=== PATIENT | female | born 1950 | race Caucasian/White ===

== ENCOUNTER 2024-05-12 20:23 | Inpatient (IN) | payer MEDICARE, SELFPAY ==
[2024-05-12] VITALS (9 sets, daily range): BP systolic 181–230; BP diastolic 61–81; BMI 29.7; BMI 28.8
[2024-05-12 14:56] LABS: % Basophils 0.9 % (0-2); % Immature Granulocytes 0.2 % (0-0.5); % Lymphocytes 16.9 % (20.5-51.1); % Monocytes 8.1 % (1.7-9.3); % Neutrophils 71.9 % (42.2-75.2); Absolute Basophils 0.1 10^3/uL (0-0.2); Absolute Eosinophils 0.2 10^3/uL (0-0.7); Absolute Lymphocytes 1.4 10^3/uL (1.2-3.4); Absolute Monocytes 0.7 10^3/uL (0.1-0.6); Absolute Neutrophils 5.9 10^3/uL (1.4-6.5); Hematocrit 29.1 % (37.0-47.0); Hemoglobin 9.2 g/dL (12.0-16.0); Mean Corp Hgb Conc. 31.6 g/dL (33.0-37.0); Mean Corpuscular Hgb 29.1 pg (27.0-31.0); Mean Corpuscular Volume 92.1 fL (81.0-99.0); Mean Platelet Volume 10.2 fL (7.4-10.4); Nucleated Red Blood Cells % 0 %; Platelet Count 323 10^3/uL (130-400); Red Blood Cell Count 3.16 10^6/uL (4.20-5.40); Red Cell Dist. Width 16.4 % (11.5-14.5); White Blood Cell Count 8.2 10^3/uL (4.8-10.8)
[2024-05-12 15:05] LABS: INR 1.32; PT 16.7 Sec (11.4-14.6)
[2024-05-12 15:17] LABS: Urine Albumin 3+ (Neg - Trace); Urine Bilirubin Negative (Negative); Urine Character Slightly Cloudy (Clear); Urine Color Yellow; Urine Glucose Negative (Negative); Urine Ketone Negative (Negative); Urine Leukocyte 1+ (Negative); Urine Nitrite Negative (Negative); Urine Occult Blood Negative (Negative); Urine Urobilinogen Negative (Neg - 1+)
[2024-05-12 15:20] LABS: ALT (SGPT) 12 U/L (0-35); AST (SGOT) 20 U/L (14-36); Albumin 3.3 g/dl (3.5-5.0); Alkaline Phosphatase 95 U/L (38-126); Blood Urea Nitrogen 23 mg/dl (7-17); Calcium 8.6 mg/dl (8.4-10.2); Carbon Dioxide 28 mmol/L (22-30); Chloride 108 mmol/L (98-107); Glucose 214 mg/dl (70-99); Lipase 86 U/L (23-300); Potassium 3.5 mmol/L (3.5-5.1); Sodium 143 mmol/L (135-145); Total Bilirubin 0.5 mg/dl (0.2-1.3); Total Protein 5.8 g/dl (6.3-8.2); eGFR 43.69
[2024-05-12 15:23] LABS: Troponin I 0.017 ng/ml
[2024-05-12 15:41] LABS: Urine Bacteria Few (Negative); Urine Red Blood Cell 0-2 /HPF (0-2); Urine Squamous Cell >30 /LPF (Few)
--- NOTE | 2024-05-12 18:48 | ED.GENMED ---
History of Present Illness
General
Chief Complaint: Chest Pain
Source: patient and spouse
Exam Limitations: none
Time Seen by Provider: 05/12/24 18:47
History of Present Illness
History of Present Illness:
73-year-old female with episodes of palpitations last evening and today. In addition episodes of chest pressure last evening and an episode recurring today. Today's episode was about 30 minutes and resolved with nitroglycerin. Patient had a
cardiac stenting done 2 months ago at [facility] and this was followed by complicated UTI. She denies current symptoms denying chest pain shortness of breath or other complaints
Past History
Past History
ED Past Medical History: HTN, Hypercholesterolemia, IDDM and Other (Anemia, Neuropathy, Fractures left foot)
ED Past Surgical History: Cardiac (Stents), Cholecystectomy, Orthopedic (Right hand surgery, Tennis elbow surgery) and Other (Endarterectomy, Bowel stents)
Social History
Tobacco: Former smoker
Alcohol: None
Personal:
Living: with family
Review of Systems
Review of Systems
All Other Systems: Not applicable
Constitutional: Denies fever
Respiratory: Denies cough
Cardiac: Denies syncope
Phy Exam
Physical Exam
Physical Exam:
GENERAL: Alert and oriented in no apparent distress
EYE: Orbits normal.
NECK: Supple, no significant adenopathy.
ENT: Pharynx without erythema
CARDIAC: Regular rate and rhythm without any obvious murmurs.
LUNGS: No respiratory distress however crackles in both bases. At times hypoxic with a good Plath
ABDOMEN: Soft, without focal tenderness or distention
NEUROLOGICAL: Alert and oriented , grossly non-focal
SKIN: Warm and dry, no rash or lesion, no discoloration, skin intact.
MUSCULOSKELETAL: No edema,no deformity.Good color
PSYCH: Normal and appropriate interaction.
Scores
Heart Score for Chest Pain Patients
STEMI patient?: No
History: Moderately Suspicious
ECG: Nonspecific Repolarization
Age: >/= 65 years
Risk Factors: >/= 3 Risk Factors or History of CAD
Troponin: </= Normal Limit
Heart Score for Chest Pain Patients: 6
Heart Score Risk: 20.3% MACE over next 6 weeks
Course
Orders/Labs/Results
Orders:
Orders
05/12/24 14:39
Electrocardiogram (*1) Urgent
Reason for Study: Chest Pain
EKG- Treatment ONCE
CR Chest - 2 Views Urgent
Comment:
Reason For Exam: respiratory distress
05/12/24 14:44
Complete Blood Count/With Diff Urgent
Comprehensive Metabolic Panel Urgent
Lipase Urgent
Prothrombin Time Urgent
Troponin I Stat
Urinalysis Reflex To Culture Urgent
Date Specimen was Collected: 05/12/24
Time Specimen was Collected: 14:39
Urine Microscopic Reflex Cult Urgent
Urine Culture Urgent
TARAH Source: U
Specimen Description:
Date Specimen was Collected: 05/12/24
Time Specimen was Collected: 14:39
Abnormal Lab Results
05/12/24
14:44
RBC 3.16 L 10^6/uL
(4.20-5.40)
Hgb 9.2 L g/dL
(12.0-16.0)
Hct 29.1 L %
(37.0-47.0)
MCHC 31.6 L g/dL
(33.0-37.0)
RDW 16.4 H %
(11.5-14.5)
Absolute Monos (auto) 0.7 H 10^3/uL
(0.1-0.6)
Lymphocytes % 16.9 L %
(20.5-51.1)
PT 16.7 H Sec
(11.4-14.6)
Chloride 108 H mmol/L
(98-107)
BUN 23 H mg/dl
(7-17)
Creatinine 1.3 H mg/dL
(0.6-1.0)
Glucose 214 H mg/dl
(70-99)
Total Protein 5.8 L g/dl
(6.3-8.2)
Albumin 3.3 L g/dl
(3.5-5.0)
Leukocyte Esterase Rfl 1+ A
(Negative)
Urine WBC (Reflex) 11-15 A /HPF
(0-5)
Urine Bacteria (Reflex) Few A
(Negative)
Urine Albumin (Reflex) 3+ A
(Neg - Trace)
05/12/24 14:44
05/12/24 14:44
Vital Signs
Initial and Last Documented VS:
Initial Vital Signs
Temp Pulse Resp BP Pulse Ox
98.8 F 88 16 181/70 93
05/12/24 14:41 05/12/24 14:41 05/12/24 14:41 05/12/24 14:41 05/12/24 14:41
Last Documented Vital Signs
Temp Pulse Resp BP Pulse Ox
98.1 F 92 19 219/70 88
05/12/24 18:43 05/12/24 18:41 05/12/24 18:41 05/12/24 18:40 05/12/24 18:41
MDM/Problems Addressed
Differential Diagnosis Includes:
Not concerned about palpitation episodes. This may have been some PAF. However recurrent episodes of chest tightness are concerning with recent stents. Pulse oxes borderline at times although suspect her lung changes are not new. She is not
describing acute infectious issues or acute CHF. Warrants inpatient cardiac workup
*Radiology
Radiology exam reviewed: radiology read reviewed (Small pleural effusions. Atelectasis or pneumonia)
*Pulse Oximetry
Patient hypoxic: no
*EKG
Interpreted by ED Provider?: Yes
Interpretation: abnormal
Comparison EKG: changes noted
Heart Rate: 93
Rate: normal
Rhythm: sinus
Merriman: normal axis
Interval: long QT
QRS Pattern: normal QRS
Ischemia: non-specific ST changes
*Critical Care Note
Total Time (30-74mins, 75-104mins- exclusive of procedures): Not Applicable
ED Attending Note
-
Portions of this chart may have been created with voice recognition software.� Occasional wrong word or��sound alike� substitutions may have occurred due to the inherent limitations of voice recognition software.
Discharge Plan
Departure
Prescriptions:
No Action
clonidine HCl 0.1 mg Tablet
0.1 mg PO DAILY PRN (Reason: SBP>180)
Rx Instructions:
pt checks her BP up to 10x per day and if SBP>180 she can take one dose
amlodipine 2.5 mg Tablet
2.5 mg PO HS
chlorthalidone 25 mg Tablet
25 mg PO HS
amlodipine 5 mg Tablet
5 mg PO DAILY
omeprazole 40 mg Capsule,Delayed Release(Dr/Ec)
40 mg PO DAILY
levothyroxine [Synthroid] 88 mcg Tablet
88 mcg PO DAILY AT 0700
timolol 0.5 % Drops
1 drp BOTH EYES HS
Rx Instructions:
each eye
aspirin 81 mg Tablet
81 mg PO DAILY
nebivolol [Bystolic] 10 mg Tablet
10 mg PO DAILY
cholecalciferol (vitamin D3) [Vitamin D3] 50 mcg (2,000 unit) Capsule
2,000 unit PO DAILY
Eliquis 2.5 mg Tablet
2.5 mg PO BID
Otezla 30 mg Tablet
30 mg PO BID
Repatha Syringe 140 mg/mL Syringe
140 mg SC Q2W
Lokelma 10 gram Powder In Packet
10 g PO MOWEFR
losartan 100 mg tablet
100 mg PO HS
Rx Instructions:
dose has varied due to hyperkalemia
rosuvastatin 5 mg tablet
5 mg PO QPM
Humulin R Regular U-100 Insuln 100 unit/mL solution
0 sliding scale dose SC PRN PRN (Reason: diab)
Rx Instructions:
patient own insulin pump
(DME) insulin pump cart,20 units/day Cartridge
SC
Patient Comments:
Medtronic 780G insulin pump with REGULAR insulin, Quick Set with Guardian sensor
Rx Instructions:
24 hour basal insulin 18.7
Active insulin 2 hours
cefdinir 300 mg capsule
300 mg PO Q12H 3 Days Qty: 6 0RF
azithromycin 500 mg tablet
500 mg PO DAILY 3 Days Qty: 3 0RF
Interventions
Interventions:
*Risk Screen - Suicide Last Done: 05/12/24 14:41
*General Assessment Last Done: 05/12/24 18:45
*Neglect/Abuse Screening Last Done: 05/12/24 14:41
*ED- Fall Risk Assessment Last Done: 05/12/24 18:46
*ED COVID-19 Vaccine History Last Done: 05/12/24 18:46
Discharge Date and Time
Print Language: SPANISH
--- NOTE | 2024-05-12 19:24 | EDRN ---
Pt says this is her 4th hospital visit since February. First time she had a GIB, second visit she had cp and sob and was admitted. Pt says she had a CA the following day and had 2 stents placed. Pt had a snow for 12 days, got a uti and was on 3
different abx that did not help. Pt ended up back in [facility] where her blood sugars were in the 700's which pt has never experienced previously. While there, pt says she fell out of bed, hit her head and was told she had a stroke. Pt was in
[facility] for 2 weeks. Last night, pt noted heart palpitations, chest heaviness and 'a little' sob. Pt says she did not have cp. Pt noted same symptoms today and called her who was in the grocery store. He came home and called 911.
Pt reports 'I just didn't feel right.' Pt was told by medic she was in afib which is new for pt. While en route to [facility], pt says she was told she went in and out of afib. 'I never knew what it felt like but now I do.' Pt feels if she moves
around 'it aggravates it.' Pt has chronic swelling in bilateral LE which is no worse than usual. Pt also has chronic nausea and dizziness. 'I feel fine now.' Pt denies cp, sob (now), abd pain, vomiting, fever/chills/cough, urinary symptoms,
weakness.
--- NOTE | 2024-05-12 20:03 | HPS.HSE ---
Family Physician
-
Family Physician: Wei Hall
Chief Complaint
-
Palpitations, SOB
History of Present Illness
Patient is a 73y F with PMH significant for ASCVD, hypertension and DM-I who presents to ED complaining of palpitations and SOB since last PM. Patient is typically followed at [facility] where she has been hospitalized multiple times
since February. She had a diverticular bleed in February. In March she had a NSTEMI and underwent PTCA with placement of 2 stents. That admission was complicated by development of CAUTI. Patient had a subsequent admission for diabetic emergency
with glucose values > 700 (? DKA). She reportedly also suffered a stroke during that admission. She was discharged from that hospital stay on 04/21.
Patient states that she has had lightheadedness, dizziness, persistent nausea and poor appetite since that time.
Last PM she noted racing heartbeat sensation in her chest. She had some associated SOB which she states was 'mild'. She describes a 'sensation' in the middle of her chest - but denies chest pain, pressure, etc.
Her symptoms resolved and she was able to go to sleep. Today after lunch her symptoms recurred and EMS was called.
Patient states that EMS appreciated A-Fib on initial EKG - there is no record of this tracing and it reportedly resolved spontaneously.
At the time of my examination, patient is resting comfortably in the ED with no active symptoms.
Patient has LE swelling which she states is new for her. She was previously on torsemide 20mg BID which was stopped at some point in the past few months during her hospital stays.
Medical History
Past Medical History
Past Medical History: Reports Other
Additional Past Medical History:
ASCVD (CAD, CVA, Carotid Disease)
Hypertension
DM-I
CKD III
Chronic Anemia
Diverticular Disease
Hypothyroidism
Past Surgical History: Reports Other
Additional Past Surgical History:
PTCA with Stent (March 2024)
Bilateral CEA
Left Thyroidectomy
Cholecystectomy
Appendectomy
Left Knee Surgery (Benign Tumor)
Bilateral Hand Surgeries
Social History
Tobacco: Former Smoker (Quit smoking 10 years ago. > 40 pack years total use.)
Alcohol: None
Drug: None
Personal:
Living: With Family
Family History
Family History: Other (Father: Throat Cancer)
Allergies / Home Medications
Allergies reflects when Allergies were last updated in [employer].
Home Medications with original date entered in [employer]
Allergy/Medication List:
Allergies
Allergy/AdvReac Type Severity Reaction Status Date / Time
No Known Allergies Allergy Verified 05/12/24 14:38
Home Medications
apremilast 30 mg tablet (Otezla) 30 mg PO DAILY pustulous psoriasis 01/16/23
cholecalciferol (vitamin D3) 50 mcg (2,000 unit) capsule (Vitamin D3) 2,000 unit PO DAILY Supplement 01/16/23
clonidine HCl 0.1 mg tablet 0.1 mg PO DAILY PRN SBP>170 01/16/23
evolocumab 140 mg/mL subcutaneous syringe (Repatha Syringe) 140 mg SC Q2W High Cholesterol 01/16/23
levothyroxine 88 mcg tablet (Synthroid) 88 mcg PO DAILY AT 0700 Thyroid 01/16/23
omeprazole 40 mg capsule,delayed release 40 mg PO DAILY Gastrointestinal Issue 01/16/23
timolol 0.5 % eye drops 1 drp BOTH EYES HS glaucoma 01/16/23
insulin regular human 100 unit/mL injection solution (Humulin R Regular U-100 Insulin) 0.8 - 1 unit SC DAILY 01/17/23
apixaban 5 mg tablet (Eliquis) 5 mg PO BID 05/12/24
carvedilol 12.5 mg tablet 12.5 mg PO BID 05/12/24
hydralazine 50 mg tablet 50 mg PO TID 05/12/24
losartan 25 mg tablet 25 mg PO DAILY 05/12/24
rosuvastatin 20 mg tablet 20 mg PO QPM 05/12/24
Review of Systems
-
History Source: Patient
A 12 point ROS was completed and negative except as noted: Yes
Constitutional: Reports Fatigue; Denies Fever or Chills
EENT: Denies Sore Throat
Respiratory: Reports Trouble Breathing; Denies Cough
Cardiac: Reports Chest Pain and Palpitations; Denies Diaphoresis or Syncope
Abdomen/GI: Reports Nausea and Anorexia; Denies Abdominal Pain, Vomiting or Diarrhea
: Denies Dysuria or Frequency
Musculoskeletal: Reports Edema; Denies Joint Pain
Neurological: Reports Dizzy; Denies Headache
Psych: Denies Depression or Anxiety
Physical Exam
Vital Signs
Vital Signs
Temp Pulse Resp BP Pulse Ox
98.1 F 92 19 219/70 88
05/12/24 18:43 05/12/24 18:41 05/12/24 18:41 05/12/24 18:40 05/12/24 18:41
Physical Exam
General: Other (73y F in no acute distress.)
HEENT: Moist mucous membranes and PERRLA
Respiratory: Other (Decreased at bases and bibasilar rales about 1/2 up. No wheezes.)
Cardiac: S1/S2 and Regular Rhythm; No Murmur
GI: Soft, Non Tender, Non Distended and Normal Bowel Sounds
Musculoskeletal: No Clubbing, No Cyanosis and Other (2+ pitting edema b/l LEs.)
Neuro: AO x 3
Laboratory Results
-
05/12/24 14:44
05/12/24 14:44
Laboratory Results
PT 16.7 Sec (11.4-14.6) H 05/12/24 14:44
INR 1.32 05/12/24 14:44
Total Bilirubin 0.5 mg/dl (0.2-1.3) 04/05/25 14:44
AST 20 U/L (14-36) 05/12/24 14:44
ALT 12 U/L (0-35) 05/12/24 14:44
Alkaline Phosphatase 95 U/L (38-126) 05/12/24 14:44
Troponin I 0.017 ng/ml 05/12/24 14:44
Lipase 86 U/L (23-300) 05/12/24 14:44
Impression/Plan
-
A/P: Patient is a 73y F with PMH significant for ASCVD, HTN and DM-I who presents to ED complaining of palpitations and SOB.
Acute HF - Unknown Type
Acute Hypoxemic Respiratory Failure secondary to the above
- Admit for further evaluation and treatment.
- Patient presents with dyspnea, chest 'discomfort' and palpitations.
- CXR shows b/l effusions and rales appreciated on exam.
- b/l LE edema and patient recently taken off of torsemide 20mg BID.
- O2 saturations in the 80s on room air - improved with supplemental O2.
- BP markedly elevated c/w volume overload.
- IV Lasix BID. Add K supplementation given borderline potassium.
- Update Echo.
- Send for recent records from [facility].
- Cardiology evaluation for additional recommendations.
- Follow for clinical improvement.
ASCVD
Chest Discomfort
- Troponin is 'non-negative'. EKG with non-specific ST changes - not changed from 01/2023 tracing.
- Continue current med regimen including Eliquis, carvedilol, statin, etc.
- Follow troponin to peak.
- Obtain HR records / Cardio eval as noted above.
Palpitations
Paroxysmal Atrial Fibrillation - suspected
- Unclear etiology. Verbal report of 'A-Fib' noted on EMS strips but no confirmation of this.
- Monitor on tele overnight.
- Patient indicates that she is to see Dr. Britton for Watchman evaluation - so seemingly had confirmed A-Fib at some point...
- Continue carvedilol and Eliquis as noted above.
Hypertension
- BP significantly elevated in the ED - though reportedly not out of the ordinary for this patient.
- Continue usual home regimen.
- IV Lasix for diuresis as noted above.
- PRN clonidine for very high BP.
- Adjust regimen as needed for improved control.
DM-I
- Stable. Follow glucose. Patient to use own insulin pump which is currently in place.
- Update A1C.
CKD III
- Stable. Renal function appears at / near known baseline.
- Follow for any changes with diuresis.
Anemia of Chronic Disease
- Stable. Hgb at / near known baseline.
- Follow for any changes.
Dizziness / Nausea
- Ongoing symptoms since most recent admission at [facility].
- Had fall with head trauma during that hospital stay and also dx with CVA.
- ? persistent symptoms due to CVA (need to check location of insult with [facility] records) vs post-concussion syndrome.
- PT evaluation.
- Supportive care, antiemetics, etc.
Hypothyroidism
- Continue current T4 replacement.
DVT Prophylaxis: On Eliquis
Code Status: Full
[2024-05-12 20:10] LABS: NT-proBNP 4490 pg/ml
[2024-05-12] MEDS: LASIX 40 MG IV (20:36)
--- NOTE | 2024-05-12 20:42 | EDRN ---
Pt says hospitalist put pt on oxygen - pt denies sob. Increased O2 from 1 lpm to 2 lpm pulse ox currently 94%
--- NOTE | 2024-05-12 22:20 | PTCARENOTE ---
Received pt from ED. placed on monitor, NSR. vital signs taken. Elevated BP, will give PM meds, see MAR. Oriented to room. Call pimentel within reach.
[2024-05-12] MEDS: ELIQUIS 5 MG PO (22:49)
[2024-05-12] MEDS: COREG 12.5 MG PO (22:49)
[2024-05-12] MEDS: APRESOLINE 50 MG PO (22:50)
[2024-05-12 22:56] LABS: Glucose - Point of Care 180 mg/dl (70-99)
[2024-05-12 23:33] LABS: Troponin I 0.026 ng/ml
[2024-05-12 23:52] LABS: TSH Reflex To Free T4 1.72 uIU/ml (0.47-4.68)
[2024-05-13] VITALS (23 sets, daily range): BP systolic 95–201; BP diastolic 37–85; PULSE 82–91; O2SAT 96; BMI 28.2
[2024-05-13] MEDS: CATAPRES 0.1 MG PO (00:25)
--- NOTE | 2024-05-13 02:28 | PTCARENOTE ---
Pt continues to have elevated BP after PM meds given. BP of 201/58 and HR of 83. Licha Siddiqui NP made aware. Manual BP taken was 198/66. PRN clonidine given. BP rechecked and is 116/40. Pt resting in bed comfortably and states she just wants to
get some sleep. 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 Fall precautions maintained.
[2024-05-13 04:12] LABS: Glucose - Point of Care 137 mg/dl (70-99)
--- NOTE | 2024-05-13 04:14 | PTCARENOTE ---
Addendum entered by Sienna Huizar RN 05/13/24 05:29:
rechecked BG 219. pt stated feeling better.
Addendum entered by Sienna Huizar RN 05/13/24 04:28:
pt called a few minutes later and says she is now symptomatic. states she feels hot and sweaty and that is how she gets when she is hypoglycemic. finger stick BG was 133. pt requesting an orange juice. provided. pt states her sensor is due to be
changed tomorrow. will recheck in an hour.
Original Note:
pt called because her glucose monitor was alerting her blood sugar was low. Pts own device showed BG 45. Finger stick read 137. pt denies any symptoms. Pt asked to recheck BG in an hour.
[2024-05-13 04:24] LABS: Glucose - Point of Care 133 mg/dl (70-99)
[2024-05-13] MEDS: SYNTHROID 88 MCG PO (05:20)
[2024-05-13 05:27] LABS: Glucose - Point of Care 219 mg/dl (70-99)
[2024-05-13 05:46] LABS: Hematocrit 26.9 % (37.0-47.0); Hemoglobin 8.7 g/dL (12.0-16.0); Mean Corp Hgb Conc. 32.3 g/dL (33.0-37.0); Mean Corpuscular Hgb 29.4 pg (27.0-31.0); Mean Corpuscular Volume 90.9 fL (81.0-99.0); Mean Platelet Volume 10.1 fL (7.4-10.4); Platelet Count 304 10^3/uL (130-400); Red Blood Cell Count 2.96 10^6/uL (4.20-5.40); Red Cell Dist. Width 16.8 % (11.5-14.5); White Blood Cell Count 7.8 10^3/uL (4.8-10.8)
[2024-05-13 06:03] LABS: Blood Urea Nitrogen 21 mg/dl (7-17); Calcium 8.4 mg/dl (8.4-10.2); Carbon Dioxide 30 mmol/L (22-30); Chloride 106 mmol/L (98-107); Estimated Creatinine Clearance 37 ml/min; Glucose 213 mg/dl (70-99); HDL Cholesterol 57 mg/dl; LDL Cholesterol, Calculated -1 mg/dl; Magnesium 1.5 mg/dl (1.6-2.3); Potassium 3.8 mmol/L (3.5-5.1); Sodium 142 mmol/L (135-145); Total Cholesterol 69 mg/dl (50-199); Triglyceride 66 mg/dl (10-149); Very Low Density Lipoprotein 13 mg/dl (0-30); eGFR 43.69
--- NOTE | 2024-05-13 06:04 | PTCARENOTE ---
Orthos completed at 0245. pt stated she felt lightheaded and dizzy. positive orthos. current BP 157/61. pt denies any lightheadedness at this time. up to commode. educated to call for assistance. call pimentel within reach.
[2024-05-13 06:16] LABS: Troponin I 0.035 ng/ml
[2024-05-13 08:20] LABS: Glucose - Point of Care 162 mg/dl (70-99)
[2024-05-13] MEDS: ELIQUIS 5 MG PO ×2 (08:27→20:29)
[2024-05-13] MEDS: COREG 12.5 MG PO (08:27)
[2024-05-13] MEDS: PATIENT'S OWN INSULIN PUMP 5.6 UNITS SC (08:27)
[2024-05-13] MEDS: PROTONIX 40 MG PO (08:27)
[2024-05-13] MEDS: APRESOLINE 50 MG PO ×3 (08:27→22:13)
[2024-05-13] MEDS: COZAAR 25 MG PO (08:27)
[2024-05-13] MEDS: LASIX 40 MG IV ×2 (08:28→16:17)
[2024-05-13] MEDS: KCL ELIXIR 40 MEQ PO (08:29)
[2024-05-13 09:36] LABS: Glycohemoglobin (HgbA1c) 6.1 % (4.0-5.6)
--- NOTE | 2024-05-13 10:38 | CON.CAR ---
Consultation
Consultation Request
Date/Time Consultation Requested: 05/13/2024 7: 00
Date/Time Consultation Performed: 05/13/2024 10: 00
Requesting Provider: Tamie
Performing Provider: Ama
Reason for Consultation: chf
Medical History
-
Chief Complaint: Palpitations
History of Present Illness:
Haleigh is a history of hypertension, hypercalcemia, diabetes, CVA, atrial fibrillation, CAD status post stent of proximal circumflex and proximal first diagonal in March 2024. She had been scheduled to see our group to discuss a Watchman. She
presents with complaints of palpitations. There also was chest pain which has resolved. Reportedly an ambulance she was found to be in A-fib which spontaneously reverted to sinus rhythm. Cardiology is consulted for CHF.
Past Medical History
Past Medical History: Other (See HPI, also orthostatic hypotension/syncope, hypothyroidism, psoriasis, gallstones, glaucoma, cataract, claudication/PAD, drug-eluting stent in December 2014)
Past Surgical History: Other (Cholecystectomy, cataract extractions, Linq removal, SFA left side angioplasty)
Social History
Tobacco: Former Smoker
Alcohol: None
Drug: None
Personal:
Living: With Family
Employment: Retired
Family History
Family History: Other (No premature coronary artery disease)
Allergies / Home Medications
Allergy/AdvReac Type Severity Reaction Status Date / Time
No Known Allergies Allergy Verified 05/12/24 14:38
�Medication �Instructions �Recorded �Confirmed �Type
apremilast 30 mg tablet (Otezla) 30 mg PO DAILY pustulous psoriasis 01/16/23 05/12/24 History
cholecalciferol (vitamin D3) 50 2,000 unit PO DAILY Supplement 01/16/23 05/12/24 History
mcg (2,000 unit) capsule (Vitamin
D3)
clonidine HCl 0.1 mg tablet 0.1 mg PO DAILY PRN SBP>170 01/16/23 05/12/24 History
evolocumab 140 mg/mL subcutaneous 140 mg SC Q2W High Cholesterol 01/16/23 05/12/24 History
syringe (Repatha Syringe)
levothyroxine 88 mcg tablet 88 mcg PO DAILY AT 0700 Thyroid 01/16/23 05/12/24 History
(Synthroid)
omeprazole 40 mg capsule,delayed 40 mg PO DAILY Gastrointestinal 01/16/23 05/12/24 History
release Issue
timolol 0.5 % eye drops 1 drp BOTH EYES HS glaucoma 01/16/23 05/12/24 History
insulin regular human 100 unit/mL 0.8 - 1 unit SC DAILY 01/17/23 05/12/24 History
injection solution (Humulin R
Regular U-100 Insulin)
apixaban 5 mg tablet (Eliquis) 5 mg PO BID 05/12/24 05/12/24 History
carvedilol 12.5 mg tablet 12.5 mg PO BID 05/12/24 05/12/24 History
hydralazine 50 mg tablet 50 mg PO TID 05/12/24 05/12/24 History
losartan 25 mg tablet 25 mg PO DAILY 05/12/24 05/12/24 History
rosuvastatin 20 mg tablet 20 mg PO QPM 05/12/24 05/12/24 History
Review of Systems
-
History Source: Patient
All other systems: Negative unless noted
Constitutional: No Symptoms
EENT: No Symptoms
Respiratory: No Symptoms
Cardiac: Chest Pain and Palpitations
Abdomen/GI: No Symptoms
: No Symptoms
Musculoskeletal: No Symptoms
Skin: No Symptoms
Neurological: No Symptoms
Endocrine: No Symptoms
Hematologic/Lymphatic: No Symptoms
Physical Exam
Vital Signs
Temp Pulse Resp BP Pulse Ox
97.8 F 82 18 191/69 96
05/13/24 07:54 05/13/24 07:54 05/13/24 07:54 05/13/24 07:54 05/13/24 07:13
Lab Results
05/13/24 05:14
05/13/24 05:14
Troponin I 0.035 ng/ml H* D 05/13/24 05:14
Qgd-[id number] Pept 4490 pg/ml 05/12/24 14:44
General: Well developed, well nourished in NAD.
Neck: Supple, no JVD, HJR, carotids +2 B/L, no bruits bilaterally.
Heart: Non displaced PMI, RRR, no murmurs, No S3, S4, no rubs.
Lungs: Clear to auscultation bilaterally, no wheeze, rhonchi, rubs bilaterally,
normal expiratory phase.
Abdomen: Normal bowel sounds, soft, non-tender, non-distended.
Extremities: No clubbing, cyanosis or edema bilaterally.
Neuro: Grossly nonfocal, awake, alert and oriented x3.
Impression / Plan
-
Impression:
Acute diastolic CHF
Paroxysmal atrial fibrillation reported by EMS but spontaneously converted to sinus rhythm
Chest pain
History of CVA
History of CAD status post circumflex and diagonal stent in March 2024
Hypertension
Hyperlipidemia
Diabetes
Hypothyroidism
Psoriasis
History of PAD status post left SFA angioplasty
Echocardiogram 03/13/2024: Moderate left pleural effusion, ejection fraction 60 to 65%
Lexiscan sestamibi stress test August 2023: Normal myocardial perfusion scan
Plan:
She has evidence of CHF on examination but symptoms were more palpitations which may have been A-fib
Present time she remains in sinus rhythm
Will continue IV Lasix for CHF and check echo
If recurrent A-fib may need to consider adding antiarrhythmic therapy but will increase Coreg for now.
Data Reviewed
-
EKG: Tracing Personally Visualized and interpreted
Radiology: Report Reviewed by me
Medical Tests (Nuc Med, Echo etc): Report Reviewed by me
Labs: Labs Reviewed by me
Old Records: Reviewed
[2024-05-13 10:56] LABS: Troponin I 0.026 ng/ml
[2024-05-13] MEDS: KCL 20 MEQ PO (10:57)
--- NOTE | 2024-05-13 11:38 | W.PN.HOSP.TC ---
Today's Communication/Plan
-
IV Lasix
Increased Coreg
Wean off O2
Daily weight
BMP in AM
replace Mg
Assessment / Plan
Assessment / Plan
Physical Exam
General: Other (73y F in no acute distress.)
HEENT: Moist mucous membranes and PERRLA
Respiratory: limited, less rales, No wheezes.)
Cardiac: S1/S2
GI: Soft, Non Tender, Non Distended and Normal Bowel Sounds
Musculoskeletal: No Clubbing, No Cyanosis and less edema
Neuro: AO x 3, she follows commands, non focal
Psych: calm, no agitation.
Patient is a 73y F with PMH significant for ASCVD, HTN and DM-I who presents to ED complaining of palpitations and SOB.
Acute on chronic diastolic heart failure
She is feeling better
c/w IV Lasix BID
Add KCl
Per cardiology: Echocardiogram 03/13/2024: Moderate left pleural effusion, ejection fraction 60 to 65%. 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
# Acute Hypoxemic Respiratory Failure , now resolving
off Nasal O2 for now, /w nursing staff, will keep monitoring
# Hypomagnesemia, replaced
# CAD
History of CAD status post circumflex and diagonal stent in MarchSCVD
No chest pain
Mild troponin, Peak 0.035 then came down consistent with nonischemic myocardial injury secondary to heart failure
#Paroxysmal Atrial Fibrillation - resolved.
- Patient indicates that she is to see Dr. Britton for Watchman evaluation -
- Continue carvedilol and Eliquis
#Primary hypertension
Uncontrolled, will increase carvedilol dose
#DM-I Follow glucose. Patient to use own insulin pump which is currently in place.
- Update A1C.
#CKD IIIb
No flank pain, no hematuria
Monitor renal function while on diuretic.
#Anemia of Chronic Disease
She reports previous blood transfusions as needed
Goal to keep hemoglobin more than 8
# History of CVA
#Hypothyroidism
- Continue current treatment
# Hyperlipidemia
#Psoriasis
ok to use Otezla
# History of PAD status post left SFA angioplasty
DVT Prophylaxis: On Eliquis
Code Status: Full
Total time spent to see the patient, examine the patient, review data and lab results, discuss treatment plan with patient, nursing staff, consultants around 55 minutes
Anticipated Discharge: > 48 hours
Subjective/Interval History
-
Date of Service: May 13, 2024
No chest pain
No sob
Feels better overall
Objective Data
-
Labs:
Laboratory Results
05/13/24
05:14
WBC 7.8
Hgb 8.7 L
Hct 26.9 L
Plt Count 304
Sodium 142
Potassium 3.8
Chloride 106
Carbon Dioxide 30
BUN 21 H
Creatinine 1.3 H
Glucose 213 H
Calcium 8.4
Vital Signs:
Vital Signs
Temp Pulse Resp BP Pulse Ox
97.8 F 82 18 191/69 96
05/13/24 07:54 05/13/24 07:54 05/13/24 07:54 05/13/24 07:54 05/13/24 07:13
I&O
05/12/24 05/13/24 05/14/24
06:59 06:59 06:59
Output Total 925 / 925 300 / 300
Balance -925 / -925 -300 / -300
[2024-05-13 11:57] LABS: Glucose - Point of Care 179 mg/dl (70-99)
[2024-05-13] MEDS: PATIENT'S OWN INSULIN PUMP 7 UNITS SC (12:22)
[2024-05-13] MEDS: MAGNESIUM SULFATE 102 GRAMS IV (14:11)
[2024-05-13] MEDS: NON-FORMULARY ITEM PO (16:16)
--- NOTE | 2024-05-13 16:50 | PTCARENOTE ---
05/13/24 Received patient from previous shift in bed resting comfortably. Pt with no complaints of chest pain, palpitations or shortness of breath. Pt with +1 BLE/ankle edema. Pt on cardiac exercise specialist NSR, on 2L NC -weaned off to room air. Pt's Mag was
1.6-replaced w/Mag rider. Pt OOB chair most of day with legs elevated. Blood sugars checked and coverage given via patients insulin pump. labs to be rechecked in AM. BP has been controlled SBP 170's.
[2024-05-13 17:16] LABS: Glucose - Point of Care 216 mg/dl (70-99)
[2024-05-13] MEDS: CRESTOR 20 MG PO (17:24)
[2024-05-13] MEDS: PATIENT'S OWN INSULIN PUMP 7.35 UNITS SC (17:34)
[2024-05-13] MEDS: COREG 25 MG PO (20:29)
--- NOTE | 2024-05-13 21:15 | PTCARENOTE ---
Patient received at change of shift resting in the bed. Sinus rhythm with prolonged QT on telemetry. Oxygen saturation 94% on room air. Positive orthostatics. Patient denies feeling lightheaded or dizzy. Denies chest pain. Plan of care discussed
with patient. Call pimentel within reach. Care ongoing.
[2024-05-13 22:06] LABS: Glucose - Point of Care 173 mg/dl (70-99)
[2024-05-13] MEDS: TIMOPTIC 0.5% OPHTHALMIC SOLUTION 1 DROP BOTH EYES (22:11)
[2024-05-13] MEDS: PATIENT'S OWN INSULIN PUMP SC (22:11)
[2024-05-14] VITALS (12 sets, daily range): BP systolic 110–181; BP diastolic 36–64; PULSE 80–81; BMI 28.5
[2024-05-14 04:02] LABS: Hematocrit 26.6 % (37.0-47.0); Hemoglobin 8.5 g/dL (12.0-16.0); Mean Corpuscular Hgb 28.9 pg (27.0-31.0); Mean Corpuscular Volume 90.5 fL (81.0-99.0); Mean Platelet Volume 10.4 fL (7.4-10.4); Platelet Count 298 10^3/uL (130-400); Red Blood Cell Count 2.94 10^6/uL (4.20-5.40); Red Cell Dist. Width 16.6 % (11.5-14.5); White Blood Cell Count 7.6 10^3/uL (4.8-10.8)
[2024-05-14 04:28] LABS: Blood Urea Nitrogen 26 mg/dl (7-17); Calcium 8.8 mg/dl (8.4-10.2); Carbon Dioxide 30 mmol/L (22-30); Chloride 104 mmol/L (98-107); Estimated Creatinine Clearance 32 ml/min; Glucose 144 mg/dl (70-99); Magnesium 1.8 mg/dl (1.6-2.3); Potassium 4.1 mmol/L (3.5-5.1); Sodium 141 mmol/L (135-145)
[2024-05-14] MEDS: TYLENOL 650 MG PO (05:18)
[2024-05-14] MEDS: SYNTHROID 88 MCG PO (05:19)
[2024-05-14 08:08] LABS: Glucose - Point of Care 165 mg/dl (70-99)
[2024-05-14] MEDS: LASIX 40 MG IV (08:09)
[2024-05-14] MEDS: PROTONIX 40 MG PO (08:10)
[2024-05-14] MEDS: COREG 25 MG PO (08:10)
[2024-05-14] MEDS: NON-FORMULARY ITEM 30 MG PO (08:10)
[2024-05-14] MEDS: ELIQUIS 5 MG PO (08:10)
[2024-05-14] MEDS: APRESOLINE 50 MG PO (08:10)
[2024-05-14] MEDS: COZAAR 25 MG PO (08:10)
[2024-05-14] MEDS: KCL 20 MEQ PO (08:10)
[2024-05-14] MEDS: PATIENT'S OWN INSULIN PUMP 4.8 UNITS SC (08:14)
--- NOTE | 2024-05-14 09:17 | W.PN.CARDCBS ---
Addendum entered and electronically signed by Charles Serrato MD 05/14/24 11:38:
I saw and examined the patient.
The RECORDS AND TAPE RECORDINGS ENGINEER or PA's note was reviewed and I agree with the note.
Comment: General: Well developed, well nourished in NAD.
Neck: Supple, no JVD, HJR, carotids +2 B/L, no bruits bilaterally.
Heart: Non displaced PMI, RRR, no murmurs, No S3, S4, no rubs.
Lungs: Clear to auscultation bilaterally, no wheeze, rhonchi, rubs bilaterally,
normal expiratory phase.
Extremities: No clubbing, cyanosis or edema bilaterally.
Neuro: Grossly nonfocal, awake, alert and oriented x3.
Stable cardiology status for discharge. Creatinine has worsened slightly to 1.5. Will check repeat blood work on . If creatinine improved then start torsemide 20 mg daily. Continue to hold losartan.
Original Note:
Today's Communication / Plan
-
Hold losartan and Lasix
Repeat labs as an outpatient on Tuesday, if Cre improved then start torsemide 20 mg daily and later restart losartan
Cardiology appt for watchman eval on 05/17/24
Impression / Plan
-
PCP: Dr. Wei Hall
Card: Dr. Hammonds
Impression:
Admitted with palpitations and SOB 05/12/24
Acute HFpEF
Paroxysmal atrial fibrillation reported by EMS but spontaneously converted to sinus rhythm
no Afib on [facility] [id number]
reportedly with paroxysmal Afib during admissions to [facility] 2024
h/o CVA
acute B/L cerebellar infarcts at [facility]
Elevated Troponin
Chest pain
CAD
s/p PTCA and stent diastal RCA 2014
s/p cath with stable CAD and patent RCA stent 2016
s/p NSTEMI, PTCA and stent Diag-1, PTCA and stent prox Circ 03/11/24
Hypertension
Hyperlipidemia
Diabetes
Hypothyroidism
Psoriasis
History of PAD status post left SFA angioplasty
Lexiscan sestamibi stress test August 2023: Normal myocardial perfusion scan
Echo� 03/20/23: TTE. Normal chamber sizes. LF systolic function is normal. LVEF estimated 60-65%. Normal RV systolic function.
Echo 08/23/23: EF 60% with grade 1 diastolic dysfunction, normal RV function, no significant valvular disease is detected
Echo 03/13/2024: EF 60-65%. LV systolic function is normal.�Moderate left pleural effusion, ejection fraction 60 to 65%
Plan:
-Patient came to ER with palpitations and SOB and was admitted with paroxysmal Afib and acute HFpEF.
-Patient had admission to [facility] for NSTEMI and PCI 03/2024 and then for DKA 04/2024. Patient was previously on torsemide 20 mg BID, but this was stopped during her NSTEMI admission after she developed KELLY. Patient was then given IVFs in the setting of
DKA admission. Patient reports weight as high as 171 lbs. this week at home.
-Weight is down to 160 lbs on 05/14/24. Patient was diuresed with Lasix 40 mg IV BID.
-Cre up to 1.5 on 05/14/24. Will hold losartan and Lasix starting 05/14/24
-Patient is asking for d/c to home. Symptomatically improved. Losartan should be held upon d/c and repeat labs as an outpatient.
-Pending outpatient labs can restart losartan and consider adding back torsemide 20 mg daily.
-EF was 60% by echo 03/2024.
-Outpatient dose of Coreg increased to 25 mg BID
-Holding losartan for elevated Cre
-Patient is not chronically on SGLT2 due to having DM 1
-Patient with known paroxysmal Afib, none seen on tele this admission as reviewed by me 05/14/24, but was in Afib in the ambulance and also had Afib during her admissions to [facility] 03/2024 and 04/2024. Cont higher dose of Coreg for now.
-Patient previously had a Linq in place from 2019 until 2022 that never showed Afib
-Remains on Eliquis 5 mg BID (age 73, Cre 1.5, wt 73 kg)
-Patient is scheduled to see Dr. Iglesia Britton in the office 05/17/24 to discuss Watchman given h/o GIB and now requiring OAC due to pAfib and B/L cerebellar CVA.
-Reviewed with hospitalist attending, d/c 05/14/24 and cardiology f/u arranged
Progress Note - Television News Video Editor
Subjective
Date of Service: May 14, 2024
Supine in bed with no orthopnea, feels well and asking to go home
Objective
Labs:
05/14/24 03:17
05/14/24 03:17
Labs
Hgb 8.5 g/dL (12.0-16.0) L 05/14/24 03:17
Hct 26.6 % (37.0-47.0) L 05/14/24 03:17
Plt Count 298 10^3/uL (130-400) 05/14/24 03:17
PT 16.7 Sec (11.4-14.6) H 05/12/24 14:44
INR 1.32 05/12/24 14:44
Sodium 141 mmol/L (135-145) 05/14/24 03:17
Potassium 4.1 mmol/L (3.5-5.1) 05/14/24 03:17
BUN 26 mg/dl (7-17) H 05/14/24 03:17
Creatinine 1.5 mg/dL (0.6-1.0) H 05/14/24 03:17
Glucose 144 mg/dl (70-99) H 05/14/24 03:17
Troponins
05/12/24 05/12/24 05/13/24
14:44 22:48 05:14
Troponin I 0.017 0.026 0.035 H* D
05/13/24
10:01
Troponin I 0.026 D
Vital Signs and I&O:
Vital Signs
Temp Pulse Resp BP Pulse Ox
98.3 F 82 20 163/54 94
05/14/24 07:15 05/14/24 08:06 05/14/24 07:15 05/14/24 08:06 05/14/24 07:15
Vital Signs
Temp Pulse Resp BP Pulse Ox
98.3 F 82 20 163/54 94
05/14/24 07:15 05/14/24 08:06 05/14/24 07:15 05/14/24 08:06 05/14/24 07:15
Intake & Output
05/12/24 05/13/24 05/14/24 05/15/24
06:59 06:59 06:59 06:59
Output Total 925 / 925 1125 / 1125
Balance -925 / -925 -1125 / -1125
Physical Exam
Physical Exam
GEN: NAD. AAOx3
HEENT:MMM
LUNGS: RA. Clear anterolaterally without wheeze
CV: SR on tele. Reg
ABD: ND
EXT: Trace nonpitting B/L LE edema
NEURO: Gross non-focal
SKIN: No rash
--- NOTE | 2024-05-14 09:47 | PTCARENOTE ---
Assumed care at 0700. AOx3. NSR HR 80s on telemetry. BP elevated prior to AM meds, 173/61, 163/54. BP trending down after scheduled medications. Orthostatic BP obtained, positive tilt, patient denies feelings of lightheadedness/dizziness. Plan of
care ongoing.
[2024-05-14 11:46] LABS: Glucose - Point of Care 212 mg/dl (70-99)
[2024-05-14] MEDS: PATIENT'S OWN INSULIN PUMP 7.7 UNITS SC (11:46)
--- NOTE | 2024-05-14 13:05 | W.HF.CON ---
Heart Failure
- LV Function
Left ventricular function study result: LV Ejection fraction >/= 50%
Ejection Fraction Percentage: 60
- ARNI
Patient already on ARNI: No
Heart Failure ARNI Not Indicated: LV Ejection Fraction >/= 40%
- ACEI/ARB
Patient already on ACEI/ARB: No
Heart Failure ACEI/ARB Not Indicated: LV Ejection Fraction > 40%
- Beta Selwny
Patient already on Evidence Based Beta Selwyn: Yes
- Mineralocorticord Receptor Antagonist
Patient already on MRA: No
Heart Failure MRA Not Indicated: LV Ejection Fraction > 40%
- SGLT-2 Inhibitor
Patient already on SGLT-2 Inhibitor: No
Heart Failure SGLT-2 Inhibitor Contraindication: Type 1 Diabetes
- Afib Anticoagulation
Patient already on Anticoagulation for Afib: Yes
- NYHA CHF Classification
NYHA CHF Classification Level: Class III - Symptoms w/ min exertion, interferes w/ nml daily activity
- ACC/AHA Stage
ACC/AHA Stage: Stage C: Symptomatic Heart Failure
--- NOTE | 2024-05-14 13:46 | CM ---
spoke to pt in room, she is prev indep, lives with her husb in a split level home with no steps to enter. she has a cane and a walker to use if needed. she is current with [facility], referral faxed to resume care, pt agreeable. plan is for dc to home
today.
--- NOTE | 2024-05-15 08:44 | W.DS.TRANS ---
DC Summary - Refund Specialist
-
Discharge Instructions:
Sleep Apnea Risk Intermediate
Discharge Diagnosis/Procedures Acute CHF
Diet 2 Gram Sodium,Restrict fluids to 64 oz
Blood Work BMP on 05/16/2024
Specialty Instructions Weigh Daily
Instructions: *[facility] Heart Failure Instructions
Stand-Alone Forms:
Changes to Home Medications: No
Discharge Medications:
DC Medications w/original date entered in [employer]
apremilast 30 mg tablet (Otezla) 30 mg PO DAILY pustulous psoriasis 01/16/23
cholecalciferol (vitamin D3) 50 mcg (2,000 unit) capsule (Vitamin D3) 2,000 unit PO DAILY Supplement 01/16/23
clonidine HCl 0.1 mg tablet 0.1 mg PO DAILY PRN SBP>170 01/16/23
evolocumab 140 mg/mL subcutaneous syringe (Repatha Syringe) 140 mg SC Q2W High Cholesterol 01/16/23
levothyroxine 88 mcg tablet (Synthroid) 88 mcg PO DAILY@06 Thyroid 01/16/23
omeprazole 40 mg capsule,delayed release 40 mg PO DAILY Gastrointestinal Issue 01/16/23
timolol 0.5 % eye drops 1 drp BOTH EYES HS glaucoma 01/16/23
insulin regular human 100 unit/mL injection solution (Humulin R Regular U-100 Insulin) 0.8 - 1 unit SC DAILY Diabetes 01/17/23
apixaban 5 mg tablet (Eliquis) 5 mg PO BID Blood Clot Prevention/Tx 05/12/24
carvedilol 12.5 mg tablet 12.5 mg PO BID Heart Disease/Condition 05/12/24
hydralazine 50 mg tablet 50 mg PO TID Blood Pressure 05/12/24
losartan 25 mg tablet 25 mg PO DAILY Blood Pressure 05/12/24
rosuvastatin 20 mg tablet 20 mg PO QPM High Cholesterol 05/12/24
Home Medication Changes
Pending Results: No
== END 2024-05-14 13:13 | disposition home or self-care (01) | DRG 308 ==
LOC: IVU 20:23
PROVIDERS: Emergency Medicine; Internal Medicine; ADMITTING PHYSICIAN Hospitalist; ATTENDING PHYSICIAN Internal Medicine; CONSULT PHYSICIAN Internal Medicine Cardiovascular Disease; EMERGENCY PHYSICIAN Emergency Medicine; FAMILY PHYSICIAN Internal Medicine
DX: I48.0 Paroxysmal atrial fibrillation (principal); I50.33 Acute on chronic diastolic (congestive) heart failure; I13.0 Hypertensive heart and chronic kidney disease with heart failure and stage 1 through stage 4 chronic kidney disease, or unspecified chronic kidney disease; I25.10 Atherosclerotic heart disease of native coronary artery without angina pectoris; N18.32 Chronic kidney disease, stage 3b; E11.22 Type 2 diabetes mellitus with diabetic chronic kidney disease; I25.2 Old myocardial infarction; Z79.01 Long term (current) use of anticoagulants; Z86.73 Personal history of transient ischemic attack (TIA), and cerebral infarction without residual deficits; Z79.4 Long term (current) use of insulin; Z95.5 Presence of coronary angioplasty implant and graft; Z87.891 Personal history of nicotine dependence
CPT/HCPCS: 71046; 80048; 80053; 80061; 81003; 81015; 82962; 83036; 83690; 83735; 83880; 84443; 84484; 85025; 85027; 85610; 87086; 93005; 93306; 97162; 99285

== ENCOUNTER 2024-06-08 06:54 | Day surgery (SDC) | payer MEDICARE, SELFPAY | END 2024-06-08 09:45 | disposition home or self-care (01) | LOC: CATH 06:54 | PROVIDERS: ATTENDING PHYSICIAN Internal Medicine Cardiovascular Disease; FAMILY PHYSICIAN Internal Medicine; OTHER PHYSICIAN Internal Medicine Cardiovascular Disease | DX: I08.3 Combined rheumatic disorders of mitral, aortic and tricuspid valves (principal); I48.0 Paroxysmal atrial fibrillation; I25.10 Atherosclerotic heart disease of native coronary artery without angina pectoris; E78.5 Hyperlipidemia, unspecified; E03.9 Hypothyroidism, unspecified; I13.0 Hypertensive heart and chronic kidney disease with heart failure and stage 1 through stage 4 chronic kidney disease, or unspecified chronic kidney disease; I50.32 Chronic diastolic (congestive) heart failure; N18.30 Chronic kidney disease, stage 3 unspecified; E10.22 Type 1 diabetes mellitus with diabetic chronic kidney disease; Z79.4 Long term (current) use of insulin; Z96.41 Presence of insulin pump (external) (internal); Z86.73 Personal history of transient ischemic attack (TIA), and cerebral infarction without residual deficits; Z87.891 Personal history of nicotine dependence; Z79.82 Long term (current) use of aspirin; Z79.01 Long term (current) use of anticoagulants | CPT/HCPCS: 93312; 93320; 93325 ==

== ENCOUNTER 2024-06-21 17:37 | Observation (INO) | payer MEDICARE, SELFPAY ==
[2024-06-21] VITALS (7 sets, daily range): BP systolic 108–212; BP diastolic 54–88; BMI 25.2
[2024-06-21 11:36] LABS: % Basophils 0.6 % (0-2); % Eosinophils 1.6 % (0-6); % Immature Granulocytes 0.3 % (0-0.5); % Lymphocytes 16.6 % (20.5-51.1); % Monocytes 7.1 % (1.7-9.3); % Neutrophils 73.8 % (42.2-75.2); Absolute Basophils 0.1 10^3/uL (0-0.2); Absolute Eosinophils 0.1 10^3/uL (0-0.7); Absolute Lymphocytes 1.5 10^3/uL (1.2-3.4); Absolute Monocytes 0.6 10^3/uL (0.1-0.6); Absolute Neutrophils 6.5 10^3/uL (1.4-6.5); Hematocrit 32.4 % (37.0-47.0); Hemoglobin 10.5 g/dL (12.0-16.0); Mean Corp Hgb Conc. 32.4 g/dL (33.0-37.0); Mean Corpuscular Hgb 28.4 pg (27.0-31.0); Mean Corpuscular Volume 87.6 fL (81.0-99.0); Mean Platelet Volume 10.8 fL (7.4-10.4); Nucleated Red Blood Cells % 0 %; Platelet Count 287 10^3/uL (130-400); Red Cell Dist. Width 16.7 % (11.5-14.5); White Blood Cell Count 8.7 10^3/uL (4.8-10.8)
[2024-06-21 11:42] LABS: INR 1.27; PT 16.1 Sec (11.4-14.6)
[2024-06-21 11:43] LABS: APTT 33.2 Sec (23.4-35.0)
[2024-06-21 11:51] LABS: ALT (SGPT) 18 U/L (0-35); AST (SGOT) 32 U/L (14-36); Albumin 4.1 g/dl (3.5-5.0); Alkaline Phosphatase 72 U/L (38-126); Blood Urea Nitrogen 32 mg/dl (7-17); Calcium 9.2 mg/dl (8.4-10.2); Carbon Dioxide 25 mmol/L (22-30); Chloride 106 mmol/L (98-107); Glucose 198 mg/dl (70-99); Potassium 4.9 mmol/L (3.5-5.1); Sodium 140 mmol/L (135-145); Total Bilirubin 0.6 mg/dl (0.2-1.3); Total Protein 7.2 g/dl (6.3-8.2); eGFR 34.05
[2024-06-21 11:57] LABS: Troponin I < 0.012 ng/ml
--- NOTE | 2024-06-21 12:08 | ED.CVA ---
History of Present Illness
<Sam Fox MD - Last Filed: 06/21/24 12:53>
General
Chief Complaint: CVA/TIA Symptoms
Source: patient
Exam Limitations: none
Time Seen by Provider: 06/21/24 11:40
Nursing documentation reviewed up to this point in time: agreed with
Onset of Stroke Symptoms
Onset of symptoms known: Yes
Date of onset of symptoms: 06/21/24
Time of onset of symptoms: 10:30
History of Present Illness
History of Present Illness:
Patient diagnosed with 'mini stroke' in April 2024, currently taking Eliquis and scheduled for Watchman procedure, presents to ED secondary to sudden onset of slurred speech with difficulty verbalizing, lasting approximately 15 minutes, while she
was driving this morning. Symptoms resolved spontaneously and has not returned. Denies headache. Denies dizziness. Denies loss of sensation or weakness. Denies difficulty with ambulation. Denies difficulty with swallowing. Denies recent
illness. Denies recent change in medications or diet. Last dose of Eliquis taken this morning.
Past History
<Sam Fox MD - Last Filed: 06/21/24 12:53>
Past History
ED Past Medical History: HTN, Hypercholesterolemia, IDDM and Other (Anemia, Neuropathy, Fractures left foot)
ED Past Surgical History: Cardiac (Stents), Cholecystectomy, Orthopedic (Right hand surgery, Tennis elbow surgery) and Other (Endarterectomy, Bowel stents)
Social History
Tobacco: Former smoker
Alcohol: None
Personal:
Living: with family
Review of Systems
<Sam Fox MD - Last Filed: 06/21/24 12:53>
Review of Systems
Allergies reviewed?: Yes
All Other Systems: ROS reviewed and negative except as documented in HPI and ROS
Constitutional: Reports no symptoms; Denies fever
Respiratory: Reports no symptoms
Cardiac: Reports no symptoms
ABD/GI: Reports no symptoms
Musculoskeletal: Reports no symptoms
Skin: Reports no symptoms
Neurological: Reports other (Slurred speech)
Phy Exam
<Sam Fox MD - Last Filed: 06/21/24 12:53>
Physical Exam
Physical Exam:
Physical Exam
General: no apparent distress, not acutely ill. afebrile
Head: nc/at. eomi
Neck: supple. no meningeal signs.
Heart: s1/s2 regular rate and rhythm
Lungs: no acute respiratory distress. clear bilaterally
Abdomen: normal bowel sounds. not tender.
Neuro: alert and oriented x 3. no focal sensory/motor deficit. normal speech. normal gait
Skin: no rash
Psychiatric: well kept. interactive and cooperative
Extremities: no edema. no calf tenderness.
Course
<Sam Fox MD - Last Filed: 06/21/24 12:53>
Orders/Labs/Results
Orders:
Orders
06/21/24 11:08
Electrocardiogram (*1) Urgent
Reason for Study: Other
Other Reason for Exam: Possible Stroke
CT Head W/o Iv Contrast Urgent
Comment:
Reason For Exam: aphasia
EKG- Treatment ONCE
06/21/24 11:25
Complete Blood Count/With Diff Urgent
Comprehensive Metabolic Panel Urgent
PTT Urgent
Prothrombin Time Urgent
Troponin I Urgent
06/21/24 13:56
US Carotid [US Cerebrovascular] Urgent
Comment:
Reason For Exam: slurred speech
Abnormal Lab Results
06/21/24
11:25
RBC 3.70 L 10^6/uL
(4.20-5.40)
Hgb 10.5 L g/dL
(12.0-16.0)
Hct 32.4 L %
(37.0-47.0)
MCHC 32.4 L g/dL
(33.0-37.0)
RDW 16.7 H %
(11.5-14.5)
MPV 10.8 H fL
(7.4-10.4)
Lymphocytes % 16.6 L %
(20.5-51.1)
PT 16.1 H Sec
(11.4-14.6)
BUN 32 H mg/dl
(7-17)
Creatinine 1.6 H mg/dL
(0.6-1.0)
Glucose 198 H mg/dl
(70-99)
06/21/24 11:25
06/21/24 11:25
Vital Signs
Initial and Last Documented VS:
Initial Vital Signs
Temp Pulse Resp BP Pulse Ox
97.6 F 66 16 173/68 96
06/21/24 11:05 06/21/24 11:05 06/21/24 11:05 06/21/24 11:05 06/21/24 11:05
Last Documented Vital Signs
Temp Pulse Resp BP Pulse Ox
97.6 F 91 16 192/77 95
06/21/24 11:05 06/21/24 15:59 06/21/24 15:59 06/21/24 15:59 06/21/24 15:59
<Julieta Goodman MD - Last Filed: 06/21/24 16:33>
Orders/Labs/Results
Orders:
Orders
06/21/24 11:08
Electrocardiogram (*1) Urgent
Reason for Study: Other
Other Reason for Exam: Possible Stroke
CT Head W/o Iv Contrast Urgent
Comment:
Reason For Exam: aphasia
EKG- Treatment ONCE
06/21/24 11:25
Complete Blood Count/With Diff Urgent
Comprehensive Metabolic Panel Urgent
PTT Urgent
Prothrombin Time Urgent
Troponin I Urgent
06/21/24 13:56
US Carotid [US Cerebrovascular] Urgent
Comment:
Reason For Exam: slurred speech
Abnormal Lab Results
06/21/24
11:25
RBC 3.70 L 10^6/uL
(4.20-5.40)
Hgb 10.5 L g/dL
(12.0-16.0)
Hct 32.4 L %
(37.0-47.0)
MCHC 32.4 L g/dL
(33.0-37.0)
RDW 16.7 H %
(11.5-14.5)
MPV 10.8 H fL
(7.4-10.4)
Lymphocytes % 16.6 L %
(20.5-51.1)
PT 16.1 H Sec
(11.4-14.6)
BUN 32 H mg/dl
(7-17)
Creatinine 1.6 H mg/dL
(0.6-1.0)
Glucose 198 H mg/dl
(70-99)
06/21/24 11:25
06/21/24 11:25
Vital Signs
Initial and Last Documented VS:
Initial Vital Signs
Temp Pulse Resp BP Pulse Ox
97.6 F 66 16 173/68 96
06/21/24 11:05 06/21/24 11:05 06/21/24 11:05 06/21/24 11:05 06/21/24 11:05
Last Documented Vital Signs
Temp Pulse Resp BP Pulse Ox
97.6 F 91 16 192/77 95
06/21/24 11:05 06/21/24 15:59 06/21/24 15:59 06/21/24 15:59 06/21/24 15:59
Felicianolt;Sma Fox MD - Last Filed: 06/21/24 12:53>
MDM/Problems Addressed
MDM/Problems Addressed:
No indication for tenecteplase, as symptoms have resolved completely. In addition, patient is not eligible for tenecteplase, as she is currently on Eliquis daily.
<Julieta Goodman MD - Last Filed: 06/21/24 16:33>
*Radiology
Radiology exam reviewed: radiology read reviewed
*Pulse Oximetry
Patient hypoxic: no
*EKG
Interpreted by ED Provider?: Yes
Interpretation: abnormal
Comparison EKG: no comparison EKG present
Rate: normal
Rhythm: sinus
[place]: normal axis
Interval: normal interval
QRS Pattern: normal QRS
Ischemia: non-specific ST changes
*[employer] Canning Leader Interpretation
Rate: normal
Interpretation: normal
Rhythm: sinus
*Critical Care Note
Total Time (30-74mins, 75-104mins- exclusive of procedures): Not Applicable
Data Reviewed
Source: patient
<Julieta Goodman MD - Last Filed: 06/21/24 16:33>
Patient Management
Discussion with other providers: Hospitalist and Other (Dr. Ney Mcleod from neurology)
<Julieta Goodman MD - Last Filed: 06/21/24 16:33>
Update Note
Update Note:
Patient will be admitted for possible CVA related symptoms. Neurology did a bedside consult and recommends MRI/MRA
ED Attending Note
<Sam Fox MD - Last Filed: 06/21/24 12:53>
-
Portions of this chart may have been created with voice recognition software.� Occasional wrong word or��sound alike� substitutions may have occurred due to the inherent limitations of voice recognition software.
Discharge Plan
Departure
Patient Disposition: Admit
Date of Disposition: 06/21/24
Time of Disposition: 16:28
Presentation/result/management discussed w/ accepting MD/DO: Hospitalist
Patient with high blood pressure during this ER visit?: Yes
Condition: Good
Covid-19: Not Applicable
Discharge Problem:
TIA (transient ischemic attack)
Prescriptions:
No Action
cholecalciferol (vitamin D3) [Vitamin D3] 50 mcg (2,000 unit) Capsule
2,000 unit PO DAILY
Otezla 30 mg Tablet
30 mg PO DAILY
Repatha Syringe 140 mg/mL Syringe
140 mg SC Q2W
carvedilol 12.5 mg Tablet
12.5 mg PO BID
losartan 25 mg Tablet
25 mg PO DAILY
rosuvastatin 20 mg Tablet
20 mg PO QPM
Eliquis 5 mg Tablet
5 mg PO BID
chlorthalidone 25 mg Tablet
25 mg PO DAILY
omeprazole [Prilosec] 40 mg Capsule,Delayed Release(Dr/Ec)
40 mg PO DAILY
alprazolam 0.5 mg Tablet
0.5 mg PO HS PRN (Reason: prn)
Referrals:
Wei Hall MD [Family Provider] -
Interventions
Interventions:
*Risk Screen - Suicide Last Done: 06/21/24 11:05
*General Assessment Last Done: 06/21/24 11:05
*ED- Fall Risk Assessment Last Done: 06/21/24 11:55
*ED COVID-19 Vaccine History Last Done: 06/21/24 11:55
ED- Pulmonary Assessment Last Done: 06/21/24 11:55
ED- Neurological Assessment Last Done: 06/21/24 11:55
ED- Cardiac Assessment Last Done: 06/21/24 11:55
Discharge Date and Time
Print Language: NEPALESE
--- NOTE | 2024-06-21 17:12 | HPS.HSE ---
Family Physician
-
Family Physician: Wei Hall
Chief Complaint
-
speaking difficulty
History of Present Illness
73-year-old female past medical history of recently diagnosed atrial fibrillation on Eliquis, TIA with residual dizziness in April at which time started on Eliquis, CAD status post stents, carotid stenosis status post left carotid endarterectomy 2
years ago and right carotid endarterectomy in November, hypertension, hypercholesteremia, type I diabetes, neuropathy, anemia, chronic kidney disease, presenting with sudden onset of slurred speech with difficulty verbalizing lasting 15 minutes while
she was driving this morning. Symptoms resolved spontaneously and have not returned. No headache. No dizziness. No loss of sensation or weakness. No difficulty with ambulation. No difficulty with swallowing. No recent illness.
Patient states that she had prior left carotid CEA 2 years ago and right-sided procedure in November. Right-sided procedure was not really effective.
She was diagnosed with atrial fibrillation in early April but was not started on Eliquis at that time. She had a TIA later in April of this year before she had started Eliquis with residual dizziness with ambulation since then. She had an MRI at
that time which did showed abnormal finding unclear whether it was her stroke or not.
She is scheduled for Watchman procedure in August.
She states that her blood pressure can get high at times usually in the afternoon.
She denies smoking or alcohol use.
Medical History
Past Medical History
Past Medical History: Reports Other (recently diagnosed atrial fibrillation on Eliquis, TIA with residual dizziness in April at which time started on Eliquis, CAD status post stents, carotid stenosis status post left carotid endarterectomy 2 years
ago and right carotid endarterectomy in November, hypertension, hypercholesteremia, type I)
Past Surgical History: Reports Other (Cardiac (Stents), Cholecystectomy, Orthopedic (Right hand surgery, Tennis elbow surgery) and Other (Endarterectomy, Bowel stents))
Social History
Tobacco: Non-smoker
Alcohol: None
Drug: None
Family History
Family History: Not pertinent
Allergies / Home Medications
Allergies reflects when Allergies were last updated in [employer]
Home Medications with original date entered in [employer]
Allergy/Medication List:
Allergies
Allergy/AdvReac Type Severity Reaction Status Date / Time
No Known Allergies Allergy Verified 06/21/24 11:08
Home Medications
apremilast 30 mg tablet (Otezla) 30 mg PO DAILY pustulous psoriasis 01/16/23
cholecalciferol (vitamin D3) 50 mcg (2,000 unit) capsule (Vitamin D3) 2,000 unit PO DAILY Supplement 01/16/23
evolocumab 140 mg/mL subcutaneous syringe (Repatha Syringe) 140 mg SC Q2W High Cholesterol 01/16/23
apixaban 5 mg tablet (Eliquis) 5 mg PO BID Blood Clot Prevention/Tx 05/12/24
carvedilol 12.5 mg tablet 12.5 mg PO BID Heart Disease/Condition 05/12/24
rosuvastatin 20 mg tablet 20 mg PO QPM High Cholesterol 05/12/24
alprazolam 0.5 mg tablet 0.125 mg PO HS 06/08/24
chlorthalidone 25 mg tablet 25 mg PO DAILY 06/08/24
omeprazole 40 mg capsule,delayed release 40 mg PO DAILY 06/08/24
acetaminophen 500 mg tablet (Tylenol Extra Strength) 1,000 mg PO BID 06/21/24
brinzolamide 1 %-brimonidine 0.2 % eye drops,suspension (Simbrinza) 1 drp BOTH EYES BID 06/21/24
clonidine HCl 0.1 mg tablet 0.1 mg PO DAILYPRN PRN BLOOD PRESSURE HIGH THEN 180 06/21/24
levothyroxine 88 mcg tablet (Synthroid) 88 mcg PO DAILY 06/21/24
losartan 25 mg tablet 25 mg PO DAILY 06/21/24
nitroglycerin 0.4 mg sublingual tablet 0.4 mg sublingual [id number] PRN CHEST PAINS 06/21/24
sodium zirconium cyclosilicate 10 gram oral powder packet (Lokelma) 10 g PO MOWEFR 06/21/24
timolol 0.5 % eye drops 1 drp BOTH EYES HS 06/21/24
Review of Systems
-
History Source: Patient
A 12 point ROS was completed and negative except as noted: Yes
Constitutional: Reports No Symptoms
EENT: Reports No Symptoms
Respiratory: Reports No Symptoms
Cardiac: Reports No Symptoms
Abdomen/GI: Reports No Symptoms
: Reports No Symptoms
Musculoskeletal: Reports No Symptoms
Skin: Reports No Symptoms
Neurological: Reports See HPI
Endocrine: Reports No Symptoms
Hematologic/Lymphatic: Reports No Symptoms
Psych: Reports No Symptoms
Physical Exam
Vital Signs
Vital Signs
Temp Pulse Resp BP Pulse Ox
97.6 F 91 16 192/77 95
06/21/24 11:05 06/21/24 15:59 06/21/24 15:59 06/21/24 15:59 06/21/24 15:59
Physical Exam
General: Well Developed, Well Nourished and No Apparent Distress
HEENT: NormoCephalic, Moist mucous membranes and Atraumatic
Respiratory: Clear
Cardiac: S1/S2 and Regular Rhythm; No Murmur or Rub
GI: Soft, Non Tender, Non Distended and Normal Bowel Sounds; No Organomegaly
Rectal: Deferred by Provider
Musculoskeletal: No Clubbing, No Cyanosis and No Edema
Skin: No Rash
Neuro: Nonfocal/grossly intact
Laboratory Results
-
06/21/24 11:25
06/21/24 11:25
Laboratory Results
PT 16.1 Sec (11.4-14.6) H 06/21/24 11:25
INR 1.27 06/21/24 11:25
APTT 33.2 Sec (23.4-35.0) 06/21/24 11:25
Total Bilirubin 0.6 mg/dl (0.2-1.3) 06/21/24 11:25
AST 32 U/L (14-36) 06/21/24 11:25
ALT 18 U/L (0-35) 06/21/24 11:25
Alkaline Phosphatase 72 U/L (38-126) 06/21/24 11:25
Troponin I < 0.012 ng/ml 06/21/24 11:25
Data Reviewed
-
Lab Data: Labs Reviewed by me
Old Records: Reviewed
Impression/Plan
-
IMPRESSION:
PLAN:
# Recurrent TIA likely multifactorial due to untreated hypertension/right internal carotid stenosis and paroxysmal atrial fibrillation
-No symptoms currently
- CT head shows symmetric focal regions of decreased density within the posterior lateral aspect of both cerebellar hemispheres likely not artifact unclear etiology possibly subacute infarct versus hypertensive encephalopathy
-Carotid ultrasound shows findings consistent with greater than 70% internal carotid artery stenosis on the right, less than 50% internal carotid artery stenosis on the left
-CT angio head and neck pending
- Check MRI brain with and without contrast
- Continue Eliquis
# Hypertensive urgency
# History of essential hypertension
- Continue chlorthalidone, losartan
-Patient needs up titration of hypertensive medications as as needed clonidine would not be effective
- As needed hydralazine
Paroxysmal atrial fibrillation
- Continue Eliquis
- Scheduled for Watchman in a month
History of carotid stenosis status post left CEA, and right CEA
- May need repeat procedure for right side given greater than 70% stenosis at this time
CAD status post stents
- Continue Coreg
Hypercholesterolemia
- Continue statin
- On Repatha
Type 1 diabetes
- Continue insulin pump
Diabetic neuropathy
Chronic anemia
- Stable
Chronic kidney disease
History of hyperkalemia?
- Patient on, 3 times a week
Anxiety
- Continue alprazolam
Pustular psoriasis
- On Otezla
Hypothyroidism
- Continue levothyroxine
Full code
DVT prophylaxis�Eliquis
Diabetic diet
--- NOTE | 2024-06-21 17:45 | CON.NEURO ---
Neuro Assessment/Plan
Assessment
TIA left hemisphere given aphasia. concern for large vessel, permissive HTN to 220/110 overnight.
Afib continue Eliquis
Carotid u/s images and velocities reviewed, discussed with Dr Woodson of vascular surgery concern is for >70% stenosis right mid ICA which appears asymptomatic; patient with post op anatomy, Cre 1.6, CTA would provide better visualization than MRA,
spoke with patient who now agreeable to CTA, and Dr Woodson will see tomorrow after the surgery
will skip MRI as patient claustrophobic, just had done ~6 weeks ago at [facility]
Plan
permissive HTN to 220/110 overnight
CTA head/neck
IVF to ppx contrast nephropathy
vascular surgery consult
I believe proceeding with plans for watchman in ~2 weeks is still reasonable
Consultation
Order
Date of Consultation: 06/21/24
Requesting Provider: Sam Fox
Reason for Consult: TIA
Subjective/Objective
Subjective Data
Date of Service: June 21, 2024
from h&p:
73-year-old female past medical history of recently diagnosed atrial fibrillation on Eliquis, TIA with residual dizziness in April at which time started on Eliquis, CAD status post stents, carotid stenosis status post left carotid endarterectomy 2
years ago and right carotid endarterectomy in November, hypertension, hypercholesteremia, type I diabetes, neuropathy, anemia, chronic kidney disease, presenting with sudden onset of slurred speech with difficulty verbalizing lasting 15 minutes while
she was driving this morning. Symptoms resolved spontaneously and have not returned. No headache. No dizziness. No loss of sensation or weakness. No difficulty with ambulation. No difficulty with swallowing. No recent illness.
Patient states that she had prior left carotid CEA 2 years ago and right-sided procedure in November. Right-sided procedure was not really effective.
She was diagnosed with atrial fibrillation in early April but was not started on Eliquis at that time. She had a TIA later in April of this year before she had started Eliquis with residual dizziness with ambulation since then. She had an MRI at
that time which did showed abnormal finding unclear whether it was her stroke or not.
She is scheduled for Watchman procedure in August.
She states that her blood pressure can get high at times usually in the afternoon.
Objective Data
Vital Signs
Temp Pulse Resp BP Pulse Ox
36.4 C 91 16 192/77 95
06/21/24 11:05 06/21/24 15:59 06/21/24 15:59 06/21/24 15:59 06/21/24 15:59
Lab Results
06/21/24 11:25
06/21/24 11:25
PT 16.1 Sec (11.4-14.6) H 06/21/24 11:25
INR 1.27 06/21/24 11:25
APTT 33.2 Sec (23.4-35.0) 06/21/24 11:25
Sodium 140 mmol/L (135-145) 06/21/24 11:25
Potassium 4.9 mmol/L (3.5-5.1) 06/21/24 11:25
BUN 32 mg/dl (7-17) H 06/21/24 11:25
Glucose 198 mg/dl (70-99) H 06/21/24 11:25
Calcium 9.2 mg/dl (8.4-10.2) 06/21/24 11:25
Patient Allergies
No Known Allergies Allergy (Verified 06/21/24 11:08)
Physical Exam
-
AAOx3, speech clear, language intact
VFF, EOMI, face symmetric
full strength b/l UE/LE
sensation intact to touch/temp; severe vibratory loss in ankles
Medications
-
Active Medications
Generic Name Dose Route Start Last Admin
Trade Name Freq PRN Reason Stop Dose Admin
Sodium Chloride 1,000 mls @ 100 mls/hr 06/21/24 17:45
Nss IV 06/22/24 03:44
.Q10H ALY
Home Medications
�Medication �Instructions �Recorded
apremilast 30 mg tablet (Otezla) 30 mg PO DAILY pustulous psoriasis 01/16/23
cholecalciferol (vitamin D3) 50 2,000 unit PO DAILY Supplement 01/16/23
mcg (2,000 unit) capsule (Vitamin
D3)
evolocumab 140 mg/mL subcutaneous 140 mg SC Q2W High Cholesterol 01/16/23
syringe (Repatha Syringe)
apixaban 5 mg tablet (Eliquis) 5 mg PO BID Blood Clot 05/12/24
Prevention/Tx
carvedilol 12.5 mg tablet 12.5 mg PO BID Heart 05/12/24
Disease/Condition
rosuvastatin 20 mg tablet 20 mg PO QPM High Cholesterol 05/12/24
alprazolam 0.5 mg tablet 0.125 mg PO HS 06/08/24
chlorthalidone 25 mg tablet 25 mg PO DAILY 06/08/24
omeprazole 40 mg capsule,delayed 40 mg PO DAILY 06/08/24
release
acetaminophen 500 mg tablet 1,000 mg PO BID 06/21/24
(Tylenol Extra Strength)
brinzolamide 1 %-brimonidine 0.2 % 1 drp BOTH EYES BID 06/21/24
eye drops,suspension (Simbrinza)
clonidine HCl 0.1 mg tablet 0.1 mg PO DAILYPRN PRN BLOOD 06/21/24
PRESSURE HIGH THEN 180
levothyroxine 88 mcg tablet 88 mcg PO DAILY 06/21/24
(Synthroid)
losartan 25 mg tablet 25 mg PO DAILY 06/21/24
nitroglycerin 0.4 mg sublingual 0.4 mg sublingual [id number] PRN 06/21/24
tablet CHEST PAINS
sodium zirconium cyclosilicate 10 10 g PO MOWEFR 06/21/24
gram oral powder packet ([facility])
timolol 0.5 % eye drops 1 drp BOTH EYES HS 06/21/24
[2024-06-21] MEDS: NSS 1000 IV (18:48)
[2024-06-21 18:58] LABS: HDL Cholesterol 58 mg/dl; LDL Cholesterol, Calculated 3 mg/dl; Total Cholesterol 88 mg/dl (50-199); Triglyceride 135 mg/dl (10-149); Very Low Density Lipoprotein 27 mg/dl (0-30)
--- NOTE | 2024-06-21 19:21 | PTCARENOTE ---
Patient received into . Ambulatory to bed with stand by assistance. NSS @ 100ml/hr initiated. Admission completed. NIH 0.
[2024-06-21] MEDS: COREG 12.5 MG PO (20:33)
[2024-06-21] MEDS: APRESOLINE 5 MG IV (20:34)
[2024-06-21] MEDS: ELIQUIS 5 MG PO (20:34)
[2024-06-21] MEDS: TYLENOL 1000 MG PO (20:36)
[2024-06-21] MEDS: SIMBRINZA 1%-0.2% OPHTH SUSP 1 DROP BOTH EYES (20:37)
[2024-06-21 21:39] LABS: Glucose - Point of Care 310 mg/dl (70-99)
[2024-06-21] MEDS: CRESTOR 10 MG PO (21:40)
[2024-06-21] MEDS: NOVOLOG FLEXPEN 4 UNITS SC (21:40)
[2024-06-21] MEDS: LANTUS 0.1 UNITS SC (21:41)
[2024-06-21] MEDS: TIMOPTIC 0.5% OPHTHALMIC SOLUTION 1 DROP BOTH EYES (21:41)
[2024-06-21] MEDS: XANAX 0.125 MG PO (21:45)
--- NOTE | 2024-06-21 21:57 | PTCARENOTE ---
upon entering room the patient and her are both very anxious and pacing back and forth. They are stressed about insulin pump . I inquired about insulin pump. pt had come in with a omnipod humalog insulin pump with 8 units basal
and 1 unit per carb. The is so stressed about it because it needs to be changed and he wanted to change it before she goes down for CT scan. he stated he thinks it is now working because sugar is 314 then 341. I educated him that she just
ate and that would be in line with the difference. I did not have accuchecks ordered or orders for insulin pump. I alerted the production service manager EQUIPMENT LEAD. who orded the pump. then the and the both state they think they are going to take it off because
it is malfunctioning. at this point. i alert EQUIPMENT LEAD who now put home insulin pump on hold, family did remove it and EQUIPMENT LEAD ordered lantus and 4 units of humalog. DM educator to see pt in am.
--- NOTE | 2024-06-22 | PTCARENOTE ---
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
stating is baseline.
[2024-06-22 00:08] LABS: Glucose - Point of Care 230 mg/dl (70-99)
[2024-06-22 03:23] LABS: Glucose - Point of Care 140 mg/dl (70-99)
--- NOTE | 2024-06-22 03:42 | W.PN.UPDATE ---
Update Note
Progress Note Update
1929 RN states pt wearing insulin pump but needs orders to continue. BG 341. Insulin pump orders placed then it was deemed pump probably malfunctioning. removed pump. Will give lantus 10 units tonight and 4 units novolog. Consult DM MECHANICAL INTERN for
am.
[2024-06-22 03:45] VITALS: BP 166/66
[2024-06-22] MEDS: SYNTHROID 88 MCG PO (05:22)
[2024-06-22 06:00] VITALS: BMI 25.4
[2024-06-22 07:33] LABS: Glucose - Point of Care 94 mg/dl (70-99)
[2024-06-22 07:35] VITALS: BP 145/89
[2024-06-22] MEDS: NOVOLOG FLEXPEN-MODERATE RESISTANCE SC ×2 (07:46→13:56)
--- NOTE | 2024-06-22 07:58 | PN.DE.MGMTRT ---
Addendum entered and electronically signed by SALINA Garcia 06/22/24 14:25:
Returned after CGM sensor warmed up and is now working. Glucose reading via CGM is 271. Glucose on hospital accuchek monitor is 369.
Will administer bolus based on POC glucose obtained using hospital device. Insulin Pump has been resumed at this time.
Will give 6.39 units of a bolus per pt's pump settings.
Pump settings as follows:
basal carb ratio correction target
12am-12am 0.8 1:9 39 120
24 hour basal insulin 19.2
Active insulin 2 hours
Patient competent to manage pump at this time.
Will cont to follow if pt remains in the hospital
Original Note:
Insulin Management
- -
06/22/2024: Diabetes Consult Insulin Pump/Management
73 year old female admitted 06/21 with sudden onset of slurred speech with difficulty verbalizing lasting 15 minutes while she was driving home.
PMH: T1DM since age 23, A-Fib on Eliquis,TIA, CAD s/p stents, HTN, HCL, Carotid stenosis S/P right and Left CEA, Anemia, Neuropathy, CKD.
A1C on admission was 6.7%, Cr 1.6-->1.2, eGFR 48.09
Patient routinely sees Fina Cueto of [facility] for diabetes care. Sh recently switched fro the Medtronic 780G insulin pump to Omnipod with Dexcom G7 and NovoLog insulin.
Pt awake, alert, oriented, sitting up in bed, offers no complaints, - Kam at bedside, very supportive.
Pt states that her insulin pump was taken off on arrival to the ED and that her blood sugars have been difficult to manage this morning.
while shes been here in the hospital.
She received a dose of Lantus 10 units @ HS, FBG was 70 V and 94 POC. She was ordered AC NovoLog 5 units and received a dose before breakfast.
according to the , there was no additional insulin administered with her breakfast. Repeat glucose after breakfast was 265 POC. Pt and Hisband are requesting for her insulin pump to be resumed. Pt's has applied a new CGM Sensor which
shows a glucose level of 266.
Nurse reports that pt did not call for insulin before lunch and has already finished eating all her lunch.
Pt's has applied a new insulin POD and is awaiting her sensor to warm up so they can administer a bolus for lunch.
Will return in an hour to assist with completion of insulin pump set up and to administer a bolus dose.
Diabetes History
- -
Type of Diabetes: 1
Pre-Admission Diabetes Regimen
06/21/24
11:
Creatinine 1.6 H
Insulin Pump Settings
IP Diabetes Regimen
06/21/24 06/21/24 06/22/24
11: 21:37 00:06
Glucose 198 H
POC Glucose 310 H 230 H
06/22/24 06/22/24
03:22 07:19
Glucose
POC Glucose 140 H 94
Patient Education
[2024-06-22] MEDS: PROTONIX 40 MG PO (08:04)
[2024-06-22] MEDS: COREG 12.5 MG PO (08:04)
[2024-06-22] MEDS: VITAMIN D3 (cholecalciferol) 50 MCG PO (08:04)
[2024-06-22] MEDS: ELIQUIS 5 MG PO (08:04)
[2024-06-22] MEDS: COZAAR 25 MG PO (08:04)
[2024-06-22] MEDS: Hygroton 25 MG PO (08:04)
[2024-06-22] MEDS: TYLENOL 1000 MG PO (08:05)
[2024-06-22] MEDS: NON-FORMULARY ITEM 30 MG PO (08:08)
[2024-06-22] MEDS: SIMBRINZA 1%-0.2% OPHTH SUSP 1 DROP BOTH EYES (08:09)
--- NOTE | 2024-06-22 08:09 | CON.VAS ---
Consultation
Consultation Request
Date/Time Consultation Performed: 06/22/24 7:30
Performing Provider: Chintan
Reason for Consultation: TIA
Medical History
-
Chief Complaint: Difficulty speaking
History of Present Illness:
73-year-old female with extensive cardiovascular risk factors including CAD, PAD, carotid disease. History of prior bilateral carotid endarterectomies, right side most recently. Completed at [facility]. Denies any prior TIA stroke events.
Notes she has also had lower extremity angioplasty/stenting procedures.
Yesterday she had an episode while returning from a when in the car with her she tried to say something but what came out was gibberish. Nonsensical. Relatively short-lived and had resolved by the time she ended up getting to the
hospital. No other lateralizing symptoms. No prior or subsequent TIA/lateralizing symptoms. She is right-hand dominant.
On exam/she is awake and alert. Head is normocephalic and atraumatic. Eyes are anicteric. Neck is soft without jugular venous distention. Neurologically no focal deficits. Moves all extremities well. Feet are warm. Nonpalpable distal pedal
pulses bilaterally.
CT angiogram reviewed. Bilateral carotids are patent. Right carotid with likely moderate stenosis, but occurs in an area of tortuosity as well.
Past Medical History
Past Medical History: Other (atrial fibrillation on Eliquis, TIA with residual dizziness in April at which time started on Eliquis, CAD status post stents, carotid stenosis status post left carotid endarterectomy 2 years ago and right carotid
endarterectomy in November, hypertension, hypercholesteremia, type I)
Past Surgical History: Cardiac (stenting), Cholecystectomy, Orthopedic and Other (BL CEAs at [facility], LLE stents)
Social History
Tobacco: Non-Smoker
Alcohol: None
Drug: None
Family History
Family History: Reviewed & Not Pertinent
Allergies / Home Medications
Allergy/AdvReac Type Severity Reaction Status Date / Time
No Known Allergies Allergy Verified 06/21/24 11:08
�Medication �Instructions �Recorded �Confirmed �Type
apremilast 30 mg tablet (Otezla) 30 mg PO DAILY pustulous psoriasis 01/16/23 06/21/24 History
cholecalciferol (vitamin D3) 50 2,000 unit PO DAILY Supplement 01/16/23 06/21/24 History
mcg (2,000 unit) capsule (Vitamin
D3)
evolocumab 140 mg/mL subcutaneous 140 mg SC Q2W High Cholesterol 01/16/23 06/21/24 History
syringe (Repatha Syringe)
apixaban 5 mg tablet (Eliquis) 5 mg PO BID Blood Clot 05/12/24 06/21/24 History
Prevention/Tx
carvedilol 12.5 mg tablet 12.5 mg PO BID Heart 05/12/24 06/21/24 History
Disease/Condition
rosuvastatin 20 mg tablet 20 mg PO QPM High Cholesterol 05/12/24 06/21/24 History
alprazolam 0.5 mg tablet 0.125 mg PO HS Mental 06/08/24 06/21/24 History
Health/Anxiety
chlorthalidone 25 mg tablet 25 mg PO DAILY Fluid 06/08/24 06/21/24 History
Retention/Swelling
omeprazole 40 mg capsule,delayed 40 mg PO DAILY Gastrointestinal 06/08/24 06/21/24 History
release Issue
acetaminophen 500 mg tablet 1,000 mg PO BID Pain 06/21/24 06/21/24 History
(Tylenol Extra Strength)
brinzolamide 1 %-brimonidine 0.2 % 1 drp BOTH EYES BID Eye Condition 06/21/24 06/21/24 History
eye drops,suspension (Simbrinza)
clonidine HCl 0.1 mg tablet 0.1 mg PO DAILYPRN PRN BLOOD 06/21/24 06/21/24 History
PRESSURE HIGH THEN 180
levothyroxine 88 mcg tablet 88 mcg PO DAILY Thyroid 06/21/24 06/21/24 History
(Synthroid)
losartan 25 mg tablet 25 mg PO DAILY Blood Pressure 06/21/24 06/21/24 History
nitroglycerin 0.4 mg sublingual 0.4 mg sublingual [id number] PRN 06/21/24 06/21/24 History
tablet CHEST PAINS
sodium zirconium cyclosilicate 10 10 g PO MOWEFR Supplement 06/21/24 06/21/24 History
gram oral powder packet (Lokelma)
timolol 0.5 % eye drops 1 drp BOTH EYES HS Eye Condition 06/21/24 06/21/24 History
Review of Systems
-
History Source: Patient
All other systems: Negative unless noted
Constitutional: Reports No Symptoms
EENT: Reports No Symptoms
Respiratory: Reports No Symptoms
Cardiac: Reports No Symptoms
Abdomen/GI: Reports No Symptoms
Skin: Reports No Symptoms
Neurological: Reports No Symptoms
Physical Exam
Vital Signs
Temp Pulse Resp BP Pulse Ox
98.2 F 81 20 166/66 92
06/22/24 03:45 06/22/24 03:45 06/22/24 03:45 06/22/24 03:45 06/22/24 03:45
Lab Results
Troponin I < 0.012 ng/ml 06/21/24 11:25
Physical Exam
General: No Apparent Distress
HEENT: Normocephalic and Atraumatic
Respiratory: Non Labored Respirations
Cardiac: Negative JVD
GI: Soft, Non Tender and Non Distended
Musculoskeletal: No Clubbing and No Cyanosis
Skin: Warm
Neuro: Awake, Alert, Oriented and No Motor Deficits
Psych: Calm
Pulses: Bilateral Dorsalis Pedis: Doppler (nonpalpable)
Assessment / Plan
-
Plan/ Llikely moderate right carotid stenosis. History of bilateral CEAs. I do not think any of her symptoms are carotid driven (would be left hemispheric and her left carotid is widely patent). She does have a history of recent onset of A-fib.
Question whether this could have played a role. Agree with potential MRI, agree with neurology evaluation and follow-up. Unless neurology feels that the right carotid artery resulted in this symptom, would hold off on any revascularization.
Discussed with her she could continue to follow-up with her vascular specialist outside, but she wishes to transfer her care here. We have given her my office contact information.
Data Reviewed
-
CT Scan: Discussed with Patient
Ultrasound: Discussed with Patient
Labs: Labs Reviewed by me
[2024-06-22 08:17] LABS: % Basophils 0.7 % (0-2); % Immature Granulocytes 0.2 % (0-0.5); % Monocytes 7.3 % (1.7-9.3); % Neutrophils 73.8 % (42.2-75.2); Absolute Basophils 0.1 10^3/uL (0-0.2); Absolute Eosinophils 0.2 10^3/uL (0-0.7); Absolute Lymphocytes 1.3 10^3/uL (1.2-3.4); Absolute Monocytes 0.6 10^3/uL (0.1-0.6); Hematocrit 33.5 % (37.0-47.0); Hemoglobin 10.6 g/dL (12.0-16.0); Mean Corp Hgb Conc. 31.6 g/dL (33.0-37.0); Mean Corpuscular Hgb 27.8 pg (27.0-31.0); Mean Corpuscular Volume 87.9 fL (81.0-99.0); Mean Platelet Volume 10.6 fL (7.4-10.4); Nucleated Red Blood Cells % 0 %; Platelet Count 297 10^3/uL (130-400); Red Blood Cell Count 3.81 10^6/uL (4.20-5.40); Red Cell Dist. Width 16.9 % (11.5-14.5); White Blood Cell Count 8.1 10^3/uL (4.8-10.8)
[2024-06-22 08:47] LABS: Glycohemoglobin (HgbA1c) 6.7 % (4.0-5.6)
[2024-06-22 08:52] LABS: ALT (SGPT) 16 U/L (0-35); AST (SGOT) 25 U/L (14-36); Albumin 4.4 g/dl (3.5-5.0); Alkaline Phosphatase 77 U/L (38-126); Blood Urea Nitrogen 25 mg/dl (7-17); Calcium 9.6 mg/dl (8.4-10.2); Carbon Dioxide 23 mmol/L (22-30); Chloride 112 mmol/L (98-107); Estimated Creatinine Clearance 35 ml/min; Glucose 70 mg/dl (70-99); Potassium 4.6 mmol/L (3.5-5.1); Sodium 145 mmol/L (135-145); Total Bilirubin 0.4 mg/dl (0.2-1.3); Total Protein 7.1 g/dl (6.3-8.2); eGFR 48.09
[2024-06-22 09:34] LABS: Hepatitis C Antibody Negative (Negative)
[2024-06-22] MEDS: LOKELMA 10 GRAM PO (10:14)
[2024-06-22 10:49] LABS: Glucose - Point of Care 265 mg/dl (70-99)
[2024-06-22] MEDS: NOVOLOG FLEXPEN-MODERATE RESISTANCE 5 UNITS SC (10:51)
--- NOTE | 2024-06-22 11:12 | W.PN.HOSP.TC ---
Addendum entered and electronically signed by Aric Munguia MD 06/22/24 12:36:
Case discussed with neuro, Dr. Mcleod, over [employer] at [address] Mcleod stated, ' I think we can skip the MRI, she just had one 6 weeks ago at [facility] we know those cerebellar lesions or stroke. Blood pressure came down and she does not need
carotid intervention. I think she can just go home and stay on Eliquis for now. TIA.'
Total time spent on d/c = 33 min. This included today's physical exam, progress note, review of laboratory and diagnostic data, preparation of discharge documents and prescriptions, and discussions about the pt's hospital course and discharge plan
with the patient and other medical appliance maker involved in the patient's care.
Original Note:
Today's Communication/Plan
-
see plan
Assessment / Plan
Assessment / Plan
Gen: NAD, AAOx3.
Eyes: EOMI, PERRLA, no scleral icterus.
Neck: supple.
CV: RRR, +S1/S2, no m/r/g.
Resp: CTAB, no rales, wheezes, or rhonchi.
Abd: +BS, soft, NT, ND
Skin: No rashes.
Neuro: CN 2-12 intact, non-focal.
Psych: Normal mood and affect.
CTA head/neck: No acute vascular pathology. No M1 or M2 occlusion.
CT head: Symmetric focal regions of decreased density within the posterolateral aspect of both cerebellar hemispheres, likely not artifact, as the finding persists on repeat imaging. This is a new finding since examination January 18, 2023.
Etiology for this finding is uncertain. There is of acute to subacute infarction could be considered although unusual. Hypertensive encephalopathy could possibly result in this finding. Neoplasia would seem unlikely, but further evaluation is
suggested. As warranted, further evaluation with MRI of the brain without and with contrast should be considered. Mild atrophy. Mild to moderate leukomalacia, mainly periventricular.
Acute dysarthria:
-concern for TIA
-check MRI of the brain
-h/o B/L JAKE s/p B/L CEAs. Appreciate vascular, no indication for revascularization at this time.
-h/o PAF with prior TIA that resulted in dizziness, cont Eliquis/BB
-neuro following
-check MRI brain
DM1:
-With diabetic neuropathy
-cont insulin pump as per diabetes BREAD DOUGH MIXER
-SSI/accuchecks
Essential hypertension with hypertensive urgency:
-cont BB/Losartan/chlorthalidone
Other problems:
CAD with h/o stents: cont statin/BB
HLD: Cont statin, on Repatha
Chronic anemia: Hb stable
Anxiety: cont Xanax
Hypothyroidism:cont Levoxyl
Pustular psoriasis: on Otezla
CKD3a: with chronic hyperkalemia on Lokelma
FULL/Eliquis
Anticipated Discharge: Within 24 hours
Subjective/Interval History
-
Date of Service: June 22, 2024
No new complaints.
Objective Data
-
Labs:
Laboratory Results
06/22/24
07:13
WBC 8.1
Hgb 10.6 L
Hct 33.5 L
Plt Count 297
Sodium 145
Potassium 4.6
Chloride 112 H
Carbon Dioxide 23
BUN 25 H
Creatinine 1.2 H
Glucose 70
Calcium 9.6
Total Bilirubin 0.4
AST 25
ALT 16
Alkaline Phosphatase 77
Vital Signs:
Vital Signs
Temp Pulse Resp BP Pulse Ox
97.9 F 90 18 145/89 93
06/22/24 07:35 06/22/24 07:35 06/22/24 07:35 06/22/24 07:35 06/22/24 07:35
I&O
06/21/24 06/22/24 06/23/24
06:59 06:59 06:59
Intake Total 100 / 100
Output Total 0 / 0
Balance 100 / 100
[2024-06-22 11:45] LABS: Glucose - Point of Care 289 mg/dl (70-99)
--- NOTE | 2024-06-22 12:58 | W.DCSUMMARY ---
Discharge Summary
Discharge Data
Date of Admission: 06/21/24
Date of Discharge: 06/22/24
-
Pending Results: No
Hospital Course
Primary diagnoses:
Transient ischemic attack
Secondary diagnoses:
Type 1 diabetes mellitus
h/o bilateral carotid artery stenosis s/p bilateral carotid on endarterectomies
Paroxysmal atrial fibrillation
h/o transient ischemic attack with resulting dizziness
Essential hypertension with hypertensive urgency
Coronary artery disease with h/o stents
Hyperlipidemia
Chronic anemia
Anxiety
Hypothyroidism
Pustular psoriasis
Chronic kidney disease stage 3a
Consultants:
Neurology
Vascular surgery
Imaging:
CTA head/neck: No acute vascular pathology. No M1 or M2 occlusion.
CT head: Symmetric focal regions of decreased density within the posterolateral aspect of both cerebellar hemispheres, likely not artifact, as the finding persists on repeat imaging. This is a new finding since examination January 18, 2023.
Etiology for this finding is uncertain. There is of acute to subacute infarction could be considered although unusual. Hypertensive encephalopathy could possibly result in this finding. Neoplasia would seem unlikely, but further evaluation is
suggested. As warranted, further evaluation with MRI of the brain without and with contrast should be considered. Mild atrophy. Mild to moderate leukomalacia, mainly periventricular.
Carotid ultrasound:
1. Right carotid: Atherosclerotic carotid bulb plaque. Velocity profile consistent with likely greater than 70% internal carotid artery stenosis.
2. Left carotid: Atherosclerotic carotid bulb plaque. Velocity profile consistent with less than 50% internal carotid artery stenosis.
3. Antegrade flow bilateral vertebral arteries.
Hospital course: 73-year-old female presented with the chief complaint of dysarthria as outlined in the H&P done on admission. Her dysarthria resolved. She did have hypertensive urgency on admission that resolved. With history of bilateral
carotid artery stenosis with bilateral carotid endarterectomies the patient was seen by vascular surgery. There was no indication for vascular intervention/surgery as per vascular surgery. The case was discussed with Dr. Mcleod of neurosurgery. He
did not feel the patient needed an MRI of the brain and medically cleared the patient for discharge. She was discharged in medically stable condition
Discharge Plan
-
Patient Disposition: Home (Routine Discharge)
Discharge Diagnosis/Procedures: Transient ischemic attack
Condition: Good
Diet: Diabetic, Carb Controlled
Activity: As tolerated
Driving Restrictions: Not until seen by your Dr
Referrals:
Wei Hall MD [Family Provider] - in less than 1 week
Davide Woodson MD [Active] - 08/20/24 1:30 pm (Vascular surgery office follow-up)
Prescriptions:
Continued
cholecalciferol (vitamin D3) [Vitamin D3] 50 mcg (2,000 unit) Capsule
2,000 unit PO DAILY
Otezla 30 mg Tablet
30 mg PO DAILY
Repatha Syringe 140 mg/mL Syringe
140 mg SC Q2W
carvedilol 12.5 mg Tablet
12.5 mg PO BID
rosuvastatin 20 mg Tablet
20 mg PO QPM
Eliquis 5 mg Tablet
5 mg PO BID
chlorthalidone 25 mg Tablet
25 mg PO DAILY
omeprazole 40 mg Capsule,Delayed Release(Dr/Ec)
40 mg PO DAILY
alprazolam 0.5 mg Tablet
0.125 mg PO HS
clonidine HCl 0.1 mg Tablet
0.1 mg PO DAILYPRN PRN (Reason: BLOOD PRESSURE HIGH THEN 180)
acetaminophen [Tylenol Extra Strength] 500 mg Tablet
1,000 mg PO BID
levothyroxine [Synthroid] 88 mcg Tablet
88 mcg PO DAILY
timolol 0.5 % Drops
1 drp BOTH EYES HS
losartan 25 mg Tablet
25 mg PO DAILY
nitroglycerin 0.4 mg Tablet, Sublingual
0.4 mg SUBLINGUAL [id number] PRN (Reason: CHEST PAINS)
Simbrinza 1-0.2 % Drops,Suspension
1 drp BOTH EYES BID
Lokelma 10 gram Powder In Packet
10 g PO MOWEFR
Discharge Orders:
Discharge Patient (As Directed); Ordered 06/22/24
Ordered By: Aric Munguia
Discharge Date and Time
Print Language: GUATEMALAN
--- NOTE | 2024-06-22 13:52 | CM ---
Patient seen bedside.
IA completed.
Patient current with [facility]
Patient lives with spouse in a split level home.
ambulates with RW when outside of home.
Independent prior to admission.
[facility] form reviewed.
PCP: Rafael
Pharmacy: [facility]
Plan home with [facility].
Alin GARCIA
[2024-06-22 13:53] LABS: Glucose - Point of Care 356 mg/dl (70-99)
--- NOTE | 2024-06-22 14:49 | W.PN.NEURO.1 ---
Today's Communication / Plan
-
d/c home
Neuro Assessment/Plan
Assessment
TIA left hemisphere given aphasia. concern for large vessel, permissive HTN to 220/110 overnight.
Afib continue Eliquis
Carotid u/s images and velocities reviewed, discussed with Dr Woodson of vascular surgery concern is for >70% stenosis right mid ICA which appears asymptomatic;
CTA showing moderate stenosis with tortuosity explaining the increased velocity on ultrasound
will skip MRI as patient claustrophobic, just had done ~6 weeks ago at [facility]
Plan
outpatient vascular surgery follow up to monitor carotid stenosis
I believe proceeding with plans for watchman in ~2 weeks is still reasonable
Subjective/Objective
Subjective Data
Date of Service: June 22, 2024
no new events
blood pressure came down on it's own
Objective Data
Vital Signs
Temp Pulse Resp BP Pulse Ox
36.6 C 90 18 145/89 93
06/22/24 07:35 06/22/24 07:35 06/22/24 07:35 06/22/24 07:35 06/22/24 07:35
Lab Results
06/22/24 07:13
06/22/24 07:13
PT 16.1 Sec (11.4-14.6) H 06/21/24 11:25
INR 1.27 06/21/24 11:25
APTT 33.2 Sec (23.4-35.0) 06/21/24 11:25
Sodium 145 mmol/L (135-145) 06/22/24 07:13
Potassium 4.6 mmol/L (3.5-5.1) 06/22/24 07:13
BUN 25 mg/dl (7-17) H 06/22/24 07:13
Glucose 70 mg/dl (70-99) 06/22/24 07:13
Calcium 9.6 mg/dl (8.4-10.2) 06/22/24 07:13
LDL Cholesterol, Calc 3 mg/dl 06/21/24 18:37
Patient Allergies
No Known Allergies Allergy (Verified 06/21/24 11:08)
--- NOTE | 2024-06-22 15:07 | PTCARENOTE ---
Diabetes QUARTER FOLDER saw patient and applied new pump to d/c home with. Diabetes QUARTER FOLDER also gave pt noon insulin through home pump settings.
== END 2024-06-22 14:33 | disposition home health service (06) ==
LOC: 4 EAST ACU 17:37
PROVIDERS: ADMITTING PHYSICIAN Hospitalist; ATTENDING PHYSICIAN Internal Medicine; CONSULT PHYSICIAN Psychiatry & Neurology Clinical Neurophysiology; CONSULT PHYSICIAN Surgery Vascular Surgery; EMERGENCY PHYSICIAN Emergency Medicine; FAMILY PHYSICIAN Internal Medicine
DX: G45.9 Transient cerebral ischemic attack, unspecified (principal); Z79.01 Long term (current) use of anticoagulants; Z87.891 Personal history of nicotine dependence; Z86.73 Personal history of transient ischemic attack (TIA), and cerebral infarction without residual deficits; I48.0 Paroxysmal atrial fibrillation; I12.9 Hypertensive chronic kidney disease with stage 1 through stage 4 chronic kidney disease, or unspecified chronic kidney disease; I65.21 Occlusion and stenosis of right carotid artery; I16.0 Hypertensive urgency; Z79.899 Other long term (current) drug therapy; I25.10 Atherosclerotic heart disease of native coronary artery without angina pectoris; Z95.5 Presence of coronary angioplasty implant and graft; E78.00 Pure hypercholesterolemia, unspecified; Z79.4 Long term (current) use of insulin; E10.40 Type 1 diabetes mellitus with diabetic neuropathy, unspecified; E10.22 Type 1 diabetes mellitus with diabetic chronic kidney disease; F41.9 Anxiety disorder, unspecified; E03.9 Hypothyroidism, unspecified; Z79.890 Hormone replacement therapy; R47.1 Dysarthria and anarthria; N18.31 Chronic kidney disease, stage 3a; D63.1 Anemia in chronic kidney disease
CPT/HCPCS: 70450; 70496; 70498; 80053; 80061; 82962; 83036; 84484; 85025; 85610; 85730; 86803; 93005; 93880; 99285; G0378; Q9967

== ENCOUNTER 2024-07-03 05:52 | Inpatient (IN) | payer MEDICARE, SELFPAY ==
[2024-07-03] VITALS (17 sets, daily range): BP systolic 124–213; BP diastolic 40–83; BMI 25.0
--- NOTE | 2024-07-03 07:28 | PTCARENOTE ---
IV team at bedside attempting IV access.
--- NOTE | 2024-07-03 07:37 | PTCARENOTE ---
Pt with insulin drip infusing, pt's accu ck on glucometer 147 and pt's accu ck on monitor 174. Will continue to monitor accu ck in procedure. IV team able to get INT in L FA after numerous attemtps. ABO sent. Pt back to procedure room.
[2024-07-03 07:46] LABS: Glucose - Point of Care 147 mg/dl (70-99)
--- NOTE | 2024-07-03 07:48 | ITS.CL.ABL ---
Python Web Developer - Ablation
Ablation
Procedure Report:
ELECTROPHYSIOLOGIC STUDY AND POSSIBLE ABLATION
DATE: July 03, 2024
Primary Care Provider: Dr. Wei Hall
Primary Sandblaster Paint Sprayer: Dr Karsten Hammonds
INDICATION:
Symptomatic Atrial Fibrillation.
Paroxysmal
HISTORY: See H and P.
Haleigh Moss is referred for electrophysiologic consultation from Dr Hammonds Regarding consideration for Watchman CHRISTA oclusion and AF ablation.
She has had posterior circulation acute bilateral infarcts.
Multiple potential etiologies exist including small vessel disease, she has known carotid disease although her vascular surgeon feels the carotid disease is not responsible for the CVAs.
She also has symptomatic paroxysmal atrial fibrillation with elevated CHADSVASc score suggestive of high thromboembolic risk (CHADSVASc = 7 with�HFpEF, HTN,Age, DM, CVA, Vasc Dz, F). This is further complicated by her history of significant GI
bleeding with clinically significant anemia requiring blood transfusion.
HAS-BLED: 4
Age
Abnormal Renal Function
H/O Stroke
H/O Bleeding
CHADSVASc: 7
HFpEF
HTN
Age
DM
h/o Stroke
Vascular Dz: PAD
F Gender
PRESENTING RHYTHM: SR
HISTORY: See H and P.
Symptomatic AF, poorly controlled with attempted medical therapy.
ANTICOAGULATION: Eliquis
'TIME-OUT': called and confirmed.
SEDATION/ANESTHESIA: provided via the anesthesia department using general anesthesia.
PROCEDURE:
Ultrasound Guidance with real-time visualization of needle insertion and vessel patency performed by vt for femoral venous Vascular Access.
Under real-time US guidance, the needle was advanced with negative pressure into the vein. The needle was seen entering the vessel lumen with a good return of dark red flow, the syringe was removed, non-pulsatile, dark red blood low was noted and
the wire was passed without difficulty, then the needle was removed. US confirmed the wire was in the vein, not going into an artery,
Images were taken and saved for the patient's permanent record. Imaging findings typical femoral venous anatomy. Direct visualization of needle puncture into the femoral vein was observed and recorded.
A decapolar CS catheter was placed within the CS for mapping and pacing.
The intracardiac ultrasound catheter was positioned in the RA for continuous intracardiac ultrasound imaging.
Heparin bolus and infusion to target ACT at 300 -350 seconds was administered. Transseptal puncture was performed. This entailed advancing a sheath with dilator into the superior vena cava and withdrawing both (monitoring intracardiac ultrasound,
fluoroscopy and tip pressure) with the tip oriented toward the atrial septum. The fossa ovalis was engaged (indicated by sudden displacement of the sheath tip as well as tenting of the fossa seen on intracardiac ultrasound).
The [employer] transseptal system was used. Left atrial catheter position was confirmed by echocardiographic imaging and fluoroscopy followed by RF delivery using the LocalGuiding system resulting in successful LA access with pressure monitoring
demonstrating LA pressure waveforms (LA mean pressure [ ] mm Hg). The sheath was advanced over the dilator and positioned in the left atrium.
The O[employer]gu[employer] Grid multipolar mapping catheter was initially positioned through the transseptal sheath for high density mapping.
Geometry and voltage mapping was performed using the Oseguera multipolar grid catheter. Ensite-X was utilized for three-dimensional electroanatomical mapping.
A 3-D map was created using Ensite-X in Voxel mode. A 3-D reconstructed CT image was compared to the 3-D Navex map to assist in anatomic evaluation, mapping and ablation.
The [employer] PFA catheter and system was used for cardiac ablation. Catheter positioning was guided and confirmed using both I.C.E. and fluoroscopy.
Additional energy applications/additional ablation sets targeted extra PV contributors to atrial fibrillation.
Targets were identified with electroanatomical voltage mapping finding areas of low voltage and complex fractionated electrograms. These areas can be sites for the formation of rotors which can drive and maintain atrial fibrillation. These areas are
known to be significant contributors to initiation and perpetuation of atrial fibrillation.
Targets for additional PFA ablation included:
LA posterior wall
After ablation of the posterior wall, target remained at the anterior roof and the inferior/floor of the LA
LA anterior roof and inferior floor line were then targeted and completed
At the completion of ablation at the targeted extra PV sites, post ablation mapping finds that the targeted complex fractionated electrograms are eliminated rendering the sites no longer able to contribute to atrial fibrillation.
Post ablation high output pacing at the targeted sites (the LA posterior wall, the roof and the floor as well as the four PVs, 4 PVs:LSPV, LIPV, RSPV, RIPV) all demonstrated lack of capture / exit block.
I.C.E. :
Pre-Ablation Post-Ablation
LVEF: 55 % 55 %
WMA: none none
Pericardial effusion: none none
COMPLICATIONS:
None
SUMMARY:
- Mapping and ablation to isolate the PVs
- Additional AF ablation set after PVI.
1. LA posterior wall
2. LA Roof anteriorly
3. LA floor posteriorly
- 3-D Electroanatomical Mapping
- Intracardiac Ultrasound
- Ultrasound guidance for vascular access
Post ablation, I discussed today's findings and results with the patient's Kam.
RECOMMENDATIONS:
- Observe in monitored bed.
- Maintain oral anticoagulation.
Patient is going on to have watchman implantation today
If 3-month post watchman implantation VIRGINIA shows well-seated device with no device related thrombus anticoagulation can be stopped in favor of aspirin 81 mg daily
- Continue cardiovascular care with Dr. Hammonds as scheduled September 13, 2024.
Copy to:
Dr. Wei Hall
Dr Karsten Hammonds
--- NOTE | 2024-07-03 07:55 | WATCHMAN.MD ---
Watchman Implant
-
WATCHMAN LEFT ATRIAL APPENDAGE CLOSURE DEVICE REPORT
Date: 07/03/24
Referring Corporate Operations Compliance Manager: Dr Wei Hall
Primary Care Provider: Dr Karsten Hammonds
History:
Haleigh Moss is referred for electrophysiologic consultation from Dr Hammonds Regarding consideration for Watchman CHRISTA oclusion and AF ablation.
She has had posterior circulation acute bilateral infarcts.
Multiple potential etiologies exist including small vessel disease, she has known carotid disease although her vascular surgeon feels the carotid disease is not responsible for the CVAs.
She also has symptomatic paroxysmal atrial fibrillation with elevated CHADSVASc score suggestive of high thromboembolic risk (CHADSVASc = 7 with�HFpEF, HTN,Age, DM, CVA, Vasc Dz, F). This is further complicated by her history of significant GI
bleeding with clinically significant anemia requiring blood transfusion.
HAS-BLED: 4
Age
Abnormal Renal Function
H/O Stroke
H/O Bleeding
CHADSVASc: 7
HFpEF
HTN
Age
DM
h/o Stroke
Vascular Dz: PAD
F Gender
Watchman Team:
VIRGINIA: Chasity Davila
Transseptal (as part of PVI earlier today) and Implantation by Dr Iglesia Britton M.D.
Procedure: Watchman left atrial appendage closure.
The patient was placed under general anesthesia by anesthesia.
A VIRGINIA probe was placed.
CHRISTA type: Windsock
Heparin was administered to goal ACT 350-400 seconds. Fluid bolus was given.
Dr Britton positioned and deployed the Watchman device.
The 14 [place] watchman access system sheath double curve was substituted for the transeptal sheath. A 5 [place] African curved pigtail was then substituted for the guidewire through the watchman sheath to the ostium of the left atrial appendage. The 5
[place] pigtail was advanced into the left atrial appendage and angiography was performed. This allowed additional measurements assessing left atrial appendage ostium size and CHRISTA morphology.
The pigtail catheter was removed from the access sheath. A 27 mm Watchman device was flushed and then placed into the watchman access sheath and advanced through the sheath. The Watchman was clamped into the sheath. The device was deployed into
the left atrial appendage.
The PASS criteria were met. The stability tug test was performed and passed. Angiography and transesophageal echocardiogram revealed no leaks nor jets. The position was confirmed on angiography and transesophageal echo and there were no
significant shoulders. Compression ranges from 18% to 28 %.
Of note, device deployment is distal to some mild edema seen on the Coumarin ridge post ablation.
After meeting the PASS release criteria the device was released into the left atrial appendage.
The watchman access sheath was then removed through the transseptal into the IVC. A figure 8 suture closure was performed at the site of the femoral venous puncture and the sheath as it was removed.
Impression:
- Successful Deployment 27 mm WATCHMAN left atrial appendage closure device.
- Ultrasound guidance for vascular access
Recommended anticoagulation strategy for this specific patient is:
- Maintain Eliquis 5 mg twice daily until the 3-month post watchman VIRGINIA and if there is adequate seating of the device with no device related thrombus can then stop Eliquis at that time and plan for antiplatelet therapy, aspirin 81 mg daily. As
an outpatient, if patient's neurologist feels patient would be best treated with dual antiplatelet therapy given her prior CVAs of unclear etiology, dual antiplatelet therapy at this time would also be acceptable.
At post procedure VIRGINIA leaks > 5mm are significant and require chronic full anticoagulation or consideration for leak closure. Luciana-device leaks between 3 and 5 mm may also carry an increased risk. These patients will need individualized risk
assessment and discussion with Watchman team. Leaks < 3 mm are generally considered non-significant. With leak of any size suggestion is to check VIRGINIA 12 mo out from implant.
- We recommend SBE prophylaxis with amoxicillin for the first 6 months after device implantation until the device is more completely endothelialized. After the first 6 months, the risk of infection associated with a device is significantly
reduced and routine antibiotic prophylaxis is not mandatory but can be decided on an individual case basis.
Continue cardiovascular care with Dr. Hammonds as scheduled September 13, 2024.
cc:
Dr Wei Hall
Primary Care Provider: Dr Karsten Hammonds
--- NOTE | 2024-07-03 08:24 | PN.DE.MGMTRT ---
Insulin Management
- -
07/03/2024: Diabetes Consult Insulin Pump/Management
Patient admitted 07/03 for Watchman Implant.
PMH: T1DM since age 23, A-Fib on Eliquis,TIA, CAD s/p stents, HTN, HCL, Carotid stenosis S/P right and Left CEA, Anemia, Neuropathy, CKD.
A1C on admission was 6.7%, Cr 1.2, eGFR 48.09
Patient routinely sees Fina Cueto of [facility] for diabetes care. Currently using Omnipod with Dexcom G7 and NovoLog insulin.
Pt awake, alert, oriented, resting in bed, offers no complaints, - Kam at bedside, very supportive. S/P Watchman Implant glucose slightly elevated. Correction programmed.
Lengthy discussion with patient and , they state every night her blood sugar is low around 2 to 3AM. To prevent this they have been programming pump for activity overnight, but still is having hypolgycemia. Both are agreeable to reduction
of basal rates. They also express concern with having difficulty counting carbs. Suggested Calorie Jay Aylin. Will also provide nutrition booklet.
Pump settings as follows:
Basal rate
12AM to 6am .6
6AM to 10PM .8
10PM to 12AM .6
24 hour basal total 17.6
I:CHO ratio 1:9
Sensitivity 1:45
Active insulin 3 hours.
Will assess overnight glucose range in AM and consider further adjustments.
Discussed with nurse.
Diabetes History
- -
Type of Diabetes: 1
Pre-Admission Diabetes Regimen
Insulin Pump Settings
IP Diabetes Regimen
07/03/24
07:33
POC Glucose 147 H
Patient Education
[2024-07-03 09:07] LABS: ACT-LR - POC 347 Seconds (116-155)
[2024-07-03 09:24] LABS: ACT-LR - POC 337 Seconds (116-155)
[2024-07-03 09:45] LABS: Glucose - Point of Care 164 mg/dl (70-99)
[2024-07-03 09:53] LABS: ACT-LR - POC 329 Seconds (116-155)
[2024-07-03 10:53] LABS: Glucose - Point of Care 188 mg/dl (70-99)
--- NOTE | 2024-07-03 11:30 | PTCARENOTE ---
Received pt from laboratory specialist. pt appears drowsy, but AOx3. Denies any chest pain or SOB. SpO2 96% on 2L. BP 195/71, pt states she took her AM Cozaar and Coreg. Pt has own insulin pump. NSR on the monitor, HR in the 70's. Right groin dressing C.D.I with
[address] Doppler pulses, no edema. Pt educated on limb restrictions and expected ambulation time. Call pimentel within reach.
[2024-07-03] MEDS: CATAPRES 0.1 MG PO (13:47)
--- NOTE | 2024-07-03 14:00 | PTCARENOTE ---
Rechecked pt BP 211/83. Cira Birmingham NP made aware. PRN clonidine administered as ordered. Figure 8 sutures removed and dressing placed on right groin site.
[2024-07-03 14:14] LABS: Glucose - Point of Care 211 mg/dl (70-99)
[2024-07-03] MEDS: PT'S OWN INSULIN PUMP - NovoLOG 5.65 UNIT SC (14:40)
[2024-07-03] MEDS: PROTONIX PO (14:41)
[2024-07-03] MEDS: SIMBRINZA 1%-0.2% OPHTH SUSP BOTH EYES ×2 (14:42→22:53)
[2024-07-03] MEDS: TYLENOL 650 MG PO (15:55)
--- NOTE | 2024-07-03 15:56 | PTCARENOTE ---
patient c/o back and shoulder pain, Tylenol po given as ordered.
[2024-07-03 16:48] LABS: Glucose - Point of Care 259 mg/dl (70-99)
[2024-07-03] MEDS: PT'S OWN INSULIN PUMP - NovoLOG 6.05 UNIT SC (17:11)
[2024-07-03] MEDS: CRESTOR 20 MG PO (17:55)
--- NOTE | 2024-07-03 18:45 | PTCARENOTE ---
Pt stated her blood sugar reading on her pump was 334 and that she gave herself a correction bolus of 0.4 units @ 1835.
[2024-07-03 19:16] LABS: Glucose - Point of Care 349 mg/dl (70-99)
[2024-07-03] MEDS: PT'S OWN INSULIN PUMP - NovoLOG 0.4 UNIT SC (19:19)
[2024-07-03] MEDS: ELIQUIS 5 MG PO (19:38)
[2024-07-03] MEDS: COREG 12.5 MG PO (19:38)
[2024-07-03] MEDS: XANAX 0.125 MG PO (20:26)
--- NOTE | 2024-07-03 22:14 | PTCARENOTE ---
Pt rec'd at shift change upset about elevated blood sugar according to her insulin pump 300's. Pt's also out to desk during report stating that pts blood sugar has gone up to 700's when hospitalized at [facility] in the past. 'She needs
something done now before this gets further out of control'. Nilsa martinez Latex Foam Worker contacted via Dsg.nr text to come see pt and spouse. pt ate minimal dinner but reports that even though her suagr is high now she drops during the night. Pt's spouse asked
for nursing station number so he can monitor her bs from home and notify nursing if it drops. Pt and spouse spoke with SLAG PRODUCTION WORKER.
--- NOTE | 2024-07-03 22:25 | PTCARENOTE ---
Pt heard on phone with Insulin pump technical sales representative. Pt stated she was on a three way call with her spouse and company. Pt feels everything is set but reports not understanding all the screens and had difficulty understanding technical sales representative due to
accent. Pt states shes made no changes with pump delivery. Is aware that we will check her blood sugar via accu check at 2245 and again at 0300.
[2024-07-03 22:48] LABS: Glucose - Point of Care 298 mg/dl (70-99)
[2024-07-03] MEDS: TIMOPTIC 0.5% OPHTHALMIC SOLUTION 1 DROP BOTH EYES (22:53)
[2024-07-03] MEDS: PT'S OWN INSULIN PUMP - NovoLOG SC (23:02)
[2024-07-04 02:30] LABS: Glucose - Point of Care 213 mg/dl (70-99)
[2024-07-04 02:31] VITALS: BP 142/52
--- NOTE | 2024-07-04 02:36 | PTCARENOTE ---
Pt asssited to bathroom using walker after pt states she furniture walks when ambulating to bathroom.
accu check at 0220 via pt's machine 196
BS via pt's pump 208
accu check at 0228 via our machine 213
[2024-07-04 02:51] LABS: Hematocrit 30.3 % (37.0-47.0); Hemoglobin 9.4 g/dL (12.0-16.0); Mean Corpuscular Hgb 28.7 pg (27.0-31.0); Mean Corpuscular Volume 92.7 fL (81.0-99.0); Mean Platelet Volume 10.4 fL (7.4-10.4); Platelet Count 305 10^3/uL (130-400); Red Blood Cell Count 3.27 10^6/uL (4.20-5.40); Red Cell Dist. Width 17.5 % (11.5-14.5)
[2024-07-04 03:04] LABS: Blood Urea Nitrogen 40 mg/dl (7-17); Calcium 8.8 mg/dl (8.4-10.2); Carbon Dioxide 20 mmol/L (22-30); Chloride 114 mmol/L (98-107); Estimated Creatinine Clearance 23 ml/min; Glucose 208 mg/dl (70-99); Magnesium 1.6 mg/dl (1.6-2.3); Potassium 5.1 mmol/L (3.5-5.1); Sodium 143 mmol/L (135-145); eGFR 29.57
[2024-07-04] MEDS: SYNTHROID 88 MCG PO (06:23)
--- NOTE | 2024-07-04 06:29 | PTCARENOTE ---
Pt awoken for am Synthroid. Reports having slept well. 'best sleep I've had in a month'
blood sugar via pt's pump resulted at 141
--- NOTE | 2024-07-04 06:44 | W.PN.UPDATE ---
Update Note
Progress Note Update
Pt and pt's w/confusion on using pt's existing insulin pump and why her sugars are elevated. Discussed with patient and patient's at length. Sejal Hoyt also called and spoke w/patient on speaker phone. Pt to continue to use
insulin pump overnight. Pump reading at 20:45, 358 pt dosed 1.6 units through pump. Pt to check again at 22: 45 and dose according to insulin pump.
22:45 glucose result 298, pt dosed 1.6 units. Will recheck @ 2 am, accucheck result 213; pts pump 208.
[2024-07-04 07:31] VITALS: BP 144/59
[2024-07-04 07:42] LABS: Glucose - Point of Care 129 mg/dl (70-99)
--- NOTE | 2024-07-04 08:31 | PN.DE.MGMTRT ---
Insulin Management
- -
07/04/2024: Diabetes Consult Insulin Pump/Management Follow up
Patient admitted 07/03 for Watchman Implant.
PMH: T1DM since age 23, A-Fib on Eliquis,TIA, CAD s/p stents, HTN, HCL, Carotid stenosis S/P right and Left CEA, Anemia, Neuropathy, CKD.
A1C on admission was 6.7%, Cr 1.2, eGFR 48.09
Patient routinely sees Fina Cueto of [facility] for diabetes care. Currently using Omnipod with Dexcom G7 and NovoLog insulin.
Pt awake, alert, oriented, resting in bed, offers no complaints.
07/03 Lengthy discussion with patient and , they state every night her blood sugar is low around 2 to 3AM. To prevent this they have been programming pump for activity overnight, but still is having hypolgycemia. Both are agreeable to
reduction of basal rates. They also express concern with having difficulty counting carbs. Suggested Unitask [place]. Glucose late evening 298, discussed with patient over the phone to correct with bolus, which she did.
07/04 Fasting glucose 129, patient bolused for meal without difficulty. Provided nutrition education booklet and demonstrated serving sizes and carb counting. Also reviewed nutrition label and importance of accurate carb count. Patient most
appreciative, one of being able to sleep all night without low blood sugar and for increased confidence in carb counting. Provided my number for further questions. Will make no change to pump settings.
Pump settings as follows:
Basal rate
12AM to 6am .6
6AM to 10PM .8
10PM to 12AM .6
24 hour basal total 17.6
I:CHO ratio 1:9
Sensitivity 1:45
Active insulin 3 hours.
Discussed with nurse.
Patient for discharge.
Diabetes History
- -
Type of Diabetes: 1
Pre-Admission Diabetes Regimen
07/04/24
02:28
Creatinine 1.8 H
Insulin Pump Settings
IP Diabetes Regimen
07/03/24 07/03/24 07/03/24
09:44 10:41 14:12
Glucose
POC Glucose 164 H 188 H 211 H
07/03/24 07/03/24 07/03/24
16:47 19:14 22:46
Glucose
POC Glucose 259 H 349 H 298 H
07/04/24 07/04/24 07/04/24
02:27 02:28 07:40
Glucose 208 H
POC Glucose 213 H 129 H
Meal type: Dinner
Meal type: Lunch
Meal type: Lunch
Amount consumed: 100%
Amount consumed: 100%
Amount consumed: 100%
Patient Education
[2024-07-04] MEDS: PT'S OWN INSULIN PUMP - NovoLOG 4.7 UNIT SC (08:40)
[2024-07-04] MEDS: PROTONIX 40 MG PO (08:41)
[2024-07-04] MEDS: ELIQUIS 5 MG PO (08:41)
[2024-07-04] MEDS: Hygroton 25 MG PO (08:41)
[2024-07-04] MEDS: COZAAR 25 MG PO (08:41)
[2024-07-04] MEDS: COREG 12.5 MG PO (08:41)
[2024-07-04] MEDS: SIMBRINZA 1%-0.2% OPHTH SUSP 1 DROP BOTH EYES (08:42)
--- NOTE | 2024-07-04 09:24 | W.PN.CARDCBS ---
Addendum entered and electronically signed by Iglesia Britton MD 07/04/24 11:03:
Patient seen, interviewed and examined by me.
Well-appearing, no acute distress
Regular rate and rhythm with normal S1 and S2, no S3 no S4. There is a grade 1/6 apical holosystolic murmur and no rubs. PMI is normally placed.
Lungs are clear to auscultation bilaterally without wheezes rales or rhonchi.
Abdomen soft nontender nondistended with normoactive bowel sounds
Extremities show trace pretibial edema bilaterally no clubbing or cyanosis.
Right sided groin with no ecchymosis or bruising. No bruits. +2 femoral as well as distal pulses.
Neurologic exam is grossly nonfocal.
I reviewed telemetry which finds sinus rhythm with no atrial fibrillation or other sustained arrhythmias.
She underwent pulmonary venous isolation and left atrial posterior wall isolation followed by watchman implantation yesterday July 03, 2024. No immediate periprocedural complications. She remains in sinus rhythm and hemodynamically stable. Of
note, creatinine is elevated slightly above what has been her baseline over the past year or so.
She is stable for discharge. Of asked her to increase fluid intake and we we will order repeat chemistry in approximately 1 week
We have also asked her to follow-up closely with her automobile racer and Wanda Kramer, Dr. Ness.
She also will be following closely with her primary mounter [employer], Dr. Hammonds.
I reviewed discharge instructions as well as activity restrictions with her. All of her questions have been answered. She is stable for discharge to home.
Original Note:
Today's Communication / Plan
-
post PVI and Watchman
Appreciate DM educator assistance with insulin pump
KELLY on CKD will repeat BMP in 1 week
home today
Impression / Plan
-
Primary Care Provider: Dr. Wei Hall
Primary Room Service Clerk: Dr Karsten Hammonds
Haleigh Moss is referred for electrophysiologic consultation from Dr Hammonds Regarding consideration for Watchman CHRISTA oclusion and AF ablation.
She has had posterior circulation acute bilateral infarcts.
Multiple potential etiologies exist including small vessel disease, she has known carotid disease although her vascular surgeon feels the carotid disease is not responsible for the CVAs.
She also has symptomatic paroxysmal atrial fibrillation with elevated CHADSVASc score suggestive of high thromboembolic risk (CHADSVASc = 7 with�HFpEF, HTN,Age, DM, CVA, Vasc Dz, F). This is further complicated by her history of significant GI
bleeding with clinically significant anemia requiring blood transfusion.
Impression:
Symptomatic paroxysmal Afib
post PVI 07/03/24
post 27mm Watchman device implant 07/03/24
TIA/CVA
JAKE b/l CEA
PAD post LLE stent
CAD prior PCI
HTN
HLD
DM1 on insulin pump
CKD 3a
Hypothyroidism
Anemia h/o GIB x 2 requiring transfusions
Anxiety
Plan:
post PVI and Watchman device feels good
groins stable
tele SR
Cr bumped 1.8 from 1.2 baseline 1.5 (follows with Dr. Ness in [place])
Will recheck BMP in 1 week
OAC Eliquis
continue losartan and carvedilol for HTN
Activity restrictions reviewed
DM1 - on insulin pump has been having significant fluctuations at night, appreciate DM educator assistance
she had the best night sleep in a long time d/t this issue
f/u [facility] in 3 mo if no device thrombus, ok to stop Eliquis and add ASA 81mg unless neuro recommends DAPT for CVA.
She will need SBE prophylaxis for first 6 mo.
f/u [facility] in 3mo
home today
Progress Note - Room Service Clerk
Subjective
Date of Service: July 04, 2024
'I slept so great', no cp, sob
Objective
Labs:
07/04/24 02:28
07/04/24 02:28
Labs
Hgb 9.4 g/dL (12.0-16.0) L 07/04/24 02:
Hct 30.3 % (37.0-47.0) L 07/04/24 02:
Plt Count 305 10^3/uL (130-400) 07/04/24 02:
Sodium 143 mmol/L (135-145) 07/04/24 02:
Potassium 5.1 mmol/L (3.5-5.1) 07/04/24 02:
BUN 40 mg/dl (7-17) H 07/04/24 02:
Creatinine 1.8 mg/dL (0.6-1.0) H 07/04/24 02:
Glucose 208 mg/dl (70-99) H 07/04/24 02:
Vital Signs and I&O:
Vital Signs
Temp Pulse Resp BP Pulse Ox
98.7 F 71 18 144/59 92
07/04/24 08:04 07/04/24 07:31 07/04/24 08:04 07/04/24 07:31 07/04/24 08:04
Vital Signs
Temp Pulse Resp BP Pulse Ox
98.7 F 71 18 144/59 92
07/04/24 08:04 07/04/24 07:31 07/04/24 08:04 07/04/24 07:31 07/04/24 08:04
Intake & Output
07/02/24 07/03/24 07/04/24 07/05/24
06:59 06:59 06:59 06:59
Intake Total 1600 / 1600
Output Total 400 / 400
Balance 1200 / 1200
Physical Exam
Physical Exam
NAD< AOX3
S1, S2, RRR
CTAB, non labored, no wheeze
SNTND Bsx4
R fem site c/d/i no HT, soft
--- NOTE | 2024-07-04 09:43 | CM ---
CM following for DC planning needs.
Met w/ patient at bedside to complete initial assessment.
Pt. resides w/ spouse in a split level home. She is functionally indep. w/ ADLs, mobilities but has a SPC and RW for use at home as needed.
Pt. is open to [facility] for PT, OT, RN. Will send a referral back for resumption of care.
Plan is for home w/ [facility]
[2024-07-04] MEDS: TYLENOL 650 MG PO (10:23)
--- NOTE | 2024-07-04 11:42 | W.DS.TRANS ---
DC Summary - Window Tinter
-
Discharge Instructions:
Sleep Apnea Risk Intermediate
Discharge Diagnosis/Procedures Watchman device implant
Diet Low Cholesterol,Low Sodium
Driving Restrictions No driving for 24 hours
Blood Work Check BMP in 1 week
Others Tests You will have f/u [facility] in 3 months ([facility] - 10/04/
25) , the office will call you with appointment
Preadmission testing - 09/27/24 @ 10am at
[facility]
Instructions:
Stand-Alone Forms: DC Instructions- Cath/EP Lab
Changes to Home Medications: No
Discharge Medications:
DC Medications w/original date entered in [employer]
apremilast 30 mg tablet (Otezla) 30 mg PO DAILY pustulous psoriasis 01/16/23
cholecalciferol (vitamin D3) 50 mcg (2,000 unit) capsule (Vitamin D3) 2,000 unit PO DAILY Supplement 01/16/23
evolocumab 140 mg/mL subcutaneous syringe (Repatha Syringe) 140 mg SC Q2W High Cholesterol 01/16/23
apixaban 5 mg tablet (Eliquis) 5 mg PO BID Blood Clot Prevention/Tx 05/12/24
carvedilol 12.5 mg tablet 12.5 mg PO BID Heart Disease/Condition 05/12/24
rosuvastatin 20 mg tablet 20 mg PO QPM High Cholesterol 05/12/24
alprazolam 0.5 mg tablet 0.125 mg PO HS Mental Health/Anxiety 06/08/24
chlorthalidone 25 mg tablet 25 mg PO DAILY Fluid Retention/Swelling 06/08/24
omeprazole 40 mg capsule,delayed release 40 mg PO DAILY Gastrointestinal Issue 06/08/24
acetaminophen 500 mg tablet (Tylenol Extra Strength) 1,000 mg PO BID Pain 06/21/24
brinzolamide 1 %-brimonidine 0.2 % eye drops,suspension (Simbrinza) 1 drp BOTH EYES BID Eye Condition 06/21/24
clonidine HCl 0.1 mg tablet 0.1 mg PO DAILYPRN PRN BLOOD PRESSURE HIGH THEN 180 06/21/24
levothyroxine 88 mcg tablet (Synthroid) 88 mcg PO DAILY Thyroid 06/21/24
losartan 25 mg tablet 25 mg PO DAILY Blood Pressure 06/21/24
nitroglycerin 0.4 mg sublingual tablet 0.4 mg sublingual [id number] PRN CHEST PAINS 06/21/24
sodium zirconium cyclosilicate 10 gram oral powder packet (Lokelma) 10 g PO MOWEFR Supplement 06/21/24
timolol 0.5 % eye drops 1 drp BOTH EYES HS Eye Condition 06/21/24
Home Medication Changes
Pending Results: No
== END 2024-07-04 11:05 | disposition home health service (06) | DRG 317 ==
LOC: IVU 05:52
PROVIDERS: Nurse Practitioner Adult Health; ADMITTING PHYSICIAN Internal Medicine Cardiovascular Disease; FAMILY PHYSICIAN Internal Medicine
PROC: 02K83ZZ Map Conduction Mechanism, Percutaneous Approach (ICD-10-PCS; 2024-07-03)
PROC: 4A0234Z Measurement of Cardiac Electrical Activity, Percutaneous Approach (ICD-10-PCS; 2024-07-03)
PROC: B24BZZ4 Ultrasonography of Heart with Aorta, Transesophageal (ICD-10-PCS; 2024-07-03)
PROC: 02L73DK Occlusion of Left Atrial Appendage with Intraluminal Device, Percutaneous Approach (ICD-10-PCS; 2024-07-03)
PROC: 4A023FZ Measurement of Cardiac Rhythm, Percutaneous Approach (ICD-10-PCS; 2024-07-03)
PROC: 02583ZF Destruction of Conduction Mechanism using Irreversible Electroporation, Percutaneous Approach (ICD-10-PCS; 2024-07-03)
DX: I48.0 Paroxysmal atrial fibrillation (principal); Z00.6 Encounter for examination for normal comparison and control in clinical research program; I13.0 Hypertensive heart and chronic kidney disease with heart failure and stage 1 through stage 4 chronic kidney disease, or unspecified chronic kidney disease; N17.9 Acute kidney failure, unspecified; I50.32 Chronic diastolic (congestive) heart failure; D64.9 Anemia, unspecified; I25.10 Atherosclerotic heart disease of native coronary artery without angina pectoris; E10.51 Type 1 diabetes mellitus with diabetic peripheral angiopathy without gangrene; E78.5 Hyperlipidemia, unspecified; N18.31 Chronic kidney disease, stage 3a; E03.9 Hypothyroidism, unspecified; E10.22 Type 1 diabetes mellitus with diabetic chronic kidney disease; F41.9 Anxiety disorder, unspecified; E10.649 Type 1 diabetes mellitus with hypoglycemia without coma; Z79.01 Long term (current) use of anticoagulants; Z79.4 Long term (current) use of insulin; Z79.899 Other long term (current) drug therapy; Z86.73 Personal history of transient ischemic attack (TIA), and cerebral infarction without residual deficits; Z87.19 Personal history of other diseases of the digestive system; Z95.820 Peripheral vascular angioplasty status with implants and grafts; Z96.41 Presence of insulin pump (external) (internal)
CPT/HCPCS: 33340; 80048; 82962; 83735; 85027; 85347; 86850; 86900; 86901; 93005; 93355; 93656; 93657; C1730; C1732; C1733; C1766; C1769; C1892; C1894; Q9967

== ENCOUNTER 2024-08-15 22:13 | Observation (INO) | payer MEDICARE, SELFPAY ==
[2024-08-15 19:37] VITALS: BMI 21.7
[2024-08-15 19:44] LABS: Glucose - Point of Care 229 mg/dl (70-99)
--- NOTE | 2024-08-15 19:47 | ED.CVA ---
History of Present Illness
General
Chief Complaint: CVA/TIA Symptoms
Source: patient and family
Exam Limitations: none
Time Seen by Provider: 08/15/24 19:47
Nursing documentation reviewed up to this point in time: agreed with
Onset of Stroke Symptoms
Onset of symptoms known: Yes
Date of onset of symptoms: 08/15/24
Time of onset of symptoms: 18:40
Time pt last seen normal is known: Yes
Date last time pt seen normal: 08/15/24
Time last time pt seen normal: 18:40
History of Present Illness
History of Present Illness:
Note:
CHIEF COMPLAINT(S)
Word finding difficulties.
HISTORY OF PRESENT ILLNESS
The patient is a 73-year-old female who presented with trouble finding words about an hour prior to evaluation. She described being unable to complete words and having to pause frequently, noticing difficulty every other word. She also reported
experiencing a headache earlier, although it seemed to ease by the time of evaluation. The patient mentioned a similar episode in the past, where speech disturbance lasted approximately 5 minutes, but resolved on its own. She is currently taking
apixaban (Eliquis) and took her most recent dose in the morning. The patient was able to correctly provide her date of and location, indicating appropriate orientation.
MEDICATIONS
Apixaban (Eliquis), taken in the morning and at night.
PHYSICAL EXAM
- Mental Status: The patient demonstrated intermittent word-finding difficulties during cognitive testing, struggling to identify and describe certain items, and displayed variably impaired word retrieval.
- Neurological: Able to articulate her thoughts with some circumlocution; able to name some images but had difficulty with others, occasionally displaying paraphasic errors.
Nursing notes reviewed and vital signs reviewed.
PLAN
A computed tomography scan of the head is in progress as part of the diagnostic workup to rule out acute intracranial pathology.
DIFFERENTIAL DIAGNOSIS
The Differential Diagnosis includes, in no particular order and is not limited to:
1. Transient Ischemic Attack (TIA)
2. Cerebrovascular accident (CVA or stroke)
3. Aphasia secondary to a structural brain lesion
4. Migraine with aura
5. Partial seizure with postictal aphasia
6. Neurodegenerative disorder (e.g., Alzheimers disease)
7. Brain neoplasm
8. Encephalitis
9. Medication side effect
10. Delirium associated with systemic illness
NIHSS:
Result Summary
Inputs:
1A: Level of consciousness -> 0 = Alert; keenly responsive
1B: Ask month and age -> 0 = Both questions right
'Blink eyes' & 'squeeze hands' -> 0 = Performs both tasks
2: Horizontal extraocular movements -> 0 = Normal
3: Visual loco -> 0 = No visual loss
4: Facial palsy -> 0 = Normal symmetry
5A: Left arm motor drift -> 1 = Drift, but doesn't hit bed
5B: Right arm motor drift -> 0 = No drift for 10 seconds
6A: Left leg motor drift -> 0 = No drift for 5 seconds
7: Limb ataxia -> 0 = No ataxia
8: Sensation -> 0 = Normal; no sensory loss
9: Language/aphasia -> 1 = Mild-moderate aphasia
10: Dysarthria -> 0 = Normal
11: Extinction/inattention -> 0 = Normal
6B: Right leg motor drift -> 0 = No drift for 5 seconds
CARE-UPDATE
08/15/24 - 19:[address] an 18 gauge IV in the lower mid forearm, but difficulty encountered. Discussed sensory and coordination tests with patient, who was able to follow commands like using the left heel to scratch the right hogan and touching the nose
with the left hand while eyes closed. Mentioned the need for standardizing assessments. Noted slurred speech reported from the previous night. Reassessment by orthopedic and potentially a pediatric surgeon needed. Decision made for patient to be
admitted with additional pain management to be administered as pain persists despite current medication. Coordination for transport and consultation with specialists ongoing.
CARE-UPDATE
08/15/24 - 21:[address] Gregory Ayon from [facility], who advises hospital admission for morning MRI and neuroconsult. Continue current treatment with Eliquis. Occupational Therapy Neuro (O.TN) case recommended.
Disposition:
SUMMARY OF ENCOUNTER
A 73-year-old female presented to the emergency department with expressive aphasia occurring about one hour prior to arrival. The symptoms had resolved by the time of arrival but reoccurred briefly during examination, displaying intermittent
word-finding difficulties. Considering her symptoms, a neuro-evaluation and further investigation were necessitated.
DISPOSITION
Admit.
ASSESSMENT
The patient experienced an acute episode of expressive aphasia, which could suggest a transient ischemic attack or other neurological conditions that warrant further examination.
MANAGEMENT OF THE PATIENTS CARE WAS DISCUSSED WITH
Consulted with Dr. Gregory Ayon from [facility], who recommended hospital admission, a morning MRI, and neuro consult.
PLAN
The patient will be admitted for monitoring, with a planned MRI in the morning to rule out potential underlying causes of the aphasic episode, and further neuro-consultation to assess her condition more thoroughly.
INDEPENDENT REVIEW OF LABS AND INTERPRETATION OF TESTS
A computed tomography (CT) scan of the head was initiated to evaluate any acute intracranial pathology.
MEDICAL DECISION MAKING
- Complexity of Data Reviewed: Chronic conditions affecting care [Consideration based on patients past history and current presentation]. Differential diagnosis includes:
1. Transient Ischemic Attack (TIA)
2. Cerebrovascular accident (CVA or stroke)
3. Aphasia secondary to a structural brain lesion
4. Migraine with aura
5. Partial seizure with postictal aphasia
6. Neurodegenerative disorder (e.g., Alzheimers disease)
7. Brain neoplasm
8. Encephalitis
9. Medication side effect
10. Delirium associated with systemic illness
- Data:
Category 1: CT head scan ordered and in progress.
Category 3: Consultation with Dr. Gregory Ayon from [facility] for management planning.
CRITICAL CARE TIME
None mentioned.
DIAGNOSIS
Aphasias [ICD-10: R47.01], Transient Ischemic Attack (TIA) [ICD-10: G45.9] (suspected, pending further evaluation).
Past History
Past History
ED Past Medical History: HTN, Hypercholesterolemia, IDDM and Other (Anemia, Neuropathy, Fractures left foot)
ED Past Surgical History: Cardiac (Stents), Cholecystectomy, Orthopedic (Right hand surgery, Tennis elbow surgery) and Other (Endarterectomy, Bowel stents)
Social History
Tobacco: Former smoker
Alcohol: None
Personal:
Living: with family
Phy Exam
General Physical Exam
General Presentation: well appearing and no apparent distress
General Skin: warm and dry
General Habitus: normal
General Mental: alert
General Hydration: appears well hydrated
ENT Exam
ENT Exam: EOMI, pharynx normal, neck supple and normocephalic
Eye Exam
Eye Exam: PERRL, cornea clear and conjunctiva normal
Cardiovascular Exam
Cardiovascular Exam: regular rate/rhythm, no edema, no murmur and normal peripheral pulses
Pulmonary Exam
Pulmonary Exam: lungs clear, no respiratory distress, no rales, no crackles, no rhonchi, no stridor, no wheezing and no cough
Gastrointestinal Exam
Gastrointestinal Exam: normal bowel sounds, non tender, soft, no organomegaly, no pulsatile mass and non distended
Neurological Exam
Neurological Exam: alert, oriented x3, no motor deficits and expressive aphasia (1 self-limited episode with no repeat)
Musculoskeletal Exam
Musculoskeletal Exam: full ROM and no edema
Skin Exam
Skin Exam: normal color, warm/dry, no rash and no petechia
Psychiatric Exam
Psychiatric Exam: normal mood/affect
Scores
NIH Stroke Score
Level of Consciousness: 0 - Alert
LOC Questions: 0-Answers both correctly
LOC Commands: 0-Performs both correctly
Best Horizontal Gaze: 0-Normal
Visual Loco: 0=Normal, no visual loss
Facial Palsy: 0=Normal, symmetrical
Motor - Right Arm: 0=No drift 10 seconds
Motor - Left Arm: 0=No drift 10 seconds
Motor - Right Le-No drift 5 seconds
Motor - Left Le-No drift 5 seconds
Limb Ataxia: 0-Absent
Sensation: 0-Normal
Best Language: 1-Mild aphasia (Resolved)
Dysarthria: 0-Normal
Extinction and Inattention: 0-No abnormality
NIH Total Score:: 1
Thrombolytic Contraindication
Reasons for NON-Tx with Thrombolytics ABSOLUTE Exclusions: Patient taking oral anticoagulant and last dose within 48 hours
Course
Orders/Labs/Results
Orders:
Orders
08/15/24 19:42
Electrocardiogram (*1) Urgent
Reason for Study: Other
Other Reason for Exam: Possible Stroke
CT HEAD STROKE ALERT W/o Cont Urgent
Comment:
Reason For Exam: aphasia
Bedside Glucose- Treatment ONCE
Cardiac Monitoring- Treatment ONCE
IV Insert/Care/Rem.- Treatment PRN
Vital Signs As Directed
Frequency: Other
Weight As Directed
Frequency: Once
Comment: ZERO STRETCHER SCALE FOR ACCURATE WEIGHT
O2 Therapy [RESP] Urgent
Titrate/Wean O2 to maintain O2 sat greater than (%): 93
Special Instructions: MAINTAIN CONTINUOUS O2 SATS > OR = 93%
08/15/24 19:43
CT HEAD/NECK ANG STROKE ALERT Stat
Comment:
Reason For Exam: aphasia
EKG- Treatment ONCE
08/15/24 19:47
CT BRAIN PERF STROKE ALERT Urgent
Comment:
Reason For Exam: expressive aphasia
08/15/24 19:55
Complete Blood Count/With Diff Urgent
Comprehensive Metabolic Panel Urgent
PTT Urgent
Prothrombin Time Urgent
Troponin I Urgent
Abnormal Lab Results
08/15/24 08/15/24
19:42 19:55
RBC 3.51 L 10^6/uL
(4.20-5.40)
Hgb 10.5 L g/dL
(12.0-16.0)
Hct 32.4 L %
(37.0-47.0)
MCHC 32.4 L g/dL
(33.0-37.0)
RDW 16.4 H %
(11.5-14.5)
MPV 10.5 H fL
(7.4-10.4)
PT 16.6 H Sec
(11.4-14.6)
APTT 36.6 H Sec
(23.4-35.0)
Potassium 5.3 H mmol/L
(3.5-5.1)
Chloride 114 H mmol/L
(98-107)
Carbon Dioxide 20 L mmol/L
(22-30)
BUN 34 H mg/dl
(7-17)
Creatinine 1.7 H mg/dL
(0.6-1.0)
Glucose 188 H mg/dl
(70-99)
POC Glucose 229 H mg/dl
(70-99)
08/15/24 19:55
08/15/24 19:55
Vital Signs
Initial and Last Documented VS:
Initial Vital Signs
Pulse Resp
74 15
08/15/24 19:49 08/15/24 19:49
Last Documented Vital Signs
Pulse Resp BP Pulse Ox
83 21 189/66 91
08/15/24 20:34 08/15/24 20:34 08/15/24 20:34 08/15/24 20:34
*Pulse Oximetry
Patient hypoxic: no
*EKG
Interpreted by ED Provider?: Yes
Comparison EKG: no comparison EKG present
Heart Rate: 73
Rate: normal
Rhythm: sinus
Interval: normal interval
QRS Pattern: normal QRS
Ischemia: non-specific ST changes
*Critical Care Note
Total Time (30-74mins, 75-104mins- exclusive of procedures): 37 (Critical care statement: A total of 37 minutes of critical care time was provided for this patient. This time is separate from time utilized to perform the aforementioned documented
procedures. Aggregate critical care time includes only time during which I was engaged in work directl)
Update Note
Update Note:
Haleigh Moss Head CT: No CT evidence for acute intracranial hemorrhage or transcortical infarct.
Chronic bilateral cerebellar infarcts with associated symmetric encephalomalacia.
Small chronic infarct in the superior right parietal lobe cortical joiner matter.
Small chronic subcortical white matter infarct in the posterior left frontal lobe.
Severe white matter leukoaraiosis in the frontal and parietal lobes.
Mild diffuse cerebral and cerebellar volume loss.
Previous bilateral medial maxillary antrostomies.
ASPECT score: 10
8:[address] Ayon stroke fellow at [facility]. He is going to discuss this case with his stroke attending and get back to me.
ED Attending Note
-
Portions of this chart may have been created with voice recognition software.� Occasional wrong word or��sound alike� substitutions may have occurred due to the inherent limitations of voice recognition software.
Discharge Plan
Departure
Patient Disposition: Admit
Date of Disposition: 08/15/24
Time of Disposition: 21:13
Admit to: Telemetry
Presentation/result/management discussed w/ accepting MD/DO: Hospitalist
Discharge Problem:
TIA (transient ischemic attack)
Prescriptions:
No Action
cholecalciferol (vitamin D3) [Vitamin D3] 50 mcg (2,000 unit) Capsule
2,000 unit PO DAILY
Otezla 30 mg Tablet
30 mg PO DAILY
Repatha Syringe 140 mg/mL Syringe
140 mg SC Q2W
carvedilol 12.5 mg Tablet
12.5 mg PO BID
rosuvastatin 20 mg Tablet
20 mg PO QPM
Eliquis 5 mg Tablet
5 mg PO BID
chlorthalidone 25 mg Tablet
25 mg PO DAILY
omeprazole 40 mg Capsule,Delayed Release(Dr/Ec)
40 mg PO DAILY
alprazolam 0.5 mg Tablet
0.125 mg PO HS
clonidine HCl 0.1 mg Tablet
0.1 mg PO DAILYPRN PRN (Reason: BLOOD PRESSURE HIGH THEN 180)
acetaminophen [Tylenol Extra Strength] 500 mg Tablet
1,000 mg PO BID
levothyroxine [Synthroid] 88 mcg Tablet
88 mcg PO DAILY
timolol 0.5 % Drops
1 drp BOTH EYES HS
losartan 25 mg Tablet
25 mg PO DAILY
nitroglycerin 0.4 mg Tablet, Sublingual
0.4 mg SUBLINGUAL [id number] PRN (Reason: CHEST PAINS)
Simbrinza 1-0.2 % Drops,Suspension
1 drp BOTH EYES BID
Lokelma 10 gram Powder In Packet
10 g PO MOWEFR
Referrals:
Wei Hall MD [Family Provider, Internal Medicine]
Interventions
Interventions:
*Risk Screen - Suicide Last Done: 08/15/24 19:47
*General Assessment Last Done: 08/15/24 19:47
*Neglect/Abuse Screening Last Done: 08/15/24 19:47
*ED- Fall Risk Assessment Last Done: 08/15/24 19:47
*ED COVID-19 Vaccine History Last Done: 08/15/24 19:47
ED- Pulmonary Assessment Last Done: 08/15/24 20:15
ED- Neurological Assessment Last Done: 08/15/24 20:15
ED- Cardiac Assessment Last Done: 08/15/24 20:15
Discharge Date and Time
Print Language: EMIRATI
[2024-08-15 20:11] LABS: Hematocrit 32.4 % (37.0-47.0); Hemoglobin 10.5 g/dL (12.0-16.0); Mean Corp Hgb Conc. 32.4 g/dL (33.0-37.0); Mean Corpuscular Volume 92.3 fL (81.0-99.0); Nucleated Red Blood Cells % 0 %; Platelet Count 285 10^3/uL (130-400); Red Cell Dist. Width 16.4 % (11.5-14.5)
[2024-08-15 20:14] LABS: INR 1.29; PT 16.6 Sec (11.4-14.6)
[2024-08-15 20:15] LABS: APTT 36.6 Sec (23.4-35.0)
[2024-08-15 20:21] LABS: ALT (SGPT) 18 U/L (0-35); AST (SGOT) 24 U/L (14-36); Albumin 4.4 g/dl (3.5-5.0); Alkaline Phosphatase 89 U/L (38-126); Blood Urea Nitrogen 34 mg/dl (7-17); Calcium 9.4 mg/dl (8.4-10.2); Carbon Dioxide 20 mmol/L (22-30); Chloride 114 mmol/L (98-107); Estimated Creatinine Clearance 25 ml/min; Glucose 188 mg/dl (70-99); Potassium 5.3 mmol/L (3.5-5.1); Sodium 141 mmol/L (135-145); Total Protein 7.2 g/dl (6.3-8.2); eGFR 31.66
[2024-08-15 20:27] LABS: Troponin I < 0.012 ng/ml
[2024-08-15 20:34] VITALS: BP 189/66
[2024-08-15 21:00] VITALS: BP 204/81
--- NOTE | 2024-08-15 21:16 | HPS.HSE ---
Family Physician
-
Family Physician: Wei Hall
Chief Complaint
-
slurred speech
History of Present Illness
Patient is a 73-year-old female with past medical history significant for ASCVD (CAD, CVA, Carotid Disease), hypertension, DM-I, CKD III, chronic anemia, diverticular disease and hypothyroidism who presented to [facility] ED for evaluation of slurred
speech. Patient and at bedside who assisted in HPI. Patient states just prior to arrival at home she began having a hard time finding her words and every other word that was spoke was very slurred. Her immediately brought her to ED
for evaluation and symptoms had resolved by arrival. Patient reports generalized weakness seems to have been slightly worse than baseline over the past several days. Denies any other symptoms at this time.
Medical History
Past Medical History
Past Medical History: Reports Other
Additional Past Medical History:
ASCVD (CAD, CVA, Carotid Disease)
Hypertension
paroxysmal atrial fibrillation
DM-I
CKD III
Chronic Anemia
Diverticular Disease
Hypothyroidism
Anxiety
Hx CVA
Past Surgical History: Reports Other
Additional Past Surgical History:
PTCA with Stent (March 2024)
Bilateral CEA
Left Thyroidectomy
Cholecystectomy
Appendectomy
Left Knee Surgery (Benign Tumor)
Bilateral Hand Surgeries
Watchman 07/03/2024
Social History
Tobacco: Former Smoker (Quit smoking 10 years ago. > 40 pack years total use.)
Alcohol: None
Drug: None
Personal:
Living: With Family
Family History
Family History: Other (Father: Throat Cancer)
Allergies / Home Medications
Allergies reflects when Allergies were last updated in [employer].
Home Medications with original date entered in [facility]
Allergy/Medication List:
Allergies
Allergy/AdvReac Type Severity Reaction Status Date / Time
No Known Allergies Allergy Verified 06/21/24 11:08
Home Medications
apremilast 30 mg tablet (Otezla) 30 mg PO DAILY pustulous psoriasis 01/16/23
cholecalciferol (vitamin D3) 50 mcg (2,000 unit) capsule (Vitamin D3) 2,000 unit PO DAILY Supplement 01/16/23
apixaban 5 mg tablet (Eliquis) 5 mg PO BID Blood Clot Prevention/Tx 05/12/24
carvedilol 12.5 mg tablet 12.5 mg PO BID Heart Disease/Condition 05/12/24
rosuvastatin 20 mg tablet 20 mg PO HS High Cholesterol 05/12/24
chlorthalidone 25 mg tablet 25 mg PO DAILY Fluid Retention/Swelling 06/08/24
omeprazole 40 mg capsule,delayed release 40 mg PO DAILY Gastrointestinal Issue 06/08/24
acetaminophen 500 mg tablet (Tylenol Extra Strength) 1,000 mg PO BID Pain 06/21/24
brinzolamide 1 %-brimonidine 0.2 % eye drops,suspension (Simbrinza) 1 drp BOTH EYES BID Eye Condition 06/21/24
levothyroxine 88 mcg tablet (Synthroid) 88 mcg PO DAILY Thyroid 06/21/24
losartan 25 mg tablet 25 mg PO DAILY Blood Pressure 06/21/24
sodium zirconium cyclosilicate 10 gram oral powder packet (Lokelma) 10 g PO MOWEFR Supplement 06/21/24
timolol 0.5 % eye drops 1 drp BOTH EYES HS Eye Condition 06/21/24
Linkwood Xl 1 cap PO DAILY 08/15/24
alprazolam 0.25 mg tablet 0.125 mg PO HS 08/15/24
evolocumab 140 mg/mL subcutaneous pen injector (Repatha SureClick) 140 mg SC Q2W 08/15/24
insulin aspart U-100 100 unit/mL subcutaneous solution (Novolog U-100 Insulin aspart) 0 unit continuous subcutaneous infusion .VIA PUMP 08/15/24
loperamide 2 mg capsule 2 mg PO BIDPRN PRN diarrhea 08/15/24
risankizumab-rzaa 150 mg/mL subcutaneous pen injector (Skyrizi) 150 mg SC DIRECTED 08/15/24
Review of Systems
-
History Source: Patient
Constitutional: Reports No Symptoms
EENT: Reports No Symptoms
Respiratory: Reports No Symptoms
Cardiac: Reports No Symptoms
Abdomen/GI: Reports No Symptoms
: Reports No Symptoms
Musculoskeletal: Reports No Symptoms
Skin: Reports No Symptoms
Neurological: Reports Weakness (genralized) and Other (difficulty word finding, slurred speech )
Endocrine: Reports No Symptoms
Hematologic/Lymphatic: Reports No Symptoms
Psych: Reports No Symptoms
Physical Exam
Vital Signs
Vital Signs
Pulse Resp BP Pulse Ox
83 21 189/66 91
08/15/24 20:34 08/15/24 20:34 08/15/24 20:34 08/15/24 20:34
Physical Exam
General: Well Developed, Well Nourished and No Apparent Distress
HEENT: NormoCephalic, Moist mucous membranes and Atraumatic
Respiratory: Clear and Non Labored Respirations
Cardiac: S1/S2, Regular Rhythm and Murmur; No Rub
Breast: Deferred by me
GI: Soft, Non Tender, Non Distended and Normal Bowel Sounds; No Organomegaly
Rectal: Deferred by Provider
Genito-urinary: Deferred by me
Musculoskeletal: No Clubbing, No Cyanosis and No Edema
Skin: No Rash
Neuro: Awake, Alert, AO x 3, Nonfocal/grossly intact and Cranial Nerves Intact (II-XII)
Psych: Calm and Intact Judgment/Insight
Laboratory Results
-
08/15/24 19:55
08/15/24 19:55
Laboratory Results
PT 16.6 Sec (11.4-14.6) H 08/15/24 19:55
INR 1.29 08/15/24 19:55
APTT 36.6 Sec (23.4-35.0) H 08/15/24 19:55
Total Bilirubin 0.4 mg/dl (0.2-1.3) 08/15/24 19:55
AST 24 U/L (14-36) 08/15/24 19:55
ALT 18 U/L (0-35) 08/15/24 19:55
Alkaline Phosphatase 89 U/L (38-126) 08/15/24 19:55
Troponin I < 0.012 ng/ml 08/15/24 19:55
Data Reviewed
-
CT Scan: Report Reviewed by me
Medical Tests (Nuc Med, Echo, EKG etc): Report Reviewed by me (EKG: NORMAL SINUS RHYTHM NONSPECIFIC ST ABNORMALITY)
Lab Data: Labs Reviewed by me (hgb 10.5, hct 32.4, K+ 5.3, BUN 34, Creat 1.7, est CrCl 25, eGFR 31.66)
Impression/Plan
-
IMPRESSION/PLAN:
#slurred speech and difficulty word finding
EKG: NORMAL SINUS RHYTHM
NONSPECIFIC ST ABNORMALITY
Head CT: 1. No CT evidence for acute intracranial hemorrhage or transcortical infarct.
2. Chronic bilateral cerebellar infarcts with associated symmetric encephalomalacia.
3. Small chronic infarct in the superior right parietal lobe cortical joiner matter.
4. Small chronic subcortical white matter infarct in the posterior left frontal lobe.
5. Severe white matter leukoaraiosis in the frontal and parietal lobes.
6. Mild diffuse cerebral and cerebellar volume loss.
7. Previous bilateral medial maxillary antrostomies.
Head/Neck CTA: NECK CTA:
1. 50-70% diameter stenosis in the proximal right ICA.
2. Complete occlusion of the right ECA.
3. Less than 50% diameter stenosis in the proximal left ICA.
4. Previous bilateral carotid endarterectomies.
5. 50-70% diameter stenosis at the origin and mid cervical segment of the right vertebral artery.
6. Less than 50% diameter stenosis in the left vertebral artery.
7. Severe stenosis (greater than 70% diameter) in the proximal left subclavian artery.
8. Mild to moderate acute interstitial and alveolar cardiogenic pulmonary edema.
9. Mild bilateral emphysema.
10. Severe discogenic degenerative disease at C4/C5 and C5/C6 with large disc-osteophyte complexes causing moderate spinal cord compression, moderate central canal stenosis, and severe
bilateral neural foraminal narrowing.
HEAD CTA:
1. Severe calcific atherosclerotic plaque in both intracranial internal carotid arteries causing less than 50% diameter stenosis.
2. No CTA evidence for stenosis or occlusion in the middle or anterior cerebral arteries.
3. Moderate hypoplasia of the right intracranial vertebral artery.
4. No CTA evidence for large vessel arterial stenosis or occlusion in the posterior circulation.
5. Chronic bilateral cerebellar infarcts.
6. Small chronic infarcts in the left frontal lobe and right parietal lobe.
7. Severe periventricular white matter leukoaraiosis.
- Admit to telemetry
- Consult Neurology
- MRI in AM
- [place] [facility] recommends continue Eliquis and no antiplatelet for now
#ASCVD (CAD, CVA, Carotid Disease)
- continue Repatha and rosuvastatin
#Hypertension
- continue chlorthalidone, clonidine PRN and losartan
- Hydralazine PRN
#paroxysmal atrial fibrillation
s/p watchman
EKG: NORMAL SINUS RHYTHM
NONSPECIFIC ST ABNORMALITY
- continue carvedilol and Eliquis
- plan to d/c Eliquis after [place] in September 2024
#DM-I
patient on own insulin pump
- Consult diabetic ONLINE CONTENT COORDINATOR
- AccuCheck AC & HS
- SSI
#CKD III
K+ 5.3, BUN 34, Creat 1.7, est CrCl 25, eGFR 31.66
- appears to be slightly above baseline
- monitor BMP
- continue Lokelma
#Chronic Anemia
hgb 10.5, hct 32.4
#Hypothyroidism
- continue levothyroxine
#Diverticular Disease
Code status: full code
DVT prophylaxis: Eliquis
[2024-08-15] MEDS: COREG 12.5 MG PO (21:24)
--- NOTE | 2024-08-15 21:49 | W.PN.UPDATE ---
Update Note
Progress Note Update
This note serves as an addendum to the H&P by cognos EUGENIO Lynda Whyte
HPI
73F HX Prx AF, CKD3, CT evidence of prior multif infarcts cortical and subcortical small infarct , on Eliquis, Prx AF, T1DM,
HX bilateral JAKE s/p bilateral CEA was seen at ER today
- trouble finding words about an hour prior to evaluation.
- speech disturbance lasted approximately 5 minutes, but resolved on its own
- s/p Watchman procedure ( 07/03/24) by Dr Britton
Plan is to cont. Eliquis till [place] which is plan for September.
- HX TIA
Relevant VS
Vital Signs
Pulse Resp BP Pulse Ox
75 19 204/81 91
08/15/24 21:24 08/15/24 21:15 08/15/24 21:24 08/15/24 21:15
PE
Gen: NAD, AAOx3.
HEENT: EOMI, PERRLA, no scleral icterus.
Neck: supple
Lungs: CTAB, no rales, wheezes, or rhonchi.
Cor: RRR, +S1/S2, no m/r/g.
Abdomen: +BS, soft, NT, ND
INSPECTOR PAWNSHOP DETAIL: CN 2-12 intact, non-focal.
Psych: Normal mood and affect.
Relevant data
Abnormal Lab Results
08/15/24 08/15/24
19:42 19:55
RBC 3.51 L
Hgb 10.5 L
Hct 32.4 L
MCHC 32.4 L
RDW 16.4 H
MPV 10.5 H
PT 16.6 H
APTT 36.6 H
Potassium 5.3 H
Chloride 114 H
Carbon Dioxide 20 L
BUN 34 H
Creatinine 1.7 H
Glucose 188 H
POC Glucose 229 H
NECK CTA:
1. 50-70% diameter stenosis in the proximal right ICA.
2. Complete occlusion of the right ECA.
3. Less than 50% diameter stenosis in the proximal left ICA.
4. Previous bilateral carotid endarterectomies.
5. 50-70% diameter stenosis at the origin and mid cervical segment of the right vertebral artery.
6. Less than 50% diameter stenosis in the left vertebral artery.
7. Severe stenosis (greater than 70% diameter) in the proximal left subclavian artery.
8. Mild to moderate acute interstitial and alveolar cardiogenic pulmonary edema.
9. Mild bilateral emphysema.
10. Severe discogenic degenerative disease at C4/C5 and C5/C6 with large disc-osteophyte complexes causing moderate spinal cord compression, moderate central canal stenosis, and severe bilateral neural foraminal narrowing.
HEAD CTA:
1. Severe calcific atherosclerotic plaque in both intracranial internal carotid arteries causing less than 50% diameter stenosis.
2. No CTA evidence for stenosis or occlusion in the middle or anterior cerebral arteries.
3. Moderate hypoplasia of the right intracranial vertebral artery.
4. No CTA evidence for large vessel arterial stenosis or occlusion in the posterior circulation.
5. Chronic bilateral cerebellar infarcts.
6. Small chronic infarcts in the left frontal lobe and right parietal lobe.
7. Severe periventricular white matter leukoaraiosis.
CT HEAD/NECK ANG STROKE ALERT
HCT
1. No CT evidence for acute intracranial hemorrhage or transcortical infarct.
2. Chronic bilateral cerebellar infarcts with associated symmetric encephalomalacia.
3. Small chronic infarct in the superior right parietal lobe cortical joiner matter.
4. Small chronic subcortical white matter infarct in the posterior left frontal lobe.
5. Severe white matter leukoaraiosis in the frontal and parietal lobes.
6. Mild diffuse cerebral and cerebellar volume loss.
7. Previous bilateral medial maxillary antrostomies.
EKG
NORMAL SINUS RHYTHM
NONSPECIFIC ST ABNORMALITY
ABNORMAL ECG
WHEN COMPARED WITH ECG OF 04-JUL-2024 07:47,
NO SIGNIFICANT CHANGE WAS FOUND
Last hospitalist admission:06/21/24 - 06/22/24
Primary diagnoses:
Transient ischemic attack
Secondary diagnoses:
Type 1 diabetes mellitus
h/o bilateral carotid artery stenosis s/p bilateral carotid on endarterectomies
Paroxysmal atrial fibrillation
h/o transient ischemic attack with resulting dizziness
Essential hypertension with hypertensive urgency
Coronary artery disease with h/o stents
Hyperlipidemia
Chronic anemia
Anxiety
Hypothyroidism
Pustular psoriasis
Chronic kidney disease stage 3a
ASSESSMENT & PLAN
Pending Rx reconciliation
Transient abn speech with spontaneous resolution
No CT evidence for acute intracranial hemorrhage
Noted chronic bilateral cortical subcortical infarcs
- Per ER attd d/w Neuro - further evaluation for TIA/CVA
- Brain MRI in AM
- cont. PROGRAM HOST Eliquis
- No APL for now
- Neuro consult
B/L JAKE s/p B/L CEAs HX
Vascular consulted on last admission in June - no indication for revascularization at this time.
S/p Watchman procedure ( 07/03/24) by Dr Britton
HX Prx AF
- Plan is to cont. Eliquis till [place] which is plan for September.
- cont. carvedilol
DM1:
-With diabetic neuropathy
-cont insulin pump as per diabetes [employer]
- Low SSI
HTN urgency
Essential hypertension
- IV Hydralazine PRN - goal normotension
- cont BB/Losartan/chlorthalidone
Other problems:
CAD with h/o stents: cont statin/BB
HLD: Cont statin, on Repatha
Chronic anemia: Hb stable
Anxiety: cont Xanax
Hypothyroidism:cont Levoxyl
Pustular psoriasis: on Otezla
CKD3a: with chronic hyperkalemia on Lokelma
DVT Px: on PROGRAM HOST Eliquis
Full code
IP TLM
[2024-08-15 22:00] VITALS: BP 213/77
[2024-08-15 23:00] VITALS: BP 218/80
[2024-08-15 23:24] VITALS: BP 175/93; BMI 23.6
[2024-08-15 23:49] VITALS: BMI 23.6
[2024-08-15 23:52] LABS: Glucose - Point of Care 185 mg/dl (70-99)
[2024-08-16] VITALS (9 sets, daily range): BP systolic 105–236; BP diastolic 45–96; PULSE 75–84; O2SAT 96
[2024-08-16] MEDS: SYNTHROID 88 MCG PO (05:44)
[2024-08-16 07:01] LABS: Glucose - Point of Care 177 mg/dl (70-99)
[2024-08-16 07:58] LABS: HDL Cholesterol 45 mg/dl; LDL Cholesterol, Calculated 20 mg/dl; Very Low Density Lipoprotein 30 mg/dl (0-30)
--- NOTE | 2024-08-16 08:20 | PN.DE.MGMTRT ---
Insulin Management
- -
08/16/2024: Diabetes Consult Insulin Pump/Management
Patient admitted 08/15 for c/o difficulty finding words. PMH: T1DM since age 23, s/p Watchman procedure 07/03/24, A-Fib on Eliquis, TIA, CAD s/p stents, HTN, HCL, Carotid stenosis S/P right and Left CEA, Anemia, Neuropathy, CKD. Patient known to
Diabetes team from previous admission.
A1Cwas 6.7% previous admission, Cr 1.7, eGFR 31.66.
Pt awake, alert, oriented, resting in bed, offers no complaints. Able to discuss diabetes care. is at bedside and is very helpful and supportive. Patient routinely sees Fina Cueto of [facility] for
diabetes care. Patient has changed from OmniPod to Medtronic pump with Guardian Sensor, started new pump 07/27. Uses novolog insulin and [employer] infusion set. states they are still struggling with overnight low blood sugar. I did
mention that the new basal settings keep the basal rate at .8 from 6am to 12am. and to please discuss with Raji.
Glucose range 185 to 229. Fasting glucose today 177.
Will make no change to pump settings.
Pump settings as follows:
Basal rate
12AM to 6am .6
6AM to 10PM .8
24 hour basal total 18 units
I:CHO ratio 1:12
Sensitivity 1:50
Active insulin 2 hours.
Patient for MRI, advised patient pump and sensor MUST be taken off before MRI. Upon return a new infusion set and sensor can be reinserted
Discussed with nurse.
Patient for discharge.
Diabetes History
- -
Type of Diabetes: 1
Pre-Admission Diabetes Regimen
08/15/24
19:55
Creatinine 1.7 H
Insulin Pump Settings
IP Diabetes Regimen
08/15/24 08/15/24 08/15/24
19:42 19:55 23:49
Glucose 188 H
POC Glucose 229 H 185 H
08/16/24
06:59
Glucose
POC Glucose 177 H
Patient Education
--- NOTE | 2024-08-16 08:43 | CON.NEURO4 ---
Addendum entered and electronically signed by Paras Gross MD 08/16/24 11:37:
Studies reviewed.
I have personally examined the patient. I reviewed and agree with the TOGGLE PRESS FOLDER AND FEEDER's Note.
My addenda:
Awake, alert, interactive. No acute distress.
Speech intact.
Follows 2-step requests w/o difficulty. No tremor.
Extra-ocular movements grossly intact.
Facial movements full and symmetric. Hearing intact to normal conversational volume.
Normal UE movements bilaterally.
Neck: full ROM.
Chest: no dyspnea
Heart: no JVD
Ext: (-) Clubbing, (-) Cyanosis, (-) Edema
IMPRESSIONS/RECOMMENDATIONS:
Abrupt onset of dysarthria which is recurrent from June 2024 and the patient with known right internal carotid artery stenosis
Although atypical, it is possible that the right internal carotid artery stenosis is producing the patient's symptoms based on her coexisting orthostatic hypotension. It is possible that relative hypotension with the stenosis are producing
symptomatology despite involvement of the right not left hemisphere. The similarity of the events also suggest the possibility of TIA as well as potentially a seizure which is less likely
Appreciate vascular surgery reevaluation for surgical intervention of what is now presumed to be symptomatic right internal carotid artery stenosis
Follow orthostatic blood pressures with 3-minute increments between each body position change
Provide abdominal binder for orthostatic hypotension
Continue apixaban
Attempt to obtain MRI of brain
Continue Evolocumab
D/W patient
All questions answered.
Will continue to follow pending results.
Original Note:
Documented by User: Lyndsay Abad NP 08/16/24 10:46
Consultation - Neurology 4
-
CONSULTING PHYSICIAN: Paras Gross MD
REFERRING PHYSICIAN: Hospitalists/SALINA Huizar
DICTATED BY: SALINA Barclay
DATE/TIME OF REQUEST: 08/15/24
DATE/TIME OF CONSULTATION: 08/16/24
Reason for Consultation: Dysarthria
History of Present Illness:
This is a 73-year-old right-handed female who has presented to the hospital on 08/15/24 with report of recurrent transient dysarthria. In March 2024 the patient had a NSTEMI and had cardiac stents x2 placed at [facility]. She additionally was
experiencing dizziness and found to have Afib, and was started on Eliquis at that time. She has been following with Cardiology for consideration for a Watchman. In June 2024, she presented to [facility] with report of dysarthria lasting about 15 minutes
while riding in a car. CTA head/neck was suggestive of R ICA 50-69% stenosis. She deferred MRI brain testing due to claustrophobia. She was evaluated by Neurology and Vascular Surgery and it was felt that since she is right-handed, it is unlikely
that her R carotid stenosis produced her symptoms.
Yesterday (08/15/24), Patient reports that at 1830 she got up off of the couch and walked upstairs to take her medication. On her way back downstairs she went to talk to her and developed slurred speech abotu every 4-5 words, and it felt
difficult to get her words out. This lasted for about 5 minutes before resolving. She reports it was very similar to her episode in June, just a shorter duration. CT Head and CT perfusion were obtained on arrival in the ER and are negative for any
acute abnormalities. CTA head/neck was obtained and is suggestive of 50-70% R ICA stenosis, 50-70% R vertebral artery stenosis, and 70% left subclavian artery stenosis. She was not a candidate for TNK/IAT due to NIHSS 0 and apixaban usage. She notes
that she does have nearly daily dizziness which she describes as light-headedness about 30-45 minutes after taking her cardiac medications. She reports that her visiting nurses have been checking her orthostatic vital signs, and they are frequently
positive. She has not been wearing compression socks or an abdominal binder. She denies missing any doses of her medications. She denies any headache, vision changes, swallowing difficulty, numbness, and weakness.
Past Medical History: CT head is suggestive of chronic ischmic infarcts, Paroxysmal Afib (Eliquis), NSTEMI, HTN, HLD, IDDM, CAD, bilateral carotid stenosis, orthostatic hypotension, psoriasis, gallstones, glaucoma, anemia, neuropathy, left foot
fracture
Surgical History: Cardiac stents, L CEA 2022, R CEA 11/2023, LLE angioplasty/stenting, cholecystectomy, left thyroidectomy, right hand surgery, tennis elbow surgery, Linq removal
Family History: Reviewed and noncontributory.
Social History: Denies tobacco, alcohol, and illicit drug use.
Allergies: No known allergies.
Home Medications: See below.
Review of Symptoms:
Patient denies any fever, headache, chest pain, shortness of breath, GI or symptoms.
�Per the HPI.�All systems are reviewed negative except above.
Physical Exam:
The patient is afebrile, abdomen is nondistended, breathing is unlabored, skin is warm and dry, no edema.
NIH Stroke Scale:
I performed the NIH stroke scale on the patient on 08/16/24 at 0900. The patient scored 0 points on the NIH stroke scale assessment, which were assigned as follows: See below.
Neurologic Examination:
The patient is awake, alert and oriented x 3. She is able to follow commands and answer questions appropriately. There is no aphasia or dysarthria. On cranial nerve assessment, pupils are 3 mm bilateral, round and reactive to light and
accommodation. Right eye +drusen. Visual loco are full. Extraocular movements are intact. Facial sensations are intact and bilaterally symmetrical, there is no facial asymmetry. Hearing is intact bilaterally to normal conversation volume. Tongue
palate and uvula are midline. Sternocleidomastoid strengths are full bilaterally. Motor strengths are 5/5 bilateral upper and lower extremities on medical research [place] scale. There is no drift or involuntary movement noted. Deep tendon reflexes
are 2+ bilateral upper and lower extremities and Babinski is absent bilaterally. Sensation of touch is diminished in the RLE. There was no extinction noted on double simultaneous stimulation in the upper body, there is right extinction in the RLE.
Coordination is intact by finger to nose bilaterally.
Lab Results: See below.
Neuro Imaging:
1. CT head 08/15/24: No CT evidence for acute intracranial hemorrhage or transcortical infarct. Chronic bilateral cerebellar infarcts with associated symmetric encephalomalacia. Small chronic infarct in the superior right parietal lobe cortical joiner
matter. Small chronic subcortical white matter infarct in the posterior left frontal lobe. Severe white matter leukoaraiosis in the frontal and parietal lobes. Mild diffuse cerebral and cerebellar volume loss. Previous bilateral medial maxillary
antrostomies. ASPECT score: 10.
2. CTA head/neck 08/15/24: 50-70% diameter stenosis in the proximal right ICA. Complete occlusion of the right ECA. Less than 50% diameter stenosis in the proximal left ICA. Previous bilateral carotid endarterectomies. 50-70% diameter stenosis at the
origin and mid cervical segment of the right vertebral artery. Less than 50% diameter stenosis in the left vertebral artery. Severe stenosis (greater than 70% diameter) in the proximal left subclavian artery.
3. CT Perfusion: CBF 0ml.
Differentials for the patient's presentation include:
1. Some concern for R ICA stenosis being symptomatic given recurrence of symptoms.
2. Orthostatic hypotension likely playing a role in symptoms as well.
Patient has the following risk factors for their symptoms: Orthostasis, R ICA stenosis, Afib, HTN
IV Tenecteplase/IAT candidacy: Not a candidate due to NIHSS 0, resolution of symptoms.
Recommendations:
-Continue home apixaban.
-MRI brain pending, lorazepam on-call for MRI due to claustrophobia.
-Goal normotension.
-Check orthostatic vital signs.
-Abdominal binder when OOB for orthostasis.
-NIHSS and neurological checks per unit guidelines.
-Provide patient with a stroke education packet.
-ST evaluation.
-Goal normoglycemia, hbA1c is 7.3.
-LDL goal <70, LDL is 20. Continue home Repatha.
-Checking blood work for metabolic abnormalities.
-Will follow pending results.
Discussed patient care with: Dr. Gross, the patient
Vital Signs and Labs
-
Vital Signs and Labs:
Vital Signs
Temp Pulse Resp BP Pulse Ox
98.0 F 72 20 116/81 93
08/16/24 07:43 08/16/24 07:43 08/16/24 07:43 08/16/24 07:43 08/16/24 07:43
Lab Results
08/15/24 19:55
08/15/24 19:55
PT 16.6 Sec (11.4-14.6) H 08/15/24 19:55
INR 1.29 08/15/24 19:55
APTT 36.6 Sec (23.4-35.0) H 08/15/24 19:55
Sodium 141 mmol/L (135-145) 08/15/24 19:55
Potassium 5.3 mmol/L (3.5-5.1) H 08/15/24 19:55
BUN 34 mg/dl (7-17) H 08/15/24 19:55
Glucose 188 mg/dl (70-99) H 08/15/24 19:55
Calcium 9.4 mg/dl (8.4-10.2) 08/15/24 19:55
LDL Cholesterol, Calc 20 mg/dl 08/16/24 06:51
Medications
-
Active Medications
Generic Name Dose Route Start Last Admin
Trade Name Freq PRN Reason Stop Dose Admin
Acetaminophen 1,000 mg 08/16/24 08:00
Acetaminophen 500 Mg Tablet PO 09/13/24 07:59
BID ALY
Acetaminophen 650 mg 08/15/24 23:11
Acetaminophen 650 Mg Rectal Suppository RECTAL 09/12/24 23:10
Q4HPRN PRN
ROAJS, mild pain, or temp >100.4F
Acetaminophen 650 mg 08/15/24 23:11
Acetaminophen 325 Mg Tablet PO 09/12/24 23:10
Q4HPRN PRN
ROJAS, mild pain, or temp >100.4F
Alprazolam 0.125 mg 08/16/24 22:00
Alprazolam 0.25 Mg Tablet PO 09/13/24 21:59
HS ALY
Apixaban 5 mg 08/16/24 08:00
Apixaban (Eliquis) 5 Mg Tablet PO 09/13/24 07:59
BID ALY
Brinzolamide/Brimonidine Tartrate 0 drop 08/16/24 08:00
Brinzolamide 1%/Brimonidine 0.2% (Ophth Susp) 8 Ml Bottle BOTH EYES 09/13/24 07:59
BID ALY
Carvedilol 12.5 mg 08/16/24 08:00
Carvedilol 12.5 Mg Tablet PO 09/13/24 07:59
BID ALY
Chlorthalidone 25 mg 08/16/24 08:00
Chlorthalidone 25 Mg Tablet PO 09/13/24 07:59
DAILY ALY
Cholecalciferol 50 mcg 08/16/24 08:00
Cholecalciferol (Vitamin D3) 50 Mcg Tablet (2,000 Units) PO 09/13/24 07:59
DAILY LAY
Dextrose 12.5 grams 08/15/24 23:11
Dextrose 50% (0.5 Grams/Ml) 50 Ml Syringe IV 09/12/24 23:10
[id number] PRN
hypoglycemia
Protocol
Glucagon 1 mg 08/15/24 23:11
Glucagon 1 Mg Vial IM 09/12/24 23:10
PRN PRN
hypoglycemia
Protocol
Hydralazine HCl 5 mg 08/15/24 23:11
Hydralazine 20 Mg/Ml Vial IV 09/12/24 23:10
Q4HPRN PRN
SBP>180/DBP>110
Insulin Aspart 0 units 08/16/24 07:30
Insulin Aspart Low Resistance 300 Units/3 Ml Pen.Injctr SC 09/13/24 07:29
AC ALY
Protocol
Levothyroxine Sodium 88 mcg 08/16/24 06:00 08/16/24 05:44
Levothyroxine 88 Mcg Tablet PO 09/13/24 05:59 88 mcg
DAILY @ 0600 ALY Administration
Losartan Potassium 25 mg 08/16/24 08:00
Losartan 25 Mg Tablet PO 09/13/24 07:59
DAILY ALY
Apremilast [Otezla] 0 mg 08/16/24 08:00
30 Mg Tablet Po PO 09/13/24 07:59
Daily DAILY ALY
Pantoprazole Sodium 40 mg 08/16/24 08:00
Pantoprazole 40 Mg Delayed Release Tablet PO 09/13/24 07:59
DAILY ALY
Rosuvastatin Calcium 20 mg 08/16/24 22:00
Rosuvastatin (Crestor) 20 Mg Tablet PO 09/13/24 21:59
HS ALY
Sodium Chloride 0 flush 08/15/24 23:00
Sodium Chloride 0.9% (Flush) Syringe IV 09/12/24 22:59
PER PROTOCOL ALY
Sodium Zirconium Cyclosilicate 10 gram 08/17/24 08:00
Sodium Zirconium Cyclosilicate (Lokelma) 10 Gram Powder Packet PO 09/14/24 07:59
MoWeFr@0800 ALY
Timolol Maleate 0 drop 08/16/24 22:00
Timolol 0.25% (Ophthalmic Solution) Bottle BOTH EYES 09/13/24 21:59
HS ALY
Home Medications
�Medication �Instructions �Recorded
apremilast 30 mg tablet (Otezla) 30 mg PO DAILY pustulous psoriasis 01/16/23
cholecalciferol (vitamin D3) 50 2,000 unit PO DAILY Supplement 01/16/23
mcg (2,000 unit) capsule (Vitamin
D3)
apixaban 5 mg tablet (Eliquis) 5 mg PO BID Blood Clot 05/12/24
Prevention/Tx
carvedilol 12.5 mg tablet 12.5 mg PO BID Heart 05/12/24
Disease/Condition
rosuvastatin 20 mg tablet 20 mg PO HS High Cholesterol 05/12/24
chlorthalidone 25 mg tablet 25 mg PO DAILY Fluid 06/08/24
Retention/Swelling
omeprazole 40 mg capsule,delayed 40 mg PO DAILY Gastrointestinal 06/08/24
release Issue
acetaminophen 500 mg tablet 1,000 mg PO BID Pain 06/21/24
(Tylenol Extra Strength)
brinzolamide 1 %-brimonidine 0.2 % 1 drp BOTH EYES BID Eye Condition 06/21/24
eye drops,suspension (Simbrinza)
levothyroxine 88 mcg tablet 88 mcg PO DAILY Thyroid 06/21/24
(Synthroid)
losartan 25 mg tablet 25 mg PO DAILY Blood Pressure 06/21/24
sodium zirconium cyclosilicate 10 10 g PO MOWEFR Supplement 06/21/24
gram oral powder packet (Lokelma)
[place] Xl 1 cap PO DAILY 08/15/24
alprazolam 0.25 mg tablet 0.125 mg PO HS 08/15/24
evolocumab 140 mg/mL subcutaneous 140 mg SC Q2W 08/15/24
pen injector (Repjennifer Villareal)
insulin aspart U-100 100 unit/mL 0 unit continuous subcutaneous 08/15/24
subcutaneous solution (Novolog infusion .VIA PUMP
U-100 Insulin aspart)
loperamide 2 mg capsule 2 mg PO BIDPRN PRN diarrhea 08/15/24
risankizumab-rzaa 150 mg/mL 150 mg SC DIRECTED 08/15/24
subcutaneous pen injector (Skyrizi)
timolol maleate 0.25 % eye drops 1 drp BOTH EYES HS 08/15/24
NIH Stroke Score
Subsequent NIH Scale
Date of Subsequent NIH Scale: 08/16/24
Time of Subsequent NIH Scale: 09:00
NIH Stroke Score
Level of Consciousness: 0 - Alert
LOC Questions: 0-Answers both correctly
LOC Commands: 0-Performs both correctly
Best Horizontal Gaze: 0-Normal
Visual Loco: 0=Normal, no visual loss
Facial Palsy: 0=Normal, symmetrical
Motor - Right Arm: 0=No drift 10 seconds
Motor - Left Arm: 0=No drift 10 seconds
Motor - Right Le-No drift 5 seconds
Motor - Left Le-No drift 5 seconds
Limb Ataxia: 0-Absent
Sensation: 0-Normal
Best Language: 0-No aphasia
Dysarthria: 0-Normal
Extinction and Inattention: 0-No abnormality
NIH Total Score:: 0
Modified [place] (mRS) Score
Modified Augusto Scale (mRS): No symptoms
Score: 0
Alteplase Contraindication
Inclusion and Exclusion criteria reviewed: Yes

Documented by User: Paras Gross MD 08/16/24 11:26
NIH Stroke Score
NIH Stroke Score
NIH Total Score:: 0
Modified [place] (mRS) Score
Score: 0
[2024-08-16] MEDS: PT'S OWN INSULIN PUMP - NovoLOG 1.5 UNIT SC (09:15)
--- NOTE | 2024-08-16 09:17 | PTOTSP ---
Dysphagia Evaluation
No significant signs of oral/pharyngeal dysphagia or aspiration.
No obvious aphasia or dysarthria in conversation. Will complete comprehensive evaluation and cognitive linguistic screen pending results of MRI of Brain.
Recommend:
1. IDDSI 7 Regular, Thin
2. Medications as best tolerated
3. Strategies: upright to 90 degrees, alternate sips/bites
4. Oral care 2-3x daily
5. Further speech/language/cognitive evaluation pending MRI Brain results
[2024-08-16] MEDS: PROTONIX 40 MG PO (09:26)
[2024-08-16] MEDS: TYLENOL 1000 MG PO ×2 (09:26→20:26)
[2024-08-16] MEDS: ELIQUIS 5 MG PO ×2 (09:27→20:27)
[2024-08-16] MEDS: VITAMIN D3 (cholecalciferol) 50 MCG PO (09:27)
[2024-08-16] MEDS: COREG 12.5 MG PO ×2 (09:28→20:27)
[2024-08-16] MEDS: COZAAR 25 MG PO (09:28)
[2024-08-16] MEDS: SIMBRINZA 1%-0.2% OPHTH SUSP 1 DROP BOTH EYES ×2 (09:40→20:28)
--- NOTE | 2024-08-16 09:48 | W.PN.HOSP.TC ---
Today's Communication/Plan
-
see A/P
Assessment / Plan
Assessment / Plan
HPI: 73-year-old female with past medical history significant for ASCVD (CAD, CVA, Carotid Disease), hypertension, DM-I, CKD III, chronic anemia, diverticular disease and hypothyroidism who presented to ED for evaluation of slurred speech that
lasted approximately 5 minutes, and resolved on its own.
Patient also reported generalized weakness that seemed to worse than baseline over the past several days.
A/P:
# slurred speech and difficulty word finding, concern for acute stroke
Head CT: No CT evidence for acute intracranial hemorrhage or transcortical infarct. Noted chronic infarcts in bilateral cerebelli, right parietal lobe, left frontal lobe.
Head/Neck CTA: 50-70% diameter stenosis in the proximal right ICA. Complete occlusion of the right ECA. Less than 50% diameter stenosis in the proximal left ICA. Previous bilateral carotid endarterectomies.
Check MRI brain
Neurology on board
Vascular CS for R ICA stenosis
[facility] recommends continue Eliquis and no antiplatelet for now
Of note, LDL 20, Follow A1c
# ASCVD (CAD, CVA, Carotid Disease)
continue Repatha and rosuvastatin
# Hypertension
continue chlorthalidone, Coreg, Losartan
Hydralazine PRN
# Paroxysmal atrial fibrillation s/p watchman
continue carvedilol and Eliquis
plan to d/c Eliquis after [place] in September 2024
# IDDM, type 1
patient on own insulin pump
Diabetic PIGMENT MIXER consulted
AccuCheck AC & HS
SSI
# CKD III
# mild hyperkalemia
Creat 1.7 at baseline
continue EXTRAS CASTING DIRECTOR Lokelma MWF
# Chronic Anemia
hgb 10.5, hct 32.4
# Hypothyroidism
continue levothyroxine
# Diverticular Disease
Code status: full code
DVT prophylaxis: Cont Eliquis per [facility]
DW at bedside
total time 51 min
Anticipated Discharge: 24 - 48 hours
Subjective/Interval History
-
Date of Service: August 16, 2024
Objective Data
-
Vital Signs:
Vital Signs
Temp Pulse Resp BP Pulse Ox
36.7 C 80 18 158/63 97
08/16/24 07:43 08/16/24 09:28 08/16/24 09:25 08/16/24 09:28 08/16/24 09:25
Review of Systems
-
History Source: Patient
All other systems: Reviewed and negative
Neuro: Reports Other (slurred speech has resolved ); Denies Dizzy, Weakness, Numbness, Ataxia or Tremors
Physical Exam
-
General: Well Developed, Well Nourished, No Apparent Distress, Comfortable and Conversant; Negative Slurred Speech
HEENT: Normocephalic, Atraumatic, Nose Appears Normal and Ears Appear Normal; Negative Oxygen (weaned off)
Respiratory: Clear to Auscultation and Non Labored Respirations; Negative Crackles or Accessory Resp Muscle Use
Cardiac: Regular Rhythm and S1/S2
GI: Soft, Nontender, Nondistended and Normal Bowel Sounds
Skin: Warm and Dry
Neuro: Awake, Alert, Oriented and AO x 3
Psych: Calm and Intact Judgement/Insight
Data Reviewed
-
CT Scan: Report Reviewed by me and Discussed with Patient
Labs: Labs Reviewed by me
[2024-08-16 10:34] LABS: Glycohemoglobin (HgbA1c) 7.3 % (4.0-5.6)
[2024-08-16 11:57] LABS: Glucose - Point of Care 310 mg/dl (70-99)
[2024-08-16] MEDS: PT'S OWN INSULIN PUMP - NovoLOG 8 UNIT SC (12:00)
[2024-08-16 12:22] LABS: Ferritin 25.9 ng/ml (11.1-264.0)
[2024-08-16] MEDS: ATIVAN 1 MG PO (12:46)
[2024-08-16 12:53] LABS: Folate 5.5 ng/ml (2.76-20)
[2024-08-16 13:53] LABS: Vitamin B12 295 pg/ml (239-931)
--- NOTE | 2024-08-16 14:39 | CM ---
Met with patient and her spouse at bedside. Patient stated that she lives with her spouse in a split level home with no steps to enter. She described herself as independent with her ADLs, personal care, dressing and bathing. Her spouse does the
cooking, cleaning, laundry and railway signal operator. Patient uses a walker to ambulate long distances. She has a shower chair, a w/c, and grab bars in the shower. Patient went to SN[facility] and did not like the facility. She is current with [facility]. She wants resumption of care. Will send referral.
Patient has a prescription plan and uses, [facility] in [place] for all of her medications.
Her PCP is, Wei Hall.
Patient signed OBS letter and it was reviewed.
Plan: Case management will continue to follow and assist with discharge planning. Will watch for needs.
--- NOTE | 2024-08-16 14:40 | CON.VAS ---
Consultation
Consultation Request
Date/Time Consultation Performed: 08/16/24 2pm
Performing Provider: Chintan
Reason for Consultation: Carotid stenosis
Medical History
-
Chief Complaint: Slurred speech
History of Present Illness:
73-year-old female seen by our service 2 months ago for similar issue. She has extensive cardiovascular risk factors including CAD, PAD, carotid disease. History of prior bilateral carotid endarterectomies, right side most recently. Completed at
[facility]. Denies any prior TIA stroke events. Notes she has also had lower extremity angioplasty/stenting procedures.
Patient was having a hard time finding her words and 'every other word came out slurred' yesterday morning. This had resolved upon arrival to the emergency room. Patient reports generalized weakness seems to have been slightly worse than baseline
over the past several days. Denies any other symptoms at this time.
Last admission consult note 'yesterday she had an episode while returning from a when in the car with her she tried to say something but what came out was gibberish. Nonsensical. Relatively short-lived and had resolved by the time
she ended up getting to the hospital. No other lateralizing symptoms. No prior or subsequent TIA/lateralizing symptoms. She is right-hand dominant.
Past Medical History
Past Medical History: Other (atrial fibrillation on Eliquis, TIA with residual dizziness in April at which time started on Eliquis, CAD status post stents, carotid stenosis status post left carotid endarterectomy 2 years ago and right carotid
endarterectomy in November, hypertension, hypercholesteremia, type I)
Past Surgical History: Cardiac (stents), Cholecystectomy, Orthopedic and Other (BL CEAs at [facility], LLE stents)
Social History
Tobacco: Non-Smoker
Alcohol: None
Drug: None
Family History
Family History: Reviewed & Not Pertinent
Allergies / Home Medications
Allergy/AdvReac Type Severity Reaction Status Date / Time
No Known Allergies Allergy Verified 06/21/24 11:08
�Medication �Instructions �Recorded �Confirmed �Type
apremilast 30 mg tablet (Otezla) 30 mg PO DAILY pustulous psoriasis 01/16/23 08/15/24 History
cholecalciferol (vitamin D3) 50 2,000 unit PO DAILY Supplement 01/16/23 08/15/24 History
mcg (2,000 unit) capsule (Vitamin
D3)
apixaban 5 mg tablet (Eliquis) 5 mg PO BID Blood Clot 05/12/24 08/15/24 History
Prevention/Tx
carvedilol 12.5 mg tablet 12.5 mg PO BID Heart 05/12/24 08/15/24 History
Disease/Condition
rosuvastatin 20 mg tablet 20 mg PO HS High Cholesterol 05/12/24 08/15/24 History
chlorthalidone 25 mg tablet 25 mg PO DAILY Fluid 06/08/24 08/15/24 History
Retention/Swelling
omeprazole 40 mg capsule,delayed 40 mg PO DAILY Gastrointestinal 06/08/24 08/15/24 History
release Issue
acetaminophen 500 mg tablet 1,000 mg PO BID Pain 06/21/24 08/15/24 History
(Tylenol Extra Strength)
brinzolamide 1 %-brimonidine 0.2 % 1 drp BOTH EYES BID Eye Condition 06/21/24 08/15/24 History
eye drops,suspension (Simbrinza)
levothyroxine 88 mcg tablet 88 mcg PO DAILY Thyroid 06/21/24 08/15/24 History
(Synthroid)
losartan 25 mg tablet 25 mg PO DAILY Blood Pressure 06/21/24 08/15/24 History
sodium zirconium cyclosilicate 10 10 g PO MOWEFR Supplement 06/21/24 08/15/24 History
gram oral powder packet (Lokelma)
[place] Xl 1 cap PO DAILY 08/15/24 08/15/24 History
alprazolam 0.25 mg tablet 0.125 mg PO HS 08/15/24 08/15/24 History
evolocumab 140 mg/mL subcutaneous 140 mg SC Q2W 08/15/24 08/15/24 History
pen injector (Repatha SureClick)
insulin aspart U-100 100 unit/mL 0 unit continuous subcutaneous 08/15/24 08/15/24 History
subcutaneous solution (Novolog infusion .VIA PUMP
U-100 Insulin aspart)
loperamide 2 mg capsule 2 mg PO BIDPRN PRN diarrhea 08/15/24 08/15/24 History
risankizumab-rzaa 150 mg/mL 150 mg SC DIRECTED 08/15/24 08/15/24 History
subcutaneous pen injector (Skyrizi)
timolol maleate 0.25 % eye drops 1 drp BOTH EYES HS 08/15/24 08/15/24 History
Review of Systems
-
History Source: Patient
All other systems: Negative unless noted
Constitutional: Reports No Symptoms
EENT: Reports No Symptoms
Respiratory: Reports No Symptoms
Cardiac: Reports No Symptoms
Vascular: Denies Leg Pain / Claudication
Abdomen/GI: Reports No Symptoms
: Reports No Symptoms
Musculoskeletal: Reports No Symptoms
Skin: Reports No Symptoms
Neurological: Reports Other (Slurred speech-resolved)
Physical Exam
Vital Signs
Temp Pulse Resp BP Pulse Ox
98.1 F 70 16 105/58 93
08/16/24 11:05 08/16/24 11:05 08/16/24 11:05 08/16/24 11:05 08/16/24 11:05
Lab Results
08/15/24 19:55
08/15/24 19:55
Troponin I < 0.012 ng/ml 08/15/24 19:55
Physical Exam
General: No Apparent Distress
HEENT: Normocephalic and Atraumatic
Respiratory: Non Labored Respirations
Cardiac: Negative JVD
GI: Soft and Non Tender
Musculoskeletal: No Clubbing, No Cyanosis and No Edema
Skin: Warm
Neuro: Awake, Alert and Oriented
Psych: Calm
Assessment / Plan
-
73-year-old female here with slurred speech
Plan:
Dr. Woodson: reviewed her CT angiogram imaging. She does have consistent findings on the right carotid. Under impressive stenosis versus kinking/tortuosity. Of the right carotid. (Proximal internal carotid artery). I am not sure that that would
have caused any of her speech symptoms. However she does have moderate atherosclerotic plaque at the origin of the left common carotid artery. Does not appear to result in his severe stenosis but may be a moderate. Not absolutely convinced that
this would be the source of her TIA type symptoms. However if no other source is identified could consider managing that with likely retrograde stent. However would favor diagnostic angiography first to better delineate if there is a true stenosis
there. I do not think the right carotid stenosis would be causing any of the symptoms. However again if no other issues identified could consider management of that. However that seems very unlikely to me. Would ask cardiology to evaluate the
patient regarding recent watchman, history of A-fib, neurologic event. Will await MRI reading as well. Then we can decide about proceeding with carotid angiography or not.
Data Reviewed
-
CT Scan: Discussed with Patient
Labs: Labs Reviewed by me
--- NOTE | 2024-08-16 14:42 | W.PN.UPDATE ---
Update Note
Progress Note Update
Seen and examined with GAVIN Lombardi. Full consultation to follow. 73-year-old female recently seen in the hospital almost 2 months ago. At that time following an expressive aphasia type event. She has a history of bilateral carotid
endarterectomies. At that time imaging had demonstrated right-sided possible recurrent carotid stenosis. Based on my interpretation the images appear to be in an area of tortuosity of the carotid. But that right carotid stenosis would not explain
her aphasia symptoms. She also had diagnosis of atrial fibrillation. She has undergone a Watchman procedure at the end of June of this year. She now notes yesterday she had new onset expressive aphasia that was relatively short-lived about 10
minutes. No other symptoms. Her exam is nonfocal. I reviewed her CT angiogram imaging. She does have consistent findings on the right carotid. Under impressive stenosis versus kinking/tortuosity. Of the right carotid. (Proximal internal
carotid artery). I am not sure that that would have caused any of her speech symptoms. However she does have moderate atherosclerotic plaque at the origin of the left common carotid artery. Does not appear to result in his severe stenosis but
may be a moderate. Not absolutely convinced that this would be the source of her TIA type symptoms. However if no other source is identified could consider managing that with likely retrograde stent. However would favor diagnostic angiography
first to better delineate if there is a true stenosis there. I do not think the right carotid stenosis would be causing any of the symptoms. However again if no other issues identified could consider management of that. However that seems very
unlikely to me. Would ask cardiology to evaluate the patient regarding recent watchman, history of A-fib, neurologic event. Will await MRI reading as well. Then we can decide about proceeding with carotid angiography or not.
[2024-08-16] MEDS: NOVOLOG FLEXPEN 4 UNITS SC (15:09)
[2024-08-16 15:17] LABS: Glucose - Point of Care 327 mg/dl (70-99)
--- NOTE | 2024-08-16 15:58 | CON.CAR ---
Addendum entered and electronically signed by Wei Orosco MD 08/16/24 19:25:
73-year-old woman admitted with presumed TIA/CVA. On 07/03/24 she underwent PVI with watchman implantation and has been maintained on Eliquis 5 mg twice daily. Patient developed dysarthria 08/15/2024. MRI did not show any acute event but bilateral
old infarctions. Found to have right ICA stenosis, neurology had concerns regarding hypotension and reduced cerebral perfusion related to ICA stenosis, but vascular surgery suspects that this is an incidental finding and carotid intervention is not
currently planned. Patient has not had clinical atrial fibrillation since PVI. She is scheduled for transesophageal echo in September following Watchman placement.
PMH: Known prior bihemispheric CVAs, PAF, PVI and watchman placement, HFpEF, CAD with RCA PCI/stent 2014, history of non-STEMI with PCI/stent D1, PCI/stent proximal circumflex March 2024, hypertension, hyperlipidemia, diabetes with insulin pump,
hypothyroidism, psoriasis, PAD with left SFA [place] RUBBER
PSH: Cholecystectomy, cataracts, Linq explant,
, remote smoker, no alcohol, retired
Rest of history as below
182/72, pulse 74, head neck exam unremarkable, patient in no distress lungs clear, regular rate and rhythm, no murmurs, no obvious carotid bruits, abdomen benign extremities without clubbing cyanosis or edema pulses palpable
EKG: Sinus rhythm, nonspecific ST-T changes
Hemoglobin 10.5, potassium 5.3, BUN/creatinine 34 and 1.7, negative troponin
Head and neck CTA: 50-70% right ICA stenosis, occluded right external carotid, less than 50% left ICA, 50 to 70% stenosis of origin in the mid right vertebral, less than 50% left vertebral, 70% proximal left subclavian stenosis, possible CHF, COPD
Impression:
Possible TIA, no acute change on MRI since April 2024
Moderate diffuse cerebrovascular disease by CTA
h/o CVA with bihemispheric chronic infarcts on MRI of brain
Paroxysmal atrial fibrillation
no Afib on Linq [id number]
reportedly with paroxysmal Afib during admissions to [facility] 2024
s/p PVI and left atrial posterior wall isolation ablations 07/03/2024hronic Eliquis OAC
s/p watchman implant 07/03/2024
Chronic HFpEF
CAD
s/p PTCA and stent distal RCA 2014
s/p cath with stable CAD and patent RCA stent 2016
s/p NSTEMI, PTCA and stent Diag-1, PTCA and stent prox Circ 03/11/24Hypertension
Hyperlipidemia
Diabetes
Hypothyroidism
Psoriasis
History of PAD status post left SFA angioplasty
CKD 3B/4, possibly with KELLY
Lexiscan sestamibi stress test August 2023: Normal myocardial perfusion scan
Echo 03/13/2024: EF 60-65%. LV systolic function is normal.�Moderate left pleural effusion, ejection fraction 60 to 65%
Plan:
She presents with what sounds like a TIA without evidence of new abnormality on MRI roughly 6 weeks out from PVI and watchman placement, on [place]. Imaging shows diffuse moderate cerebrovascular disease and evidence of old strokes that are
bihemispheric but no acute recent CVA.
Unclear whether cerebrovascular disease could account for her presentation.
Given recent PVI and watchman placement, will be important to ascertain that this is not a potential contributor to cardioembolic stroke. Patient will require a transesophageal echo as part of her routine protocol, and this has been scheduled for
September. However, given her event yesterday, we will proceed with transesophageal echo in the morning.
She is hypertensive and may require up titration of her antihypertensive regimen.
In addition, CT scan yesterday suggested possible congestive heart failure, and x-ray from May showed small effusions and possible interstitial disease. Will check proBNP and repeat chest x-ray in a.m. On exam there was no obvious evidence of
heart failure. However, she may carry a diagnosis of HFpEF, may require loop diuretic.
She has CKD and diabetes, and may have HFpEF. However she is a type I diabetic, and hence SGLT2 antagonist should probably be avoided. Spironolactone should also be avoided given hyperkalemia.
Continue Eliquis. Defer management of CKD to primary service. Further management to be based upon the results of her transesophageal echo.
Original Note:
Consultation
Consultation Request
Date/Time Consultation Requested: 08/16/2024
Date/Time Consultation Performed: 08/16/2024
Requesting Provider: Dr. Meadows
Performing Provider: Dr. KHUSHBU Orosco
Reason for Consultation: CVA
Medical History
-
History of Present Illness:
Patient came to the ER yesterday with dysarthria and was admitted for possible TIA/CVA and cardiology is now consulted. Patient has history of CVA and due to history of GIB she had watchman implant on 07/03/2024 with [place] at time of implant showing
no evidence of thrombus. Patient remains on the watchman protocol with Eliquis 5 mg BID for now and has not yet transition to antiplatelet therapy. Patient started with dysarthria last night and came to the ER and the MRI of her brain showed no
acute abnormality, but within both cerebral hemispheres there are multiple regions of old infarct, but this was known. Neurology evaluated the patient and there was concern for hypotension with R ICA stenosis possibly causing the patient's symptoms
and vascular surgery was consulted. Vascular surgery saw the patient and they felt that it was unlikely that the carotid disease shown on imaging would cause the symptoms that the patient experienced. There is a question as to whether or not
patient could be having ongoing cardioembolic phenomenon. Patient remains in SR following her PVI and left atrial posterior wall isolation ablations on 07/03/2024. Patient needs to have a Linq monitor in place, but it stopped transmitting data back
in 2022.
PMH:
h/o CVA with bihemispheric chronic infarcts on MRI of brain
Paroxysmal atrial fibrillation
no Afib on Linq [id number]
reportedly with paroxysmal Afib during admissions to [facility] 2024
s/p PVI and left atrial posterior wall isolation ablations 07/03/2024
Chronic Eliquis OAC
s/p watchman implant 07/03/2024
Chronic HFpEF
CAD
s/p PTCA and stent distal RCA 2014
s/p cath with stable CAD and patent RCA stent 2016
s/p NSTEMI, PTCA and stent Diag-1, PTCA and stent prox Circ 03/11/24
Hypertension
Hyperlipidemia
Diabetes
Hypothyroidism
Psoriasis
History of PAD status post left SFA angioplasty
Past Medical History
Past Medical History: Other (See HPI, also orthostatic hypotension/syncope, hypothyroidism, psoriasis, gallstones, glaucoma, cataract, claudication/PAD, drug-eluting stent in December 2014)
Past Surgical History: Cardiac (Watchman device 07/03/24) and Other (Cholecystectomy, cataract extractions, Linq removal, SFA left side angioplasty)
Social History
Tobacco: Former Smoker
Alcohol: None
Drug: None
Personal:
Living: With Family
Employment: Retired
Family History
Family History: Other (No premature coronary artery disease)
Allergies / Home Medications
Allergy/AdvReac Type Severity Reaction Status Date / Time
No Known Allergies Allergy Verified 06/21/24 11:08
�Medication �Instructions �Recorded �Confirmed �Type
apremilast 30 mg tablet (Otezla) 30 mg PO DAILY pustulous psoriasis 01/16/23 08/15/24 History
cholecalciferol (vitamin D3) 50 2,000 unit PO DAILY Supplement 01/16/23 08/15/24 History
mcg (2,000 unit) capsule (Vitamin
D3)
apixaban 5 mg tablet (Eliquis) 5 mg PO BID Blood Clot 05/12/24 08/15/24 History
Prevention/Tx
carvedilol 12.5 mg tablet 12.5 mg PO BID Heart 05/12/24 08/15/24 History
Disease/Condition
rosuvastatin 20 mg tablet 20 mg PO HS High Cholesterol 05/12/24 08/15/24 History
chlorthalidone 25 mg tablet 25 mg PO DAILY Fluid 06/08/24 08/15/24 History
Retention/Swelling
omeprazole 40 mg capsule,delayed 40 mg PO DAILY Gastrointestinal 06/08/24 08/15/24 History
release Issue
acetaminophen 500 mg tablet 1,000 mg PO BID Pain 06/21/24 08/15/24 History
(Tylenol Extra Strength)
brinzolamide 1 %-brimonidine 0.2 % 1 drp BOTH EYES BID Eye Condition 06/21/24 08/15/24 History
eye drops,suspension (Simbrinza)
levothyroxine 88 mcg tablet 88 mcg PO DAILY Thyroid 06/21/24 08/15/24 History
(Synthroid)
losartan 25 mg tablet 25 mg PO DAILY Blood Pressure 06/21/24 08/15/24 History
sodium zirconium cyclosilicate 10 10 g PO MOWEFR Supplement 06/21/24 08/15/24 History
gram oral powder packet (Lokelma)
[place] Xl 1 cap PO DAILY 08/15/24 08/15/24 History
alprazolam 0.25 mg tablet 0.125 mg PO HS 08/15/24 08/15/24 History
evolocumab 140 mg/mL subcutaneous 140 mg SC Q2W 08/15/24 08/15/24 History
pen injector (Repatha SureClick)
insulin aspart U-100 100 unit/mL 0 unit continuous subcutaneous 08/15/24 08/15/24 History
subcutaneous solution (Novolog infusion .VIA PUMP
U-100 Insulin aspart)
loperamide 2 mg capsule 2 mg PO BIDPRN PRN diarrhea 08/15/24 08/15/24 History
risankizumab-rzaa 150 mg/mL 150 mg SC DIRECTED 08/15/24 08/15/24 History
subcutaneous pen injector (Skyrizi)
timolol maleate 0.25 % eye drops 1 drp BOTH EYES HS 08/15/24 08/15/24 History
Review of Systems
-
History Source: Patient
All other systems: Negative unless noted
Physical Exam
Vital Signs
Temp Pulse Resp BP Pulse Ox
97.9 F 74 16 182/72 91
08/16/24 15:35 08/16/24 15:35 08/16/24 15:35 08/16/24 15:35 08/16/24 15:35
GEN: NAD. AAOx3
HEENT:MMM
LUNGS: RA. Clear anterolaterally without wheeze
CV: SR on tele. Reg
ABD: ND
EXT: Trace nonpitting B/L LE edema
NEURO: Gross non-focal
SKIN: No rash
Lab Results
08/15/24 19:55
08/15/24 19:55
Troponin I < 0.012 ng/ml 08/15/24 19:55
Impression / Plan
-
PCP: Dr. Wei Hall
Card: Dr. Hammonds
Impression:
Admitted with dysarthria 08/15/2024
Possible TIA
h/o CVA with bihemispheric chronic infarcts on MRI of brain
Paroxysmal atrial fibrillation
no Afib on [facility] [id number]
reportedly with paroxysmal Afib during admissions to [facility] 2024
s/p PVI and left atrial posterior wall isolation ablations 07/03/2024
Chronic Eliquis OAC
s/p watchman implant 07/03/2024
Chronic HFpEF
CAD
s/p PTCA and stent distal RCA 2014
s/p cath with stable CAD and patent RCA stent 2016
s/p NSTEMI, PTCA and stent Diag-1, PTCA and stent prox Circ 03/11/24
Hypertension
Hyperlipidemia
Diabetes
Hypothyroidism
Psoriasis
History of PAD status post left SFA angioplasty
Lexiscan sestamibi stress test August 2023: Normal myocardial perfusion scan
Echo� 03/20/23: TTE. Normal chamber sizes. LF systolic function is normal. LVEF estimated 60-65%. Normal RV systolic function.
Echo 08/23/23: EF 60% with grade 1 diastolic dysfunction, normal RV function, no significant valvular disease is detected
Echo 03/13/2024: EF 60-65%. LV systolic function is normal.�Moderate left pleural effusion, ejection fraction 60 to 65%
[place] 07/03/2024: Watchman procedure [place], no spontaneous contrast, no left atrial appendage thrombus, device well-seated and anchored well on tug test, no flow around the device by color flow Doppler imaging, no pericardial effusion
Plan:
-Patient came to the ER yesterday with dysarthria and was admitted for possible TIA/CVA and cardiology is now consulted. Patient has history of CVA and due to history of GIB she had watchman implant on 07/03/2024 with [place] at time of implant showing
no evidence of thrombus. Patient remains on the watchman protocol with Eliquis 5 mg BID for now and has not yet transition to antiplatelet therapy. Patient started with dysarthria last night and came to the ER and the MRI of her brain showed no
acute abnormality, but within both cerebral hemispheres there are multiple regions of old infarct, but this was known. Neurology evaluated the patient and there was concern for hypotension with R ICA stenosis possibly causing the patient's symptoms
and vascular surgery was consulted. Vascular surgery saw the patient and they felt that it was unlikely that the carotid disease shown on imaging would cause the symptoms that the patient experienced. There is a question as to whether or not
patient could be having ongoing cardioembolic phenomenon. Patient remains in SR following her PVI and left atrial posterior wall isolation ablations on 07/03/2024. Patient needs to have a Linq monitor in place, but it stopped transmitting data back
in 2022.
-ECG reviewed by me as SR. Telemetry reviewed by me is also SR
-Patient with suspected TIA. TIA occurring in the setting of Eliquis 5 mg BID therapy and with Watchman device in place since 07/03/2024. MRI of brain shows chronic bihemispheric infarcts, but nothing acute.
-There was no evidence of CHRISTA thrombus by [place] at time of watchman on 07/03/2024
-Repeat echo and consider [place] to look for cardiac source of embolus.
-Outpatient dose of Eliquis 5 mg BID (age 73, Cre 1.7, wt 60 kg) has been continued.
-Outpatient dose of chlorthalidone 25 mg daily has been continued
-Patient with history of chronic HFpEF and overall weight is down compared to previous admissions and there is no suggestion of acute HF
-Outpatient dose of losartan 25 mg daily has been continued
-Outpatient dose of Coreg 12.5 mg BID has been continued
-Patient is not chronically on SGLT2 due to having DM 1
[2024-08-16 17:00] LABS: Glucose - Point of Care 289 mg/dl (70-99)
[2024-08-16] MEDS: PT'S OWN INSULIN PUMP - NovoLOG 3.5 UNIT SC (17:30)
--- NOTE | 2024-08-16 17:59 | PTCARENOTE ---
Received patient this am AAOx3. Pt has own insulin pump. Spoke to Dr. Meadows and order was placed for patient to use her own insulin pump. Pt seen by diabetic MANAGER PIPELINE and insulin orders reviewed. Pt went off unit to MRI. Insulin pump removed on floor.
Sensor removed by MRI staff. Floor staff picked up sensor in MRI. Pt's took blood sugar when returned to unit. BS 301. Then BS taken by RN [id number]. Made Diabetic MANAGER PIPELINE aware. Pt given 4 units of Novolog insulin as order since patient didn't have insulin
pump back on. Pt's had to go home for some extra supplies. Insulin pump back on around [id number]. Pt tolerated diet. Appetite small. Offered no complaints. Made patient comfortable. Cont to assess patient status.
[2024-08-16] MEDS: CRESTOR 20 MG PO (20:36)
[2024-08-16 21:29] LABS: Glucose - Point of Care 366 mg/dl (70-99)
[2024-08-16] MEDS: PT'S OWN INSULIN PUMP - NovoLOG 5 UNIT SC (21:45)
[2024-08-16] MEDS: TIMOPTIC 0.25% OPHTHALMIC SOLUTION 1 DROP BOTH EYES (21:47)
[2024-08-16] MEDS: XANAX 0.125 MG PO (21:48)
[2024-08-17 03:05] VITALS: BP 151/56
[2024-08-17 06:03] LABS: Glucose - Point of Care 132 mg/dl (70-99)
[2024-08-17] MEDS: SYNTHROID 88 MCG PO (06:04)
[2024-08-17] MEDS: PT'S OWN INSULIN PUMP - NovoLOG SC ×2 (06:07→12:00)
[2024-08-17 07:11] VITALS: BP 124/57; BP 185/78; BP 86/39; PULSE 74; PULSE 76; PULSE 79
--- NOTE | 2024-08-17 07:39 | PN.DE.MGMTRT ---
Insulin Management
- -
08/17/2024: Diabetes Consult Insulin Pump/Management
Patient admitted 08/15 for c/o difficulty finding words. PMH: T1DM since age 23, s/p Watchman procedure 07/03/24, A-Fib on Eliquis, TIA, CAD s/p stents, HTN, HCL, Carotid stenosis S/P right and Left CEA, Anemia, Neuropathy, CKD. Patient known to
Diabetes team from previous admission. Patient routinely sees Fina Cueto of [facility] for diabetes care. Patient has changed from OmniPod to Medtronic pump with Guardian Sensor, started new pump 07/27. Uses
NovoLog insulin and [employer]an Advanced infusion set. states they are still struggling with overnight low blood sugar. Notified pt and that the new basal settings keep the basal rate at .8 from 6am to 12am. and to please discuss with Raji.
A1C was 6.7% previous admission, Cr 1.7, eGFR 31.66.
Pt is currently off the floor for [place] at time of my visit, unable to discuss diabetes care.
08/16 Glucose range 289 to 327. HS glucose was 366. Fasting glucose today 118 V, 132 POC.
Will return and discuss with pt plan to increase day time basal rate to 1 given uncontrolled premeal glucose levels.
Current Pump settings as follows:
Basal rate
12AM to 6am .6
6AM to 10PM .8
24 hour basal total 18 units
I:CHO ratio 1:12
Sensitivity 1:50
Active insulin 2 hours.
Discussed with nurse. Nurse will notify when pt returns to the floor. Will cont to follow
Diabetes History
- -
Type of Diabetes: 1
Pre-Admission Diabetes Regimen
Lab Results
Hemoglobin A1c 7.3 % (4.0-5.6) H 08/16/24 06:51
Insulin Pump Settings
IP Diabetes Regimen
08/16/24 08/16/24 08/16/24
11:56 15:12 16:59
POC Glucose 310 H 327 H 289 H
08/16/24 08/17/24
21:27 06:01
POC Glucose 366 H 132 H
Meal type: Lunch
Meal type: Breakfast
Amount consumed: 95%
Amount consumed: 100%
Patient Education
--- NOTE | 2024-08-17 07:45 | W.PN.NEURO.1 ---
Today's Communication / Plan
-
Appreciate vascular surgery reevaluation for surgical intervention of what is now presumed to be symptomatic right internal carotid artery stenosis
Follow orthostatic blood pressures with 3-minute increments between each body position change
Provide abdominal binder for orthostatic hypotension
Prevent patient from lying supine, maintain head of bed 30 degrees to avoid supine hypertension
Neuro Assessment/Plan
Assessment
Abrupt onset of dysarthria which is recurrent from June 2024 and the patient with known right internal carotid artery stenosis
Although atypical, it is now most likely that the right internal carotid artery stenosis is producing the patient's symptoms made more likely by her coexisting orthostatic hypotension.
Relative hypotension with the BRUNO stenosis are producing patient's symptomatology despite involvement of the right not left hemisphere. The similarity of the events also suggest the possibility of TIA as well without acute changes on MRI of brain.
Plan
Appreciate vascular surgery reevaluation for surgical intervention of what is now presumed to be symptomatic right internal carotid artery stenosis
Follow orthostatic blood pressures with 3-minute increments between each body position change
Provide abdominal binder for orthostatic hypotension
Prevent patient from lying supine, maintain head of bed 30 degrees to avoid supine hypertension
Continue apixaban
Will follow as needed
Subjective/Objective
Subjective Data
Date of Service: August 17, 2024
Objective Data
Vital Signs
Temp Pulse Resp BP Pulse Ox
36.3 C 62 14 151/56 97
08/17/24 03:05 08/17/24 03:05 08/17/24 03:05 08/17/24 03:05 08/17/24 03:05
Lab Results
08/15/24 19:55
PT 16.6 Sec (11.4-14.6) H 08/15/24 19:55
INR 1.29 08/15/24 19:55
APTT 36.6 Sec (23.4-35.0) H 08/15/24 19:55
Sodium 141 mmol/L (135-145) 08/15/24 19:55
Potassium 5.3 mmol/L (3.5-5.1) H 08/15/24 19:55
BUN 34 mg/dl (7-17) H 08/15/24 19:55
Glucose 188 mg/dl (70-99) H 08/15/24 19:55
Calcium 9.4 mg/dl (8.4-10.2) 08/15/24 19:55
LDL Cholesterol, Calc 20 mg/dl 08/16/24 06:51
Vitamin B12 295 pg/ml (239-931) 08/16/24 06:51
Patient Allergies
No Known Allergies Allergy (Verified 06/21/24 11:08)
Data Reviewed
-
MRI Head: Report Reviewed and Image Reviewed
Labs: Report Reviewed
Reviewed with: Nurse Practioner
Old Records: Summarized
[2024-08-17 08:17] LABS: Blood Urea Nitrogen 36 mg/dl (7-17); Calcium 9.0 mg/dl (8.4-10.2); Carbon Dioxide 20 mmol/L (22-30); Chloride 114 mmol/L (98-107); Estimated Creatinine Clearance 25 ml/min; Glucose 118 mg/dl (70-99); Potassium 5.4 mmol/L (3.5-5.1); Sodium 142 mmol/L (135-145); eGFR 31.66
[2024-08-17] MEDS: TYLENOL 1000 MG PO ×2 (08:42→20:39)
[2024-08-17] MEDS: PROTONIX 40 MG PO (08:42)
[2024-08-17] MEDS: COZAAR 25 MG PO (08:43)
[2024-08-17] MEDS: COREG 12.5 MG PO ×2 (08:43→20:39)
[2024-08-17] MEDS: ELIQUIS 5 MG PO ×2 (08:43→20:39)
[2024-08-17] MEDS: VITAMIN D3 (cholecalciferol) 50 MCG PO (08:49)
--- NOTE | 2024-08-17 09:03 | W.PN.HOSP.TC ---
Today's Communication/Plan
-
see A/P
For [place] today
Assessment / Plan
Assessment / Plan
HPI: 73-year-old female with past medical history significant for ASCVD (CAD, CVA, Carotid Disease), hypertension, DM-I, CKD III, chronic anemia, diverticular disease and hypothyroidism who presented to ED for evaluation of slurred speech that
lasted approximately 5 minutes, and resolved on its own.
Patient also reported generalized weakness that seemed to worse than baseline over the past several days.
A/P:
# slurred speech and difficulty word finding, concern for acute stroke
Head CT: No CT evidence for acute intracranial hemorrhage or transcortical infarct. Noted chronic infarcts in bilateral cerebelli, right parietal lobe, left frontal lobe.
Head/Neck CTA: 50-70% diameter stenosis in the proximal right ICA. Complete occlusion of the right ECA. Less than 50% diameter stenosis in the proximal left ICA. Previous bilateral carotid endarterectomies.
MRI brain did not show evidence of acute intracranial abnormality. Noted multiple regions of old infarction in both cerebral hemispheres, .
For V[place]IA today 08/17 in setting of A fib
Vascular consulted for R ICA stenosis
Cont INSTITUTIONAL RESEARCH DIRECTOR Eliquis
Neuro on board
Of note, LDL 20, A1c 7.3%
Noted orthostatic hypotension, pt informed that she has chronic orthostatic hypotension, can start compression therapy
# ASCVD (CAD, CVA, Carotid Disease)
continue Repatha and rosuvastatin
# Hypertension
continue chlorthalidone, Coreg, Losartan
Hydralazine PRN
# Paroxysmal atrial fibrillation s/p watchman
continue carvedilol and Eliquis
plan to d/c Eliquis after [place] in September 2024
# IDDM, type 1
patient on own insulin pump
Diabetic BACK SHOE WORKER on board
AccuCheck AC & HS
SSI
# CKD III
# mild hyperkalemia
Creat 1.7 at baseline
continue INSTITUTIONAL RESEARCH DIRECTOR Lokelma MWF
# Chronic Anemia
hgb 10.5, hct 32.4
# Hypothyroidism
continue levothyroxine
# Diverticular Disease
Code status: full code
DVT prophylaxis: Cont Eliquis per Robin Neuro
Dispo: PT recc HH
Anticipated Discharge: Within 24 hours
Subjective/Interval History
-
Date of Service: August 17, 2024
Objective Data
-
Labs:
Laboratory Results
08/17/24
06:48
Sodium 142
Potassium 5.4 H
Chloride 114 H
Carbon Dioxide 20 L
BUN 36 H
Creatinine 1.7 H
Glucose 118 H
Calcium 9.0
Vital Signs:
Vital Signs
Temp Pulse Resp BP Pulse Ox
36.6 C 74 14 126/62 99
08/17/24 07:11 08/17/24 08:43 08/17/24 07:11 08/17/24 08:43 08/17/24 07:11
I&O
08/16/24 08/17/24 08/18/24
06:59 06:59 06:59
Intake Total 420 / 420
Balance 420 / 420
Review of Systems
-
History Source: Patient
All other systems: Reviewed and negative
Neuro: Reports Other (slurred speech has resolved ); Denies Dizzy, Weakness, Numbness, Ataxia or Tremors
Physical Exam
-
General: Well Developed, Well Nourished, No Apparent Distress, Comfortable and Conversant; Negative Slurred Speech
HEENT: Normocephalic, Atraumatic, Nose Appears Normal and Ears Appear Normal; Negative Oxygen (weaned off)
Respiratory: Clear to Auscultation and Non Labored Respirations; Negative Crackles or Accessory Resp Muscle Use
Cardiac: Regular Rhythm and S1/S2
GI: Soft, Nontender, Nondistended and Normal Bowel Sounds
Skin: Warm and Dry
Neuro: Awake, Alert, Oriented and AO x 3
Psych: Calm and Intact Judgement/Insight
Data Reviewed
-
CT Scan: Report Reviewed by me and Discussed with Patient
Labs: Labs Reviewed by me
[2024-08-17] MEDS: SIMBRINZA 1%-0.2% OPHTH SUSP 1 DROP BOTH EYES ×2 (09:23→20:40)
[2024-08-17] MEDS: LOKELMA 10 GRAM PO (09:41)
[2024-08-17 11:10] VITALS: BP 129/55
--- NOTE | 2024-08-17 12:41 | W.PN.CARDCBS ---
Addendum entered and electronically signed by Leena Ferraro DO 08/17/24 18:45:
I saw and examined the patient.
The Cylinder Dyer's note was reviewed and I agree with the note.
Comment: Patient was seen and examined prior to previously scheduled transesophageal echocardiogram.
.
Asiya is a 73-year-old female who presented with dysarthria on 08/15/2024 with a mild headache; her symptoms completely resolved within 5 minutes prior to her ER evaluation. She denies any recurrent focal weakness or speech difficulties. She has
a history of paroxysmal atrial fibrillation status post PVI ablation July 03, 2024 at the time of watchman implant. She also has a history of bilateral carotid disease status post bilateral carotid endarterectomies with moderate recurrent carotid
stenosis on the right. She also has a history of coronary artery status post stents to distal RCA in 2014, and PTCA/stent to diagonal 1 and proximal circumflex March 11, 2024. Additionally she has a history of PAD status post left SFA
angioplasty, hypertension, hyperlipidemia, type 1 diabetes mellitus and psoriasis.
.
MRI of the brain showed no acute infarct but multiple regions of old infarct suggesting embolic events. She is being seen by both neurology and vascular surgery. She has been on Eliquis 5 mg twice daily without interruption or missed doses. She
has been in sinus rhythm this admission. Transesophageal echocardiogram described in detail including risks and benefits. No contraindications and patient agreeable to proceed.
General: No acute distress, AAOX3
Heart: Regular, positive S1/S2, No murmur
Lungs: CTA b/l, negative wheezes/rales/rhonchi
Abd: Positive BS, NT/ND, neg rebound/rigidity/guarding
Ext: No edema
-Chest x-ray 08/17/2024 2 views: Interval resolution of previously visualized bilateral pleural effusions. Resolution of pulmonary edema. Mild elevation of anterior right hemidiaphragm. Severe calcific atherosclerotic plaque in the thoracic and
abdominal aorta.Severe calcific atherosclerotic plaque in the subclavian and axillary arteries. Left atrial appendage watchman occlusion device in place. Multilevel discogenic degenerative disease of the thoracic spine.
-EKG 08/15/2024: Normal sinus rhythm. Nonspecific ST abnormality.
-Reviewed [place] and operative report from 07/03/24: Successful Deployment 27 mm WATCHMAN left atrial appendage closure device and mapping/ablation of pulmonary veins in addition to AF ablation of the left posterior wall, left atrial roof anteriorly and
left atrial floor posteriorly.
-Reviewed head and neck CTA, head CT, brain CT and brain MRI.
-V[place] 08/17/24: Normal left ventricular size and systolic function with LV ejection fraction estimated 65-70%. Mild concentric left ventricular hypertrophy. Normal RV size and systolic function. 27 mm WATCHMAN is present in the left atrial appendage.
Device is well-seated with no flow detected in multiple planes assessed in both 2D and 3D imaging. No thrombus detected on device. Trace mitral regurgitation. Trileaflet aortic valve without stenosis. No significant aortic regurgitation. Trace
tricuspid regurgitation. Normal size aortic root, and normal size aorta: Sinus of Valsalva 2.6 cm, sinotubular junction 2.13 cm, proximal ascending aorta 2.58 cm.
Layered and protruding plaque is also seen in the ascending and descending aorta. At the level of the sinotubular junction near the right sinus of Valsalva there is dense protruding mobile plaque.
Interatrial septum is mildly aneurysmal with with possible small [id number] shunt by color-flow Doppler, however agitated saline, bubble study was negative for [id number] shunt
Plan:
Presented with transient dysarthria and was admitted for possible TIA/CVA and cardiology consulted. Patient has history of CVA and due to history of GIB she had Watchman implant on 07/03/2024 with [place] at time of implant showing no evidence of
thrombus (also had PVI at time of Watchman). Patient remains on the watchman protocol with Eliquis 5 mg BID for now and has not yet transition to antiplatelet therapy.
-Reviewed MR and CT imaging of the head and neck. No acute stroke with resolved symptoms suggestive of TIA however MRI of the brain shows bilateral prior strokes suggesting embolic etiology
-Maintaining sinus rhythm following PVI July 03, 2024
-No interruption of Eliquis therapy
-V[place] showed mobile plaque at the aortic root and layered/protruding plaque in the descending aorta
-V[place] today also shows that the watchman implant is well-seated with no flow detected by color-flow Doppler.
-Findings discussed with electrophysiology as well as CT surgery and vascular surgery
-Consult CT surgery For evaluation given recurrent strokes
-CTA of the chest requested for further evaluation, but given creat 1.7, GFR 31, will not do study today. Pt had head/neck CTA 08/15/2024 so already rec'd dye this admission. Will hold Chlorthalidone and Losartan for now and trend creatinine.
-Outpatient dose of Eliquis 5 mg BID (age 73, Cre 1.7, wt 60 kg) to continued.
-Start aspirin 81 mg daily
History of GI bleed with Hb stable 10.5g/dL
-Monitor closely
-Continue iron supplementation
AoCRI
-May be related to contrast nephropathy following CTA of the head and neck
-baseline 1.2-1.4, today 1.7
-K 5.4- Treated per primary service
-Will hold outpatient chlorthalidone 25 mg daily and Losartan 25 mg daily
-Repeat basic metabolic profile tomorrow
-Patient with history of chronic HFpEF and overall weight is down compared to previous admissions and there is no suggestion of acute HF
-Outpatient dose of Coreg 12.5 mg BID has been continued
-Patient is not chronically on SGLT2 due to having DM 1
-can use hydralazine PRN if needed for HTN
Reviewed findings with patient and over the phone. Discussed care plan with CT surgery, vascular surgery and electrophysiology services.
Original Note:
Today's Communication / Plan
-
Mobile plaque in aorta on V[place]IA today
cont Eliquis
CT surgery eval
holding ARB/diuretic in anticipation of her getting CTA chest given CKD and recent administration of dye for CTA head and neck, creat 1.7
Impression / Plan
-
PCP: Dr. Wei Hall
Card: Dr. Hammonds
Impression:
Admitted with dysarthria 08/15/2024
Possible TIA
h/o CVA with bihemispheric chronic infarcts on MRI of brain
Mobile plaque in aorta on V[place] 08/17/2024
Paroxysmal atrial fibrillation
no Afib on Linq [phone]
reportedly with paroxysmal Afib during admissions to [facility] 2024
s/p PVI and left atrial posterior wall isolation ablations 07/03/2024
Chronic Eliquis OAC
s/p watchman implant 07/03/2024
Chronic HFpEF
CAD
s/p PTCA and stent distal RCA 2014
s/p cath with stable CAD and patent RCA stent 2016
s/p NSTEMI, PTCA and stent Diag-1, PTCA and stent prox Circ 03/11/24
Hypertension
Hyperlipidemia
Diabetes
Hypothyroidism
Psoriasis
History of PAD status post left SFA angioplasty
Lexiscan sestamibi stress test August 2023: Normal myocardial perfusion scan
Echo� 03/20/23: TTE. Normal chamber sizes. LF systolic function is normal. LVEF estimated 60-65%. Normal RV systolic function.
Echo 08/23/23: EF 60% with grade 1 diastolic dysfunction, normal RV function, no significant valvular disease is detected
Echo 03/13/2024: EF 60-65%. LV systolic function is normal.�Moderate left pleural effusion, ejection fraction 60 to 65%
[place] 07/03/2024: Watchman procedure [place], no spontaneous contrast, no left atrial appendage thrombus, device well-seated and anchored well on tug test, no flow around the device by color flow Doppler imaging, no pericardial effusion
Plan:
-Patient came to the ER 08/15 with dysarthria and was admitted for possible TIA/CVA and cardiology consulted. Patient has history of CVA and due to history of GIB she had Watchman implant on 07/03/2024 with [place] at time of implant showing no evidence
of thrombus (also had PVI at time of Watchman). Patient remains on the watchman protocol with Eliquis 5 mg BID for now and has not yet transition to antiplatelet therapy.
-MRI of her brain showed no acute abnormality, but within both cerebral hemispheres there are multiple regions of old infarct, but this was known. Neurology evaluated the patient and there was concern for hypotension with R ICA stenosis possibly
causing the patient's symptoms and vascular surgery was consulted. Vascular surgery saw the patient and they felt that it was unlikely that the carotid disease shown on imaging would cause the symptoms that the patient experienced. There is a
question as to whether or not patient could be having ongoing cardioembolic phenomenon. Patient remains in SR following her PVI and left atrial posterior wall isolation ablations on 07/03/2024. Patient needs to have a Linq monitor in place, but it
stopped transmitting data back in 2022.
-EKG 08/15/2024 and telemetry over course of admission reveals normal sinus rhythm
-Patient with suspected TIA occurring in the setting of Eliquis 5 mg BID therapy and with Watchman device in place since 07/03/2024. Also status post PVI 07/03/2024. MRI of brain 08/16/2024 shows chronic bihemispheric infarcts, but nothing acute.
-There was no evidence of CHRISTA thrombus by [place]IA at time of watchman on 07/03/2024
-[place] today 08/17/2024 done to look for cardiac source of thrombus.
-[place] showed mobile plaque in aorta with well sealed Watchman device
-Consult CT surgery for evaluation of mobile plaque
-CTA of the chest requested for further evaluation, but given creat 1.7, GFR 31, will not do study today. Pt had head/neck CTA 08/15/2024 so already rec'd dye this admission. Will hold Chlorthalidone and Losartan for now and trend creatinine.
-Outpatient dose of Eliquis 5 mg BID (age 73, Cre 1.7, wt 60 kg) to continued.
-Outpatient doses of chlorthalidone 25 mg daily and Losartan 25 mg daily will be held given bump in creatinine and need for CTA chest
-Patient with history of chronic HFpEF and overall weight is down compared to previous admissions and there is no suggestion of acute HF
-Outpatient dose of Coreg 12.5 mg BID has been continued
-Patient is not chronically on SGLT2 due to having DM 1
-can use hydralazine PRN if needed for HTN
-reviewed with pt, , nurse, CT surgery
Progress Note - [employer]ew[employer] Tech
Subjective
Date of Service: August 17, 2024
-[place] today with mobile plaque in aorta despite pt being on Eliquis.
-pt feels okay s/p [place]
-no SOB/CP
Objective
Labs:
08/15/24 19:55
08/17/24 06:48
Labs
Hgb 10.5 g/dL (12.0-16.0) L 08/15/24 19:55
Hct 32.4 % (37.0-47.0) L 08/15/24 19:55
Plt Count 285 10^3/uL (130-400) 08/15/24 19:55
PT 16.6 Sec (11.4-14.6) H 08/15/24 19:55
INR 1.29 08/15/24 19:55
APTT 36.6 Sec (23.4-35.0) H 08/15/24 19:55
Sodium 142 mmol/L (135-145) 08/17/24 06:48
Potassium 5.4 mmol/L (3.5-5.1) H 08/17/24 06:48
BUN 36 mg/dl (7-17) H 08/17/24 06:48
Creatinine 1.7 mg/dL (0.6-1.0) H 08/17/24 06:48
Glucose 118 mg/dl (70-99) H 08/17/24 06:48
Troponins
08/15/24
19:55
Troponin I < 0.012
Vital Signs and I&O:
Vital Signs
Temp Pulse Resp BP Pulse Ox
97.8 F 61 16 129/55 96
08/17/24 11:10 08/17/24 11:10 08/17/24 11:10 08/17/24 11:10 08/17/24 11:10
Vital Signs
Temp Pulse Resp BP Pulse Ox
97.8 F 61 16 129/55 96
08/17/24 11:10 08/17/24 11:10 08/17/24 11:10 08/17/24 11:10 08/17/24 11:10
Intake & Output
08/15/24 08/16/24 08/17/24 08/18/24
06:59 06:59 06:59 06:59
Intake Total 420 / 420
Balance 420 / 420
Physical Exam
Physical Exam
GEN: No distress, awake, Ox3
HEENT: supple, anicteric, mmm
LUNGS: CTA, no wheezes/rales
CV: Reg, S1/S2, no murmur
ABD: soft, BS+, NT/ND
EXT: No edema
NEURO: Gross non-focal
SKIN: No rash
[2024-08-17 14:25] VITALS: BP 170/59
[2024-08-17 14:45] LABS: Glucose - Point of Care 155 mg/dl (70-99)
[2024-08-17] MEDS: FERRLECIT 110 MG IV (15:03)
--- NOTE | 2024-08-17 16:52 | PTCARENOTE ---
Received patient this am AAOx3. Pt NPO for Echo-[place] this am. Pt off unit this am for a chest xray an [place]. Pt returned to unit. Pt remained NPO for CT angio which was then put on hold secondary to patients creatinine. Pt seen by cardiology an
cardiac thoracic team. Diet restarted on patient. Offered no complaints. Made patient comfortable. Cont to assess patient status.
[2024-08-17] MEDS: PT'S OWN INSULIN PUMP - NovoLOG 5 UNIT SC (17:24)
--- NOTE | 2024-08-17 17:44 | CONSULT.CT ---
Consultation
-
Date/Time Consultation Requested: 08/17/24
Patient History
Physicians
Family Physician: Dr. Wei Hall
Outpatient Pointing Machine Operator: Dr. Hammonds
Inpatient Pointing Machine Operator: [facility]
History of Present Illness
Ms. Haleigh Moss is a 73-year-old female with a past medical history of CAD with multiple coronary stents, MT (03/2024), pAF s/p PVI/watchman (06/2024), CVA (04/2024 - bihemispheric infarcts), HTN, HLD, T1DM (insulin pump), hypothyroidism, CKD III
(baseline Cr ~ 1.7), PAD s/p L SFA angioplasty, Carotid stenosis s/p CEA, and psoriasis who presented to ED with slurred speech and word searching. She underwent evaluation for concern of acute stroke in which her head CT was negative for acute
intracranial hemorrhage. Upon CT imaging it was noted of chronic bilateral cerebellar infarcts in the right parietal lobe and left frontal lobe. She underwent a CTA of the head and neck which showed 50 to 70% stenosis of the proximal right ICA and
less than 50% stenosis in the proximal left ICA with evidence of prior bilateral carotid endarterectomies. Vascular surgery was consulted in which her TIA symptoms did not correlate to her carotid disease. It was recommended that if no other
cardiac etiology was present for TIA, she would require a diagnostic angiography to delineate stenosis. Patient underwent VIRGINIA today due to recent PVI with Watchman in June 2024 in which did not show evidence of thrombus but revealed a mobile plaque
in aorta with a well-seated Watchman device. Cardiothoracic surgery was consulted for evaluation of mobile plaque. It was recommended she obtain a CT of the chest for further diagnostics. Due to recent contrast for CTA head and neck and past
medical history of CKD 3 she was recommended for outpatient consultation following imaging.
Ms. Moss reported multiple hospitalizations throughout the year initially beginning in February 2024 in which she endured lower GI bleeding attributed to hemorrhoids in which resolved without intervention. In March 2024, patient reported a heart
attack in which she sought medical care through [facility]. At that time she reported having an indwelling urinary catheter for 12 days prior to discharge home. Following this hospitalization, she endured a symptomatic urinary tract infection in which
she went into diabetic ketoacidosis. Prior to obtaining medical care, she experienced a fall at home and changes to her speech. Upon ED arrival, her workup revealed cerebellar infarcts. During May 2024, she reported presenting to [facility]
with complaints of shortness of breath. At that time, she was found to be in A-fib and acute heart failure. Following this hospitalization, she underwent a PVI and Watchman procedure in June 2024. In part of her preprocedure workup, she underwent
a VIRGINIA which showed mild-moderate aortic plaque without noted mobility. Today, she denies any chest pain, chest tightness, shortness of breath, orthopnea, lower extremity edema, or weight gain. She reports chronic orthostasis and prior syncope
since her teens. She reports prior lower extremity edema which improved in conjunction to discontinuation of her amlodipine. She reports tolerating physical activity, such as ascending the steps, without any cardiopulmonary symptoms.
Past Medical History
CKD III (baseline Cr 1.7)
CVA/TIA
bihemispheric chronic infarcts on MRI brain (corresponding with prior MRI in April 2024)
Paroxysmal [id number]
reportedly with paroxysmal Afib during admissions to [facility] 2024
s/p PVI and left atrial posterior wall isolation ablations 07/03/2024hronic Eliquis OAC
s/p watchman implant 07/03/2024
Chronic HFpEF
CAD
s/p PTCA and stent distal RCA 2014
s/p cath with stable CAD and patent RCA stent 2016
s/p NSTEMI, PTCA and stent Diag-1, PTCA and stent prox Circ 03/11/24Hypertension
Hyperlipidemia
Type 1 Diabetes - insulin pump
Hypothyroidism
Psoriasis
History of PAD status post left SFA angioplasty
Social History
Alcohol: None
Drug: None
Tobacco: Non-Smoker
Personal:
Living: With Spouse
Employment: Retired
Allergies
Allergy/AdvReac Type Severity Reaction Status Date / Time
No Known Allergies Allergy Verified 06/21/24 11:08
Home Medications
�Medication �Instructions �Recorded �Confirmed �Type
apremilast 30 mg tablet (Otezla) 30 mg PO DAILY pustulous psoriasis 01/16/23 08/15/24 History
cholecalciferol (vitamin D3) 50 2,000 unit PO DAILY Supplement 01/16/23 08/15/24 History
mcg (2,000 unit) capsule (Vitamin
D3)
apixaban 5 mg tablet (Eliquis) 5 mg PO BID Blood Clot 05/12/24 08/15/24 History
Prevention/Tx
carvedilol 12.5 mg tablet 12.5 mg PO BID Heart 05/12/24 08/15/24 History
Disease/Condition
rosuvastatin 20 mg tablet 20 mg PO HS High Cholesterol 05/12/24 08/15/24 History
chlorthalidone 25 mg tablet 25 mg PO DAILY Fluid 06/08/24 08/15/24 History
Retention/Swelling
omeprazole 40 mg capsule,delayed 40 mg PO DAILY Gastrointestinal 06/08/24 08/15/24 History
release Issue
acetaminophen 500 mg tablet 1,000 mg PO BID Pain 06/21/24 08/15/24 History
(Tylenol Extra Strength)
brinzolamide 1 %-brimonidine 0.2 % 1 drp BOTH EYES BID Eye Condition 06/21/24 08/15/24 History
eye drops,suspension (Simbrinza)
levothyroxine 88 mcg tablet 88 mcg PO DAILY Thyroid 06/21/24 08/15/24 History
(Synthroid)
losartan 25 mg tablet 25 mg PO DAILY Blood Pressure 06/21/24 08/15/24 History
sodium zirconium cyclosilicate 10 10 g PO MOWEFR Supplement 06/21/24 08/15/24 History
gram oral powder packet (Lokelma)
[place] Xl 1 cap PO DAILY 08/15/24 08/15/24 History
alprazolam 0.25 mg tablet 0.125 mg PO HS 08/15/24 08/15/24 History
evolocumab 140 mg/mL subcutaneous 140 mg SC Q2W 08/15/24 08/15/24 History
pen injector (Repatha SureClick)
insulin aspart U-100 100 unit/mL 0 unit continuous subcutaneous 08/15/24 08/15/24 History
subcutaneous solution (Novolog infusion .VIA PUMP
U-100 Insulin aspart)
loperamide 2 mg capsule 2 mg PO BIDPRN PRN diarrhea 08/15/24 08/15/24 History
risankizumab-rzaa 150 mg/mL 150 mg SC DIRECTED 08/15/24 08/15/24 History
subcutaneous pen injector (Skyrizi)
timolol maleate 0.25 % eye drops 1 drp BOTH EYES HS 08/15/24 08/15/24 History
Review of Systems
-
History Source: Patient
General: Reports Weight Loss (40 lbs over 6-months)
HEENT: Reports No Symptoms
Respiratory: Reports No Symptoms
Cardiac: Reports Other (orthostasis)
Abdomen/GI: Reports Diarrhea (on lokelma)
: Reports No Symptoms
Musculoskeletal: Reports No Symptoms
Skin: Reports No Symptoms
Neurological: Reports TIA and Syncope
Vascular: Reports No Symptoms
Physical Exam
Vital Signs
Temp 97.8 F 08/17/24 14:25
Temp route: Oral 08/17/24 14:25
Pulse 65 08/17/24 14:25
Rhythm: Normal sinus rhythm 08/17/24 09:00
Resp Rate 16 08/17/24 14:25
Blood pressure 170/59 08/17/24 14:25
Blood pressure extremity used: Right upper arm 08/17/24 14:25
Position: Lying 08/17/24 14:25
MAP (cuff-Edgardo Monitor) 120 08/15/24 23:00
SaO2 94 08/17/24 14:25
Oxygen Mode of Delivery Room air 08/17/24 14:25
Pulse Ox at Rest 96 08/16/24 09:30
Acceptable pain level during hospitalization? 0 08/15/24 19:47
Can the patient verbally communicate their pain? Yes 08/17/24 09:00
Actual Weight 60.441 kg 08/15/24 23:24
Body Mass Index (BMI) 23.6 08/15/24 23:24
Supine- Blood Pressure 185/78 08/17/24 07:11
Supine- Pulse 74 08/17/24 07:11
Sitting- Blood Pressure 124/57 08/17/24 07:11
Sitting- Pulse 76 08/17/24 07:11
Standing- Blood Pressure 86/39 08/17/24 07:11
Standing- Pulse 79 08/17/24 07:11
Blood pressure extremity used: Left upper arm 08/17/24 07:11
Mode BP taken: Automatic 08/17/24 07:11
Heart rate after activity 84 08/16/24 09:30
Blood pressure after activity 168/69 08/16/24 09:30
Oxygen Saturation with Activity 93 08/16/24 09:29
Labs
08/15/24 19:55
08/17/24 06:48
PT 16.6 Sec (11.4-14.6) H 08/15/24 19:55
APTT 36.6 Sec (23.4-35.0) H 08/15/24 19:55
Hemoglobin A1c 7.3 % (4.0-5.6) H 08/16/24 06:51
Troponin I < 0.012 ng/ml 08/15/24 19:55
Qno-L-Ghoceiwpuvh Pept 1710 pg/ml 08/17/24 06:48
Exam
General: Well Developed, Well Nourished and No Apparent Distress
HEENT: Normocephalic, Atraumatic, PERRLA and EOMI
Respiratory: Clear
Cardiac: S1/S2 and Regular Rhythm
GI: Soft, Non Tender, Non Distended and Normal Bowel Sounds
Skin: Warm and Dry
Neuro: Awake, AO x 3 and No Motor Deficits
Extremities: Pulses (+2 DP B/L, +2 Radial B/L)
Psych: Calm
Assessment / Plan
-
#Mobile Aortic Mass
- VIRGINIA (08/17) showing mobile/protruding plaque in ascending and descending aorta; EF 65-70%, mild LVH, trileaflet AV without /AI, trace MR, trace TR. Watchman present/well-seated, no thrombus detected.
- VIRGINIA (06/2024) mild to moderate plaque in Aorta. no AI/, trace MR, TR. No thrombus.
- MRI (08/2024) both cerebral hemispheres, multiple regions of old infarction, corresponding to probable embolic bilateral infarcts seen on outside MRI of the brain from April 2024.
- Previous hospitalization for DKA secondary to urosepsis (~04/2024 at OSH)
- Plan for CTA chest as outpatient when feasible with Cr.
- Recent contrast with CT Head/Neck.
- Cr 1.7 from 1.4-1.6.
- Cardiology holding Losartan.
- Case discussed with Attending Physician. Tentative plan for outpatient follow-up when further diagnostics obtained.
- Will follow-up in AM.
[2024-08-17 17:51] LABS: Glucose - Point of Care 217 mg/dl (70-99)
[2024-08-17 19:38] VITALS: BP 154/68; BP 190/97; BP 212/80; PULSE 76; PULSE 79; PULSE 83
[2024-08-17] MEDS: FEOSOL 325 MG PO (20:39)
[2024-08-17] MEDS: CRESTOR 20 MG PO (20:39)
[2024-08-17] MEDS: TIMOPTIC 0.25% OPHTHALMIC SOLUTION 1 DROP BOTH EYES (20:40)
[2024-08-17] MEDS: XANAX 0.125 MG PO (20:40)
[2024-08-17 21:14] LABS: Glucose - Point of Care 253 mg/dl (70-99)
[2024-08-17 23:09] VITALS: BP 142/66
[2024-08-18 03:05] VITALS: BP 159/72
[2024-08-18] MEDS: ZYRTEC 5 MG PO (03:55)
[2024-08-18] MEDS: SYNTHROID 88 MCG PO (03:55)
[2024-08-18] MEDS: PT'S OWN INSULIN PUMP - NovoLOG SC ×2 (05:04)
[2024-08-18 07:00] VITALS: BP 111/49; BP 135/63; BP 180/89; PULSE 80; PULSE 84; PULSE 87
[2024-08-18 07:12] LABS: Glucose - Point of Care 203 mg/dl (70-99)
[2024-08-18] MEDS: VITAMIN D3 (cholecalciferol) 50 MCG PO (07:59)
[2024-08-18] MEDS: PROTONIX 40 MG PO (07:59)
[2024-08-18] MEDS: COREG 12.5 MG PO (07:59)
[2024-08-18] MEDS: PT'S OWN INSULIN PUMP - NovoLOG 6 UNIT SC (08:02)
[2024-08-18] MEDS: TYLENOL 1000 MG PO (08:03)
[2024-08-18] MEDS: ASPIR LOW (ENTERIC COATED) 81 MG PO (08:03)
[2024-08-18] MEDS: ELIQUIS 5 MG PO (08:03)
[2024-08-18] MEDS: SIMBRINZA 1%-0.2% OPHTH SUSP 1 DROP BOTH EYES (08:04)
[2024-08-18 08:06] LABS: Blood Urea Nitrogen 37 mg/dl (7-17); Calcium 9.2 mg/dl (8.4-10.2); Carbon Dioxide 23 mmol/L (22-30); Chloride 113 mmol/L (98-107); Estimated Creatinine Clearance 23 ml/min; Glucose 168 mg/dl (70-99); Potassium 5.1 mmol/L (3.5-5.1); Sodium 144 mmol/L (135-145); eGFR 29.57
[2024-08-18 11:00] VITALS: BP 141/70
[2024-08-18 11:51] LABS: Glucose - Point of Care 346 mg/dl (70-99)
[2024-08-18] MEDS: PT'S OWN INSULIN PUMP - NovoLOG 8.2 UNIT SC (12:42)
[2024-08-18 15:00] VITALS: BP 165/62
--- NOTE | 2024-08-18 15:39 | CM ---
Addendum entered by Shira Josue RN 08/18/24 15:44:
Alin GARCIA (fax [phone])
Original Note:
Patient with Dx slurred speech and difficulty word finding, concern for acute stroke. Room air. PT/OT recommend .
Spoke with patient who was preparing for discharge. The patient says she feels ready for discharge home today. IMM completed. Provided update that Alin Knight will resume service. Her will provide a ride home.
Plan home today with resumption Alin SMITH.
--- NOTE | 2024-08-18 17:07 | W.PN.HOSP.TC ---
Today's Communication/Plan
-
Discharge today
Assessment / Plan
Assessment / Plan
Diagnosis present prior to admission:
Diastolic dysfunction
Acute coronary syndrome
Psoriasis
Gallstones
Carotid disease, bilateral
Orthostatic hypotension
Recurrent syncope
Cataract
Murmur
Syncope
Controlled type 1 diabetes mellitus
Superficial femoral artery occlusion
CAD (coronary artery disease)
Anemia
Hypothyroidism
Chronic diastolic (congestive) heart failure
Acute diastolic heart failure
Glaucoma
Essential Hypertension
Hyperlipidemia
Peripheral arterial disease
HPI and initial presentation:
73-year-old female with past medical history significant for:
ASCVD
CAD,
CVA,
Carotid Disease
essential hypertension,
DM-I,
CKD III,
chronic anemia,
diverticular disease
hypothyroidism
who presented to for evaluation of slurred speech that lasted approximately 5 minutes, and resolved on its own. Patient also reported generalized weakness that seemed to worse than baseline over the past several days.
Hospital course by problem:
1. slurred speech and difficulty word finding, concern for acute stroke - resolved
Head CT:
No CT evidence for acute intracranial hemorrhage or transcortical infarct.
Noted chronic infarcts in bilateral cerebelli, right parietal lobe, left frontal lobe.
Head/Neck CTA:
50-70% diameter stenosis in the proximal right ICA.
Complete occlusion of the right ECA.
Less than 50% diameter stenosis in the proximal left ICA.
Previous bilateral carotid endarterectomies.
MRI brain did not show evidence of acute intracranial abnormality.
Noted multiple regions of old infarction in both cerebral hemispheres, .
Vascular surgery consulted for R ICA stenosis
Plan is for outpatient followup, no surgery at this time
Continued SWEEPING COMPOUND BLENDER Eliquis
Neurology consulted
Of note, LDL 20, A1c 7.3%
Noted orthostatic hypotension, pt informed that she has chronic orthostatic hypotension, we started compression therapy
This should be continued as outpatient.
2. ASCVD (CAD, CVA, Carotid Disease)
continued Repatha and rosuvastatin
3. Essential Hypertension - stable during hospitalization
Stopped chlorthalidone and Losartan to improve renal function
Continued coreg
4. Paroxysmal atrial fibrillation s/p watchman - stable during hospitalization
continued carvedilol and Eliquis
will recommend d/c Eliquis after VIRGINIA
5. IDDM, type 1 -stable
patient used her own insulin pump
Diabetic PYTHON JAVA DEVELOPER helped manage
AccuCheck was used AC & HS
6. CKD III - complicated use of dye
Complicated by mild hyperkalemia
Creat 1.7 at baseline
continue SWEEPING COMPOUND BLENDER Lokelma MWF
BP meds adjusted by cardiology
7. Chronic Anemia - stable during hospitalization
hgb 10.5, hct 32.4
8. Hypothyroidism - stable during hospitalization
continue levothyroxine
9. Diverticular Disease - stable during hospitalization
Code status during stay: full code
DVT prophylaxis: we Continued Eliquis per [facility]
Dispo: PT reccommended HH
Anticipated Discharge: Today
Subjective/Interval History
-
Date of Service: August 18, 2024
Feels well and wants to go home.
Objective Data
-
Labs:
Laboratory Results
08/18/24
06:58
Sodium 144
Potassium 5.1
Chloride 113 H
Carbon Dioxide 23
BUN 37 H
Creatinine 1.8 H
Glucose 168 H
Calcium 9.2
Vital Signs:
Vital Signs
Temp Pulse Resp BP Pulse Ox
98.4 F 76 16 165/62 94
08/18/24 15:00 08/18/24 15:00 08/18/24 15:00 08/18/24 15:00 08/18/24 15:00
I&O
08/17/24 08/18/24 08/19/24
06:59 06:59 06:59
Intake Total 420 / 420 480 / 480
Balance 420 / 420 480 / 480
Review of Systems
-
History Source: Patient
All other systems: Reviewed and negative
Physical Exam
-
General: Well Developed, Well Nourished, No Apparent Distress and Comfortable
HEENT: Normocephalic, Atraumatic, Moist Mucous Membranes, Nose Appears Normal and Ears Appear Normal
Respiratory: Clear to Auscultation
Cardiac: Regular Rhythm and S1/S2
GI: Soft, Nontender and Nondistended
Musculoskeletal: No Clubbing, No Cyanosis, Edema, Right Lower Extrem and Edema, Left Lower Extrem
Skin: Warm and Dry
Neuro: Awake, Alert, Oriented and AO x 3
Psych: Calm
Data Reviewed
-
Labs: Labs Reviewed by me
--- NOTE | 2024-08-18 17:21 | W.DCSUMMARY ---
Discharge Summary
Discharge Data
Date of Admission: 08/15/24
Date of Discharge: 08/18/24
Total time spent discharging patient (in min): 51
-
Pending Results: No
Hospital Course
Diagnosis present prior to admission:
Diastolic dysfunction
Acute coronary syndrome
Psoriasis
Gallstones
Carotid disease, bilateral
Orthostatic hypotension
Recurrent syncope
Cataract
Murmur
Syncope
Controlled type 1 diabetes mellitus
Superficial femoral artery occlusion
CAD (coronary artery disease)
Anemia
Hypothyroidism
Chronic diastolic (congestive) heart failure
Acute diastolic heart failure
Glaucoma
Essential Hypertension
Hyperlipidemia
Peripheral arterial disease
HPI and initial presentation:
73-year-old female with past medical history significant for:
ASCVD
CAD,
CVA,
Carotid Disease
essential hypertension,
DM-I,
CKD III,
chronic anemia,
diverticular disease
hypothyroidism
who presented to for evaluation of slurred speech that lasted approximately 5 minutes, and resolved on its own. Patient also reported generalized weakness that seemed to worse than baseline over the past several days.
Hospital course by problem:
1. slurred speech and difficulty word finding, concern for acute stroke - resolved
Head CT:
No CT evidence for acute intracranial hemorrhage or transcortical infarct.
Noted chronic infarcts in bilateral cerebelli, right parietal lobe, left frontal lobe.
Head/Neck CTA:
50-70% diameter stenosis in the proximal right ICA.
Complete occlusion of the right ECA.
Less than 50% diameter stenosis in the proximal left ICA.
Previous bilateral carotid endarterectomies.
MRI brain did not show evidence of acute intracranial abnormality.
Noted multiple regions of old infarction in both cerebral hemispheres, .
Vascular surgery consulted for R ICA stenosis
Plan is for outpatient followup, no surgery at this time
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
Neurology consulted
Of note, LDL 20, A1c 7.3%
Noted orthostatic hypotension, pt informed that she has chronic orthostatic hypotension, we started compression therapy
This should be continued as outpatient.
2. ASCVD (CAD, CVA, Carotid Disease)
continued Repatha and rosuvastatin
3. Essential Hypertension - stable during hospitalization
Stopped chlorthalidone and Losartan to improve renal function
Continued coreg
4. Paroxysmal atrial fibrillation s/p watchman - stable during hospitalization
continued carvedilol and Eliquis
will recommend d/c Eliquis after VIRGINIA
5. IDDM, type 1 -stable
patient used her own insulin pump
Diabetic GROCERY STORE BAGGER helped manage
AccuCheck was used AC & HS
6. CKD III - complicated use of dye
Complicated by mild hyperkalemia
Creat 1.7 at baseline
continue JUNIOR COPYWRITER Lokelma MWF
BP meds adjusted by cardiology
7. Chronic Anemia - stable during hospitalization
hgb 10.5, hct 32.4
8. Hypothyroidism - stable during hospitalization
continue levothyroxine
9. Diverticular Disease - stable during hospitalization
Code status during stay: full code
DVT prophylaxis: we Continued Eliquis per [facility]
Dispo: PT reccommended HH
Discharge Plan
-
Patient Disposition: Home (Routine Discharge)
Discharge Diagnosis/Procedures: TIA
Diet: As tolerated
Activity: As tolerated
Driving Restrictions: As prior to admission
Bathing Restrictions: None
Others Tests: Ultrasound appointment: 11/19 @ 9:30
Activity Restrictions/Additional Instructions:
Follow up with cardiology for appointment on Tuesday.
Referrals:
Wei Hall MD [Family Provider, Internal Medicine]
Dorothy Reed CRNP [Specified Professional Personl, Vascular Surgery] - 11/23/24 11:00 am
Referral Note: Vascular surgery office follow up
Prescriptions:
New
aspirin 81 mg Tablet,Delayed Release (Dr/Ec)
81 mg PO DAILY Qty: 30 0RF
Continued
cholecalciferol (vitamin D3) [Vitamin D3] 50 mcg (2,000 unit) Capsule
2,000 unit PO DAILY
Otezla 30 mg Tablet
30 mg PO DAILY
carvedilol 12.5 mg Tablet
12.5 mg PO BID
rosuvastatin 20 mg Tablet
20 mg PO HS
Eliquis 5 mg Tablet
5 mg PO BID
omeprazole 40 mg Capsule,Delayed Release(Dr/Ec)
40 mg PO DAILY
acetaminophen [Tylenol Extra Strength] 500 mg Tablet
1,000 mg PO BID
levothyroxine [Synthroid] 88 mcg Tablet
88 mcg PO DAILY
Simbrinza 1-0.2 % Drops,Suspension
1 drp BOTH EYES BID
Lokelma 10 gram Powder In Packet
10 g PO MOWEFR
Patient Comments:
08/15/2024, pt. gets this med through [facility] pharmacy per pt.
loperamide 2 mg Capsule
2 mg PO BIDPRN PRN (Reason: diarrhea)
alprazolam 0.25 mg Tablet
0.125 mg PO HS
insulin aspart U-100 [Novolog U-100 Insulin aspart] 100 unit/mL Solution
0 unit continuous subcutaneous infusion .VIA PUMP
Patient Comments:
08/15/2024, pt. changes her insulin every 3 days; per pt. she has been using roughly 30 units a day; she places roughly 200 units in and replaces her insulin when when there is roughly 50 units remaining; pt. changed her insulin yesterday
(08/14/2024) per pt.
Repatha SureClick 140 mg/mL Pen Injector
140 mg SC Q2W
Skyrizi 150 mg/mL pen injector
150 mg SC DIRECTED
Patient Comments:
08/15/2024, pt. and spouse believe that 1 month between first and second dose and then 4 months between 2nd and 3rd dose but they are not sure for certain.
[place] Xl
1 cap PO DAILY
timolol maleate 0.25 % Drops
1 drp BOTH EYES HS
Discontinued
chlorthalidone 25 mg Tablet
25 mg PO DAILY
losartan 25 mg Tablet
25 mg PO DAILY
Discharge Orders:
Discharge Patient (As Directed); Ordered 08/18/24
Ordered By: Preet Jones
Discharge Date and Time
Discharge Date/Time: 08/18/24 16:14
Print Language: UGAND[place]
== END 2024-08-18 16:14 | disposition home health service (06) ==
LOC: 4 EAST ACU 22:13
PROVIDERS: Internal Medicine; Internal Medicine Cardiovascular Disease; Nurse Practitioner Family; ADMITTING PHYSICIAN Internal Medicine; ATTENDING PHYSICIAN Internal Medicine; CONSULT PHYSICIAN Internal Medicine Cardiovascular Disease; CONSULT PHYSICIAN Psychiatry & Neurology Neurology; EMERGENCY PHYSICIAN Student in an Organized Health Care Education/Training Program; FAMILY PHYSICIAN Internal Medicine; OTHER PHYSICIAN Surgery Vascular Surgery
PROC: B24BZZ4 Ultrasonography of Heart with Aorta, Transesophageal (ICD-10-PCS; 2024-08-17)
DX: R47.81 Slurred speech (principal); I95.1 Orthostatic hypotension; I24.9 Acute ischemic heart disease, unspecified; K80.20 Calculus of gallbladder without cholecystitis without obstruction; I65.23 Occlusion and stenosis of bilateral carotid arteries; I25.10 Atherosclerotic heart disease of native coronary artery without angina pectoris; E10.22 Type 1 diabetes mellitus with diabetic chronic kidney disease; N18.32 Chronic kidney disease, stage 3b; D63.1 Anemia in chronic kidney disease; E89.0 Postprocedural hypothyroidism; I13.0 Hypertensive heart and chronic kidney disease with heart failure and stage 1 through stage 4 chronic kidney disease, or unspecified chronic kidney disease; I50.32 Chronic diastolic (congestive) heart failure; I48.0 Paroxysmal atrial fibrillation; E87.5 Hyperkalemia; E10.51 Type 1 diabetes mellitus with diabetic peripheral angiopathy without gangrene; F41.9 Anxiety disorder, unspecified; K57.30 Diverticulosis of large intestine without perforation or abscess without bleeding; L40.1 Generalized pustular psoriasis; E10.40 Type 1 diabetes mellitus with diabetic neuropathy, unspecified; E78.00 Pure hypercholesterolemia, unspecified; G93.89 Other specified disorders of brain; H40.9 Unspecified glaucoma; I16.0 Hypertensive urgency; I25.2 Old myocardial infarction; J43.9 Emphysema, unspecified; Z79.01 Long term (current) use of anticoagulants; Z79.4 Long term (current) use of insulin; Z79.899 Other long term (current) drug therapy; Z86.73 Personal history of transient ischemic attack (TIA), and cerebral infarction without residual deficits; Z87.891 Personal history of nicotine dependence; Z90.49 Acquired absence of other specified parts of digestive tract; Z95.5 Presence of coronary angioplasty implant and graft; Z96.41 Presence of insulin pump (external) (internal)
CPT/HCPCS: 0042T; 70450; 70496; 70498; 70551; 71046; 80048; 80053; 80061; 82607; 82728; 82746; 82962; 83036; 83880; 84443; 84484; 85025; 85610; 85730; 92610; 93005; 93312; 93320; 93325; 97162; 97166; 99291; G0378; J2916; Q9967

== ENCOUNTER 2024-08-25 14:52 | Inpatient (IN) | payer MEDICARE, SELFPAY ==
[2024-08-25] VITALS (25 sets, daily range): BP systolic 110–244; BP diastolic 51–173; BMI 24.5
[2024-08-25 11:15] LABS: Hematocrit 34.3 % (37.0-47.0); Hemoglobin 11.1 g/dL (12.0-16.0); Mean Corp Hgb Conc. 32.4 g/dL (33.0-37.0); Mean Corpuscular Volume 94.0 fL (81.0-99.0); Nucleated Red Blood Cells % 0 %; Platelet Count 263 10^3/uL (130-400); Red Cell Dist. Width 15.7 % (11.5-14.5)
[2024-08-25 11:28] LABS: ALT (SGPT) 15 U/L (0-35); AST (SGOT) 23 U/L (14-36); Albumin 4.5 g/dl (3.5-5.0); Alkaline Phosphatase 85 U/L (38-126); Blood Urea Nitrogen 27 mg/dl (7-17); Calcium 9.4 mg/dl (8.4-10.2); Carbon Dioxide 26 mmol/L (22-30); Chloride 108 mmol/L (98-107); Estimated Creatinine Clearance 36 ml/min; Glucose 169 mg/dl (70-99); Potassium 4.9 mmol/L (3.5-5.1); Sodium 142 mmol/L (135-145); Total Protein 7.3 g/dl (6.3-8.2); eGFR 48.09
--- NOTE | 2024-08-25 11:45 | ED.GENMED ---
History of Present Illness
General
Chief Complaint: Blood Pressure Problem
Source: patient
Time Seen by Provider: 08/25/24 11:31
History of Present Illness
History of Present Illness:
The patient is a 73-year-old female presenting with a history of persistent lightheadedness and dizziness over the past six months. The patient reports that these symptoms are typically relieved by lying down; however, today, the symptoms did not
improve with this intervention as usual. The patient describes the dizziness as a lightheaded, woozy sensation rather than room-spinning (vertigo). Currently, while lying down, her symptoms have subsided after visiting the bathroom. She reports a
mild headache at present.
Regarding her medication, she was recently taken off Losartan approximately 7 to 10 days ago, following a discharge from a recent hospital visit. She is currently on carvedilol twice daily, which is taken after lunch due to its side effect of
causing dizziness. She has a history of low blood pressure upon standing.
Today, the patient has not yet taken any medications. She typically does not take carvedilol until the afternoon. She noted a high blood pressure reading at home about an hour to an hour and a half before arriving. It was 238 upon initial
examination in the emergency department. The patient also discusses having taken salt the previous morning to manage her blood pressure when standing in the past, but she refrained from doing so today.
There is no associated chest pain, shortness of breath, fever, chills, cough, or recent leg swelling. The patient also mentions discontinuation of a diuretic due to concerns regarding kidney health.
Past History
Past History
ED Past Medical History: HTN, Hypercholesterolemia, IDDM and Other (Anemia, Neuropathy, Fractures left foot)
ED Past Surgical History: Cardiac (Stents), Cholecystectomy, Orthopedic (Right hand surgery, Tennis elbow surgery) and Other (Endarterectomy, Bowel stents)
Social History
Tobacco: Former smoker
Alcohol: None
Personal:
Living: with family
Phy Exam
Physical Exam
Physical Exam:
General: Awake, Alert, Oriented X3. No acute distress.
Vitals: Hypertensive
Head: Atraumatic
Eyes: Pupils equal, EOMI
Throat: Airway intact, no exudates
Neck: Trachea midline
Lungs: Clear and equal b/l
Heart: Regular rate, no murmurs
Abd: Soft, Nontender, No pulsatile mass
Neuro: Cranial nerves intact, muscle strength equal bilaterally, cerebellar exam normal
Skin: Warm, dry, no rash
Extremities: pulses equal b/l, no edema
Course
Orders/Labs/Results
Orders:
Orders
08/25/24 Breakfast
Regular
At Your Request: Limited Participation
08/25/24 11:02
Electrocardiogram (*1) Urgent
Reason for Study: Hypertension, Benign
08/25/24 11:03
EKG- Treatment ONCE
08/25/24 11:07
Complete Blood Count/With Diff Urgent
Comprehensive Metabolic Panel Urgent
Troponin I Urgent
08/25/24 11:44
Carvedilol [Coreg] 12.5 mg PO NOW STA
08/25/24 12:29
Labetalol HCl [Trandate] 10 mg IV NOW STA
08/25/24 12:30
Labetalol HCl [Trandate] 20 mg .ROUTE .STK-MED ONE
08/25/24 13:00
Nicardipine 40 mg/200 ml [Cardene] 40 mg in 200 ml IV NOW
Initial dose in mg/hr, then titrate:: 5
Titrate to keep:: SBP 140 - 160 mmHg
Titrate by mg/hr:: 2.5 mg/hr
Frequency of titrations (minutes):: 5-15 minutes
Maximum dose in mg/hr:: 15
Begin to taper infusion when:: Remained at goal for 2hrs
Taper by mg/hr:: 2.5 mg/hr
Frequency of taper (minutes) if patient maintains goal:: every 15-30 minutes
Taper to off?: Yes
If infusion off & no longer maintaining goal:: Contact Provider
08/25/24 13:01
CT Head W/o Iv Contrast Urgent
Comment:
Reason For Exam: headache, high bp
08/25/24 14:32
Admit/Transfer Patient As Directed
Co-Sign Provider:
Level of Care: Inpatient admission
Assign to:: Telemetry
Physician / Group: GRAY MANN
Diagnosis: HTN EMERGENCY
Reason for Telemetry: Arrhythmia
Date to Stop Telemetry: 08/28/24
Time to Stop Telemetry: 11:00
Reason for Hospitalization: htN EMERGENCY
Expected length of stay greater than two midnights?: Yes
ELOS- Estimated Length of Stay in days: 3
I certify the patient meets the requirements for IP care: Yes
08/25/24 14:33
PRN Pain Medication Management As Directed
May give lesser potent ordered pain med per pt: Yes
preference::
Protocol:: Medication orders for pain may be administered in a
manner that supports deferring to patient preference
when the pt is:
- Requesting an ordered lesser potent pain medication.
Least to most potent pain medications are defined
as: acetaminophen < NSAID < tramadol < opioids
(morphine, oxycodone, hydromorphone).
- Requesting a lesser dose of the same medication IF
ORDERED.
- Requesting a less intrusive route of administration
if both routes are prescribed by the provider (PO <
IV).
08/25/24 14:35
Code Status As Directed
Resuscitation Status: Full Code
08/25/24 14:43
PRN Pain Medication Management As Directed
May give lesser potent ordered pain med per pt: Yes
preference::
Protocol:: Medication orders for pain may be administered in a
manner that supports deferring to patient preference
when the pt is:
- Requesting an ordered lesser potent pain medication.
Least to most potent pain medications are defined
as: acetaminophen < NSAID < tramadol < opioids
(morphine, oxycodone, hydromorphone).
- Requesting a lesser dose of the same medication IF
ORDERED.
- Requesting a less intrusive route of administration
if both routes are prescribed by the provider (PO <
IV).
08/25/24 14:45
Amlodipine [Norvasc] 5 mg PO ONCE ONE
08/25/24 15:00
Dextrose 50%-Water [Dextrose 50% Syringe] 12.5 grams IV PRN PRN
Glucagon [GlucaGen] 1 mg IM PRN PRN
Pt's Own Ins. Pump Aspart [PT'S OWN INSULIN PUMP - NovoLOG] See Dose Instructions SC PRN PRN
08/25/24 16:30
Pt's Own Ins. Pump Aspart [PT'S OWN INSULIN PUMP - NovoLOG] See Dose Instructions SC ACHS
08/25/24 18:33
Acetaminophen [Tylenol] 650 mg PO Q4HPRN PRN
Bisacodyl [Dulcolax] 10 mg RECTAL [id number] PRN
Clonidine [Catapres] 0.1 mg PO BIDPRN PRN high blood pressure
Docusate W/Senna [Senokot-S] 1 tablet PO BIDPRN PRN
Patient Own Insulin Pump 1 sliding scale dose SC .VIA NOVOLOG
Polyethylene Glycol Powder [Miralax] 17 grams PO DAILYPRN PRN
08/25/24 18:33
Diabetes Management by Nurse Practitioner Routine
Consulting Provider: Mary Membreno
Was provider already notified?: No
Reason for Consult: Insulin Recommendation
Abdominal Binder As Directed
Accucheck [Bedside Glucose Monitoring] As Directed
Frequency: AC&HS
Activity As Directed
Activity Level: As Tolerated
Teds [Anti-embolism (FAN) Hose] As Directed
Type: Thigh high
Vital Signs As Directed
Frequency: Per unit guidelines
Occupational Therapy Consult [Ot Eval And Treat] Routine
Pt Eval And Treat Routine
Activity Level: As Tolerated
08/25/24 20:00
Amlodipine [Norvasc] 5 mg PO BID
Apixaban [Eliquis] 5 mg PO BID
Brinzolamide/Brimonidine Tart [Simbrinza 1%-0.2% Ophth Susp] 1 drop BOTH EYES BID
Carvedilol [Coreg] 12.5 mg PO BID
apremilast [Otezla] 30 mg PO BID
08/25/24 22:00
Alprazolam [Xanax] 0.125 mg PO HS
Rosuvastatin Calcium [Crestor] 20 mg PO HS
Timolol Maleate 0.25% [Timoptic 0.25% Ophthalmic Solution] 1 drop BOTH EYES HS
08/26/24 06:00
Basic Metabolic Panel IN AM
Cardiovascular Evaluation IN AM
Complete Blood Count/No Diff IN AM
Complete Blood Count/With Diff IN AM
08/26/24 08:00
Aspirin Low Dose EC [Aspir Low (Enteric Coated)] 81 mg PO DAILY
Levothyroxine [Synthroid] 88 mcg PO DAILY
omeprazole 40 mg PO DAILY
08/27/24 06:00
Basic Metabolic Panel IN AM
Complete Blood Count/No Diff IN AM
Complete Blood Count/With Diff IN AM
08/27/24 14:32
Sodium Zirconium Cyclosilicate [Lokelma] 10 gram PO MOWEFR
08/28/24 06:00
Basic Metabolic Panel IN AM
Complete Blood Count/No Diff IN AM
Complete Blood Count/With Diff IN AM
08/28/24 11:00
DC Protocol for Telemetry ONCE
08/29/24 06:00
Basic Metabolic Panel IN AM
Abnormal Lab Results
08/25/24
11:07
RBC 3.65 L 10^6/uL
(4.20-5.40)
Hgb 11.1 L g/dL
(12.0-16.0)
Hct 34.3 L %
(37.0-47.0)
MCHC 32.4 L g/dL
(33.0-37.0)
RDW 15.7 H %
(11.5-14.5)
Absolute Monos (auto) 0.7 H 10^3/uL
(0.1-0.6)
Lymphocytes % 20.0 L %
(20.5-51.1)
Chloride 108 H mmol/L
(98-107)
BUN 27 H mg/dl
(7-17)
Creatinine 1.2 H mg/dL
(0.6-1.0)
Glucose 169 H mg/dl
(70-99)
08/25/24 11:07
08/25/24 11:07
Vital Signs
Initial and Last Documented VS:
Initial Vital Signs
Temp Pulse Resp Pulse Ox
98.1 F 85 19 99
08/25/24 10:57 08/25/24 10:57 08/25/24 10:57 08/25/24 10:57
Last Documented Vital Signs
Temp Pulse Resp BP Pulse Ox
98.1 F 81 19 157/57 83
08/25/24 17:05 08/25/24 17:45 08/25/24 17:45 08/25/24 18:00 08/25/24 17:45
MDM/Problems Addressed
Differential Diagnosis Includes:
Uncontrolled hypertension, hypertensive emergency, subarachnoid hemorrhage, tension headache
MDM/Problems Addressed:
Patient presents to the emergency room complaining of headache, elevated blood pressure, feeling anxious. Initial plan was to observe blood pressure to see if it would come down as she relaxed here in the emergency room. However her headache
became much more severe. Patient very anxious. Dose of labetalol provided which did not change her blood pressure. Given the severity of her headache a CT was ordered and Cardene was ordered. Fortunately her head CT does not show any acute
abnormality. Blood pressure improved with Cardene. Patient will be admitted to the hospitalist service for management of blood pressure
*Radiology
Radiology exam reviewed: radiology read reviewed
*Pulse Oximetry
SaO2: 99
Oxygen Mode of Delivery: Room air
Patient hypoxic: no
*EKG
Interpreted by ED Provider?: Yes
Heart Rate: 84
Rate: normal
Rhythm: sinus
[place]: normal axis
Interval: normal interval
QRS Pattern: normal QRS
Ischemia: non-specific ST changes
*Dog Bather Interpretation
Rate: normal
Interpretation: normal
Rhythm: sinus
*Critical Care Note
Total Time (30-74mins, 75-104mins- exclusive of procedures): 42 min
comment:
Critical care statement: A total of 42 minutes of critical care time was provided for this patient. This includes management of unstable vital signs, evaluation of the patient at bedside, reviewing the patient's pertinent medical records, discussion
with consultants, review of old EKGs and review of pertinent medical records. This time with separate from time utilized to perform the aforementioned documented procedures
Data Reviewed
Review of Other/Old Records Reveals: Testing, Progress Notes and Discharge Summary
Patient Management
Social determinants of health affecting care: Strong social support
ED Attending Note
-
Portions of this chart may have been created with voice recognition software.� Occasional wrong word or��sound alike� substitutions may have occurred due to the inherent limitations of voice recognition software.
Discharge Plan
Departure
Patient Disposition: Admit
Date of Disposition: 08/25/24
Time of Disposition: 13:53
Admit to: ICU
Presentation/result/management discussed w/ accepting MD/DO: Hospitalist
Condition: Serious
Discharge Problem:
Hypertensive emergency
Interventions
Interventions:
*Risk Screen - Suicide Last Done: 08/25/24 11:02
*General Assessment Last Done: 08/25/24 11:00
*Neglect/Abuse Screening Last Done: 08/25/24 11:02
*ED- Fall Risk Assessment Last Done: 08/25/24 11:00
*ED COVID-19 Vaccine History Last Done: 08/25/24 11:00
*Nursing Disposition Last Done: 08/25/24 18:23
ED- Cardiac Assessment Last Done: 08/25/24 11:03
ED- Neurological Assessment Last Done: 08/25/24 11:03
ED- Pulmonary Assessment Last Done: 08/25/24 11:03
Discharge Date and Time
Discharge Date/Time: 08/25/24 18:40
[2024-08-25 11:47] LABS: Troponin I < 0.012 ng/ml
[2024-08-25] MEDS: COREG 12.5 MG PO ×2 (11:55→20:02)
[2024-08-25] MEDS: TRANDATE 10 MG IV (12:31)
[2024-08-25] MEDS: CARDENE 200 IV (13:09)
--- NOTE | 2024-08-25 13:16 | PTCARENOTE ---
Addendum entered by Reshma Germain RN 08/25/24 13:55:
Also gave Labetalol 10mg IV. See MAR.
Original Note:
Pt BP remains elevated despite giving Coreg. Nicardipine ordered and started. See MAR and worklist. Pt and spouse advised. Will continue to monitor.
--- NOTE | 2024-08-25 13:59 | HPS.HSE ---
Family Physician
-
Family Physician: Wei Hall
Chief Complaint
-
lightheadedness and dizzy.
History of Present Illness
73-year-old female with past medical history for TIA, coronary artery disease, hypertension, hyperlipidemia, orthostatic hypotension presented to urgent with lightheadedness and dizziness. She intermittently gets lightheaded and dizziness for past
few months but resolves after laying down or taking a nap. Today she took Xanax as well as a nap with no relief in her symptoms. She was noted to have elevated blood pressure at home. A week ago her losartan and Lasix were stopped prior to
discharge from here. Patient denies any blurry vision, numbness, tingling, chest pain, short of breath. Patient denied any abdominal pain, nausea, vomiting or diarrhea. Patient denied dysuria, hematuria
Patient still has orthostatic hypotension.
Upon arrival, patient was noted in hypertensive emergency. Initiated on Cardene drip. Admitted for further management
Medical History
Past Medical History
Past Medical History: Reports Other
Additional Past Medical History:
Acute coronary syndrome
Psoriasis
Gallstone
Carotid disease
Orthostatic hypotension
Syncope
Murmur
Type 1 diabetes
Anemia
Hypothyroidism
Diastolic heart failure
Glaucoma
Hypertension
Hyperlipidemia
Peripheral artery disease
Past Surgical History: Reports Other
Additional Past Surgical History:
Cardiac stent
Cholecystectomy
Bilateral cataract extraction
Linq removal
L SFA angioplasty
Watchman
Left thyroidectomy
Social History
Tobacco: Non-smoker
Alcohol: None
Drug: None
Personal:
Living: With Family
Family History
Family History: Not pertinent
Allergies / Home Medications
Allergies reflects when Allergies were last updated in [employer].
Home Medications with original date entered in [facility]
Allergy/Medication List:
Allergies
Allergy/AdvReac Type Severity Reaction Status Date / Time
No Known Allergies Allergy Verified 08/25/24 10:56
Home Medications
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
cholecalciferol (vitamin D3) 50 mcg (2,000 unit) capsule (Vitamin D3) 2,000 unit PO DAILY Supplement 01/16/23
apixaban 5 mg tablet (Eliquis) 5 mg PO BID Blood Clot Prevention/Tx 05/12/24
carvedilol 12.5 mg tablet 12.5 mg PO BID Heart Disease/Condition 05/12/24
rosuvastatin 20 mg tablet 20 mg PO HS High Cholesterol 05/12/24
omeprazole 40 mg capsule,delayed release 40 mg PO DAILY Gastrointestinal Issue 06/08/24
acetaminophen 500 mg tablet (Tylenol Extra Strength) 1,000 mg PO BID Pain 06/21/24
brinzolamide 1 %-brimonidine 0.2 % eye drops,suspension (Simbrinza) 1 drp BOTH EYES BID Eye Condition 06/21/24
levothyroxine 88 mcg tablet (Synthroid) 88 mcg PO DAILY Thyroid 06/21/24
sodium zirconium cyclosilicate 10 gram oral powder packet (Lokelma) 10 g PO MOWEFR Supplement 06/21/24
alprazolam 0.25 mg tablet 0.125 mg PO HS 08/15/24
evolocumab 140 mg/mL subcutaneous pen injector (Repatha SureClick) 140 mg SC Q2W 08/15/24
loperamide 2 mg capsule 2 mg PO BIDPRN PRN diarrhea 08/15/24
omega-3 fatty acids-fish oil 684 mg-1,200 mg capsule,delayed release 1 cap PO DAILY ##0 08/15/24
risankizumab-rzaa 150 mg/mL subcutaneous pen injector (Skyrizi) 150 mg SC DIRECTED 08/15/24
timolol maleate 0.25 % eye drops 1 drp BOTH EYES HS 08/15/24
aspirin 81 mg tablet,delayed release 81 mg PO DAILY #30 tabs 08/18/24
Patient Own Insulin Pump 1 sliding scale dose SC .VIA NOVOLOG 08/25/24
chlorthalidone 25 mg tablet 25 mg PO DAILY 08/25/24
clonidine HCl 0.1 mg tablet 0.1 mg PO BIDPRN PRN high blood pressure 08/25/24
losartan 25 mg tablet 25 mg PO DAILY 08/25/24
Review of Systems
-
Constitutional: Reports No Symptoms
EENT: Reports No Symptoms
Respiratory: Reports No Symptoms
Cardiac: Reports No Symptoms
Abdomen/GI: Reports No Symptoms
: Reports No Symptoms
Musculoskeletal: Reports No Symptoms
Skin: Reports No Symptoms
Neurological: Reports Dizzy and Headache
Endocrine: Reports No Symptoms
Hematologic/Lymphatic: Reports No Symptoms
Psych: Reports No Symptoms
Physical Exam
Vital Signs
Vital Signs
Temp Pulse Resp BP Pulse Ox
98.1 F 89 20 180/61 99
08/25/24 10:57 08/25/24 13:49 08/25/24 13:49 08/25/24 13:48 08/25/24 13:49
Physical Exam
General: Well Developed, Well Nourished and No Apparent Distress
HEENT: NormoCephalic, Moist mucous membranes and Atraumatic
Respiratory: Clear
Cardiac: S1/S2 and Regular Rhythm; No Murmur or Rub
GI: Soft, Non Tender, Non Distended and Normal Bowel Sounds; No Organomegaly
Rectal: Deferred by Provider
Musculoskeletal: No Clubbing, No Cyanosis and No Edema
Skin: No Rash
Neuro: AO x 3 and Nonfocal/grossly intact
Psych: Calm
Laboratory Results
-
08/25/24 11:07
08/25/24 11:07
Laboratory Results
Total Bilirubin 0.5 mg/dl (0.2-1.3) 08/25/24 11:07
AST 23 U/L (14-36) 08/25/24 11:07
ALT 15 U/L (0-35) 08/25/24 11:07
Alkaline Phosphatase 85 U/L (38-126) 08/25/24 11:07
Troponin I < 0.012 ng/ml 08/25/24 11:07
Data Reviewed
-
CT Scan: Report Reviewed by me
Lab Data: Labs Reviewed by me
Impression/Plan
-
# Hypertensive emergency
- wean Cardene off
- Head CT with no acute findings
- EKG with normal sinus rhythm
-Norvasc added
-clonidine prn
# Headache and generalized weakness likely secondary to hypertension emergency
- PT/OT
- Tylenol as needed for headache
# Anemia of chronic disease
- Hemoglobin stable at 11.1, no active bleeding
- Continue to monitor
# CKD stage IIIb
- Creatinine 1.2, continue to monitor
# ASCVD (CAD, CVA, Carotid Disease)
-continued Repatha and rosuvastatin
- Continue aspirin
# Essential Hypertension
- Coreg continued
# Paroxysmal atrial fibrillation s/p watchman
-continued carvedilol and Eliquis
# IDDM, type 1 -stable
-patient used her own insulin pump
-Diabetic WALL SCRAPER consulted
-AccuCheck AC & HS
#Hypothyroidism
-continue levothyroxine
#HXT of orthostatic hypotension
-abdominal binder and Cortez stocking ordered
# Anxiety
- Alprazolam continued
Code status during stay: full code
[2024-08-25] MEDS: NORVASC 5 MG PO ×2 (15:11→20:02)
--- NOTE | 2024-08-25 15:27 | W.PN.UPDATE ---
Update Note
Progress Note Update
This note serves as an addendum to the H&P by global project manager EUGENIO
Keiko RYLAN
HPI
73F HX recent TIA, CAD, HTN, hyperlipidemia, orthostatic hypotension seen at ER
- seen at [facility] for lightheadedness and dizziness.
- Recent HX intermittently gets lightheaded and dizziness for past few months but resolves after laying down or taking a nap. - Today she took Xanax as well as a nap with no relief in her symptoms.
- noted to have elevated blood pressure at home.
- A week ago her losartan and Lasix were stopped due to KELLY , prior to discharge from here.
ROS
- denies any blurry vision, numbness, tingling, chest pain, short of breath.
- denied any abdominal pain, nausea, vomiting or diarrhea.
- denied dysuria, hematuria
Relevant VS:
Vital Signs
Temp Pulse Resp BP Pulse Ox
98.1 F 80 16 142/56 91
08/25/24 10:57 08/25/24 15:16 08/25/24 15:16 08/25/24 15:16 08/25/24 15:15
PE
Gen: No Apparent Distress, conversant
HEENT: symmetric face
Neck: supple
Lungs: CTA
Cor: S1 S2
Abdomen: benign
MONOTYPE KEYBOARD OPERATOR: AAO3, nl speech and language function, grossly NFND
MS: symmetric movements of all exts
Psych: nl mood and affect
Relevant Data
NEG HCT
ASSESSMENT & PLAN
Hypertensive urgency due to holding off Losartan HCTZ due to KELLY on CKD3
H essential Hypertension
- NEG HCT
- EKG with normal sinus rhythm, no acute ischemic changes
- Resolved ROJAS with improved BP,on Cardene gtt
- wean Cardene off
- Initiate Norvasc in place of Losartan and HCTZ for now
- c/w TRADE MARKER Coreg
- c/w clonidine prn
ROJAS and generalized weakness likely secondary to hypertension urgency
- PT/OT
- Tylenol as needed for headache
Anemia of chronic disease
- Hemoglobin stable at 11.1, no active bleeding
- Continue to monitor
HX CKD 3b
- stable
- Creatinine 1.2
- f/u Cr
Paroxysmal AF
- s/p watchman
- continued carvedilol and Eliquis
IDDM
- on own insulin pump
- Diabetic SUMMER CLERK consulted
- AccuCheck AC & HS
HX ASCVD (CAD, CVA, Carotid Disease)
- continued Repatha and rosuvastatin
- Continue aspirin
Hypothyroidism
-continue levothyroxine
HX orthostatic hypotension
- abdominal binder and Cortez stocking ordered
Anxiety
- Alprazolam continued
DVT Px: on TRADE MARKER Eliquis
Full code
IP TLM
[2024-08-25 15:55] LABS: Glucose - Point of Care 148 mg/dl (70-99)
[2024-08-25] MEDS: PT'S OWN INSULIN PUMP - NovoLOG 13 UNIT SC (16:00)
[2024-08-25] MEDS: ELIQUIS 5 MG PO (20:02)
--- NOTE | 2024-08-25 20:30 | PTCARENOTE ---
pt aaox3, no c/o pain or dizzines. pt UD=406/65 p=77 - administered scheduled meds. pt has a left lower insulin pump. pt states she doesn't know the settings but it doesn't administer anything over night. --will clarify..
pt reports that she was recently at [facility] where she had a blood sugar >700 and fell. pt on accuchecks here and bed alarm in reach.
placed thigh teds and abdominal binder on patient. pt on tele SR.
pt is oriented to room w/ call pimentel in reach.
[2024-08-25 21:09] LABS: Glucose - Point of Care 103 mg/dl (70-99)
[2024-08-25] MEDS: XANAX 0.125 MG PO (23:17)
[2024-08-25] MEDS: TIMOPTIC 0.25% OPHTHALMIC SOLUTION 1 DROP BOTH EYES (23:17)
[2024-08-25] MEDS: CRESTOR 20 MG PO (23:17)
[2024-08-25] MEDS: SIMBRINZA 1%-0.2% OPHTH SUSP 1 DROP BOTH EYES (23:17)
[2024-08-25] MEDS: PT'S OWN INSULIN PUMP - NovoLOG SC (23:26)
[2024-08-26 01:51] VITALS: BMI 24.5
[2024-08-26 03:33] VITALS: BP 129/50
[2024-08-26] MEDS: TYLENOL 650 MG PO (05:07)
[2024-08-26 05:50] VITALS: BMI 23.4
[2024-08-26 07:27] VITALS: BP 143/62
--- NOTE | 2024-08-26 08:01 | W.PN.HOSP.TC ---
Today's Communication/Plan
-
Discharge today
Assessment / Plan
Assessment / Plan
Physical Exam
General: Well Developed, Well Nourished and No Apparent Distress
HEENT: NormoCephalic, Moist mucous membranes and Atraumatic
Respiratory: Clear
Cardiac: S1/S2 and Regular Rhythm
GI: Soft, Non Tender, Non Distended and Normal Bowel Sounds
Musculoskeletal: No Cyanosis and No Edema
Skin: Warm. Dry.
Neuro: AO x 3 and Nonfocal/grossly intact
Psych: Calm
Assessment/Plan
73-year-old female with past medical history for TIA, coronary artery disease, hypertension, hyperlipidemia, orthostatic hypotension presented to urgent with lightheadedness and dizziness. She intermittently gets lightheaded and dizziness for past
few months but resolves after laying down or taking a nap. On 08/25/24 she took Xanax as well as a nap with no relief in her symptoms. She was noted to have elevated blood pressure at home. A week prior to presentation, her losartan and Lasix were
stopped prior to discharge from here. Patient denied any blurry vision, numbness, tingling, chest pain, short of breath. Patient denied any abdominal pain, nausea, vomiting or diarrhea. Patient denied dysuria, hematuria
#Presentation with headache/lightheadedness - RESOLVED
# Hypertensive emergency
- weaned Cardene off
- Head CT with no acute findings
- EKG with normal sinus rhythm
- Patient stated she was taking scheduled
- Norvasc added -- patient reported having lower extremity swelling possibly from Amlodipine in the past but said she is agreeable to start it since her outpatient provider perviously stopped her RUBINA/ARB medication for some reason and she also said
she had issues with Metoprolol and HCTZ -- will do Norvasc on discharge and she will follow-up with her physicist nuclear/PCP who will help her decide if she can switch to an RUBINA/ARB perhaps
-clonidine prn at home as she is already doing
# Headache and generalized weakness likely secondary to hypertension emergency
- PT/OT
- Tylenol as needed for headache
# Anemia of chronic disease
- Hemoglobin stable at 11.1, no active bleeding
- Continue to monitor
# CKD stage IIIb
- Creatinine 1.2, continue to monitor
# ASCVD (CAD, CVA, Carotid Disease)
-continued Repatha and rosuvastatin
- Continue aspirin
# Essential Hypertension
- Coreg continued
#History of orthostatic hypotension
#Hyperlipidemia
# Paroxysmal atrial fibrillation s/p watchman device placement
-continued carvedilol and Eliquis
# IDDM, type 1 -stable
-patient used her own insulin pump
-Diabetic [employer] consulted
-AccuCheck AC & HS
#Hypothyroidism
-continue levothyroxine
#HXT of orthostatic hypotension
-abdominal binder and Cortez stocking ordered
# Anxiety
- Alprazolam continued
Diastolic dysfunction
Acute coronary syndrome
Psoriasis
Gallstones
Carotid disease, bilateral
Orthostatic hypotension
Recurrent syncope
Cataract
Murmur
Syncope
Controlled type 1 diabetes mellitus
Superficial femoral artery occlusion
CAD (coronary artery disease)
Anemia
Hypothyroidism
Chronic diastolic (congestive) heart failure
Acute diastolic heart failure
Glaucoma
Essential Hypertension
Hyperlipidemia
Peripheral arterial disease
Code status during stay: full code
More than 30 minutes spent in discharge including
Final examination of the patient
Summarizing hospital stay
Instructions for continuing care to all relevant caregivers
Preparation of discharge records, prescriptions, and referral forms
Total time spent (in minutes): 36
Anticipated Discharge: Today
Subjective/Interval History
-
Date of Service: August 26, 2024
Patient was seen and examined. She reported that her dizziness has resolved. She said she ambulated in the hallways without any issues or assistance.
Objective Data
-
Labs:
Laboratory Results
08/26/24
06:33
WBC Pending
Hgb Pending
Hct Pending
Plt Count Pending
Sodium Pending
Potassium Pending
Chloride Pending
Carbon Dioxide Pending
BUN Pending
Creatinine Pending
Glucose Pending
Calcium Pending
Vital Signs:
Vital Signs
Temp Pulse Resp BP Pulse Ox
97.9 F 67 16 143/62 95
08/26/24 07:27 08/26/24 07:27 08/26/24 07:27 08/26/24 07:27 08/26/24 07:27
I&O
08/25/24 08/26/24 08/27/24
06:59 06:59 06:59
Intake Total 480 / 480
Balance 480 / 480
[2024-08-26 08:07] LABS: Hematocrit 32.1 % (37.0-47.0); Hemoglobin 10.1 g/dL (12.0-16.0); Mean Corp Hgb Conc. 31.5 g/dL (33.0-37.0); Mean Corpuscular Volume 95.3 fL (81.0-99.0); Nucleated Red Blood Cells % 0 %; Platelet Count 268 10^3/uL (130-400); Red Cell Dist. Width 16.0 % (11.5-14.5)
[2024-08-26 08:22] LABS: Glucose - Point of Care 121 mg/dl (70-99)
[2024-08-26] MEDS: COREG 12.5 MG PO (08:22)
[2024-08-26] MEDS: ASPIR LOW (ENTERIC COATED) 81 MG PO (08:23)
[2024-08-26] MEDS: PROTONIX 40 MG PO (08:23)
[2024-08-26] MEDS: SYNTHROID 88 MCG PO (08:23)
[2024-08-26] MEDS: ELIQUIS 5 MG PO (08:23)
[2024-08-26] MEDS: NORVASC 5 MG PO ×2 (08:23→17:59)
[2024-08-26] MEDS: SIMBRINZA 1%-0.2% OPHTH SUSP 1 DROP BOTH EYES (08:23)
[2024-08-26] MEDS: PT'S OWN INSULIN PUMP - NovoLOG 4.1 UNIT SC (08:24)
[2024-08-26 08:33] LABS: Blood Urea Nitrogen 27 mg/dl (7-17); Calcium 9.1 mg/dl (8.4-10.2); Carbon Dioxide 24 mmol/L (22-30); Chloride 112 mmol/L (98-107); Estimated Creatinine Clearance 36 ml/min; Glucose 125 mg/dl (70-99); HDL Cholesterol 46 mg/dl; LDL Cholesterol, Calculated 9 mg/dl; Potassium 4.4 mmol/L (3.5-5.1); Sodium 143 mmol/L (135-145); Very Low Density Lipoprotein 17 mg/dl (0-30); eGFR 48.09
[2024-08-26 11:09] VITALS: BP 127/52
[2024-08-26 11:12] VITALS: BP 114/45; BP 120/43
[2024-08-26 11:19] VITALS: BP 114/45; BP 120/43; PULSE 62; O2SAT 97
[2024-08-26 11:34] LABS: Glucose - Point of Care 253 mg/dl (70-99)
--- NOTE | 2024-08-26 12:06 | CM ---
Addendum entered by Gisela Rao 08/26/24 14:10:
Correction referral to [facility]
Addendum entered by Gisela Rao 08/26/24 14:08:
referral sent to [facility] via all scripts.
Original Note:
Patient seen at bedside with on . Patient stated that she lives with in a split level home. Patient PCP is Dr. Hall and she indicated that she has had VN from [facility] and would like to have them again. CM asked
physician to place consult. Patient stated that she would go home with . IMM completed and signed form placed on chart. Patient physician placed consult for VN CM will send referral via all scripts. CM will continue to follow for discharge
planning needs.
Plan; home with VN from [facility]. pending confirmation
[2024-08-26] MEDS: PT'S OWN INSULIN PUMP - NovoLOG 3 UNIT SC (12:21)
[2024-08-26 15:55] VITALS: BP 155/77
--- NOTE | 2024-08-26 17:32 | W.DCSUMMARY ---
Discharge Summary
Discharge Data
Date of Admission: 08/25/24
Date of Discharge: 08/26/24
Total time spent discharging patient (in min): 36
-
Pending Results: No
Hospital Course
73-year-old female with past medical history for Mobile Aortic Mass, Type 1 Diabetes Mellitus, Diabetic Ketoacidosis, probable old embolic strokes on prior Brain MRI(s), coronary artery disease, carotid artery disease, hypertension, hyperlipidemia,
chronic orthostatic hypotension, diverticular disease and hypothyroidism, presented to the [facility] ED with lightheadedness and dizziness in the setting of severely high blood pressure (systolic blood pressure greater than 200 mmHg). Patient was
admitted with hypertensive emergency and placed on Cardene Drip. Amlodipine was added and patient was weaned off Cardene Drip. Patient noted that about a week prior to presentation, from her recent hospitalization at [facility], her Losartan and Lasix
were stopped due to acute kidney injury.
Patient had recently been hospitalized from 08/15/24 to 08/18/24 after having slurred speech which resolved, at that time CT Head showed chronic infarcts in bilateral cerebelli, right parietal lobe, left frontal lobe; Head/Neck CTA showed 50-70%
diameter stenosis in the proximal right ICA; Complete occlusion of the right ECA; Less than 50% diameter stenosis in the proximal left ICA; Previous bilateral carotid endarterectomies. MRI brain did not show evidence of acute intracranial
abnormality but there were multiple regions of old infarction in both cerebral hemispheres. [place] showed mobile plaque at the aortic root and layered/protruding plaque in the descending aorta and it also showed that the watchman implant was
well-seated with no flow detected by color-flow Doppler.
This hospitalization, patient's lightheadedness and dizziness completely resolved. Patient reported having lower extremity swelling possibly from Amlodipine in the past but said she is agreeable to start it since her providers perviously stopped her
RUBINA/ARB medication due to renal function and she also said she had issues with Metoprolol and HCTZ -- after discussion with patient, she agreed to do Norvasc on discharge and she would follow-up with her patient clerical assistant/PCP who would help her decide
whether she could switch to an RUBINA/ARB based on results of her repeat outpatient labwork including renal function. She was doing very well, she was ambulating without any symptoms, and she was stable for discharge with close outpatient follow-up
with her outpatient providers.
Discharge Plan
-
Patient Disposition: Home with Home Care
Discharge Diagnosis/Procedures: #Presentation with headache/lightheadedness - RESOLVED
#Hypertensive emergency - RESOLVED
#Headache and generalized weakness likely secondary to hypertension emergency - RESOLVED
#Anemia of chronic disease
#Chronic Kidney Disease stage IIIb
#Atherosclerotic Cardiovascular Disease (CAD, CVA, Carotid Disease)
#Essential Hypertension
#History of orthostatic hypotension
#Hyperlipidemia
#Paroxysmal atrial fibrillation status post watchman device placement
#Insulin Dependent Diabetes Mellitus, type 1
#Hypothyroidism
#Anxiety
Diastolic dysfunction
Acute coronary syndrome
Psoriasis
Gallstones
Carotid disease, bilateral
Orthostatic hypotension
Recurrent syncope
Cataract
Murmur
Syncope
Controlled type 1 diabetes mellitus
Superficial femoral artery occlusion
CAD (coronary artery disease)
Anemia
Hypothyroidism
Chronic diastolic (congestive) heart failure
Acute diastolic heart failure
Glaucoma
Essential Hypertension
Hyperlipidemia
Peripheral arterial disease
CT Head (as per radiologist's report):
'IMPRESSION:
1. No CT evidence for acute intracranial hemorrhage.
2. Small chronic infarcts in the superior cortical joiner matter of the right parietal lobe, subcortical white matter of the lateral left frontal lobe, and both cerebellar hemispheres.
3. Moderate white matter leukoaraiosis in both cerebral hemispheres.
4. Mild diffuse cerebral and cerebellar volume loss.
5. Previous bilateral medial maxillary antrostomies.
6. Moderate mucosal disease in the right maxillary sinus.'
Condition: Good
Diet: Low Fat, Low Cholesterol, Low Sodium, 2 Gram Sodium and Diabetic, Carb Controlled
Activity: As tolerated
Blood Work: Check CBC, BMP and Magnesium with your outpatient primary care provider in 2 to 3 days
Other Services: VN
Activity Restrictions/Additional Instructions:
Contact and follow-up with your patient clerical assistant and primary care physician this upcoming week (so in about 2 to 3 days) as we discussed for further management of your blood pressure
Instructions: High blood pressure emergencies
Referrals:
Wei Hall MD [Family Provider, Internal Medicine] - in less than 1 week
Referral Note: Hospitalization Follow-Up
Additional Discharge Medication Instructions: Amlodipine is a new medication.
Prescriptions:
New
amlodipine 5 mg Tablet
5 mg PO BID Qty: 60 1RF
Continued
cholecalciferol (vitamin D3) [Vitamin D3] 50 mcg (2,000 unit) Capsule
2,000 unit PO DAILY
Otezla 30 mg Tablet
30 mg PO BID
carvedilol 12.5 mg Tablet
12.5 mg PO BID
rosuvastatin 20 mg Tablet
20 mg PO HS
Eliquis 5 mg Tablet
5 mg PO BID
omeprazole 40 mg Capsule,Delayed Release(Dr/Ec)
40 mg PO DAILY
acetaminophen [Tylenol Extra Strength] 500 mg Tablet
1,000 mg PO BID
levothyroxine [Synthroid] 88 mcg Tablet
88 mcg PO DAILY
Simbrinza 1-0.2 % Drops,Suspension
1 drp BOTH EYES BID
Lokelma 10 gram Powder In Packet
10 g PO MOWEFR
Patient Comments:
patient gets this med through [facility] pharmacy per pt.
loperamide 2 mg Capsule
2 mg PO BIDPRN PRN (Reason: diarrhea)
alprazolam 0.25 mg Tablet
0.125 mg PO HS
omega-3 fatty acids-fish oil 684-1,200 mg Capsule,Delayed Release(Dr/Ec)
1 cap PO DAILY Qty: 0
Repatha SureClick 140 mg/mL Pen Injector
140 mg SC Q2W
Skyrizi 150 mg/mL pen injector
150 mg SC DIRECTED
Rx Instructions:
take one injection weak 4, week 16, week 28, week 40 and week 52
timolol maleate 0.25 % Drops
1 drp BOTH EYES HS
aspirin 81 mg Tablet,Delayed Release (Dr/Ec)
81 mg PO DAILY Qty: 30 0RF
clonidine HCl 0.1 mg Tablet
0.1 mg PO BIDPRN PRN (Reason: high blood pressure)
Patient Own Insulin Pump
1 sliding scale dose SC .VIA NOVOLOG
Discharge Orders:
Discharge Patient (As Directed); Ordered 08/26/24
Ordered By: Jon Castillo
Discharge Date and Time
Discharge Date/Time: 08/26/24 19:11
Print Language: BELARUSIAN
== END 2024-08-26 19:11 | disposition home health service (06) | DRG 304 ==
LOC: 4 EAST ACU 14:52
PROVIDERS: Registered Nurse; ADMITTING PHYSICIAN Internal Medicine; ATTENDING PHYSICIAN Hospitalist; EMERGENCY PHYSICIAN Emergency Medicine; FAMILY PHYSICIAN Internal Medicine
DX: I16.1 Hypertensive emergency (principal); I50.33 Acute on chronic diastolic (congestive) heart failure; I24.9 Acute ischemic heart disease, unspecified; I13.0 Hypertensive heart and chronic kidney disease with heart failure and stage 1 through stage 4 chronic kidney disease, or unspecified chronic kidney disease; D63.8 Anemia in other chronic diseases classified elsewhere; E10.51 Type 1 diabetes mellitus with diabetic peripheral angiopathy without gangrene; E78.00 Pure hypercholesterolemia, unspecified; N18.32 Chronic kidney disease, stage 3b; G62.9 Polyneuropathy, unspecified; I25.10 Atherosclerotic heart disease of native coronary artery without angina pectoris; I95.1 Orthostatic hypotension; I48.0 Paroxysmal atrial fibrillation; F41.9 Anxiety disorder, unspecified; H40.9 Unspecified glaucoma; I65.23 Occlusion and stenosis of bilateral carotid arteries; I70.0 Atherosclerosis of aorta; E10.36 Type 1 diabetes mellitus with diabetic cataract; E10.22 Type 1 diabetes mellitus with diabetic chronic kidney disease; E89.0 Postprocedural hypothyroidism; Z96.41 Presence of insulin pump (external) (internal); Z95.5 Presence of coronary angioplasty implant and graft; Z90.49 Acquired absence of other specified parts of digestive tract; Z87.891 Personal history of nicotine dependence; Z79.4 Long term (current) use of insulin; Z86.73 Personal history of transient ischemic attack (TIA), and cerebral infarction without residual deficits; Z98.41 Cataract extraction status, right eye; Z98.42 Cataract extraction status, left eye; Z79.01 Long term (current) use of anticoagulants; Z79.82 Long term (current) use of aspirin; Z79.890 Hormone replacement therapy; Z95.818 Presence of other cardiac implants and grafts
CPT/HCPCS: 70450; 80048; 80053; 80061; 82962; 84484; 85025; 93005; 96365; 96366; 96375; 97162; 97166; 99291

== ENCOUNTER 2024-09-14 07:40 | Outpatient (RCR) | payer MEDICARE, SELFPAY ==
[2024-09-14 07:50] VITALS: BP 143/61
[2024-09-14] MEDS: SODIUM BICARBONATE 1150 MEQ IV (08:30)
== END 2024-10-07 23:59 | disposition home or self-care (01) ==
LOC: OID 07:40
PROVIDERS: ATTENDING PHYSICIAN Nurse Practitioner Acute Care; FAMILY PHYSICIAN Internal Medicine
DX: I70.0 Atherosclerosis of aorta (principal)
CPT/HCPCS: 96365; 96366

== ENCOUNTER → 2024-09-14 09:39 | Outpatient (REF) | payer MEDICARE, SELFPAY | LOC: RAD 09:39 | PROVIDERS: ATTENDING PHYSICIAN Thoracic Surgery (Cardiothoracic Vascular Surgery); FAMILY PHYSICIAN Internal Medicine | DX: I70.0 Atherosclerosis of aorta (principal) | CPT/HCPCS: 71275; Q9967 ==

== ENCOUNTER 2024-10-19 13:59 | Outpatient (RCR) | payer MEDICARE, SELFPAY ==
[2024-10-19 14:37] LABS: Glucose - Point of Care 180 mg/dl (70-99)
[2024-10-19 15:15] LABS: Glucose - Point of Care 149 mg/dl (70-99)
== END 2024-10-19 23:59 | disposition home or self-care (01) ==
LOC: CRHB 13:59
PROVIDERS: ATTENDING PHYSICIAN Internal Medicine Cardiovascular Disease
DX: I25.10 Atherosclerotic heart disease of native coronary artery without angina pectoris (principal); Z95.5 Presence of coronary angioplasty implant and graft
CPT/HCPCS: 82962; G0422

== ENCOUNTER 2024-10-22 22:22 | Inpatient (IN) | payer MEDICARE, SELFPAY ==
[2024-10-22] VITALS (38 sets, daily range): BP systolic 140–270; BP diastolic 38–109; BMI 24.2
[2024-10-22 15:12] LABS: Hematocrit 27.4 % (37.0-47.0); Hemoglobin 9.1 g/dL (12.0-16.0); Mean Corp Hgb Conc. 33.2 g/dL (33.0-37.0); Mean Corpuscular Volume 97.5 fL (81.0-99.0); Nucleated Red Blood Cells % 0 %; Platelet Count 262 10^3/uL (130-400); Red Cell Dist. Width 13.5 % (11.5-14.5)
[2024-10-22 15:20] LABS: INR 1.22; PT 15.7 Sec (11.4-14.6)
[2024-10-22 15:21] LABS: ALT (SGPT) 14 U/L (0-35); APTT 32.9 Sec (23.4-35.0); AST (SGOT) 19 U/L (14-36); Albumin 4.1 g/dl (3.5-5.0); Alkaline Phosphatase 80 U/L (38-126); Blood Urea Nitrogen 43 mg/dl (7-17); Calcium 9.0 mg/dl (8.4-10.2); Carbon Dioxide 21 mmol/L (22-30); Chloride 108 mmol/L (98-107); Glucose 203 mg/dl (70-99); Potassium 4.7 mmol/L (3.5-5.1); Sodium 136 mmol/L (135-145); Total Protein 6.6 g/dl (6.3-8.2); eGFR 43.69
[2024-10-22] MEDS: CARDENE 200 IV (20:36)
[2024-10-22] MEDS: PROTONIX 100 IV (20:44)
[2024-10-22] MEDS: PROTONIX IV 80 MG IV (20:44)
--- NOTE | 2024-10-22 21:14 | ED.GENMED ---
History of Present Illness
<Sebastien Brandt PA-C - Last Filed: 10/23/24 00:03>
General
Chief Complaint: Rectal Bleeding
Time Seen by Provider: 10/22/24 19:49
History of Present Illness
History of Present Illness:
73-year-old female with history of A-fib status post Watchman (however remains on Eliquis), hypertension, hyperlipidemia, and CHF presents to the emergency department for evaluation of black stool and abnormal blood pressure readings this morning.
She has noted dark stool for the past several days but this morning increased in dark color. She reports dizziness this morning and noted a blood pressure of 80/40 which is what prompted her concern to come to the hospital. She does have a history
of GI bleeds while taking anticoagulants. On chart review it is not immediately clear to me why she remains on anticoagulation despite her Watchman procedure. She denies any chest pain, shortness of breath, or abdominal pain. She did take her
antihypertensives today and on arrival is noted to have severe hypertension
Past History
<Sebastien Brandt PA-C - Last Filed: 10/23/24 00:03>
Past History
ED Past Medical History: HTN, Hypercholesterolemia, IDDM and Other (Anemia, Neuropathy, Fractures left foot)
ED Past Surgical History: Cardiac (Stents), Cholecystectomy, Orthopedic (Right hand surgery, Tennis elbow surgery) and Other (Endarterectomy, Bowel stents)
Social History
Tobacco: Former smoker
Alcohol: None
Personal:
Living: with family
Review of Systems
<Sebastien Brandt PA-C - Last Filed: 10/23/24 00:03>
Review of Systems
Allergies reviewed?: Yes
All Other Systems: ROS reviewed and negative except as documented in HPI and ROS
Phy Exam
<Sebastien Brandt PA-C - Last Filed: 10/23/24 00:03>
Physical Exam
Physical Exam:
GEN: Well appearing, NAD, WDWN
HEENT: Oral mucosa moist, no scleral icterus
Cardiac: Regular rate and rhythm, no murmur
Lung: No respiratory distress, no tachypnea
Rectal: Dark brown stool in the rectal vault, markedly heme positive
MSK: No gross deformity or injuries
Skin: Good color, no pallor or jaundice, no rashes
Neuro: AO x3, moves all extremities freely
Psych: Calm, cooperative
Course
<Sebastien Brandt PA-C - Last Filed: 10/23/24 00:03>
Orders/Labs/Results
Orders:
Orders
10/22/24 Breakfast
Clear Liquid
At Your Request: Full Participation
Does patient need a safe tray?: No
10/22/24 14:52
Complete Blood Count/With Diff Urgent
Comprehensive Metabolic Panel Urgent
Ferritin Urgent
Comment: ADD ON
Folate Urgent
Comment: ADD ON
Iron Urgent
Comment: ADD ON
PTT Urgent
Prothrombin Time Urgent
Total Iron Binding Urgent
Comment: ADD ON
Vitamin B12 Urgent
Comment: ADD ON
10/22/24 20:31
Type+Screen Urgent
BBK Wristband Number:
10/22/24 20:34
Pantoprazole [Protonix IV] 80 mg IV NOW STA
10/22/24 20:35
Nicardipine 40 mg/200 ml [Cardene] 40 mg in 200 ml .ROUTE .STK-MED
Pantoprazole 80 mg/100 ml Nss [Protonix] 80 mg in 100 ml .ROUTE .STK-MED
10/22/24 20:45
Nicardipine 40 mg/200 ml [Cardene] 40 mg in 200 ml IV PER PROTOCOL
Initial dose in mg/hr, then titrate:: 5
Titrate to keep:: Other
Titrate to keep other:: SBP <200
Titrate by mg/hr:: 2.5 mg/hr
Frequency of titrations (minutes):: 5-15 minutes
Maximum dose in mg/hr:: 15
Begin to taper infusion when:: Remained at goal for 2hrs
Taper by mg/hr:: 2.5 mg/hr
Frequency of taper (minutes) if patient maintains goal:: every 15-30 minutes
Taper to off?: Yes
If infusion off & no longer maintaining goal:: Contact Provider
Pantoprazole 80 mg/100 ml Nss [Protonix] 80 mg in 100 ml IV Q10H
10/22/24 21:16
Electrocardiogram (*1) Urgent
Reason for Study: QTc Monitoring
EKG- Treatment ONCE
10/22/24 21:43
Admit/Transfer Patient As Directed
Co-Sign Provider:
Level of Care: Inpatient admission
Assign to:: ICU
Physician / Group: isaac
Diagnosis: GI bleed
Reason for Hospitalization: Gi bleed
Expected length of stay greater than two midnights?: Yes
ELOS- Estimated Length of Stay in days: 3
I certify the patient meets the requirements for IP care: Yes
10/22/24 21:44
PRN Pain Medication Management As Directed
May give lesser potent ordered pain med per pt: Yes
preference::
Protocol:: Medication orders for pain may be administered in a
manner that supports deferring to patient preference
when the pt is:
- Requesting an ordered lesser potent pain medication.
Least to most potent pain medications are defined
as: acetaminophen < NSAID < tramadol < opioids
(morphine, oxycodone, hydromorphone).
- Requesting a lesser dose of the same medication IF
ORDERED.
- Requesting a less intrusive route of administration
if both routes are prescribed by the provider (PO <
IV).
10/22/24 21:45
Code Status As Directed
Resuscitation Status: Full Code
10/22/24 21:54
Add On- LAB Stat
Tests Added?: IRON, FERRITIN, B12,FOLATE, tibc
10/22/24 22:03
H&H Stat
Carvedilol [Coreg] 12.5 mg PO NOW STA
10/22/24 23:43
Alprazolam [Xanax] 0.125 mg PO HS
Rosuvastatin Calcium [Crestor] 20 mg PO HS
Timolol Maleate 0.25% [Timoptic 0.25% Ophthalmic Solution] 1 drop BOTH EYES HS
10/22/24 23:43
Diabetes Management by Nurse Practitioner Routine
Consulting Provider: Mary Membreno
Was provider already notified?: No
Reason for Consult: Insulin Management
Date consulting provider notified: 10/23/24
Time consulting provider notified: 08:06
Notified:: Provider
Channel Cementer Insole Machine Consult Routine
Consulting Provider: Tera Watts
Was physician already notified: Yes
Accucheck [Bedside Glucose Monitoring] As Directed
Frequency: AC&HS
Activity As Directed
Activity Level: As Tolerated
Compression Sleeves [Pneumatic Compression Sleeves] As Directed
Type: Knee high
INT (Intravenous Needle Therapy) As Directed
Comment: Place 2 IV catheters of the largest bore possible until stable
Orthostatic Vital Signs As Directed
Orthostatic VS Frequency: Now
Comment: then every four hours for twenty-four hours
Vital Signs As Directed
Frequency: Per unit guidelines
DX Deep Vein Thrombosis Video Routine
10/23/24 01:00
Insulin Pump [Patient's Own Insulin Pump] See Dose Instructions SC ACHS
10/23/24 03:47
Basic Metabolic Panel IN AM
Complete Blood Count/No Diff IN AM
10/23/24 06:00
Levothyroxine [Synthroid] 88 mcg PO DAILY @ 0600
10/23/24 08:00
Aspirin Low Dose EC [Aspir Low (Enteric Coated)] 81 mg PO DAILY
Brinzolamide/Brimonidine Tart [Simbrinza 1%-0.2% Ophth Susp] 1 drop BOTH EYES BID
Carvedilol [Coreg] 12.5 mg PO BID
Pantoprazole [Protonix IV] 40 mg IV BID
apremilast [Otezla] 30 mg PO BID
10/24/24 06:00
Basic Metabolic Panel IN AM
Complete Blood Count/No Diff IN AM
10/24/24 08:00
Sodium Zirconium Cyclosilicate [Lokelma] 10 gram PO MoWeFr@0800
10/25/24 06:00
Basic Metabolic Panel IN AM
Complete Blood Count/No Diff IN AM
10/26/24 06:00
Basic Metabolic Panel IN AM
Abnormal Lab Results
10/22/24 10/22/24
14:52 22:03
RBC 2.81 L 10^6/uL
(4.20-5.40)
Hgb 9.1 L g/dL 9.0 L g/dL
(12.0-16.0) (12.0-16.0)
Hct 27.4 L % 26.8 L %
(37.0-47.0) (37.0-47.0)
MCH 32.4 H pg
(27.0-31.0)
Abs Immat Gran (auto) 0.1 H 10^3/uL
(0-0.05)
Immature Gran % 1.5 H %
(0-0.5)
Lymphocytes % 16.1 L %
(20.5-51.1)
PT 15.7 H Sec
(11.4-14.6)
Chloride 108 H mmol/L
(98-107)
Carbon Dioxide 21 L mmol/L
(22-30)
BUN 43 H mg/dl
(7-17)
Creatinine 1.3 H mg/dL
(0.6-1.0)
Glucose 203 H mg/dl
(70-99)
10/22/24 22:03
10/22/24 14:52
Vital Signs
Initial and Last Documented VS:
Initial Vital Signs
Temp Pulse Resp BP Pulse Ox
98.0 F 68 18 145/56 96
10/22/24 14:33 10/22/24 14:33 10/22/24 14:33 10/22/24 14:33 10/22/24 14:33
Last Documented Vital Signs
Temp Pulse Resp BP Pulse Ox
97.6 F 69 20 168/59 100
10/23/24 08:04 10/23/24 10:00 10/23/24 10:00 10/23/24 10:00 10/23/24 10:00
<Sam Fox MD - Last Filed: 10/23/24 10:11>
Orders/Labs/Results
Orders:
Orders
10/22/24 Breakfast
Clear Liquid
At Your Request: Full Participation
Does patient need a safe tray?: No
10/22/24 14:52
Complete Blood Count/With Diff Urgent
Comprehensive Metabolic Panel Urgent
Ferritin Urgent
Comment: ADD ON
Folate Urgent
Comment: ADD ON
Iron Urgent
Comment: ADD ON
PTT Urgent
Prothrombin Time Urgent
Total Iron Binding Urgent
Comment: ADD ON
Vitamin B12 Urgent
Comment: ADD ON
10/22/24 20:31
Type+Screen Urgent
BBK Wristband Number:
10/22/24 20:34
Pantoprazole [Protonix IV] 80 mg IV NOW STA
10/22/24 20:35
Nicardipine 40 mg/200 ml [Cardene] 40 mg in 200 ml .ROUTE .STK-MED
Pantoprazole 80 mg/100 ml Nss [Protonix] 80 mg in 100 ml .ROUTE .STK-MED
10/22/24 20:45
Nicardipine 40 mg/200 ml [Cardene] 40 mg in 200 ml IV PER PROTOCOL
Initial dose in mg/hr, then titrate:: 5
Titrate to keep:: Other
Titrate to keep other:: SBP <200
Titrate by mg/hr:: 2.5 mg/hr
Frequency of titrations (minutes):: 5-15 minutes
Maximum dose in mg/hr:: 15
Begin to taper infusion when:: Remained at goal for 2hrs
Taper by mg/hr:: 2.5 mg/hr
Frequency of taper (minutes) if patient maintains goal:: every 15-30 minutes
Taper to off?: Yes
If infusion off & no longer maintaining goal:: Contact Provider
Pantoprazole 80 mg/100 ml Nss [Protonix] 80 mg in 100 ml IV Q10H
10/22/24 21:16
Electrocardiogram (*1) Urgent
Reason for Study: QTc Monitoring
EKG- Treatment ONCE
10/22/24 21:43
Admit/Transfer Patient As Directed
Co-Sign Provider:
Level of Care: Inpatient admission
Assign to:: ICU
Physician / Group: isaac
Diagnosis: GI bleed
Reason for Hospitalization: Gi bleed
Expected length of stay greater than two midnights?: Yes
ELOS- Estimated Length of Stay in days: 3
I certify the patient meets the requirements for IP care: Yes
10/22/24 21:44
PRN Pain Medication Management As Directed
May give lesser potent ordered pain med per pt: Yes
preference::
Protocol:: Medication orders for pain may be administered in a
manner that supports deferring to patient preference
when the pt is:
- Requesting an ordered lesser potent pain medication.
Least to most potent pain medications are defined
as: acetaminophen < NSAID < tramadol < opioids
(morphine, oxycodone, hydromorphone).
- Requesting a lesser dose of the same medication IF
ORDERED.
- Requesting a less intrusive route of administration
if both routes are prescribed by the provider (PO <
IV).
10/22/24 21:45
Code Status As Directed
Resuscitation Status: Full Code
10/22/24 21:54
Add On- LAB Stat
Tests Added?: IRON, FERRITIN, B12,FOLATE, tibc
10/22/24 22:03
H&H Stat
Carvedilol [Coreg] 12.5 mg PO NOW STA
10/22/24 23:43
Alprazolam [Xanax] 0.125 mg PO HS
Rosuvastatin Calcium [Crestor] 20 mg PO HS
Timolol Maleate 0.25% [Timoptic 0.25% Ophthalmic Solution] 1 drop BOTH EYES HS
10/22/24 23:43
Diabetes Management by Nurse Practitioner Routine
Consulting Provider: Mary Membreno
Was provider already notified?: No
Reason for Consult: Insulin Management
Date consulting provider notified: 10/23/24
Time consulting provider notified: 08:06
Notified:: Provider
Channel Cementer Insole Machine Consult Routine
Consulting Provider: Tera Watts
Was physician already notified: Yes
Accucheck [Bedside Glucose Monitoring] As Directed
Frequency: AC&HS
Activity As Directed
Activity Level: As Tolerated
Compression Sleeves [Pneumatic Compression Sleeves] As Directed
Type: Knee high
INT (Intravenous Needle Therapy) As Directed
Comment: Place 2 IV catheters of the largest bore possible until stable
Orthostatic Vital Signs As Directed
Orthostatic VS Frequency: Now
Comment: then every four hours for twenty-four hours
Vital Signs As Directed
Frequency: Per unit guidelines
DX Deep Vein Thrombosis Video Routine
10/23/24 01:00
Insulin Pump [Patient's Own Insulin Pump] See Dose Instructions SC ACHS
10/23/24 03:47
Basic Metabolic Panel IN AM
Complete Blood Count/No Diff IN AM
10/23/24 06:00
Levothyroxine [Synthroid] 88 mcg PO DAILY @ 0600
10/23/24 08:00
Aspirin Low Dose EC [Aspir Low (Enteric Coated)] 81 mg PO DAILY
Brinzolamide/Brimonidine Tart [Simbrinza 1%-0.2% Ophth Susp] 1 drop BOTH EYES BID
Carvedilol [Coreg] 12.5 mg PO BID
Pantoprazole [Protonix IV] 40 mg IV BID
apremilast [Otezla] 30 mg PO BID
10/24/24 06:00
Basic Metabolic Panel IN AM
Complete Blood Count/No Diff IN AM
10/24/24 08:00
Sodium Zirconium Cyclosilicate [Lokelma] 10 gram PO MoWeFr@0800
10/25/24 06:00
Basic Metabolic Panel IN AM
Complete Blood Count/No Diff IN AM
10/26/24 06:00
Basic Metabolic Panel IN AM
Abnormal Lab Results
10/22/24 10/22/24
14:52 22:03
RBC 2.81 L 10^6/uL
(4.20-5.40)
Hgb 9.1 L g/dL 9.0 L g/dL
(12.0-16.0) (12.0-16.0)
Hct 27.4 L % 26.8 L %
(37.0-47.0) (37.0-47.0)
MCH 32.4 H pg
(27.0-31.0)
Abs Immat Gran (auto) 0.1 H 10^3/uL
(0-0.05)
Immature Gran % 1.5 H %
(0-0.5)
Lymphocytes % 16.1 L %
(20.5-51.1)
PT 15.7 H Sec
(11.4-14.6)
Chloride 108 H mmol/L
(98-107)
Carbon Dioxide 21 L mmol/L
(22-30)
BUN 43 H mg/dl
(7-17)
Creatinine 1.3 H mg/dL
(0.6-1.0)
Glucose 203 H mg/dl
(70-99)
10/22/24 22:03
10/22/24 14:52
Vital Signs
Initial and Last Documented VS:
Initial Vital Signs
Temp Pulse Resp BP Pulse Ox
98.0 F 68 18 145/56 96
10/22/24 14:33 10/22/24 14:33 10/22/24 14:33 10/22/24 14:33 10/22/24 14:33
Last Documented Vital Signs
Temp Pulse Resp BP Pulse Ox
97.6 F 69 20 168/59 100
10/23/24 08:04 10/23/24 10:00 10/23/24 10:00 10/23/24 10:00 10/23/24 10:00
<Sebastien Brandt PA-C - Last Filed: 10/23/24 00:03>
MDM/Problems Addressed
MDM/Problems Addressed:
Patient is markedly hypertensive of uncertain etiology, when discussing her history she does appear to have some degree of labile hypertension thus explaining her low reading at home this morning. She was started promptly on a nicardipine drip
given the severe systolic blood pressure readings greater than 250 although at this time she is showing no signs of endorgan damage. In regards to her GI bleed her stool is heme positive, Eliquis will be held and she will be admitted on PPI
infusion for GI consultation
<Sebastien Brandt PA-C - Last Filed: 10/23/24 00:03>
*Pulse Oximetry
SaO2: 99
Oxygen Mode of Delivery: Room air
Patient hypoxic: no
*Critical Care Note
Total Time (30-74mins, 75-104mins- exclusive of procedures): Not Applicable
ED Attending Note
<Sebastien Brandt PA-C - Last Filed: 10/23/24 00:03>
-
Portions of this chart may have been created with voice recognition software.� Occasional wrong word or��sound alike� substitutions may have occurred due to the inherent limitations of voice recognition software.
<Sam Fox MD - Last Filed: 10/23/24 10:11>
ED Attending Note
Patient seen and examined by attending physician: Yes
ED Attending Note:
Patient with history of atrial fibrillation and TIA, currently on aspirin and Eliquis, presents to ED secondary to multiple episodes of dark stool with bowel movement over the past 3 days, associated with extreme fatigue and dizziness. Patient
unfortunately has had number of similar symptoms in the past, including earlier this year. Denies abdominal pain. Denies nausea or vomiting. Denies fever or chills. Denies recent change in medications or diet. Denies recent illness.
Physical Exam
General: mild distress, not acutely ill. afebrile. weak appearing
Head: nc/at. eomi
Neck: supple. normal range of motion.
Heart: s1/s2 regular rate and rhythm
Lungs: no acute respiratory distress. clear bilaterally
Abdomen: normal bowel sounds. not tender.
Neuro: alert and oriented x 3. no focal neurological deficits
Skin: no rash. pale appearing
Psychiatric: well kept. interactive and cooperative
Extremities: no edema. no calf tenderness.
Melanotic stool noted on exam, grossly heme positive. Patient started on Protonix infusion. H&H noted. Patient will be admitted for further evaluation and treatment. No indication to urgently reverse Eliquis at this time.
Discharge Plan
Departure
Patient Disposition: Admit
Date of Disposition: 10/22/24
Time of Disposition: 21:17
Admit to: IMU
Presentation/result/management discussed w/ accepting MD/DO: Hospitalist
Discharge Problem:
Hypertensive crisis, GI bleed
Interventions
Interventions:
*General Assessment Last Done: 10/22/24 23:59
*Neglect/Abuse Screening Last Done: 10/22/24 23:59
*ED- Fall Risk Assessment Last Done: 10/22/24 23:59
*Nursing Disposition Last Done: 10/22/24 23:59
LL-Bvirhw-Qimbswntjz Assessment Last Done: 10/22/24 20:54
ED- Cardiac Assessment Last Done: 10/22/24 20:54
ED- Pulmonary Assessment Last Done: 10/22/24 20:54
Discharge Date and Time
Discharge Date/Time: 10/23/24 00:00
--- NOTE | 2024-10-22 21:23 | HPS.HSE ---
Family Physician
-
Family Physician: Wei Hall
Chief Complaint
-
dark and black stool
History of Present Illness
73-year-old female with history of A-fib status post Watchman (however remains on Eliquis), hypertension, hyperlipidemia, and CHF presents to the emergency department for evaluation of black stool. patient stated dark stool for past few days. today
it was black. since yesterday she was dizzy. her blood was noted low at home. today it was 80 over 40's at home. She does have a history of GI bleeds while taking anticoagulants. she has colonoscopy in February with the impression of hemorrhoids.
Patient denies any headache. Patient denies any fever, chills, cough, congestion. Patient denies any chest pain or shortness of breath. Patient denies any abdominal pain, nausea, vomiting or diarrhea. Patient denies dysuria hematuria
Upon arrival patient was noted hypertensive.stool positive.initiated on Cardene drip as well as Protonix drip. Admitting for further management
Medical History
Past Medical History
Past Medical History: Reports Other
Additional Past Medical History:
Acute coronary syndrome, coronary artery disease, diastolic dysfunction, hypertension, orthostatic hypotension, syncope, hyperlipidemia type 2 diabetes, hypothyroidism, psoriasis, gallstones, glaucoma, cataracts, chest pain, PAD, neuropathy, GI
bleed, CKD
Past Surgical History: Reports Other
Additional Past Surgical History:
Coronary artery disease stent, cholecystectomy, cataract extraction, Linq removal, left SFA angioplasty, Watchman, left thyroidectomy
Social History
Tobacco: Former Smoker
Alcohol: Occasional
Drug: None
Family History
Family History: Not pertinent
Allergies / Home Medications
Allergies reflects when Allergies were last updated in [facility].
Home Medications with original date entered in [facility]
Allergy/Medication List:
Allergies
Allergy/AdvReac Type Severity Reaction Status Date / Time
No Known Allergies Allergy Verified 09/14/24 08:11
Home Medications
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
apixaban 5 mg tablet (Eliquis) 5 mg PO BID Blood Clot Prevention/Tx 05/12/24
carvedilol 12.5 mg tablet 12.5 mg PO BID Heart Disease/Condition 05/12/24
rosuvastatin 20 mg tablet 20 mg PO HS High Cholesterol 05/12/24
omeprazole 40 mg capsule,delayed release 40 mg PO DAILY Gastrointestinal Issue 06/08/24
acetaminophen 500 mg tablet (Tylenol Extra Strength) 1,000 mg PO BID Pain 06/21/24
brinzolamide 1 %-brimonidine 0.2 % eye drops,suspension (Simbrinza) 1 drp BOTH EYES BID Eye Condition 06/21/24
levothyroxine 88 mcg tablet (Synthroid) 88 mcg PO DAILY Thyroid 06/21/24
sodium zirconium cyclosilicate 10 gram oral powder packet (Lokelma) 10 g PO MOWEFR Supplement 06/21/24
alprazolam 0.25 mg tablet 0.125 mg PO HS 08/15/24
evolocumab 140 mg/mL subcutaneous pen injector (Repatha Amanick) 140 mg SC Q2W 08/15/24
loperamide 2 mg capsule 2 mg PO BIDPRN PRN diarrhea 08/15/24
omega-3 fatty acids-fish oil 684 mg-1,200 mg capsule,delayed release 1 cap PO DAILY ##0 08/15/24
risankizumab-rzaa 150 mg/mL subcutaneous pen injector (Skyrizi) 150 mg SC DIRECTED 08/15/24
timolol maleate 0.25 % eye drops 1 drp BOTH EYES HS 08/15/24
aspirin 81 mg tablet,delayed release 81 mg PO DAILY #30 tabs 08/18/24
Patient Own Insulin Pump 1 sliding scale dose SC .VIA NOVOLOG 08/25/24
clonidine HCl 0.1 mg tablet 0.1 mg PO BIDPRN PRN high blood pressure 08/25/24
chlorthalidone 25 mg tablet 25 mg PO DAILY 09/14/24
Review of Systems
-
Constitutional: Reports No Symptoms
EENT: Reports No Symptoms
Respiratory: Reports No Symptoms
Cardiac: Reports No Symptoms
Abdomen/GI: Reports Black Stools
: Reports No Symptoms
Musculoskeletal: Reports No Symptoms
Skin: Reports No Symptoms
Neurological: Reports No Symptoms
Endocrine: Reports No Symptoms
Hematologic/Lymphatic: Reports No Symptoms
Psych: Reports No Symptoms
Physical Exam
Vital Signs
Vital Signs
Temp Pulse Resp BP Pulse Ox
98.0 F 76 15 195/61 99
10/22/24 14:33 10/22/24 20:50 10/22/24 20:50 10/22/24 20:50 10/22/24 21:16
Physical Exam
General: Well Developed, Well Nourished and No Apparent Distress
HEENT: NormoCephalic, Moist mucous membranes and Atraumatic
Respiratory: Clear
Cardiac: S1/S2 and Regular Rhythm; No Murmur or Rub
GI: Soft, Non Tender, Non Distended and Normal Bowel Sounds; No Organomegaly
Rectal: Deferred by Provider
Musculoskeletal: No Clubbing, No Cyanosis and No Edema
Skin: No Rash
Neuro: AO x 3 and Nonfocal/grossly intact
Psych: Calm
Laboratory Results
-
10/22/24 14:52
10/22/24 14:52
Laboratory Results
PT 15.7 Sec (11.4-14.6) H 10/22/24 14:52
INR 1.22 10/22/24 14:52
APTT 32.9 Sec (23.4-35.0) 10/22/24 14:52
Total Bilirubin 0.5 mg/dl (0.2-1.3) 10/22/24 14:52
AST 19 U/L (14-36) 10/22/24 14:52
ALT 14 U/L (0-35) 10/22/24 14:52
Alkaline Phosphatase 80 U/L (38-126) 10/22/24 14:52
Data Reviewed
-
Lab Data: Labs Reviewed by me
Impression/Plan
-
# Acute blood loss anemia secondary to GI bleed on anticoagulant
- Heme positive stool
- Keep patient n.p.o., IV PPI
- Transfuse if hemoglobin less than 7
-Hemoglobin 9 point
- GI consult
# Hypertension urgency
- On nicardipine
# CKD stage IIIb
- Creatinine 1.3
- Continue to monitor
# ASCVD (CAD, CVA, Carotid Disease)
-continued rosuvastatin
- Continue aspirin
# Essential Hypertension
- Corege continued
#History of orthostatic hypotension
#Hyperlipidemia
# Paroxysmal atrial fibrillation s/p watchman device placement
-continued carvedilol
# IDDM, type 1 -stable
-patient used her own insulin pump
-Diabetic PREC[employer] INSTRUMENT [employer]KER consulted
-AccuCheck AC & HS
#Hypothyroidism
-continue levothyroxine
# Anxiety
- Alprazolam continued
#Psoriasis
-Otezla
#DVT Prophylaxis
-scd
#CODE status
-full code
--- NOTE | 2024-10-22 21:44 | W.PN.UPDATE ---
Update Note
Progress Note Update
Patient seen in conjunction with [employer]LE [employer]ER. I agree with the findings on history and physical. I concur with assessment and plan unless stated otherwise.
Briefly, this is a 73-year-old female with past medical history significant for atrial fibrillation on anticoagulation, GERD, hypertension, prior history of TIA, hyperlipidemia presenting to the emergency department with concern for dark colored
stools for about 2 to 3 days and then today the stool turned black. She denied any nausea vomiting or hematemesis. She has not seen any hematochezia. She apparently had an episode of GI bleeding February at an outside hospital and underwent a
colonoscopy. She stated that she had hemorrhoids but had no other findings. She has no known history of peptic ulcer disease. She felt dizzy and lightheaded this morning and was hypotensive at home.
On arrival in the emergency department she was hypertensive to over 200 systolic, pulse 76 respiratory rate 15 with oxygen saturation of 99% on room air. ECG shows normal sinus rhythm at rate of 74 no acute ischemic changes. Hemoglobin is 9.1 with
normal platelet count of 262. Electrolytes BUN and creatinine were unchanged from prior and in the normal range. Rectal exam in the ED shows that moderately heme positive positive stool in rectal vault.
Assessment and plan
Possible upper GI bleed versus hemorrhoidal bleed -hypotensive, hemodynamically stable and hemoglobin of 9.1
- Admit to ICU due to hypertensive emergency in the setting of GI bleed
- Clear liquid diet for now
- Type and screen, trend H&H every 8 hours
- IV PPI twice daily
- Hold Eliquis, hold aspirin
- GI consultation
Hypertensive urgency -no focal neurological deficits, no chest pain. On nicardipine drip. Recently admitted with hypertensive emergency as well.
- Continue nicardipine drip for now
� Continue home carvedilol with hold parameters
- chlorthalidone continued if stable
DVT PPX - SCD
Code status - Full Code
[2024-10-22 22:11] LABS: Hematocrit 26.8 % (37.0-47.0); Hemoglobin 9.0 g/dL (12.0-16.0)
[2024-10-22 22:41] LABS: Iron 77 ug/dl (37-170)
[2024-10-22 22:51] LABS: Total Iron Binding Capacity 378 ug/dl (265-497)
[2024-10-22] MEDS: COREG 12.5 MG PO (23:31)
--- NOTE | 2024-10-22 23:45 | PTCARENOTE ---
Rec'd pt from ER via stretcher on monitor Cardene gtt at 5mg, prot gtt, accomp by MUSIC VIDEO DIRECTOR, Pt oriented to icu routine, CHG bath done on adm, pt cooperative, tylenol 650mg po given at 0015 for headache, SR, to keep BP < 200 w/ cardene- see flow sheet
for titrations, weak distal pulses, skin warm/dry, RA, lungs clear, hypo bowel sounds, no bm, abd soft, no n/v, rani sips h20 for meds, voided just prior to arrival in ER, pt w/ own insulin pump - per pt set at 0.4 units/hr novolog insulin, , prot
gtt dc'd per order
[2024-10-22 23:53] LABS: Ferritin 21.3 ng/ml (11.1-264.0)
[2024-10-23] VITALS (56 sets, daily range): BP systolic 103–192; BP diastolic 41–85; PULSE 67–70; BMI 23.3; BMI 23.4
[2024-10-23 00:05] LABS: Glucose - Point of Care 177 mg/dl (70-99)
[2024-10-23] MEDS: CRESTOR 20 MG PO ×2 (00:09→21:31)
[2024-10-23] MEDS: XANAX 0.125 MG PO ×2 (00:09→21:32)
[2024-10-23] MEDS: TYLENOL 650 MG PO (00:15)
[2024-10-23 00:24] LABS: Folate 3.9 ng/ml (2.76-20); Vitamin B12 243 pg/ml (239-931)
[2024-10-23] MEDS: TIMOPTIC 0.25% OPHTHALMIC SOLUTION 1 DROP BOTH EYES ×2 (00:45→21:34)
--- NOTE | 2024-10-23 01:00 | PTCARENOTE ---
RA Sat 88- 2 liters nc applied
[2024-10-23] MEDS: PATIENT'S OWN INSULIN PUMP 0.4 UNITS SC (01:26)
--- NOTE | 2024-10-23 03:54 | PTCARENOTE ---
sys reviewed, changes noted, bp stable off cardene
[2024-10-23 04:01] LABS: Hematocrit 24.1 % (37.0-47.0); Hemoglobin 8.1 g/dL (12.0-16.0); Mean Corp Hgb Conc. 33.6 g/dL (33.0-37.0); Mean Corpuscular Volume 95.6 fL (81.0-99.0); Platelet Count 231 10^3/uL (130-400); Red Cell Dist. Width 13.5 % (11.5-14.5)
[2024-10-23 04:28] LABS: Blood Urea Nitrogen 39 mg/dl (7-17); Calcium 8.8 mg/dl (8.4-10.2); Carbon Dioxide 22 mmol/L (22-30); Chloride 109 mmol/L (98-107); Estimated Creatinine Clearance 35 ml/min; Glucose 211 mg/dl (70-99); Magnesium 1.7 mg/dl (1.6-2.3); Potassium 4.6 mmol/L (3.5-5.1); Sodium 137 mmol/L (135-145); eGFR 48.09
--- NOTE | 2024-10-23 05:16 | PTCARENOTE ---
cardene gtt restarted for elevated bp
[2024-10-23] MEDS: SYNTHROID 88 MCG PO (05:18)
--- NOTE | 2024-10-23 05:53 | PTCARENOTE ---
assisted to bsc - voided yellow urine, back to bed
--- NOTE | 2024-10-23 07:10 | CON.GI ---
Addendum entered and electronically signed by Vinnie Herzog MD 10/23/24 16:19:
I saw and examined the patient.
The SYSTEMS ENGINEERING MANAGER or PA's note was reviewed and I agree with the note.
Comment: 73yo female hx PAF s/p Watchman in June and TIA in August on Eliquis presents with dark stools and Hgb 9.1 down to 8.1. Had EGD/colon/capsule endoscopy earlier this year for eval of GI bleed that were all negative for a source. Denies
NSAIDs. She has had erratic BMs since Pessary. Also had HTN urgency on admission
REC:
Hold Eliquis
EGD tomorrow
Pt asking for food, appears stable since admission. Will allow low residue diet for dinner and NPO p MN
Cont protonix BID
Trend Hgb
Original Note:
Consultation
-
Date/Time Consultation Requested: 10/22/24 0050
Date/Time Consultation Performed: 10/23/24 6734
Requesting Provider: SALINA High
Performing Provider: SALINA Paez, Vinnie Herzog MD
Reason for Consultation: GI bleed
Medical History
Chief Complaint / HPI
History of Present Illness:
Pt is a 73yo with hx PAF with prior watchman still on Eliquis with hx TIA and other med issues, CAD with prior stents, syncope, CHF, GERD, IDDM, CKD, PAD with prior SFA angioplasty, HTN, hyperlipidemia, prior thyroidectomy, psoriasis, anxiety,
prior GI bleed presents with black stool, dizziness, and hypotension. She was also noted with HTN urgency on admission. On admission hbg 9.1 down from 10.1 last week with dark brown heme + stool in ER. In review with patient she has had 7
admission over last year. She admits to admission in February to [facility] with GI bleed and black stools. She recall EGD/colon and capsule completed with diverticulosis and hemorrhoids. Pt admits to periods of syncope that have worsened. She
also admits to change in bowel pattern after insertion of Pessary about 2 months ago with periods of diarrhea then constipation. She also has had a 40 lbs loss with some gain during covid. She otherwise denies dysphagia, GERD, nausea, vomiting,
abdominal pain, or red blood in stools. No NSAID use.
Past Medical History
Past Medical History: Arrhythmias (PAF), CAD, CVA (TIA), GERD, HTN, Hypercholesterolemia, Hypothyroidism, IDDM, Renal Failure, Psychiatric (anxiety) and Other (ACS, orthostatic hypotension, syncope, psoriasis, gallstones, glaucoma, cataracts,
anemia, PAD, prior GI bleeding- February 2024 with [facility] admission)
Past Surgical History: Cardiac (RAMAN, watchman), Cholecystectomy, Orthopedic (hand surgery, tennis elbow, endarterectomy, colon stent ) and Other (cataracts, linq with removal , SFA angioplasty, thyroidectomy)
Social History
Tobacco: Former Smoker
Alcohol: None
Drug: None
Personal:
Living: With Family
Employment: Retired
Family History
Family History: Other (no family hx Gi issues )
Allergies / Home Medications
Allergy/AdvReac Type Severity Reaction Status Date / Time
No Known Allergies Allergy Verified 09/14/24 08:11
�Medication �Instructions �Recorded
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
apixaban 5 mg tablet (Eliquis) 5 mg PO BID Blood Clot 05/12/24
Prevention/Tx
carvedilol 12.5 mg tablet 12.5 mg PO BID Heart 05/12/24
Disease/Condition
rosuvastatin 20 mg tablet 20 mg PO HS High Cholesterol 05/12/24
omeprazole 40 mg capsule,delayed 40 mg PO DAILY Gastrointestinal 06/08/24
release Issue
acetaminophen 500 mg tablet 1,000 mg PO BID Pain 06/21/24
(Tylenol Extra Strength)
brinzolamide 1 %-brimonidine 0.2 % 1 drp BOTH EYES BID Eye Condition 06/21/24
eye drops,suspension (Simbrinza)
levothyroxine 88 mcg tablet 88 mcg PO DAILY Thyroid 06/21/24
(Synthroid)
sodium zirconium cyclosilicate 10 10 g PO MOWEFR Supplement 06/21/24
gram oral powder packet (Lokelma)
alprazolam 0.25 mg tablet 0.125 mg PO HS 08/15/24
evolocumab 140 mg/mL subcutaneous 140 mg SC Q2W 08/15/24
pen injector (Repatha SureClick)
loperamide 2 mg capsule 2 mg PO BIDPRN PRN diarrhea 08/15/24
omega-3 fatty acids-fish oil 684 1 cap PO DAILY ##0 08/15/24
mg-1,200 mg capsule,delayed release
risankizumab-rzaa 150 mg/mL 150 mg SC DIRECTED 08/15/24
subcutaneous pen injector (Skyrizi)
timolol maleate 0.25 % eye drops 1 drp BOTH EYES HS 08/15/24
aspirin 81 mg tablet,delayed 81 mg PO DAILY #30 tabs 08/18/24
release
Patient Own Insulin Pump 1 sliding scale dose SC .VIA 08/25/24
NOVOLOG
clonidine HCl 0.1 mg tablet 0.1 mg PO BIDPRN PRN high blood 08/25/24
pressure
chlorthalidone 25 mg tablet 25 mg PO DAILY 09/14/24
Review of Systems
-
History Source: Patient
Constitutional: Reports Weight Loss
EENT: Reports No Symptoms
Respiratory: Reports No Symptoms
Cardiac: Reports Syncope
Abdomen/GI: Reports Diarrhea and Black Stools
: Reports No Symptoms
Musculoskeletal: Reports No Symptoms
Skin: Reports No Symptoms
Neurological: Reports Dizzy and Weakness
Hematologic/Lymphatic: Reports Bleeding
Vital Signs
Temp Pulse Resp BP Pulse Ox
99.4 F 63 13 158/56 97
10/23/24 03:51 10/23/24 06:00 10/23/24 06:00 10/23/24 06:00 10/23/24 06:00
Physical Exam
Exam
General: Well Developed, Well Nourished and No Apparent Distress
HEENT: Normocephalic
Respiratory: Clear
Cardiac: Regular Rhythm
GI: Soft, Non Tender and Non Distended
Rectal: Other (heme + dark brown in ER)
Musculoskeletal: No Clubbing and No Cyanosis
Skin: Warm and Dry
Neuro: Awake, Alert and AO x 3
Psych: Calm
Results
WBC 8.7 10^3/uL (4.8-10.8) 10/23/24 03:47
Hgb 8.1 g/dL (12.0-16.0) L 10/23/24 03:47
Hct 24.1 % (37.0-47.0) L 10/23/24 03:47
MCV 95.6 fL (81.0-99.0) 10/23/24 03:47
Plt Count 231 10^3/uL (130-400) 10/23/24 03:47
Absolute Neuts (auto) 6.0 10^3/uL (1.4-6.5) 10/22/24 14:52
PT 15.7 Sec (11.4-14.6) H 10/22/24 14:52
INR 1.22 10/22/24 14:52
APTT 32.9 Sec (23.4-35.0) 10/22/24 14:52
Sodium 137 mmol/L (135-145) 10/23/24 03:47
Potassium 4.6 mmol/L (3.5-5.1) 10/23/24 03:47
Chloride 109 mmol/L (98-107) H 10/23/24 03:47
Carbon Dioxide 22 mmol/L (22-30) 10/23/24 03:47
BUN 39 mg/dl (7-17) H 10/23/24 03:47
Creatinine 1.2 mg/dL (0.6-1.0) H 10/23/24 03:47
Calcium 8.8 mg/dl (8.4-10.2) 10/23/24 03:47
Total Bilirubin 0.5 mg/dl (0.2-1.3) 10/22/24 14:52
AST 19 U/L (14-36) 10/22/24 14:52
ALT 14 U/L (0-35) 10/22/24 14:52
Alkaline Phosphatase 80 U/L (38-126) 10/22/24 14:52
Diagnostic Image Results:
Prior GI Procedures:
EGD: [facility] 02/2024 recalls as normal
Colonoscopy: [facility] 02/2024- recall hemorrhoids
Assessment / Plan
-
Pt is a 73yo with hx PAF with prior watchman still on Eliquis with hx possible TIA and other med issues, CAD with prior stents, syncope, CHF, GERD, IDDM, CKD, PAD with prior SFA angioplasty, HTN with Hypertensive urgency, hyperlipidemia,
prior thyroidectomy, psoriasis, anxiety, prior GI bleed presents with black stool, dizziness, and hypotension. She was also noted with HTN urgency on admission. On admission hbg 9.1 down from 10.1 last week with dark brown heme + stool in ER.
In review with patient she has had 7 admission over last year. She admits to admission in February to [facility] with GI bleed and black stools. She recall EGD/colon and capsule completed with diverticulosis and hemorrhoids. Pt admits to periods
of syncope that have worsened. She also admits to change in bowel pattern after insertion of Pessary about 2 months ago with periods of diarrhea then constipation. She also has had a 40 lbs loss with some gain during covid.
-black stool prior to admission with rectal exam hepe + dark brown
-change in bowel habits with recent pessary insertion
-syncope with hx orthostasis
-HTN urgency on admission
-anemia acute blood loss
-hx GI bleed in February with noted hemorrhoids and work up at [facility]
-intentional wt loss
-PAF on Eliquis with hx watchman
other med problems:
-? TIA in August
-CAD with prior stent
-GERD on chronic PPI
-IDDM
-CKD
-PAD with SFA stent
-hyperlipidemia
-thyroidectomy
-anxiety
PLAN:
etiology of syncope with black stool related to GI bleeding, BP related with HTN urgency and orthostasis vs other
trend hbg pt was 10-11 range in August no 8.1 after admission
follow stools-- no stools overnight
iron studies normal with low normal ferritin
will obtain prior work up from February with EGD/colon and capsule
t/c repeat EGD in AM
cont Eliquis hold last dose 15 AM
ok for clears then NPO in AM
cont PPI BID
OP follow up with [facility] if continued issues with pessary
-
-
Thank you for consultation and allowing me to participate in the patient's care. Please call the integration analyst GI physician during the after hours with any questions or concerns.
--- NOTE | 2024-10-23 07:26 | PN.DE.MGMTRT ---
Insulin Management
- -
10/23/2024: Diabetes Consult Insulin Pump/Management
Patient admitted 10/22 for rectal bleeding. PMH: T1DM since age 23, s/p Watchman procedure 07/03/24, A-Fib on Eliquis, TIA 08/31, CAD s/p stents, HTN, HCL, Carotid stenosis S/P right and Left CEA, Anemia, Neuropathy, CKD. Patient known to Diabetes
team from previous admission. Prior to admission was using the Medtronic insulin pump with Guardian sensor and 7 day infusion set.
A1Cwas 7.3% previous admission, Cr 1.2, eGFR 48.09.
Pt awake, alert, oriented, resting in bed, offers no complaints. Able to discuss diabetes care. is at bedside and is very helpful and supportive. Patient routinely sees Fina Cueto of [facility] for
diabetes care. Patient states she continues to set a temporary basal at 8pm every night till 8am and reduces basal to .3 units per hour due to fear of hypoglycemia.
Glucose range 177 to 203. Fasting glucose today 205.
Will make no change to pump settings.
Pump settings as follows:
Basal rate
12AM to 6am .6
6AM to 10PM .8
24 hour basal total 18 units
I:CHO ratio 1:12
Sensitivity 1:50
Active insulin 2 hours.
Diabetes History
- -
Pre-Admission Diabetes Regimen
10/22/24 10/23/24
14:52 03:47
Creatinine 1.3 H 1.2 H
Insulin Pump Settings
IP Diabetes Regimen
10/22/24 10/22/24 10/23/24
14:52 23:55 03:47
Glucose 203 H 211 H
POC Glucose 177 H
Patient Education
--- NOTE | 2024-10-23 07:29 | W.PN.HOSP.TC ---
Today's Communication/Plan
-
EGD in a.m.
Assessment / Plan
Assessment / Plan
Impression:
Briefly, this is a 73-year-old female with past medical history significant for atrial fibrillation on anticoagulation, GERD, hypertension, prior history of TIA, hyperlipidemia presenting to the emergency department with concern for dark colored
stools for about 2 to 3 days and then today the stool turned black. She denied any nausea vomiting or hematemesis. She has not seen any hematochezia. She apparently had an episode of GI bleeding February at an outside hospital and underwent a
colonoscopy. She stated that she had hemorrhoids but had no other findings. She has no known history of peptic ulcer disease. She felt dizzy and lightheaded this morning and was hypotensive at home.
On arrival in the emergency department she was hypertensive to over 200 systolic, pulse 76 respiratory rate 15 with oxygen saturation of 99% on room air. ECG shows normal sinus rhythm at rate of 74 no acute ischemic changes. Hemoglobin is 9.1 with
normal platelet count of 262. Electrolytes BUN and creatinine were unchanged from prior and in the normal range. Rectal exam in the ED shows that moderately heme positive positive stool in rectal vault.
Assessment/plan:
Acute blood loss anemia secondary to GI bleed on anticoagulant
- Heme positive stool
- Seen by GI, clear liquid diet, n.p.o. after midnight for possible EGD
- Transfuse if hemoglobin less than 7
- GI bleeding related to anticoagulation
Paroxysmal A-fib status post Watchman device.
Continue carvedilol.
Eliquis on hold.
Cardiology consult if patient needs to go back on Eliquis since she has Watchman
Hypertension urgency
- On nicardipine
Orthostatic hypotension
Patient with significant drop on blood pressure with standing.
Patient has history of orthostatic hypotension.
Elevated blood pressure at supine position.
Will advise compression stocking.
Repeat H&H today.
CKD stage IIIb
- Creatinine 1.3
- Continue to monitor
ASCVD (CAD, CVA, Carotid Disease)
-continued rosuvastatin
- Continue aspirin
Essential Hypertension
- Corege continued
Hyperlipidemia
IDDM, type 1 -stable
-patient used her own insulin pump
-Diabetic INDUSTRIAL TECHNOLOGY TEACHER consulted
-AccuCheck AC & HS
Hypothyroidism
-continue levothyroxine
Anxiety
- Alprazolam continued
Psoriasis
-Otezla
CODE STATUS: Full code
DVT prophylaxis: SCDs
Diet: CLD-NPO after midnight
Disposition: Possible EGD in a.m.
Total time spent on today's encounter was 65 minutes which included time spent in counseling the patient/family regarding diagnosis and treatment plan as listed above, goals of care, and symptom management. Case was discussed with nursing staff,
specialists, and care coordinators/case management. All labs and imaging personally reviewed by me. Remainder the time spent in detailed review of previous records, lab data, imaging, and other medical provider documentation.
Anticipated Discharge: > 48 hours
Subjective/Interval History
-
Date of Service: October 23, 2024
Patient seen and examined at bedside, denies any chest pain or shortness of breath, no abdominal pain, no nausea, no vomiting, no diarrhea or constipation.
Objective Data
-
Labs:
Laboratory Results
10/22/24 10/23/24
22:03 03:47
WBC 8.7
Hgb 9.0 L 8.1 L
Hct 26.8 L 24.1 L
Plt Count 231
Sodium 137
Potassium 4.6
Chloride 109 H
Carbon Dioxide 22
BUN 39 H
Creatinine 1.2 H
Glucose 211 H
Calcium 8.8
Vital Signs:
Vital Signs
Temp Pulse Resp BP Pulse Ox
99.4 F 63 13 158/56 97
10/23/24 03:51 10/23/24 06:00 10/23/24 06:00 10/23/24 06:00 10/23/24 06:00
I&O
10/22/24 10/23/24 10/24/24
06:59 06:59 06:59
Intake Total 210.0 / 210.0
Output Total 250 / 250
Balance -40.0 / -40.0
Physical Exam
-
General: Well Developed, Well Nourished, No Apparent Distress and Comfortable
HEENT: Normocephalic, Atraumatic, Moist Mucous Membranes, No Ptosis, PERRLA and Nose Appears Normal
Respiratory: Clear to Auscultation and Non Labored Respirations
Cardiac: Regular Rhythm and S1/S2
Breast: Deferred by me
GI: Soft, Nontender, Nondistended and Normal Bowel Sounds
Genito-urinary: No Costovertebral Tender
Musculoskeletal: No Clubbing, No Cyanosis and No Edema
Skin: Warm
Neuro: Awake, Alert, Oriented, AO x 3 and No Motor Deficits
Psych: Calm
Data Reviewed
-
Diagnostic Radiology: Image personally visualized and interpreted and Report Reviewed by me
CT Scan: Image personally visualized and interpreted and Report Reviewed by me
Ultrasound: Image personally visualized and interpreted and Report Reviewed by me
MRI: Image personally visualized and interpreted and Report Reviewed by me
Medical Tests (Nuc Med, Echo etc): Image personally visualized and interpreted and Report Reviewed by me
Labs: Labs Reviewed by me
Old Records: Reviewed
[2024-10-23] MEDS: PATIENT'S OWN INSULIN PUMP 1 UNITS SC ×3 (07:37→16:44)
[2024-10-23] MEDS: COREG 12.5 MG PO (07:38)
[2024-10-23] MEDS: PROTONIX IV 40 MG IV ×2 (07:39→21:24)
[2024-10-23] MEDS: NSS (PRESERVATIVE FREE) 10 ML IV ×2 (07:39→21:24)
[2024-10-23] MEDS: SIMBRINZA 1%-0.2% OPHTH SUSP 1 DROP BOTH EYES ×2 (07:40→21:34)
[2024-10-23 08:16] LABS: Glucose - Point of Care 205 mg/dl (70-99)
--- NOTE | 2024-10-23 08:30 | PTCARENOTE ---
Rec'd pt at 0700. Cardene gtt turned off. Pt oriented, cooperative. SR, SBP<200-. +distal pulses, skin warm/dry, RA, lungs clear, hypo bowel sounds, no bm, abd soft, no n/v, rani sips h20 for meds, voiding in BSC, pt w/ own insulin pump - per pt
set at 0.4 units/hr novolog insulin. Pt OOB to chair.
--- NOTE | 2024-10-23 10:24 | CON.CAR ---
Addendum entered and electronically signed by Wei Orosco MD 10/23/24 13:23:
73-year-old woman who presented to the emergency department on October 22 with with melanotic stool dizziness, and anemia. She has a history of paroxysmal atrial fibrillation, status post PVI and Watchman June 2024, admitted with GI bleed and
hemoglobin of 9.1. On Eliquis at the time of admission for TIA in August. At that time, MRI showed bihemispheric old strokes but no acute CVA. She had a moderate right internal carotid artery stenosis. [place] at that that time showed well-seated
Watchman with no leak. He had layered and protruding plaque in the ascending and descending aorta at the sinotubular junction there was a dense protruding mobile plaque. There was an aneurysm of the atrial septum with possible [id number] flow
but negative bubble. LV function was preserved. She had a colonoscopy earlier this year and is scheduled for endoscopic evaluation tomorrow.
PMH: Known prior bihemispheric CVAs, PAF, PVI and watchman placement, HFpEF, CAD with RCA PCI/stent 2014, history of non-STEMI with PCI/stent D1, PCI/stent proximal circumflex March 2024, hypertension, hyperlipidemia, diabetes with insulin pump,
hypothyroidism, psoriasis, PAD with left SFA FLORAL MANAGER, glaucoma
PSH: Cholecystectomy, cataracts, Linq explant,
, remote smoker, no alcohol, retired
Rest of history as below, reviewed in detail and agree, unless otherwise specified.
Current meds: IV nicardipine, Xanax, aspirin 81 mg a day, carvedilol 12.5 mg twice daily, levothyroxine 88 mcg a day, rosuvastatin 20 mg a day, timolol, pantoprazole 40 IV twice daily, patient was on both aspirin and Eliquis at the time of
admission, also on Lokelma, omega-3 fatty acids
158/56, Pulse 63, respiratory rate 13 afebrile, pleasant, no distress, head neck exam unremarkable, lungs are clear, no obvious murmurs abdomen benign extremities without clubbing cyanosis or edema
ECG sinus rhythm,, nonspecific ST and T wave changes
Hemoglobin 8.1 BUN and creatinine 39 and 1.2, potassium 4.6
Chest x-ray no active disease
[place] August 2024: EF 65-70%, mild LVH, normal RV, mildly dilated left atrium, 27 mm Watchman in appendage, well sealed, no thrombus, trace MR, MAC, aortic valve normal, trace TR, layered protruding mobile thrombus at sinotubular junction, aneurysmal
atrial septum with small muli-jr-ozoly shunt
Impression:
Presumed upper GI bleed
Blood loss anemia
History of bihemispheric strokes, most recent August 2024
Mobile atheroma ascending aorta by transesophageal echo August 2024
Paroxysmal atrial fibrillation
Status post Watchman placement June 2024
History of PVI June 2024
History of HFpEF
CAD/RCA PCI 2014 history of D1 PCI, history of PCI March 2024
History of non-STEMI
Hyperlipidemia
Diabetes with insulin pump
Hypothyroidism
Psoriasis
PAD with left SFA FLORAL MANAGER
Glaucoma
Plan:
She presents with what is presumably an upper GI bleed producing dizziness associated with a hemoglobin dropping to 8, on Eliquis and aspirin. This is roughly 4 months out from watchman placement with a subsequent stroke possibly related to a
mobile atheroma of her aortic sinotubular junction.
At present, she is stable from the standpoint of paroxysmal atrial fibrillation.
Her transesophageal echo showed a good result regarding watchman placement. It may be that her stroke was related to a mobile atheroma at the sinotubular junction of the aorta. Antiplatelet therapy may be more effective than anticoagulant therapy
and so at this point moving forward aspirin alone is probably the best strategy. Plavix in place of aspirin could be considered as well. Recommend permanent discontinuation of Eliquis.
She states that carvedilol produces dizziness will reduce the dose. Restart chlorthalidone. She may need an RUBINA or ARB, possibly amlodipine if she remains hypertensive. If orthostasis is an ongoing issue, discontinuation of chlorthalidone might
be considered.
Okay to proceed with EGD tomorrow from cardiac standpoint.
We will continue to follow.
Original Note:
Consultation
Consultation Request
Date/Time Consultation Requested: 10/23/24 07:57
Date/Time Consultation Performed: 10/23/24 10:00
Requesting Provider: Deo Rodriguez MD
Performing Provider: Mani Mckeon DO (Resident); Wei Orosco MD
Reason for Consultation: Hx A-fib; Anticoagulation Recommendations
Medical History
-
Chief Complaint: Dark Stools
History of Present Illness:
Haleigh Moss is a 73F w/ PMHx CAD s/p NV (2024) w/ history of multiple stents, paroxysmal atrial fibrillation s/p PVI and Watchman procedure in 06/2024, CVA in 04/2024, HTN, HLD, T1DM, hypothyroidism, CKD3 , PAD, and carotid aa. stenosis s/p CEA who
presented to the ED yesterday with black stool x several days. Patient notes that she has had a history of GI bleeds while on anticoagulation, and most recent colonoscopy showed only hemherroids and diverticulosis. This current episode is marked by
dark stools over the past 3 days, that also appeared tarry. She came to the ED yesterday because she started to feel dizzy in the AM. When she took her BP in the AM, she noted that it was 80/40. She tried to rectify this by drinking sodas and eating
salty foods. She otherwise denied any chest pains, shortness of breath, feelings of palpitations, headaches, focal neurologic deficits, or recent lower extremity edema.
ED COURSE
Upon reaching ED, blood pressures were now elevated to 145, to 170, and as high as 200 systolic. Other VSS.
Otherwise, patient with normal cardiopulmonary exam, but heme + brown stool.
Hb 9.1, compared to 10-11 on 08/25.
Iron studies unremarkable, B12 and folate nml.
ECG showed NSR w/ ST depression in lateral leads, but no changes from ECG in 08/2024.
HOSPITAL COURSE
Patient admitted to ICU for hypertensive emergency in the setting of GI bleed.
Eliquis and ASA held.
Hb down to 8.1 this AM. GI consult, for EGD tomorrow.
Started on Nicardipine drip, continued on Carvedilol and Cholrthalidone.
PRIOR EVALUATIONS AND HOSPITALIZATIONS
Patient endorses multiple hospitalizations this year.
GI Bleed 02/2024. NV 03/2024. DKA 03/11 UTI 04/2024. Ischemic colitis, CHF Exacerbation, and bilateral hemispheric strokes.
During hospitalization in 04/2024, patient was found to be in atrial fibrillation. Treatment modalities were discussed with the patient, and she elected to undergo PVI and Watchman (concomitant) on 07/03. Plan was to maintain patient on Eliquis 5mg
BID until 3 month post watchman [place] proved adequate seating of device. A repeat ECHO on 08/17 showed the device remained well seated.
Past Medical History
Past Medical History: Other (CAD s/p NV (2024) w/ history of multiple stents, paroxysmal atrial fibrillation s/p PVI and Watchman procedure in 06/2024, CVA in 04/2024, HTN, HLD, T1DM, hypothyroidism, CKD3 , PAD, and carotid aa. stenosis s/p CEA)
Social History
Tobacco: Former Smoker (20PY hx; quit 10 years ago. )
Alcohol: None
Drug: None
Personal:
Living: With Family
Family History
Family History: Other (No history of CAD, NV, or DM. Mother has HTN. Son has atrial fibrillation. )
Allergies / Home Medications
Allergy/AdvReac Type Severity Reaction Status Date / Time
No Known Allergies Allergy Verified 09/14/24 08:11
�Medication �Instructions �Recorded �Confirmed �Type
apremilast 30 mg tablet (Otezla) 30 mg PO BID pustulous psoriasis 01/16/23 10/22/24 History
apixaban 5 mg tablet (Eliquis) 5 mg PO BID Blood Clot 05/12/24 10/22/24 History
Prevention/Tx
carvedilol 12.5 mg tablet 12.5 mg PO BID Heart 05/12/24 10/22/24 History
Disease/Condition
rosuvastatin 20 mg tablet 20 mg PO HS High Cholesterol 05/12/24 10/22/24 History
omeprazole 40 mg capsule,delayed 40 mg PO DAILY Gastrointestinal 06/08/24 10/22/24 History
release Issue
acetaminophen 500 mg tablet 1,000 mg PO BID Pain 06/21/24 10/22/24 History
(Tylenol Extra Strength)
brinzolamide 1 %-brimonidine 0.2 % 1 drp BOTH EYES BID Eye Condition 06/21/24 10/22/24 History
eye drops,suspension (Simbrinza)
levothyroxine 88 mcg tablet 88 mcg PO DAILY Thyroid 06/21/24 10/22/24 History
(Synthroid)
sodium zirconium cyclosilicate 10 10 g PO MOWEFR Supplement 06/21/24 10/22/24 History
gram oral powder packet (Lokelma)
alprazolam 0.25 mg tablet 0.125 mg PO HS 08/15/24 10/22/24 History
evolocumab 140 mg/mL subcutaneous 140 mg SC Q2W 08/15/24 10/22/24 History
pen injector (Marianela Villareal)
loperamide 2 mg capsule 2 mg PO BIDPRN PRN diarrhea 08/15/24 10/22/24 History
omega-3 fatty acids-fish oil 684 1 cap PO DAILY ##0 08/15/24 10/22/24 History
mg-1,200 mg capsule,delayed release
risankizumab-rzaa 150 mg/mL 150 mg SC DIRECTED 08/15/24 10/22/24 History
subcutaneous pen injector (Skyrizi)
timolol maleate 0.25 % eye drops 1 drp BOTH EYES HS 08/15/24 10/22/24 History
aspirin 81 mg tablet,delayed 81 mg PO DAILY #30 tabs 08/18/24 10/22/24 Rx
release
Patient Own Insulin Pump 1 sliding scale dose SC .VIA 08/25/24 10/22/24 History
NOVOLOG
clonidine HCl 0.1 mg tablet 0.1 mg PO BIDPRN PRN high blood 08/25/24 10/22/24 History
pressure
chlorthalidone 25 mg tablet 25 mg PO DAILY 09/14/24 10/22/24 History
Review of Systems
-
History Source: Patient
All other systems: Negative unless noted
Physical Exam
Vital Signs
Temp Pulse Resp BP Pulse Ox
97.6 F 69 20 168/59 100
10/23/24 08:04 10/23/24 10:00 10/23/24 10:00 10/23/24 10:00 10/23/24 10:00
Lab Results
10/23/24 03:47
10/23/24 03:47
Physical Exam
General: Well Developed, Well Nourished, No Apparent Distress and Comfortable
HEENT: Normocephalic and Anicteric
Respiratory: Clear and Non Labored Respirations; Negative Wheezes, Crackles or Rhonchi
Cardiac: S1/S2 and Regular Rhythm
Neuro: Awake
Psych: Calm
Impression / Plan
-
Haleigh Moss is a 73F w/ PMHx of CAD s/p recent NV earlier this year, bilateral hemispheric infarcts found on brain imaging in 04/2024, paroxysmal atrial fibrillation s/p PVI and Watchman procedure in 06/2024, aortic atheroma as seen on
echocardiography in 08/2024, HTN, HLD, T1DM, hypothyroidism, CKD3 , PAD, and carotid aa. stenosis s/p CEA who presented to the emergency department with several days of dark and tarry stools and found to be in hypertensive emergency. Given her
history of GI bleed and clinical picture on this admission pointing towards the same, we were consulted for comment on Eliquis use in the periprocedural period given her recent Watchman implantation. Given the patient had a repeat ECHO in 08/2024
that showed a well-seated Watchman device, it would be okay to discontinue Eliquis. However, given her extensive history of atherosclerotic disease, NV, and prior CVAs, the patient should continue to receive antiplatelet monotherapy for secondary
prevention. She otherwise outside of the window for DAPT.
PLAN
Discontinue Eliquis
Continue antiplatelet monotherapy with ASA 81mg
Continue High Intensity Statin therapy with Rosuvastatin
Plan for EGD tomorrow with GI
Continue to monitor BPs, tele.
We will continue to follow.
Data Reviewed
-
EKG: Tracing Personally Visualized and interpreted and Report Reviewed by me
Medical Tests (Nuc Med, Echo etc): Report Reviewed by me
Labs: Labs Reviewed by me
Old Records: Reviewed
Total Time Spent with Patient (in minutes): 40
--- NOTE | 2024-10-23 10:27 | PTCARENOTE ---
Orthostatic hypotension noted, hospitalist and labor training manager notified, pt returned to bed due to lightheadedness.
--- NOTE | 2024-10-23 11:45 | CON.INTV ---
Addendum entered and electronically signed by Tera Watts MD 10/23/24 13:15:
Patient continues to stay off Cardene, hemodynamically stable, no further melena or hematochezia
Patient stable for transfer out of ICU
Aspirin stopped in view of planned EGD, if EGD unremarkable can resume
Gateman service will sign off, please call as needed
Original Note:
Consultation
Consultation Request
Date/Time Consultation Requested: 23:43 10/22/24
Date/Time Consultation Performed: 7:00 10/23/24
Medical History
-
History of Present Illness:
73yoF PMH IDDM, afib s/p watchman continued on aspirin and eliquis, DE, CVA, HTN, PAD, presenting with presyncopal episode and black tarry stool.
Pt was at home feeling lightheaded and noticed dark stool. She measured her BP at home noting it was 80/40, prompting her to present to the ED. Upon presentation, pt was found to have HTN urgency with systolic over 200 started on nicardipine drip.
Pt denies abdominal pain. Last BM yesterday.
Pt reports lightheadedness with her HTN medication at baseline with increasingly dark stool over the last few days. Pt reports PMH GI bleed at [facility] where they did endoscopy, colonoscopy, and capsule endoscopy with findings of hemorrhoids
but no further GI concern. Blood thinners were initially meant to be stopped in September after watchman but sales and marketing analyst decided to continue them in setting of recent DE and CVA. Baseline anemia following at [facility] with last iron infusion a part of
a 10 infusion series pt reports being a while ago. Pt reports a pessary placement about 2 months ago when she began having loose stool about 5-6x/day that is still in place.
Past Medical History
Past Medical History: Arrhythmias, CHF, CVA, HTN, IDDM and DE
Past Surgical History: Cardiac and Gynecological (pessary placement for prolapse)
Social History
Tobacco: Former Smoker (remote)
Alcohol: None
Allergies / Home Medications
Allergies
Allergy/AdvReac Type Severity Reaction Status Date / Time
No Known Allergies Allergy Verified 09/14/24 08:11
Home Medications
�Medication �Instructions �Recorded �Confirmed �Last Taken �Type
apremilast 30 mg tablet (Otezla) 30 mg PO BID pustulous psoriasis 01/16/23 10/22/24 09/14/24 History
apixaban 5 mg tablet (Eliquis) 5 mg PO BID Blood Clot 05/12/24 10/22/24 09/14/24 History
Prevention/Tx
carvedilol 12.5 mg tablet 12.5 mg PO BID Heart 05/12/24 10/22/24 09/14/24 History
Disease/Condition
rosuvastatin 20 mg tablet 20 mg PO HS High Cholesterol 05/12/24 10/22/24 09/13/24 History
omeprazole 40 mg capsule,delayed 40 mg PO DAILY Gastrointestinal 06/08/24 10/22/24 09/14/24 History
release Issue
acetaminophen 500 mg tablet 1,000 mg PO BID Pain 06/21/24 10/22/24 08/24/24 History
(Tylenol Extra Strength)
brinzolamide 1 %-brimonidine 0.2 % 1 drp BOTH EYES BID Eye Condition 06/21/24 10/22/24 09/14/24 History
eye drops,suspension (Simbrinza)
levothyroxine 88 mcg tablet 88 mcg PO DAILY Thyroid 06/21/24 10/22/24 09/14/24 History
(Synthroid)
sodium zirconium cyclosilicate 10 10 g PO MOWEFR Supplement 06/21/24 10/22/24 09/12/24 History
gram oral powder packet (Lokelma)
alprazolam 0.25 mg tablet 0.125 mg PO HS 08/15/24 10/22/24 09/13/24 History
evolocumab 140 mg/mL subcutaneous 140 mg SC Q2W 08/15/24 10/22/24 09/10/24 History
pen injector (Repatha SureClick)
loperamide 2 mg capsule 2 mg PO BIDPRN PRN diarrhea 08/15/24 10/22/24 08/23/24 History
omega-3 fatty acids-fish oil 684 1 cap PO DAILY ##0 08/15/24 10/22/24 09/14/24 History
mg-1,200 mg capsule,delayed release
risankizumab-rzaa 150 mg/mL 150 mg SC DIRECTED 08/15/24 10/22/24 08/31/24 History
subcutaneous pen injector (Skyrizi)
timolol maleate 0.25 % eye drops 1 drp BOTH EYES HS 08/15/24 10/22/24 09/13/24 History
aspirin 81 mg tablet,delayed 81 mg PO DAILY #30 tabs 08/18/24 10/22/24 09/14/24 Rx
release
Patient Own Insulin Pump 1 sliding scale dose SC .VIA 08/25/24 10/22/24 09/14/24 History
NOVOLOG 0.8/hr
clonidine HCl 0.1 mg tablet 0.1 mg PO BIDPRN PRN high blood 08/25/24 10/22/24 Unknown History
pressure
chlorthalidone 25 mg tablet 25 mg PO DAILY 09/14/24 10/22/24 09/14/24 History
Review of Systems
-
History Source: Patient
All other systems: Negative unless noted
Constitutional: Weight Loss (40lbs over the course of the [facility] year of hospitalizations)
EENT: No Symptoms
Respiratory: No Symptoms
Cardiac: No Symptoms and Syncope (presyncope/lightheadedness)
Abdomen/GI: Abdominal Pain (negative), Diarrhea (baseline for 2 months) and Black Stools (no bright red blood)
: No Symptoms
Musculoskeletal: No Symptoms
Skin: No Symptoms
Neuro: No Symptoms
Endocrine: No Symptoms
Hematologic/Lymphatic: No Symptoms
Vitals / Labs / Diagnostic Testing
Vital Signs
Temp Pulse Resp BP Pulse Ox
97.6 F 67 11 165/53 98
10/23/24 08:04 10/23/24 11:30 10/23/24 11:30 10/23/24 11:01 10/23/24 10:30
Lab Data
10/23/24 03:47
10/23/24 03:47
Laboratory Results
10/22/24
14:52
PT 15.7 H
INR 1.22
APTT 32.9
Diagnostic Testing:
Physical Exam
-
HEENT: Normocephalic, Anicteric and Moist Mucous Membranes
Cardiovascular: S1/S2 and Regular Rhythm
Respiratory: Clear and Non-Labored Respirations
GI: Soft, Non Distended, Flat and Non Tender
Neurology: AO x 3 and No Motor Deficits
Skin: Warm and Dry
General: Comfortable
Assessment
-
73yoF PMH IDDM, afib s/p watchman continued on aspirin and eliquis, DE, CVA, HTN, PAD, presenting with presyncopal episode and black tarry stool.
Hgb 8.7, stable at baseline anemia. Iron studies demonstrate low iron and B12. Positive for orthostatic hypotension. BP stable when laying down. Afebrile. CXR negative. ECG stable from prior. Baseline diarrhea since pessary placement with new, black
stool.
#Orthostatic hypotension
- Possibly hypovolemia in setting of acute GI bleed
- Encourage PO liquids
- Hold home diuretic and HTN medication
#Hypertensive urgency
- Resolved
- Hold BP medication
- Stopped nicardipine drip this am
#GI bleed
- GI following
- Plan for EGD tomorrow. NPO after midnight
- Hold home eliquis and aspirin
- Continue IV PPI
#IDDM
- Continue home insulin pump.
- Monitor for hypoglycemia while NPO
#Normocytic anemia
- Replete B12.
- F/u outpt for low iron studies. Consider repleting iron
- Monitor H+H in setting of acute bleed on chronic anemia
#Psoriasis
- Hold home Otezla due to associated GI side effects
DVT prophylaxis: SCDs
Diet: Clear liquids. NPO after midnight
GI prophylaxis: IV PPI
--- NOTE | 2024-10-23 14:25 | CM ---
Initial assessment completed with patient and . Patient lives with her in a split level home with B/B on upper level and full bath on lower level, no steps to enter. 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
housework. No longer drives. Patient has a Watchman, Pessary, rollator, SC, w/ch, SPC and grab bars in the shower. She was discharged from [facility] for RN, PT/OT last week. She would like to have these services again. No HC-POA. No
VA benefits. No psychiatric hospitalizations. PCP is Dr. Wei Hall. Pharmacy is [facility] in [place]. Discharge POC: Home with [facility] RN, PT/OT services.
--- NOTE | 2024-10-23 18:19 | TRANSFER ---
Patient arrived from ICU via wheelchair. SB assist from wheelchair to bed. accompanying patient. VSS. patient denies pain. Insulin pump noted on her right lower quadrant of abdomen. Skin intact. SCDs on. Patient oriented to room. Bed in
lowest position. Call pimentel and personal belongings within reach.
[2024-10-23 20:45] LABS: Glucose - Point of Care 311 mg/dl (70-99)
[2024-10-23] MEDS: COREG 6.25 MG PO (21:30)
[2024-10-23] MEDS: PATIENT'S OWN INSULIN PUMP 3 UNITS SC (21:32)
[2024-10-23] MEDS: NORVASC 2.5 MG PO (23:45)
[2024-10-24] VITALS (12 sets, daily range): BP systolic 115–214; BP diastolic 45–93; BMI 23.1
--- NOTE | 2024-10-24 00:09 | W.PN.UPDATE ---
Update Note
Progress Note Update
BP 170's-180's/70's HR 73, will add Amlodipine 2.5mg POx1. Cardiology notes noted.
BP 155/65 HR 71
[2024-10-24 00:48] LABS: Glucose - Point of Care 105 mg/dl (70-99)
--- NOTE | 2024-10-24 03:45 | DOWNTIME ---
There was a [employer] Industrial Automation Engineer Downtime on 10/24/2024 from 0100 to 10/24/2024 at 0215. Downtime documentation of patient's care, including medication administrations, has been reconciled in the electronic record per guidelines. Refer to the
patient's paper chart under the miscellaneous tab to see printed paper medication records and downtime forms.
[2024-10-24] MEDS: SYNTHROID 88 MCG PO (05:34)
[2024-10-24 05:41] LABS: Glucose - Point of Care 158 mg/dl (70-99)
[2024-10-24 07:23] LABS: Hematocrit 26.0 % (37.0-47.0); Hemoglobin 8.5 g/dL (12.0-16.0); Mean Corp Hgb Conc. 32.7 g/dL (33.0-37.0); Mean Corpuscular Volume 97.4 fL (81.0-99.0); Platelet Count 244 10^3/uL (130-400); Red Cell Dist. Width 13.8 % (11.5-14.5)
[2024-10-24 07:44] LABS: Blood Urea Nitrogen 39 mg/dl (7-17); Calcium 9.3 mg/dl (8.4-10.2); Carbon Dioxide 24 mmol/L (22-30); Chloride 111 mmol/L (98-107); Estimated Creatinine Clearance 38 ml/min; Glucose 154 mg/dl (70-99); Potassium 4.8 mmol/L (3.5-5.1); Sodium 140 mmol/L (135-145); eGFR 53.39
--- NOTE | 2024-10-24 08:19 | PN.DE.MGMTRT ---
Insulin Management
- -
10/24/2024: Diabetes Consult Insulin Pump/Management Follow up
Patient admitted 10/22 for rectal bleeding. PMH: T1DM since age 23, s/p Watchman procedure 07/03/24, A-Fib on Eliquis, TIA 08/31, CAD s/p stents, HTN, HCL, Carotid stenosis S/P right and Left CEA, Anemia, Neuropathy, CKD. Patient known to Diabetes
team from previous admission. Prior to admission was using the Medtronic insulin pump with Guardian sensor and 7 day infusion set. Patient routinely sees Fina Cueto of [facility] for diabetes care. Patient
states she continues to set a temporary basal at 8pm every night till 8am and reduces basal to .3 units per hour due to fear of hypoglycemia.
A1Cwas 7.3% previous admission, Cr 1.2, eGFR 48.09.
Pt is off the unit at the time of my visit, for EGD.
Glucose range yesterday 201 to 311, correction taken, 105 @ HS.
Patient was NPO for procedure, now clear liquids today SP EGD. Fasting glucose today 158.
Will make no change to pump settings.
Pump settings as follows:
Basal rate
12AM to 6am .6
6AM to 10PM .8
24 hour basal total 18 units
I:CHO ratio 1:12
Sensitivity 1:50
Active insulin 2 hours.
Diabetes History
- -
Type of Diabetes: 1
Pre-Admission Diabetes Regimen
10/24/24
06:42
Creatinine 1.1 H
Insulin Pump Settings
IP Diabetes Regimen
10/23/24 10/24/24 10/24/24
20:43 00:47 05:40
Glucose
POC Glucose 311 H 105 H 158 H
10/24/24
06:42
Glucose 154 H
POC Glucose
Patient Education
[2024-10-24] MEDS: COREG 6.25 MG PO ×2 (08:23→20:35)
[2024-10-24] MEDS: PROTONIX IV 40 MG IV ×2 (08:24→20:35)
[2024-10-24] MEDS: NSS (PRESERVATIVE FREE) 10 ML IV ×2 (08:24→20:35)
[2024-10-24] MEDS: PATIENT'S OWN INSULIN PUMP SC ×3 (08:25→17:24)
[2024-10-24] MEDS: SIMBRINZA 1%-0.2% OPHTH SUSP 1 DROP BOTH EYES ×2 (08:25→20:36)
[2024-10-24 11:11] LABS: Glucose - Point of Care 121 mg/dl (70-99)
--- NOTE | 2024-10-24 12:23 | W.PN.UPDATE ---
Update Note
Progress Note Update
reviewed records:
02/2024- colon hemorrhoids probable cause of bleeding, diverticulosis,
04/2021- EGD 04/2021- gastric polyps, gastritis, bx reactive inflammation, neg H pylori, fundic gland polyp neg sprue
04/2021 capsule normal SB mucosa. Multiple gastric polyps
[2024-10-24 12:24] LABS: Glucose - Point of Care 85 mg/dl (70-99)
[2024-10-24] MEDS: LOKELMA 10 GRAM PO (12:56)
--- NOTE | 2024-10-24 13:24 | W.PN.HOSP.TC ---
Today's Communication/Plan
-
Monitor hemoglobin and hematocrit.
Monitor blood pressure
Assessment / Plan
Assessment / Plan
Impression:
Briefly, this is a 73-year-old female with past medical history significant for atrial fibrillation on anticoagulation, GERD, hypertension, prior history of TIA, hyperlipidemia presenting to the emergency department with concern for dark colored
stools for about 2 to 3 days and then today the stool turned black. She denied any nausea vomiting or hematemesis. She has not seen any hematochezia. She apparently had an episode of GI bleeding February at an outside hospital and underwent a
colonoscopy. She stated that she had hemorrhoids but had no other findings. She has no known history of peptic ulcer disease. She felt dizzy and lightheaded this morning and was hypotensive at home.
On arrival in the emergency department she was hypertensive to over 200 systolic, pulse 76 respiratory rate 15 with oxygen saturation of 99% on room air. ECG shows normal sinus rhythm at rate of 74 no acute ischemic changes. Hemoglobin is 9.1 with
normal platelet count of 262. Electrolytes BUN and creatinine were unchanged from prior and in the normal range. Rectal exam in the ED shows that moderately heme positive positive stool in rectal vault.
Seen by GI and underwent EGD which showed:
The esophagus was normal.
- Normal esophagus.
- A single bleeding angioectasia in the stomach. Treated with
argon plasma coagulation (APC).
- Multiple gastric polyps.
- Duodenal mucosal lymphangiectasia.
- No specimens collected.
Seen by cardiology recommending to discontinue Eliquis.
Blood pressure was still elevated, cardiology adjusted blood pressure medications.
Assessment/plan:
Acute blood loss anemia secondary to GI bleed on anticoagulant
- Heme positive stool
- Seen by GI, clear liquid diet, n.p.o. after midnight for possible EGD
- Transfuse if hemoglobin less than 7
- GI bleeding related to anticoagulation
10/24
EGD:
The esophagus was normal.
- Normal esophagus.
- A single bleeding angioectasia in the stomach. Treated with
argon plasma coagulation (APC).
- Multiple gastric polyps.
- Duodenal mucosal lymphangiectasia.
- No specimens collected.
GI recommending clear liquid today and regular diet tomorrow.
Paroxysmal A-fib status post Watchman device.
Continue carvedilol (cardiology adjusted the dose).
Eliquis Discontinued.
Appreciate cardiology
Hypertension urgency
- Appreciate cardiology-adjusted carvedilol, patient had side effect from amlodipine
Orthostatic hypotension
Patient with significant drop on blood pressure with standing.
Patient has history of orthostatic hypotension.
Elevated blood pressure at supine position.
Will advise compression stocking.
Readjusted coreg.
CKD stage IIIb
- Creatinine 1.3
- Continue to monitor
ASCVD (CAD, CVA, Carotid Disease)
-continued rosuvastatin
- Continue aspirin
Essential Hypertension
- Corege continued
Hyperlipidemia
IDDM, type 1 -stable
-patient used her own insulin pump
-Diabetic JOINT SUPERVISOR consulted
-AccuCheck AC & HS
Hypothyroidism
-continue levothyroxine
Anxiety
- Alprazolam continued
Psoriasis
-Otezla
CODE STATUS: Full code
DVT prophylaxis: SCDs
Diet: CLD
Disposition: Monitor hemoglobin and hematocrit.
Monitor blood pressure
Total time spent on today's encounter was 65 minutes which included time spent in counseling the patient/family regarding diagnosis and treatment plan as listed above, goals of care, and symptom management. Case was discussed with nursing staff,
specialists, and care coordinators/case management. All labs and imaging personally reviewed by me. Remainder the time spent in detailed review of previous records, lab data, imaging, and other medical provider documentation.
Anticipated Discharge: 24 - 48 hours
Subjective/Interval History
-
Date of Service: October 24, 2024
Patient seen before EGD, blood pressure was elevated but improved with oral carvedilol.
Patient denies chest pain or shortness of breath.
Objective Data
-
Labs:
Laboratory Results
10/24/24
06:42
WBC 6.6
Hgb 8.5 L
Hct 26.0 L
Plt Count 244
Sodium 140
Potassium 4.8
Chloride 111 H
Carbon Dioxide 24
BUN 39 H
Creatinine 1.1 H
Glucose 154 H
Calcium 9.3
Vital Signs:
Vital Signs
Temp Pulse Resp BP Pulse Ox
97.4 F 65 18 147/56 97
10/24/24 12:00 10/24/24 12:00 10/24/24 12:00 10/24/24 12:00 10/24/24 12:00
I&O
10/23/24 10/24/24 10/25/24
06:59 06:59 06:59
Intake Total 210.0 / 222.5 18.5 / 18.5 400 / 400
Output Total 250 / 250
Balance -40.0 / -27.5 18.5 / 18.5 400 / 400
Physical Exam
-
General: Well Developed, Well Nourished, No Apparent Distress and Comfortable
HEENT: Normocephalic, Atraumatic, Moist Mucous Membranes, No Ptosis, PERRLA and Nose Appears Normal
Respiratory: Clear to Auscultation and Non Labored Respirations
Cardiac: Regular Rhythm and S1/S2
Breast: Deferred by me
GI: Soft, Nontender, Nondistended and Normal Bowel Sounds
Genito-urinary: No Costovertebral Tender
Musculoskeletal: No Clubbing, No Cyanosis and No Edema
Skin: Warm
Neuro: Awake, Alert, Oriented, AO x 3 and No Motor Deficits
Psych: Calm
--- NOTE | 2024-10-24 15:10 | W.PN.CD ---
Addendum entered and electronically signed by Charles Serrato MD 10/24/24 15:34:
I saw and evaluated the patient. I reviewed the resident�s note and agree with findings and plan as documented in the resident�s note. General: Well developed, well nourished in NAD.
Neck: Supple, no JVD, HJR, carotids +2 B/L, no bruits bilaterally.
Heart: Non displaced PMI, RRR, no murmurs, No S3, S4, no rubs.
Lungs: Scattered rhonchi
Abdomen: Normal bowel sounds, soft, non-tender, non-distended.
Extremities: No clubbing, cyanosis or edema bilaterally.
Neuro: Grossly nonfocal, awake, alert and oriented x3.
Stable cardiology status. Eliquis has been discontinued. Continue on aspirin. Will sign off, call with questions.
Original Note:
Today's Communication / Plan
-
.
Impression / Plan
-
Haleigh Moss is a 73F w/ PMHx of CAD s/p recent AL earlier this year, bilateral hemispheric infarcts found on brain imaging in 04/2024, paroxysmal atrial fibrillation s/p PVI and Watchman procedure in 06/2024, aortic atheroma as seen on
echocardiography in 08/2024, HTN, HLD, T1DM, hypothyroidism, CKD3 , PAD, and carotid aa. stenosis s/p CEA who presented to the emergency department with several days of dark and tarry stools and found to be in hypertensive emergency. Given her
history of GI bleed and clinical picture on this admission pointing towards the same, we were consulted for comment on Eliquis use in the periprocedural period given her recent Watchman implantation. Given the patient had a repeat ECHO in 08/2024
that showed a well-seated Watchman device, it would be okay to discontinue Eliquis. However, given her extensive history of atherosclerotic disease, AL, and prior CVAs, the patient should continue to receive antiplatelet monotherapy for secondary
prevention. She otherwise outside of the window for DAPT.
Patient went for EGD today, with AVM found and cauterized. Hb is stable. BP elevated in AM, but abated after Carvedilol administration. Otherwise feels well with no dizziness, chest pain, SOB.
PLAN
Elqiuis discontinued; patient is 4 months s/p Watchman with adequate seating of device
Continue antiplatelet monotherapy with ASA 81mg
Continue High Intensity Statin therapy with Rosuvastatin
Continue to monitor BPs, tele.
Carvdilol dose decreased to 6.25 mg BID; adeqaute BP control this AM. Will likely need further tailoring in the outpatient setting given labile BPs.
Outpatient cardiology f/u with Dr. Britton.
We will continue to follow.
Physical Exam
Vital Signs/Labs
Vital Signs
Temp Pulse Resp BP Pulse Ox
97.4 F 65 18 147/56 97
10/24/24 12:00 10/24/24 12:00 10/24/24 12:00 10/24/24 12:00 10/24/24 12:00
10/23/24 10/24/24 10/25/24
06:59 06:59 06:59
Actual Weight 60 kg 59.109 kg
10/24/24 06:42
10/24/24 06:42
PT 15.7 Sec (11.4-14.6) H 10/22/24 14:52
INR 1.22 10/22/24 14:52
APTT 32.9 Sec (23.4-35.0) 10/22/24 14:52
Magnesium 1.7 mg/dl (1.6-2.3) 10/23/24 03:47
Physical Exam
Constitutional: No acute distress
Cardiovascular: Rhythm & rate is regular, Pedal edema is absent, JVD pressure is normal, Systolic murmur absent and Diastolic murmur absent
Respiratory: Respiratory effort normal and Lungs clear to auscul.
Neuro/Psych: Alert
Data Reviewed
-
Date of Service: October 24, 2024
Labs: Labs Reviewed by me
Total Time Spent with Patient (in minutes): 35
--- NOTE | 2024-10-24 15:23 | CM ---
CM reviewed chart, patient seen with , hopeful for d/c tomorrow. will transport home. Patient confirms current with Alin GARCIA. CM will continue to follow for all discharge planning needs.
Plan; home with , CHAZ GARCIA
[2024-10-24 16:55] LABS: Glucose - Point of Care 75 mg/dl (70-99)
[2024-10-24] MEDS: CLARITIN 10 MG PO (20:34)
[2024-10-24] MEDS: CRESTOR 20 MG PO (21:12)
[2024-10-24] MEDS: XANAX 0.125 MG PO (21:12)
[2024-10-24] MEDS: TIMOPTIC 0.25% OPHTHALMIC SOLUTION 1 DROP BOTH EYES (21:14)
[2024-10-24 22:25] LABS: Glucose - Point of Care 118 mg/dl (70-99)
[2024-10-24] MEDS: TYLENOL 650 MG PO (22:56)
[2024-10-24] MEDS: PATIENT'S OWN INSULIN PUMP 0.4 UNITS SC (22:58)
[2024-10-25 03:37] VITALS: BP 209/82
[2024-10-25] MEDS: APRESOLINE 10 MG IV (03:52)
[2024-10-25 04:35] VITALS: BP 101/40
[2024-10-25 04:38] LABS: Glucose - Point of Care 195 mg/dl (70-99)
[2024-10-25 04:43] VITALS: BP 154/64
--- NOTE | 2024-10-25 04:47 | W.PN.UPDATE ---
Update Note
Progress Note Update
0430 FRUIT THINNER for brief period of unresponsiveness after 10mg hydralazine iv
Prior to this event pt BP elevated to 209/82. Around 0400 RN gave prn order of hydralazine iv 10mg. Shortly after, pt c/o dizziness and diaphoresis and went unresponsive in front of RN. FRUIT THINNER called. By the time team arrived pt was back to baseline
talking and laughing with staff. BP was 101/40 initially and then 154/64
PT with known labile BP
Will decrease hydralazine dose.
[2024-10-25] MEDS: SYNTHROID 88 MCG PO (05:24)
[2024-10-25 05:49] VITALS: BMI 23.1
--- NOTE | 2024-10-25 05:49 | RR ---
A Rapid Response was called on this patient, please see Rapid Response form.
MASTIC FLOOR LAYER called. Pt used call pimentel, upon entering RN was told by pt that she was feeling diaphoretic and dizzy and stated, 'I feel like I am having an insulin reaction when I know I am not.' While talking to pt, RN observed pt become unresponsive and
slouch over to side. Pt sternal rubbed and slowly became responsive again. All events occurring post 10mg PRN IV hydralazine @0352 for a BP of 209/82 HR 71. Pt found to be 101/40 HR 52, then when checked again 154/64 HR 75. T 97.9, SPo2 98%, RR 22,
BS 195. Pt states feeling better, hydralazine 10mg IV PRN discontinued and hydralazine 5mg IV ordered PRN for SBP >170.
[2024-10-25 07:34] LABS: Glucose - Point of Care 212 mg/dl (70-99)
[2024-10-25 07:49] VITALS: BP 137/62
--- NOTE | 2024-10-25 08:16 | PN.DE.MGMTRT ---
Insulin Management
- -
10/25/2024: Diabetes Consult Insulin Pump/Management Follow up
Patient admitted 10/22 for rectal bleeding. PMH: T1DM since age 23, s/p Watchman procedure 07/03/24, A-Fib on Eliquis, TIA 08/31, CAD s/p stents, HTN, HCL, Carotid stenosis S/P right and Left CEA, Anemia, Neuropathy, CKD. Patient known to Diabetes
team from previous admission. Prior to admission was using the Medtronic insulin pump with Guardian sensor and 7 day infusion set. Patient routinely sees Fina Cueto of [facility] for diabetes care. Patient
states she continues to set a temporary basal at 8pm every night till 8am and reduces basal to .3 units per hour due to fear of hypoglycemia.
A1C was 7.3% previous admission, Cr 1.2, eGFR 48.09.
Patient is awake alert and oriented, able to discuss diabetes care. Discussed concern that reducing basal to .3 overnight may be too much of a reduction as Fasting glucose is 212. Encouraged to discuss with BETTIE Alegria at endocrine office.
Glucose range yesterday 75 to 158, 118 @ HS.
Will make no change to pump settings.
Pump settings as follows:
Basal rate
12AM to 6am .6
6AM to 10PM .8
24 hour basal total 18 units
I:CHO ratio 1:12
Sensitivity 1:50
Active insulin 2 hours.
Diabetes History
- -
Type of Diabetes: 1
Pre-Admission Diabetes Regimen
Insulin Pump Settings
IP Diabetes Regimen
10/24/24 10/24/24 10/24/24
11:09 12:23 16:53
POC Glucose 121 H 85 75
10/24/24 10/25/24 10/25/24
22:23 04:36 07:33
POC Glucose 118 H 195 H 212 H
Meal type: Dinner
Meal type: Lunch
Meal type: Breakfast
Amount consumed: 100%
Amount consumed: 100%
Amount consumed: 0
Patient Education
--- NOTE | 2024-10-25 08:59 | CM ---
Pt was a rapid response this am after IV hydralazine with quick return to baseline. ARCHITECTURAL ENGINEERING TEACHER plans to decrease hydralazine dose.
Pt still hopeful to return home with resumption of [facility] when medically cleared.
[2024-10-25] MEDS: COREG 6.25 MG PO (09:02)
[2024-10-25] MEDS: NSS (PRESERVATIVE FREE) 10 ML IV (09:03)
[2024-10-25] MEDS: PROTONIX IV 40 MG IV (09:03)
[2024-10-25] MEDS: SIMBRINZA 1%-0.2% OPHTH SUSP 1 DROP BOTH EYES (09:05)
[2024-10-25] MEDS: PATIENT'S OWN INSULIN PUMP 2.5 UNITS SC (09:15)
[2024-10-25 09:36] LABS: Hematocrit 29.7 % (37.0-47.0); Hemoglobin 10.0 g/dL (12.0-16.0); Mean Corp Hgb Conc. 33.7 g/dL (33.0-37.0); Mean Corpuscular Volume 96.4 fL (81.0-99.0); Platelet Count 272 10^3/uL (130-400); Red Cell Dist. Width 13.7 % (11.5-14.5)
[2024-10-25 11:03] LABS: Glucose - Point of Care 316 mg/dl (70-99)
[2024-10-25 11:04] VITALS: BP 126/53
[2024-10-25 11:39] LABS: Blood Urea Nitrogen 30 mg/dl (7-17); Calcium 8.9 mg/dl (8.4-10.2); Carbon Dioxide 25 mmol/L (22-30); Chloride 106 mmol/L (98-107); Estimated Creatinine Clearance 30 ml/min; Glucose 273 mg/dl (70-99); Potassium 4.5 mmol/L (3.5-5.1); Sodium 136 mmol/L (135-145); eGFR 39.97
--- NOTE | 2024-10-25 11:50 | W.PN.GI.CBS2 ---
Addendum entered and electronically signed by Vinnie Ford MD 10/25/24 12:20:
I saw and examined the patient.
The RN NURSERY or PA's note was reviewed and I agree with the note.
Comment: No further bleeding
ABD soft NTND
REC:
Hgb up to 10
Gastric ectasia was actively bleeding and cauterized on EGD yesterday
Eliquis has been stopped by Cardiology
OK to continue antiplatelets
Will sign off. Please call back if needed
Original Note:
Today's Communication / Plan
-
s/p EGD 10/24 with single bleeding angioectasia in stomach treated with APC
hbg stable no transfusion needed during admission
no stools since admission
advancing cholesterol lowering diet
prior testing as noted from Dr. Child-- OP follow up with known GI if any persistent anemia
Pt also follow with Dr. Gonzalez hematology for routine hbg checks and due follow up next week
ok to resume Eliquis today
cont PPI BID
OP follow up with SALE PROFESSIONAL DIGITAL MARKETING if continued issues with pessary
will sign off call if any questions or problems
Assessment / Plan
-
Pt is a 73yo with hx PAF with prior watchman still on Eliquis with hx possible TIA and other med issues, CAD with prior stents, syncope, CHF, GERD, IDDM, CKD, PAD with prior SFA angioplasty, HTN with Hypertensive urgency, hyperlipidemia,
prior thyroidectomy, psoriasis, anxiety, prior GI bleed presents with black stool, dizziness, and hypotension. She was also noted with HTN urgency on admission. On admission hbg 9.1 down from 10.1 last week with dark brown heme + stool in ER.
In review with patient she has had 7 admission over last year. She admits to admission in February to [facility] with GI bleed and black stools. She recall EGD/colon and capsule completed with diverticulosis and hemorrhoids. Pt admits to periods
of syncope that have worsened. She also admits to change in bowel pattern after insertion of Pessary about 2 months ago with periods of diarrhea then constipation. She also has had a 40 lbs loss with some gain during covid.
reviewed records Dr. Child:
02/2024- colon hemorrhoids probable cause of bleeding, diverticulosis,
04/2021- EGD 04/2021- gastric polyps, gastritis, bx reactive inflammation, neg H pylori, fundic gland polyp neg sprue
04/2021 capsule normal SB mucosa. Multiple gastric polyps
10/24/24 EGD [facility] - Normal esophagus- A single bleeding angioectasia in the stomach. Treated with argon plasma coagulation (APC).
- Multiple gastric polyps. - Duodenal mucosal lymphangiectias - No specimens collected
Laboratory Tests
10/22/24 10/22/24 10/23/24
14:52 22:03 03:47
Hgb 9.1 L 9.0 L 8.1 L
10/24/24 10/25/24
06:42 08:51
Hgb 8.5 L 10.0 L
-black stool prior to admission with rectal exam hepe + dark brown
-change in bowel habits with recent pessary insertion
-syncope with hx orthostasis
-HTN urgency on admission
-anemia acute blood loss
-hx GI bleed in February with noted hemorrhoids and work up at [facility]
-intentional wt loss
-PAF on Eliquis with hx watchman
other med problems:
-? TIA in August
-CAD with prior stent
-GERD on chronic PPI
-IDDM
-CKD
-PAD with SFA stent
-hyperlipidemia
-thyroidectomy
-anxiety
PLAN:
s/p EGD 10/24 with single bleeding angioectasia in stomach treated with APC
hbg stable no transfusion needed during admission
no stools since admission
advancing cholesterol lowering diet
prior testing as noted from Dr. Child-- OP follow up with known GI if any persistent anemia
Pt also follow with Dr. Gonzalez hematology for routine hbg checks and due follow up next week
ok to resume Eliquis today
cont PPI BID
OP follow up with SALE PROFESSIONAL DIGITAL MARKETING if continued issues with pessary
will sign off call if any questions or problems
Subjective
Subjective
Date of Service: October 25, 2024
cholesterol lowering diet, no stools recorded
Objective
Data Reviewed
Laboratory Data:
Laboratory Results
10/25/24 08:51
10/25/24 11:10
Laboratory Results
PT 15.7 Sec (11.4-14.6) H 10/22/24 14:52
INR 1.22 10/22/24 14:52
APTT 32.9 Sec (23.4-35.0) 10/22/24 14:52
Phosphorus 4.5 mg/dl (2.5-4.5) 10/23/24 03:47
Magnesium 1.7 mg/dl (1.6-2.3) 10/23/24 03:47
Total Bilirubin 0.5 mg/dl (0.2-1.3) 10/22/24 14:52
AST 19 U/L (14-36) 10/22/24 14:52
ALT 14 U/L (0-35) 10/22/24 14:52
Alkaline Phosphatase 80 U/L (38-126) 10/22/24 14:52
Vital Signs and I&O:
Vital Signs
Temp Pulse Resp BP Pulse Ox
98.1 F 78 17 126/53 95
10/25/24 11:04 10/25/24 11:04 10/25/24 11:04 10/25/24 11:04 10/25/24 11:04
I&O
10/24/24 10/25/24 10/26/24
06:59 06:59 06:59
Intake Total 18.5 / 18.5 2800 / 2800
Balance 18.5 / 18.5 2800 / 2800
Physical Exam
Physical Exam
HEENT: Anicteric and Moist mucous membranes
Cardiology: Normal Sinus Rhythm
Pulmonary: Clear
GI: Soft, Non Distended and Non Tender
Extremities: No Edema
Neuro: Non Focal
--- NOTE | 2024-10-25 12:55 | W.PN.CARDCBS ---
Addendum entered and electronically signed by Keo Lyon DO 10/25/24 16:12:
I saw and examined the patient.
The Crotch Breaker's note was reviewed and I agree with the note.
Comment:
Plan:
BP improved and she has a long history of labile blood pressures which has been followed closely by her toaster element repairer.
Continue Coreg
Continue clonidine as needed
Stable cardiovascular status.
Outpatient follow-up with her business intelligence director and toaster element repairer.
Original Note:
Today's Communication / Plan
-
-BPs improved today
-f/u with her outpt toaster element repairer for HTN mgmt
Impression / Plan
-
Haleigh Moss is a 73F w/ PMHx of CAD s/p recent NH earlier this year, bilateral hemispheric infarcts found on brain imaging in 04/2024, paroxysmal atrial fibrillation s/p PVI and Watchman procedure in 06/2024, aortic atheroma as seen on
echocardiography in 08/2024, HTN, HLD, T1DM, hypothyroidism, CKD3 , PAD, and carotid aa. stenosis s/p CEA who presented to the emergency department with several days of dark and tarry stools and found to be in hypertensive emergency. Given her
history of GI bleed and clinical picture on this admission pointing towards the same, we were consulted for comment on Eliquis use in the periprocedural period given her recent Watchman implantation. Given the patient had a repeat ECHO in 08/2024
that showed a well-seated Watchman device, it would be okay to discontinue Eliquis. However, given her extensive history of atherosclerotic disease, NH, and prior CVAs, the patient should continue to receive antiplatelet monotherapy for secondary
prevention. She otherwise outside of the window for DAPT.
Patient went for EGD 10/24/2024, with AVM found and cauterized. Hb improved at 10.0 today (is stable. BP elevated in AM, but abated after Carvedilol administration. Otherwise feels well with no dizziness, chest pain, SOB.
PLAN
GI bleed s/p cauterization of AVM 10/24/2024:
-Eliquis discontinued this admission in setting of GI bleed and anemia with Hgb drop to 8; patient is 4 months s/p Watchman with adequate seating of device on [place] 08/17/2024. Eliquis was continued at that time as [place] showed a mobile atheroma of
her aortic sinotubular junction. She had a subsequent CTA chest on 09/14/[address]24 which was reviewed by CT surgery. The previously identified cardiac mobile plaque noted on the [place] was absent.
-At this time she will continue antiplatelet monotherapy with ASA 81mg daily.
-Hgb improved today to 10
Labile BP
-She has a longstanding history of labile blood pressures. She is currently on carvedilol 6.25 mg twice daily which was reduced this admission from 12.5 mg twice daily due to dizziness after taking dose.
- Last night BP 209/82 which prompted administration of hydralazine 10 mg IV with subsequent drop in blood pressure to 101/40 and development of dizziness and diaphoresis with brief period of unresponsiveness and OPTOMETRIST/PRACTICE OWNER called. Pt returned to baseline
with BP improved spontaneously to 154/64.
- She has been intolerant of multiple antihypertensives in the past including amlodipine causing edema, hydralazine causing dizziness, side effect to nifedipine unknown, hyperkalemia and KELLY on losartan and chlorthalidone in past. She is followed
closely by her toaster element repairer Dr. Ness who has managed her blood pressure in the outpatient setting. She tells me there is consideration for resuming losartan at a lower dose.
-She has been taking chlorthalidone every other day in the home setting. Okay to resume this regimen and follow-up with Dr. Ness on discharge. She reports she frequently calls in her blood pressures and is advised how to dose meds.
-compression stockings to LEs
-She has clonidine 0.1 mg tab to take as needed SBP >170
- she has followed with Dr Hammonds in the past but tells me she intends to switch to Dr Maxim Britton, who she saw for Watchman. She has an apptmt scheduled with him on 12/07/2024.
Telemetry personally reviewed: Normal sinus rhythm 70s
Progress Note - [employer]
Subjective
Date of Service: October 25, 2024
-feels better today and anxious to go home
-no dizziness, palps, SOB, CP
Objective
Labs:
10/25/24 08:51
10/25/24 11:10
Labs
Hgb 10.0 g/dL (12.0-16.0) L 10/25/24 08:51
Hct 29.7 % (37.0-47.0) L 10/25/24 08:51
Plt Count 272 10^3/uL (130-400) 10/25/24 08:51
PT 15.7 Sec (11.4-14.6) H 10/22/24 14:52
INR 1.22 10/22/24 14:52
APTT 32.9 Sec (23.4-35.0) 10/22/24 14:52
Sodium 136 mmol/L (135-145) 10/25/24 11:10
Potassium 4.5 mmol/L (3.5-5.1) 10/25/24 11:10
BUN 30 mg/dl (7-17) H 10/25/24 11:10
Creatinine 1.4 mg/dL (0.6-1.0) H 10/25/24 11:10
Glucose 273 mg/dl (70-99) H 10/25/24 11:10
Vital Signs and I&O:
Vital Signs
Temp Pulse Resp BP Pulse Ox
98.1 F 78 17 126/53 95
10/25/24 11:04 10/25/24 11:04 10/25/24 11:04 10/25/24 11:04 10/25/24 11:04
Vital Signs
Temp Pulse Resp BP Pulse Ox
98.1 F 78 17 126/53 95
10/25/24 11:04 10/25/24 11:04 10/25/24 11:04 10/25/24 11:04 10/25/24 11:04
Intake & Output
10/23/24 10/24/24 10/25/24 10/26/24
06:59 06:59 06:59 06:59
Intake Total 210.0 / 222.5 18.5 / 18.5 2800 / 2800
Output Total 250 / 250
Balance -40.0 / -27.5 18.5 / 18.5 2800 / 2800
Physical Exam
Physical Exam
GEN: No distress, awake, Ox3
HEENT: supple, anicteric, mmm
LUNGS: CTA, no wheezes/rales
CV: Reg, S1/S2, 1/6 syst LSB, no murmur
ABD: soft, BS+, NT/ND
EXT: No edema
NEURO: Gross non-focal
SKIN: No rash
--- NOTE | 2024-10-25 13:16 | W.PN.HOSP.TC ---
Today's Communication/Plan
-
Possible discharge home today after seen by cardio.
Assessment / Plan
Assessment / Plan
Impression:
Briefly, this is a 73-year-old female with past medical history significant for atrial fibrillation on anticoagulation, GERD, hypertension, prior history of TIA, hyperlipidemia presenting to the emergency department with concern for dark colored
stools for about 2 to 3 days and then today the stool turned black. She denied any nausea vomiting or hematemesis. She has not seen any hematochezia. She apparently had an episode of GI bleeding February at an outside hospital and underwent a
colonoscopy. She stated that she had hemorrhoids but had no other findings. She has no known history of peptic ulcer disease. She felt dizzy and lightheaded this morning and was hypotensive at home.
On arrival in the emergency department she was hypertensive to over 200 systolic, pulse 76 respiratory rate 15 with oxygen saturation of 99% on room air. ECG shows normal sinus rhythm at rate of 74 no acute ischemic changes. Hemoglobin is 9.1 with
normal platelet count of 262. Electrolytes BUN and creatinine were unchanged from prior and in the normal range. Rectal exam in the ED shows that moderately heme positive positive stool in rectal vault.
Seen by GI and underwent EGD which showed:
The esophagus was normal.
- Normal esophagus.
- A single bleeding angioectasia in the stomach. Treated with
argon plasma coagulation (APC).
- Multiple gastric polyps.
- Duodenal mucosal lymphangiectasia.
- No specimens collected.
Seen by cardiology recommending to discontinue Eliquis.
Blood pressure was still elevated overnight, received hydralazine IV, blood pressure dropped.
QA SOFTWARE TEST ENGINEER called for unresponsiveness.
Patient again response and back to normal, cardiology called to adjust blood pressure medications before discharge.
Otherwise patient tolerating regular diet, hemoglobin stable, will be discharged home.
Assessment/plan:
Acute blood loss anemia secondary to GI bleed on anticoagulant
- Heme positive stool
- Seen by GI, clear liquid diet, n.p.o. after midnight for possible EGD
- Transfuse if hemoglobin less than 7
- GI bleeding related to anticoagulation
10/24
EGD:
The esophagus was normal.
- Normal esophagus.
- A single bleeding angioectasia in the stomach. Treated with
argon plasma coagulation (APC).
- Multiple gastric polyps.
- Duodenal mucosal lymphangiectasia.
- No specimens collected.
GI recommending clear liquid today and regular diet tomorrow.
10/25
Hemoglobin stable, tolerating regular diet.
Will be discharged home
Paroxysmal A-fib status post Watchman device.
Continue carvedilol (cardiology adjusted the dose).
Eliquis Discontinued.
Appreciate cardiology
Hypertension urgency
- Appreciate cardiology-adjusted carvedilol, patient had side effect from amlodipine
- QA SOFTWARE TEST ENGINEER called for low blood pressure after hydralazine.
Blood pressure now stable, discussed with cardiology if any further adjustment
Orthostatic hypotension
Patient with significant drop on blood pressure with standing.
Patient has history of orthostatic hypotension.
Elevated blood pressure at supine position.
Will advise compression stocking.
Readjusted coreg.
CKD stage IIIb
- Creatinine 1.3
- Continue to monitor
ASCVD (CAD, CVA, Carotid Disease)
-continued rosuvastatin
- Continue aspirin
Essential Hypertension
- Corege continued
Hyperlipidemia
IDDM, type 1 -stable
-patient used her own insulin pump
-Diabetic LUMBER MATERIAL HANDLER consulted
-AccuCheck AC & HS
Hypothyroidism
-continue levothyroxine
Anxiety
- Alprazolam continued
Psoriasis
-Otezla
CODE STATUS: Full code
DVT prophylaxis: SCDs
Diet: cardiac
Disposition: Possible discharge home today after seen by cardio.
Total time spent on today's encounter was 65 minutes which included time spent in counseling the patient/family regarding diagnosis and treatment plan as listed above, goals of care, and symptom management. Case was discussed with nursing staff,
specialists, and care coordinators/case management. All labs and imaging personally reviewed by me. Remainder the time spent in detailed review of previous records, lab data, imaging, and other medical provider documentation.
Anticipated Discharge: Today
Subjective/Interval History
-
Date of Service: October 25, 2024
Patient seen and examined at bedside, denies any chest pain or shortness of breath, no abdominal pain, no nausea, no vomiting, no diarrhea or constipation.
QA SOFTWARE TEST ENGINEER called last night for low blood pressure after receiving hydralazine IV.
Objective Data
-
Labs:
Laboratory Results
10/25/24 10/25/24
08:51 11:10
WBC 7.7
Hgb 10.0 L
Hct 29.7 L
Plt Count 272
Sodium Cancelled 136
Potassium Cancelled 4.5
Chloride Cancelled 106
Carbon Dioxide Cancelled 25
BUN Cancelled 30 H
Creatinine Cancelled 1.4 H
Glucose Cancelled 273 H
Calcium Cancelled 8.9
Vital Signs:
Vital Signs
Temp Pulse Resp BP Pulse Ox
98.1 F 78 17 126/53 95
10/25/24 11:04 10/25/24 11:04 10/25/24 11:04 10/25/24 11:04 10/25/24 11:04
I&O
10/24/24 10/25/24 10/26/24
06:59 06:59 06:59
Intake Total 18.5 / 18.5 2800 / 2800
Balance 18.5 / 18.5 2800 / 2800
Physical Exam
-
General: Well Developed, Well Nourished, No Apparent Distress and Comfortable
HEENT: Normocephalic, Atraumatic, Moist Mucous Membranes, No Ptosis, PERRLA and Nose Appears Normal
Respiratory: Clear to Auscultation and Non Labored Respirations
Cardiac: Regular Rhythm and S1/S2
Breast: Deferred by me
GI: Soft, Nontender, Nondistended and Normal Bowel Sounds
Genito-urinary: No Costovertebral Tender
Musculoskeletal: No Clubbing, No Cyanosis and No Edema
Skin: Warm
Neuro: Awake, Alert, Oriented, AO x 3 and No Motor Deficits
Psych: Calm
--- NOTE | 2024-10-25 13:27 | W.DCSUMMARY ---
Discharge Summary
Discharge Data
Date of Admission: 10/22/24
Date of Discharge: 10/25/24
Total time spent discharging patient (in min): 40
-
Pending Results: No
Hospital Course
Hospital course
Patient is a 73-year-old female with past medical history significant for atrial fibrillation on anticoagulation, GERD, hypertension, prior history of TIA, hyperlipidemia presenting to the emergency department with concern for dark colored stools
for about 2 to 3 days and then today the stool turned black. She denied any nausea vomiting or hematemesis. She has not seen any hematochezia. She apparently had an episode of GI bleeding February at an outside hospital and underwent a
colonoscopy. She stated that she had hemorrhoids but had no other findings. She has no known history of peptic ulcer disease. She felt dizzy and lightheaded this morning and was hypotensive at home.
On arrival in the emergency department she was hypertensive to over 200 systolic, pulse 76 respiratory rate 15 with oxygen saturation of 99% on room air. ECG shows normal sinus rhythm at rate of 74 no acute ischemic changes. Hemoglobin is 9.1 with
normal platelet count of 262. Electrolytes BUN and creatinine were unchanged from prior and in the normal range. Rectal exam in the ED shows that moderately heme positive positive stool in rectal vault.
Seen by GI and underwent EGD which showed:
The esophagus was normal.
- Normal esophagus.
- A single bleeding angioectasia in the stomach. Treated with
argon plasma coagulation (APC).
- Multiple gastric polyps.
- Duodenal mucosal lymphangiectasia.
- No specimens collected.
Seen by cardiology recommending to discontinue Eliquis.
Blood pressure was still elevated overnight, received hydralazine IV, blood pressure dropped.
RPG DEVELOPER called for unresponsiveness.
Patient again response and back to normal, cardiology called to adjust blood pressure medications before discharge.
Otherwise patient tolerating regular diet, hemoglobin stable, will be discharged home
Resume chlorthalidone on discharge.
During hospitalization patient was treated from the following
Acute blood loss anemia secondary to GI bleed on anticoagulant
- Heme positive stool
- Seen by GI, clear liquid diet, n.p.o. after midnight for possible EGD
- Transfuse if hemoglobin less than 7
- GI bleeding related to anticoagulation
10/24
EGD:
The esophagus was normal.
- Normal esophagus.
- A single bleeding angioectasia in the stomach. Treated with
argon plasma coagulation (APC).
- Multiple gastric polyps.
- Duodenal mucosal lymphangiectasia.
- No specimens collected.
GI recommending clear liquid today and regular diet tomorrow.
10/25
Hemoglobin stable, tolerating regular diet.
Will be discharged home
Paroxysmal A-fib status post Watchman device.
Continue carvedilol (cardiology adjusted the dose).
Eliquis Discontinued.
Appreciate cardiology
Hypertension urgency
- Appreciate cardiology-adjusted carvedilol, patient had side effect from amlodipine
- RPG DEVELOPER called for low blood pressure after hydralazine.
Blood pressure now stable, discussed with cardiology if any further adjustment.
Resume chlorthalidone on discharge.
Orthostatic hypotension
Patient with significant drop on blood pressure with standing.
Patient has history of orthostatic hypotension.
Elevated blood pressure at supine position.
Will advise compression stocking.
Readjusted coreg.
CKD stage IIIb
- Creatinine 1.3
- Continue to monitor
ASCVD (CAD, CVA, Carotid Disease)
-continued rosuvastatin
- Continue aspirin
Essential Hypertension
- Corege continued
Hyperlipidemia
IDDM, type 1 -stable
-patient used her own insulin pump
-Diabetic SURGICAL PATHOLOGIST consulted
-AccuCheck AC & HS
Hypothyroidism
-continue levothyroxine
Anxiety
- Alprazolam continued
Psoriasis
-Otezla
CODE STATUS: Full code
DVT prophylaxis: SCDs
Diet: cardiac
Disposition: discharge home today.
Total time spent on today's encounter was 40 minutes which included time spent in counseling the patient/family regarding diagnosis and treatment plan as listed above, goals of care, and symptom management. Case was discussed with nursing staff,
specialists, and care coordinators/case management. All labs and imaging personally reviewed by me. Remainder the time spent in detailed review of previous records, lab data, imaging, and other medical provider documentation.
Anticipated Discharge: Today
Discharge Plan
-
Patient Disposition: Home with Home Care
Discharge Diagnosis/Procedures: Acute blood loss anemia.
GI bleeding.
Hypertensive urgency.
Orthostatic hypotension
Type 1 diabetes mellitus
Diet: Low Cholesterol, Low Sodium and Diabetic, Carb Controlled
Activity: As tolerated
Other Services: VN, PT and OT
Referrals:
Scott Ness MD [Non-Admitting Privileges, Nephrology] - in three to four weeks
Referral Note: please call Dr Ness with update on your blood pressure medication changes (carvedilol reduced to 6.25 mg twice a day) and home BPs.
Teofilo Child MD [Non-Admitting Privileges, Gastroenterology]
Referral Note: OP follow up with GI if anemia persists
Wei Hall MD [Family Provider, Internal Medicine]
Ney Gonzalez MD [Non-Admitting Privileges, Internal Medicine]
Referral Note: follow up for routine hemoglobin checks due follow up next week
Iglesia Britton MD [Active, Cardiology] - 12/07/24 8:00 am
Additional Discharge Medication Instructions: Check blood pressure at home twice daily
Prescriptions:
New
carvedilol 12.5 mg Tablet
6.25 mg PO BID 30 Days Qty: 30 0RF
chlorthalidone 25 mg tablet
25 mg PO Q OTHER DAY Qty: 30 0RF
Rx Instructions:
Hold for low blood pressure
Continued
Otezla 30 mg Tablet
30 mg PO BID
rosuvastatin 20 mg Tablet
20 mg PO HS
acetaminophen [Tylenol Extra Strength] 500 mg Tablet
1,000 mg PO BID
levothyroxine [Synthroid] 88 mcg Tablet
88 mcg PO DAILY
Simbrinza 1-0.2 % Drops,Suspension
1 drp BOTH EYES BID
Lokelma 10 gram Powder In Packet
10 g PO MOWEFR
Patient Comments:
patient gets this med through [facility] pharmacy per pt.
loperamide 2 mg Capsule
2 mg PO BIDPRN PRN (Reason: diarrhea)
alprazolam 0.25 mg Tablet
0.125 mg PO HS
omega-3 fatty acids-fish oil 684-1,200 mg Capsule,Delayed Release(Dr/Ec)
1 cap PO DAILY Qty: 0
Repatha SureClick 140 mg/mL Pen Injector
140 mg SC Q2W
Skyrizi 150 mg/mL pen injector
150 mg SC DIRECTED
Rx Instructions:
take one injection weak 4, week 16, week 28, week 40 and week 52
timolol maleate 0.25 % Drops
1 drp BOTH EYES HS
aspirin 81 mg Tablet,Delayed Release (Dr/Ec)
81 mg PO DAILY Qty: 30 0RF
clonidine HCl 0.1 mg Tablet
0.1 mg PO BIDPRN PRN (Reason: high blood pressure)
Patient Own Insulin Pump
1 sliding scale dose SC .VIA NOVOLOG
Changed
omeprazole 40 mg Capsule,Delayed Release(Dr/Ec)
40 mg PO BID Qty: 60 0RF
Discontinued
carvedilol 12.5 mg Tablet
12.5 mg PO BID
Eliquis 5 mg Tablet
5 mg PO BID
chlorthalidone [Hygroton] 25 mg Tablet
25 mg PO DAILY
Discharge Orders:
Discharge Patient (As Directed); Ordered 10/25/24
Ordered By: Deo Rodriguez
Discharge Date and Time
Print Language: GERMAN
[2024-10-25] MEDS: TYLENOL 650 MG PO (13:48)
[2024-10-25] MEDS: PATIENT'S OWN INSULIN PUMP 5.6 UNITS SC (13:50)
[2024-10-25 15:26] VITALS: BP 151/60
== END 2024-10-25 16:47 | disposition home health service (06) | DRG 378 ==
LOC: 4 WEST ACU 22:22
PROVIDERS: Emergency Medicine; Registered Nurse; ADMITTING PHYSICIAN Internal Medicine; ATTENDING PHYSICIAN General Practice; CONSULT PHYSICIAN Internal Medicine; CONSULT PHYSICIAN Internal Medicine Cardiovascular Disease; CONSULT PHYSICIAN Specialist; EMERGENCY PHYSICIAN Emergency Medicine; FAMILY PHYSICIAN Internal Medicine
PROC: 0W3P8ZZ Control Bleeding in Gastrointestinal Tract, Via Natural or Artificial Opening Endoscopic (ICD-10-PCS; 2024-10-24)
DX: K31.811 Angiodysplasia of stomach and duodenum with bleeding (principal); D62 Acute posthemorrhagic anemia; I16.1 Hypertensive emergency; I50.32 Chronic diastolic (congestive) heart failure; I13.0 Hypertensive heart and chronic kidney disease with heart failure and stage 1 through stage 4 chronic kidney disease, or unspecified chronic kidney disease; D68.32 Hemorrhagic disorder due to extrinsic circulating anticoagulants; I95.1 Orthostatic hypotension; E10.22 Type 1 diabetes mellitus with diabetic chronic kidney disease; E10.40 Type 1 diabetes mellitus with diabetic neuropathy, unspecified; Z79.4 Long term (current) use of insulin; Z79.890 Hormone replacement therapy; Z79.01 Long term (current) use of anticoagulants; I48.0 Paroxysmal atrial fibrillation; Z95.5 Presence of coronary angioplasty implant and graft; Z95.818 Presence of other cardiac implants and grafts; N18.32 Chronic kidney disease, stage 3b; Z87.891 Personal history of nicotine dependence; E89.0 Postprocedural hypothyroidism; Z79.82 Long term (current) use of aspirin; Z79.899 Other long term (current) drug therapy; T45.515A Adverse effect of anticoagulants, initial encounter; E78.00 Pure hypercholesterolemia, unspecified; Z90.49 Acquired absence of other specified parts of digestive tract; Z86.73 Personal history of transient ischemic attack (TIA), and cerebral infarction without residual deficits; Z96.41 Presence of insulin pump (external) (internal); K21.9 Gastro-esophageal reflux disease without esophagitis; K31.7 Polyp of stomach and duodenum; F41.9 Anxiety disorder, unspecified; L40.9 Psoriasis, unspecified; I25.10 Atherosclerotic heart disease of native coronary artery without angina pectoris; I25.2 Old myocardial infarction
CPT/HCPCS: 71045; 80048; 80053; 82607; 82728; 82746; 82962; 83540; 83550; 83735; 84100; 85014; 85018; 85025; 85027; 85610; 85730; 86850; 86900; 86901; 93005; 96374; 96376; 99285

== ENCOUNTER → 2024-12-04 15:27 | Outpatient (REF) | payer MEDICARE, SELFPAY | LOC: RAD 15:27 | PROVIDERS: ATTENDING PHYSICIAN Surgery Vascular Surgery; FAMILY PHYSICIAN Internal Medicine | DX: I65.23 Occlusion and stenosis of bilateral carotid arteries (principal) | CPT/HCPCS: 93880 ==

== ENCOUNTER 2024-12-06 10:02 | Outpatient (RCR) | payer MEDICARE, SELFPAY ==
[2024-11-08 08:40] LABS: Glucose - Point of Care 291 mg/dl (70-99)
[2024-11-27 08:35] LABS: Glucose - Point of Care 185 mg/dl (70-99)
[2024-11-27 09:22] LABS: Glucose - Point of Care 173 mg/dl (70-99)
[2024-11-29 08:36] LABS: Glucose - Point of Care 156 mg/dl (70-99)
[2024-11-29 09:22] LABS: Glucose - Point of Care 93 mg/dl (70-99)
[2024-11-29 09:41] LABS: Glucose - Point of Care 110 mg/dl (70-99)
[2024-12-06 08:35] LABS: Glucose - Point of Care 105 mg/dl (70-99)
[2024-12-06 09:23] LABS: Glucose - Point of Care 128 mg/dl (70-99)
== END 2024-12-06 23:59 | disposition home or self-care (01) ==
LOC: CRHB 10:02
PROVIDERS: ATTENDING PHYSICIAN Internal Medicine Cardiovascular Disease; FAMILY PHYSICIAN Internal Medicine
DX: I25.10 Atherosclerotic heart disease of native coronary artery without angina pectoris (principal); Z95.5 Presence of coronary angioplasty implant and graft
CPT/HCPCS: 82962; G0422; G0423

== ENCOUNTER 2024-12-27 10:42 | Outpatient (RCR) | payer MEDICARE, SELFPAY ==
[2024-12-11 08:35] LABS: Glucose - Point of Care 234 mg/dl (70-99)
[2024-12-18 08:40] LABS: Glucose - Point of Care 223 mg/dl (70-99)
[2024-12-18 09:26] LABS: Glucose - Point of Care 211 mg/dl (70-99)
[2024-12-20 08:31] LABS: Glucose - Point of Care 187 mg/dl (70-99)
[2024-12-20 09:22] LABS: Glucose - Point of Care 153 mg/dl (70-99)
[2024-12-25 08:34] LABS: Glucose - Point of Care 227 mg/dl (70-99)
[2024-12-25 09:23] LABS: Glucose - Point of Care 213 mg/dl (70-99)
[2024-12-27 08:36] LABS: Glucose - Point of Care 266 mg/dl (70-99)
[2024-12-27 09:28] LABS: Glucose - Point of Care 201 mg/dl (70-99)
== END 2024-12-27 23:59 | disposition home or self-care (01) ==
LOC: CRHB 10:42
PROVIDERS: ATTENDING PHYSICIAN Internal Medicine Cardiovascular Disease; FAMILY PHYSICIAN Internal Medicine
DX: I25.10 Atherosclerotic heart disease of native coronary artery without angina pectoris (principal); Z95.5 Presence of coronary angioplasty implant and graft
CPT/HCPCS: 82962; G0422; G0423

== ENCOUNTER 2025-01-10 08:30 | Outpatient (RCR) | payer MEDICARE, SELFPAY ==
[2025-01-08 08:34] LABS: Glucose - Point of Care 243 mg/dl (70-99)
[2025-01-08 09:29] LABS: Glucose - Point of Care 139 mg/dl (70-99)
[2025-01-10 08:35] LABS: Glucose - Point of Care 251 mg/dl (70-99)
[2025-01-10 09:27] LABS: Glucose - Point of Care 172 mg/dl (70-99)
== END 2025-01-10 23:59 | disposition home or self-care (01) ==
LOC: CRHB 08:30
PROVIDERS: ATTENDING PHYSICIAN Internal Medicine Cardiovascular Disease; FAMILY PHYSICIAN Internal Medicine
DX: I25.10 Atherosclerotic heart disease of native coronary artery without angina pectoris (principal); Z95.5 Presence of coronary angioplasty implant and graft
CPT/HCPCS: 82962; G0422; G0423

== ENCOUNTER 2025-01-16 11:12 | Inpatient (IN) | payer MEDICARE, SELFPAY ==
[2025-01-16] VITALS (18 sets, daily range): BP systolic 143–245; BP diastolic 52–207; BMI 24.9
[2025-01-16 08:49] LABS: Glucose - Point of Care 260 mg/dl (70-99)
[2025-01-16 09:05] LABS: Hematocrit 36.6 % (37.0-47.0); Hemoglobin 12.1 g/dL (12.0-16.0); Mean Corp Hgb Conc. 33.1 g/dL (33.0-37.0); Mean Corpuscular Volume 98.9 fL (81.0-99.0); Nucleated Red Blood Cells % 0 %; Platelet Count 261 10^3/uL (130-400); Red Cell Dist. Width 14.0 % (11.5-14.5)
--- NOTE | 2025-01-16 09:14 | CON.NEURO4 ---
Addendum entered and electronically signed by Jean Menendez MD 01/16/25 19:21:
The patient was seen and examined today along with the nurse practitioner Lyndsay Abad and I agree with her assessment and management plan. I have personally performed the medical decision making of this encounter and my assessment and
management plan is as given below.
This is a 74-year-old right-handed female who presented to the hospital with report of speech difficulty. The last known normal was at around 10 PM last night. The patient's speech was getting better while she was in the ER but she was still not
at her baseline. Today morning at around 7:45 AM she woke up for the day but she had difficulty in getting the words out. The patient's blood pressure was very high and her called 911. The patient had an NIH stroke scale of 2 for
expressive aphasia and dysarthria. Her blood pressure in the ER was 240/91. The patient was not a candidate for TNK as she was on apixaban for paroxysmal atrial fibrillation.
Brain MRI was done today and it did not show any acute intracranial abnormality.
CTA of the head showed approximately 60% stenosis of the proximal right ICA and there was less than 50% stenosis of the proximal left ICA.
The plan is to continue with home apixaban. Permissive hypertension with systolic blood pressure less than 220 and diastolic blood pressure less than 120 for 24 hours and then the goal is normotension.
The patient will continue to follow-up with vascular surgery as an outpatient regarding right ICA stenosis.
Original Note:
Consultation - Neurology 4
-
CONSULTING PHYSICIAN: Jean Menendez MD
REFERRING PHYSICIAN: ER/Dr. Elam
DICTATED BY: SALINA Barclay
DATE/TIME OF REQUEST: 01/16/25
DATE/TIME OF CONSULTATION: 01/16/25
Reason for Consultation: Stroke Alert
History of Present Illness:
This is a 74-year-old right-handed female who has presented to the hospital with report of aphasia. Patient has been evaluated by our inpatient Neurology service for similar symptoms in June and August 2024.
From my previous evaluation on 08/15/24:
'This is a 73-year-old right-handed female who has presented to the hospital on 08/15/24 with report of recurrent transient dysarthria. In March 2024 the patient had a NSTEMI and had cardiac stents x2 placed at [facility]. She additionally was
experiencing dizziness and found to have Afib, and was started on Eliquis at that time. She has been following with Cardiology for consideration for a Watchman. In June 2024, she presented to [facility] with report of dysarthria lasting about 15 minutes
while riding in a car. CTA head/neck was suggestive of R ICA 50-69% stenosis. She deferred MRI brain testing due to claustrophobia. She was evaluated by Neurology and Vascular Surgery and it was felt that since she is right-handed, it is unlikely
that her R carotid stenosis produced her symptoms.
Yesterday (08/15/24), patient reports that at 1830 she got up off of the couch and walked upstairs to take her medication. On her way back downstairs she went to talk to her and developed slurred speech about every 4-5 words, and it felt
difficult to get her words out. This lasted for about 5 minutes before resolving. She reports it was very similar to her episode in June, just a shorter duration. CT Head and CT perfusion were obtained on arrival in the ER and are negative for any
acute abnormalities. CTA head/neck was obtained and is suggestive of 50-70% R ICA stenosis, 50-70% R vertebral artery stenosis, and 70% left subclavian artery stenosis. She was not a candidate for TNK/IAT due to NIHSS 0 and apixaban usage. She notes
that she does have nearly daily dizziness which she describes as light-headedness about 30-45 minutes after taking her cardiac medications. She reports that her visiting nurses have been checking her orthostatic vital signs, and they are frequently
positive. She has not been wearing compression socks or an abdominal binder. She denies missing any doses of her medications. She denies any headache, vision changes, swallowing difficulty, numbness, and weakness.'
MRI brain imaging on 08/16/24 was negative for any acute abnormalities. Her blood pressure was elevated at 218/80 on arrival in August. Patient and her spouse at bedside report that she returned to her baseline following that event. Last night
(01/15/25) she checked her blood pressure before bed and it was 133/80 which is good for her. She went to bed in her usual state around 2200. This morning (01/16/25), she used the bathroom around 0400 but did not speak to her at that time. At
0745 she woke up for the day and her speak was significantly abnormal. She was able to speak but her words made no sense and sounded slurred. They checked her blood pressure and the machine said it was too high to register. Her called 911
and EMS activated a stroke alert. CT head and CTA head/neck were obtained on arrival and are negative for any acute abnormalities. NIHSS is currently 2 for mild aphasia and mild dysarthria. Her aphasia is fluctuating in severity, at times it mostly
resolves, and then it becomes severe again. Blood pressure is 240/91. She is not a candidate for TNK/IAT due to apixaban usage this morning and no LVO. Her notes that this episode is just like the previous episodes but the duration of
symptoms always varies. She reports having a headache. She denies any dizziness, vision changes, swallowing difficulty, numbness, and weakness. She has not missed any doses of apixaban. She continue to follow with Vascular Surgery as an outpatient
for R ICA moderate stenosis.
Past Medical History: Paroxysmal Afib (Eliquis), B/L embolic-appearing ischemic stroke 04/2024, NSTEMI, HTN, HLD, IDDM, CAD, bilateral carotid stenosis, orthostatic hypotension, psoriasis, gallstones, glaucoma, anemia, neuropathy, left foot fracture
Surgical History: Watchman 06/2024, cardiac stents, L CEA 2022, R CEA 11/2023, LLE angioplasty/stenting, cholecystectomy, left thyroidectomy, right hand surgery, tennis elbow surgery, Linq removal
Family History: Reviewed and noncontributory.
Social History: Denies tobacco, alcohol, and illicit drug use.
Allergies: No known allergies.
Home Medications: See below.
Review of Symptoms:
Patient denies any fever, headache, chest pain, shortness of breath, GI or symptoms.
�Per the HPI.�All systems are reviewed negative except above.
Physical Exam:
The patient is afebrile, abdomen is nondistended, breathing is unlabored, skin is warm and dry, no edema.
NIH Stroke Scale:
I performed the NIH stroke scale on the patient on 01/16/25 at 0930. The patient scored 2 points on the NIH stroke scale assessment, which were assigned as follows: See below.
Neurologic Examination:
The patient is awake, alert and oriented x 3. She is able to follow one-step commands and answer some questions appropriately. There is fluctuating mild-moderate aphasia and mild dysarthria. On cranial nerve assessment, pupils are 3 mm bilateral,
round and reactive to light and accommodation. Visual loco are full. Extraocular movements are intact. Facial sensations are intact and bilaterally symmetrical, there is no facial asymmetry. Hearing is intact bilaterally to normal conversation
volume. Tongue palate and uvula are midline. Sternocleidomastoid strengths are full bilaterally. Motor strengths are 5/5 bilateral upper and lower extremities on medical research [place] scale. There is no drift or involuntary movement noted. There
was no extinction noted on double simultaneous stimulation. Coordination is intact by finger to nose bilaterally.
Lab Results: See below.
Neuro Imaging:
1. CT head 01/16/25: No acute intracranial abnormality noted. ASPECTS Score: 10.
2. CTA head/neck 01/16/25: No significant new or worsening vascular occlusion, aneurysm or dissection. Complete occlusion of the right external carotid artery redemonstrated. Bilateral carotid endarterectomies redemonstrated.
Moderate plaque/narrowing in the right carotid bulb/ICA resulting in approximately 60% stenosis of the proximal right internal carotid artery, similar to prior. Mild plaque at the left carotid bulb/ICA resulting in less than 50% stenosis in the
proximal left internal carotid artery, similar to prior. Dominant left vertebral artery. Scattered plaque throughout the bilateral vertebral arteries redemonstrated with 50-70% diameter stenosis of the origin and mid cervical segment of the right
vertebral artery and less than 50% stenosis in the left vertebral artery, similar to prior. Probable acute interstitial and alveolar cardiogenic pulmonary edema changes noted in the upper lung zones bilaterally.
Differentials for the patient's presentation include:
1. Recurrent expressive aphasia and dysarthria; differential diagnosis includes hypertensive encephalopathy given hypertensive emergency, transient ischemic attack, or a small ischemic stroke.
2. R ICA 60% stenosis, likely unrelated to recurrent symptoms given the patient is right-handed.
3. Vitamin B12 deficiency.
Patient has the following risk factors for their symptoms: Uncontrolled HTN, hx stroke
IV Tenecteplase/IAT candidacy: She is not a candidate for TNK/IAT due to apixaban usage this morning and no LVO.
Recommendations:
-Continue home apixaban.
-Permissive hypertension SBP<220, DBP<120 for 24 hours, then goal normotension. Slow lowering of blood pressure.
-MRI brain noncontrast pending.
-LDL goal <70. LDL is 9. Continue home Repatha per Cardiology as LDL is under goal.
-Goal normoglycemia, hbA1c is pending.
-Vitamin B12 level was low at 243 in 10/2024, goal is >400. Initiate cyanocobalamin 1000mcg PO daily.
-Checking blood work for metabolic abnormalities.
-NIHSS and neurological checks per unit guidelines.
-Provide patient with a stroke education packet.
-PT/OT/ST evaluations.
-Continue to follow with Vascular Surgery as an outpatient regarding R ICA stenosis.
Discussed patient care with: Dr. Menendez, the patient, patient's spouse
Vital Signs and Labs
-
Vital Signs and Labs:
Vital Signs
Temp Pulse Resp BP Pulse Ox
98.0 F 80 20 240/91 98
01/16/25 08:44 01/16/25 08:44 01/16/25 08:44 01/16/25 08:44 01/16/25 09:49
Lab Results
01/16/25 08:51
01/16/25 08:51
Sodium 138 mmol/L (135-145) 01/16/25 08:51
Potassium 5.5 mmol/L (3.5-5.1) H 01/16/25 08:51
BUN 30 mg/dl (7-17) H 01/16/25 08:51
Glucose 224 mg/dl (70-99) H 01/16/25 08:51
Calcium 8.7 mg/dl (8.4-10.2) 01/16/25 08:51
Medications
-
Home Medications
�Medication �Instructions �Recorded
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
rosuvastatin 20 mg tablet 20 mg PO HS High Cholesterol 05/12/24
acetaminophen 500 mg tablet 1,000 mg PO BID Pain 06/21/24
(Tylenol Extra Strength)
brinzolamide 1 %-brimonidine 0.2 % 1 drp BOTH EYES BID Eye Condition 06/21/24
eye drops,suspension (Simbrinza)
levothyroxine 88 mcg tablet 88 mcg PO DAILY Thyroid 06/21/24
(Synthroid)
alprazolam 0.25 mg tablet 0.125 mg PO HS Mental 08/15/24
Health/Anxiety
evolocumab 140 mg/mL subcutaneous 140 mg SC Q2W High Cholesterol 08/15/24
pen injector (Repatha SureClick)
omega-3 fatty acids-fish oil 684 1 cap PO DAILY Supplement ##0 08/15/24
mg-1,200 mg capsule,delayed release
risankizumab-rzaa 150 mg/mL 150 mg SC DIRECTED Psoriasis 08/15/24
subcutaneous pen injector (Skyrizi)
timolol maleate 0.25 % eye drops 1 drp BOTH EYES HS Eye Condition 08/15/24
aspirin 81 mg tablet,delayed 81 mg PO DAILY #30 tabs 08/18/24
release
Patient Own Insulin Pump 1 sliding scale dose SC .VIA 08/25/24
NOVOLOG Diabetes
apixaban 2.5 mg tablet (Eliquis) 2.5 mg PO BID 01/16/25
cholecalciferol (vitamin D3) 50 50 mcg PO DAILY 01/16/25
mcg (2,000 unit) capsule (Vitamin
D3)
losartan 100 mg tablet 100 mg PO DAILY 01/16/25
nebivolol 10 mg tablet (Bystolic) 10 mg PO DAILY 01/16/25
omeprazole 40 mg capsule,delayed 40 mg PO DAILY Gastrointestinal 01/16/25
release Issue
NIH Stroke Score
Subsequent NIH Scale
Date of Subsequent NIH Scale: 01/16/25
Time of Subsequent NIH Scale: 09:30
NIH Stroke Score
Level of Consciousness: 0 - Alert
LOC Questions: 0-Answers both correctly
LOC Commands: 0-Performs both correctly
Best Horizontal Gaze: 0-Normal
Visual Loco: 0=Normal, no visual loss
Facial Palsy: 0=Normal, symmetrical
Motor - Right Arm: 0=No drift 10 seconds
Motor - Left Arm: 0=No drift 10 seconds
Motor - Right Le-No drift 5 seconds
Motor - Left Le-No drift 5 seconds
Limb Ataxia: 0-Absent
Sensation: 0-Normal
Best Language: 1-Mild aphasia
Dysarthria: 1-Mild slurring
Extinction and Inattention: 0-No abnormality
NIH Total Score:: 2
Modified Sun (mRS) Score
Modified Augusto Scale (mRS): Moderate disability. Requires some help, able to walk unassisted.
Score: 3
Alteplase Contraindication
Inclusion and Exclusion criteria reviewed: Yes
Reasons for NON-Tx with Thrombolytics ABSOLUTE Exclusions: Patient taking oral anticoagulant and last dose within 48 hours
IAT Contraindications: Imaging doesn't show large vessel occlusion as cause of stroke
[2025-01-16 09:46] LABS: Blood Urea Nitrogen 30 mg/dl (7-17); Calcium 8.7 mg/dl (8.4-10.2); Carbon Dioxide 24 mmol/L (22-30); Chloride 108 mmol/L (98-107); Estimated Creatinine Clearance 35 ml/min; Glucose 224 mg/dl (70-99); Potassium 5.5 mmol/L (3.5-5.1); Sodium 138 mmol/L (135-145); eGFR 47.80
--- NOTE | 2025-01-16 09:47 | ED.CVA ---
History of Present Illness
General
Chief Complaint: CVA/TIA Symptoms
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
Exam Limitations: other (Expressive aphasia)
Time Seen by Provider: 01/16/25 08:45
Onset of Stroke Symptoms
Onset of symptoms known: No
Time pt last seen normal is known: Yes
Date last time pt seen normal: 01/15/25
Time last time pt seen normal: 22:00
History of Present Illness
History of Present Illness:
74-year-old female long history of CVA and expressive aphasia TIAs presents with expressive aphasia. Noted at 745 by the . History is from the medics and the patient. Patient went to bed about 10 PM and was fine. She got up at 4
AM to go to the bathroom however she did not speak to anybody at this time. She is on Eliquis 2.5 mg twice daily. No other symptoms noted
Past History
Past History
ED Past Medical History: HTN, Hypercholesterolemia, IDDM and Other (Anemia, Neuropathy, Fractures left foot)
ED Past Surgical History: Cardiac (Stents), Cholecystectomy, Orthopedic (Right hand surgery, Tennis elbow surgery) and Other (Endarterectomy, Bowel stents)
Social History
Tobacco: Former smoker
Alcohol: None
Personal:
Living: with family
Review of Systems
Review of Systems
All Other Systems: Not applicable
Respiratory: Reports no symptoms
Cardiac: Reports no symptoms
Phy Exam
Physical Exam
Physical Exam:
GENERAL: Alert and oriented in no apparent distress
EYE: Orbits normal.
NECK: Supple, no significant adenopathy.
ENT: Pharynx without erythema
CARDIAC: Regular rate and rhythm without any obvious murmurs.
LUNGS: Clear breath sounds,normal
ABDOMEN: Soft, without focal tenderness or distention
NEUROLOGICAL: Alert and oriented , grossly non-focal
SKIN: Warm and dry, no rash or lesion, no discoloration, skin intact.
MUSCULOSKELETAL: No edema,no deformity.Good color
PSYCH: Normal and appropriate interaction.
Course
Orders/Labs/Results
Orders:
Orders
01/16/25 08:45
Electrocardiogram (*1) Stat
Reason for Study: Other
Other Reason for Exam: neuro symptoms
CT HEAD STROKE ALERT W/o Cont Urgent
Comment:
Reason For Exam: Expressive aphasia
CT HEAD/NECK ANG STROKE ALERT Urgent
Comment:
Reason For Exam: Expressive aphasia
Cardiac Monitoring- Treatment ONCE
EKG- Treatment ONCE
Pulse Ox/cont/shift [RESP] Stat
Quantity: 1
01/16/25 08:51
Basic Metabolic Panel Urgent
Cardiovascular Evaluation Urgent
Comment: ADD
Complete Blood Count/With Diff Urgent
PTT Urgent
Prothrombin Time Urgent
01/16/25 09:45
Nicardipine 40 mg/200 ml [Cardene] 40 mg in 200 ml IV NOW
Initial dose in mg/hr, then titrate:: 5
Titrate to keep:: BP < 180/105 mmHg
Titrate by mg/hr:: 2.5 mg/hr
Frequency of titrations (minutes):: 5-15 minutes
Maximum dose in mg/hr:: 15
Begin to taper infusion when:: Remained at goal for 2hrs
Taper by mg/hr:: 2.5 mg/hr
Frequency of taper (minutes) if patient maintains goal:: 15-30 minutes
Taper to off?: Yes
If infusion off & no longer maintaining goal:: Contact Provider
01/16/25 10:01
MR Brain Without Contrast Routine
Comment:
Reason For Exam: aphasia
Recent pill cam endoscopy?: No
01/16/25 10:29
Admit/Transfer Patient As Directed
Co-Sign Provider:
Level of Care: Inpatient admission
Assign to:: ICU
Physician / Group: hospitalist
Diagnosis: CVA
Reason for Hospitalization: CVA
Expected length of stay greater than two midnights?: Yes
ELOS- Estimated Length of Stay in days: 3
I certify the patient meets the requirements for IP care: Yes
01/16/25 10:31
PRN Pain Medication Management As Directed
May give lesser potent ordered pain med per pt: Yes
preference::
Protocol:: Medication orders for pain may be administered in a
manner that supports deferring to patient preference
when the pt is:
- Requesting an ordered lesser potent pain medication.
Least to most potent pain medications are defined
as: acetaminophen < NSAID < tramadol < opioids
(morphine, oxycodone, hydromorphone).
- Requesting a lesser dose of the same medication IF
ORDERED.
- Requesting a less intrusive route of administration
if both routes are prescribed by the provider (PO <
IV).
01/16/25 10:33
Code Status As Directed
Resuscitation Status: Do not resuscitate
Reached after discussion with pt or family/Healthcare POA: Yes
01/16/25 10:34
DNR Bracelet Application ONCE
01/16/25 10:36
Add On- LAB Urgent
Tests Added?: lipid profile
NEUROLOGY CONSULT Routine
Consulting Provider: Jean Menendez
Was physician already notified: Yes
01/16/25 11:09
PRN Pain Medication Management As Directed
May give lesser potent ordered pain med per pt: Yes
preference::
Protocol:: Medication orders for pain may be administered in a
manner that supports deferring to patient preference
when the pt is:
- Requesting an ordered lesser potent pain medication.
Least to most potent pain medications are defined
as: acetaminophen < NSAID < tramadol < opioids
(morphine, oxycodone, hydromorphone).
- Requesting a lesser dose of the same medication IF
ORDERED.
- Requesting a less intrusive route of administration
if both routes are prescribed by the provider (PO <
IV).
01/16/25 11:13
Acetaminophen [Tylenol/Feverall] 650 mg RECTAL Q4HPRN PRN
Acetaminophen [Tylenol] 650 mg PO Q4HPRN PRN
Patient Own Insulin Pump 1 sliding scale dose SC .VIA NOVOLOG
risankizumab-rzaa [Skyrizi] 150 mg SC DIRECTED
01/16/25 11:13
Case Management Consult ONCE
Case Management Consult: Discharge Planning
Comment: stroke/tia
DIETARY IP CONSULT Routine
Reason for Consult: stroke/TIA
NEUROLOGY CONSULT Urgent
Consulting Provider: Jean Menendez
Was physician already notified: Yes
Sales Order Clerk Urgent
Activity As Directed
Activity Level: Out of Bed-Early Mobility
NIH Stroke Scale As Directed
Directions: Per protocol
Comment: every shift and with any change in condition or mental status
Neurological Checks As Directed
Frequency: q4h
Additional Instructions:: q4h x 24h upon admission to the floor, then qshift & with any change in condition
and mental status
Patient Education As Directed
Type: Stroke education packet
Comment: provide to patient and family
Swallow Screening CVA/TIA ONLY As Directed
Comment: NPO until swallowing screening completed
If patient FAILS swallow screening:: NPO, Speech Therapy consult, Aspiration Precautions
If patient PASSES swallow screening, diet:: Sodium, 4 Gram
Above diet order entered?: Yes- passed screening
Vital Signs As Directed
Frequency: Per unit guidelines
Call for:: BP greater than 180/105 mmHg or less than 100/60 mmHg
Ot Eval And Treat Routine
Pt Eval And Treat Routine
Activity Level: Out of Bed-Early Mobility
Speech Therapy Eval & Treat Routine
01/16/25 20:00
Acetaminophen [Tylenol] 1,000 mg PO BID
Apixaban [Eliquis] 2.5 mg PO BID
apremilast [Otezla] 30 mg PO BID
brinzolamide-brimonidine [Simbrinza] 1 drop BOTH EYES BID
01/16/25 22:00
Alprazolam [Xanax] 0.125 mg PO HS
Rosuvastatin Calcium [Crestor] 20 mg PO HS
Timolol Maleate 0.25% [Timoptic 0.25% Ophthalmic Solution] 1 drop BOTH EYES HS
01/17/25 06:00
Cardiovascular Evaluation IN AM
01/17/25 08:00
Aspirin Low Dose EC [Aspir Low (Enteric Coated)] 81 mg PO DAILY
Cholecalciferol (Vitamin D3) [VITAMIN D3 (cholecalciferol)] 50 mcg PO DAILY
Levothyroxine [Synthroid] 88 mcg PO DAILY
Losartan [Cozaar] 100 mg PO DAILY
nebivolol [Bystolic] 10 mg PO DAILY
omega-3 fatty acids-fish oil 1 cap PO DAILY
omeprazole 40 mg PO DAILY
01/19/25 11:00
DC Protocol for Telemetry ONCE
01/30/25 08:00
evolocumab [Repatha SureClick] 140 mg SC Q2W
Abnormal Lab Results
01/16/25 01/16/25
08:47 08:51
RBC 3.70 L 10^6/uL
(4.20-5.40)
Hct 36.6 L %
(37.0-47.0)
MCH 32.7 H pg
(27.0-31.0)
Potassium 5.5 H mmol/L
(3.5-5.1)
Chloride 108 H mmol/L
(98-107)
BUN 30 H mg/dl
(7-17)
Creatinine 1.2 H mg/dL
(0.6-1.0)
Glucose 224 H mg/dl
(70-99)
POC Glucose 260 H mg/dl
(70-99)
01/16/25 08:51
01/16/25 08:51
Vital Signs
Initial and Last Documented VS:
Initial Vital Signs
Temp Pulse Resp BP Pulse Ox
98.0 F 80 20 240/91 98
01/16/25 08:44 01/16/25 08:44 01/16/25 08:44 01/16/25 08:44 01/16/25 08:44
Last Documented Vital Signs
Temp Pulse Resp BP Pulse Ox
98.0 F 79 18 182/79 68
01/16/25 08:44 01/16/25 13:24 01/16/25 12:15 01/16/25 13:24 01/16/25 11:15
*Radiology
Radiology exam reviewed: radiology read reviewed (CT head negative. CT angiography no significant new or worsening vascular occlusion. Complete occlusion of the right external carotid redemonstrated. Bilateral endarterectomies. 60% right. 50%
left. Dominant left vertebral artery.)
*Pulse Oximetry
SaO2: 98
Oxygen Mode of Delivery: Room air
Patient hypoxic: no
*Critical Care Note
Total Time (30-74mins, 75-104mins- exclusive of procedures): Not Applicable (45)
Update Note
Update Note:
Patient has had some waxing and waning symptoms. Discussed with neurology. Will nicardipine for permissive hypertension.
ED Attending Note
-
Portions of this chart may have been created with voice recognition software.� Occasional wrong word or��sound alike� substitutions may have occurred due to the inherent limitations of voice recognition software.
Discharge Plan
Departure
Patient Disposition: Admit
Date of Disposition: 01/16/25
Time of Disposition: 09:50
Presentation/result/management discussed w/ accepting MD/DO: Neurology
Discharge Problem:
Expressive aphasia CVA
Interventions
Interventions:
*Risk Screen - Suicide Last Done: 01/16/25 11:08
*Neglect/Abuse Screening Last Done: 01/16/25 11:08
*ED COVID-19 Vaccine History Last Done: 01/16/25 11:08
*ED Influenza Vaccine History Last Done: 01/16/25 11:08
[facility] Fall Risk Assessment Tool Last Done: 01/16/25 08:43
ED- Pulmonary Assessment Last Done: 01/16/25 10:05
ED- Neurological Assessment Last Done: 01/16/25 10:05
ED- Cardiac Assessment Last Done: 01/16/25 10:05
ED Swallowing Screen Last Done: 01/16/25 11:04
[2025-01-16] MEDS: CARDENE 200 IV (09:50)
[2025-01-16 10:08] LABS: INR 1.15; PT 14.5 Sec (11.4-14.6)
[2025-01-16 10:09] LABS: APTT 33.1 Sec (23.4-35.0)
--- NOTE | 2025-01-16 10:37 | HPS.HSE ---
Family Physician
-
Family Physician: Wei Hall
Chief Complaint
-
Expressive aphasia
History of Present Illness
74-year-old female with past medical history significant for atrial fibrillation on anticoagulation, GERD, hypertension, prior history of TIA, hyperlipidemia presents with expressive aphasia. History is obtained from patient's .
states that around 745 she came to the patient's room and saw her making her own bed.. asked the patient what she was doing and she said that 'she is making her bagel'. Patient usually ambulates with assistance, uses a walker/cane.
However this morning she was not using a walker or cane. No headache, weakness, loss of vision except for word salad/non sensical word formation. Patient is on Eliquis 2.5 mg. Patient checks her blood pressure daily and usually is above 140
systolic.
Upon arrival to the ED patient's blood pressure is above 220 systolic. She started on nicardipine ggt. CTA head/neck shows mild plaque at the left carotid bulb/ICA resulting less than 50% stenosis in the left proximal ICA which is similar to the
prior scan, no acute/worsening changes seen. Complete occlusion of the right external carotid artery redemonstrated. Bilateral carotid endarterectomies redemonstrated.
Medical History
Past Medical History
Past Medical History: Reports Other (atrial fibrillation on anticoagulation, GERD, hypertension, prior history of TIA, hyperlipidemia)
Past Surgical History: Reports Other (Cardiac (Stents), Cholecystectomy, Orthopedic (Right hand surgery, Tennis elbow surgery) and Other (Endarterectomy, Bowel stents))
Social History
Tobacco: Former Smoker
Alcohol: None
Drug: None
Personal:
Living: With Family
Employment: Retired
Family History
Family History: Not pertinent
Allergies / Home Medications
Allergies reflects when Allergies were last updated in [facility].
Home Medications with original date entered in [facility]
Allergy/Medication List:
Allergies
Allergy/AdvReac Type Severity Reaction Status Date / Time
No Known Allergies Allergy Verified 09/14/24 08:11
Home Medications
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
rosuvastatin 20 mg tablet 20 mg PO HS High Cholesterol 05/12/24
acetaminophen 500 mg tablet (Tylenol Extra Strength) 1,000 mg PO BID Pain 06/21/24
brinzolamide 1 %-brimonidine 0.2 % eye drops,suspension (Simbrinza) 1 drp BOTH EYES BID Eye Condition 06/21/24
levothyroxine 88 mcg tablet (Synthroid) 88 mcg PO DAILY Thyroid 06/21/24
alprazolam 0.25 mg tablet 0.125 mg PO HS Mental Health/Anxiety 08/15/24
evolocumab 140 mg/mL subcutaneous pen injector (Repatha SureClick) 140 mg SC Q2W High Cholesterol 08/15/24
omega-3 fatty acids-fish oil 684 mg-1,200 mg capsule,delayed release 1 cap PO DAILY Supplement ##0 08/15/24
risankizumab-rzaa 150 mg/mL subcutaneous pen injector (Skyrizi) 150 mg SC DIRECTED Psoriasis 08/15/24
timolol maleate 0.25 % eye drops 1 drp BOTH EYES HS Eye Condition 08/15/24
aspirin 81 mg tablet,delayed release 81 mg PO DAILY #30 tabs 08/18/24
Patient Own Insulin Pump 1 sliding scale dose SC .VIA NOVOLOG Diabetes 08/25/24
apixaban 2.5 mg tablet (Eliquis) 2.5 mg PO BID 01/16/25
cholecalciferol (vitamin D3) 50 mcg (2,000 unit) capsule (Vitamin D3) 50 mcg PO DAILY 01/16/25
losartan 100 mg tablet 100 mg PO DAILY 01/16/25
nebivolol 10 mg tablet (Bystolic) 10 mg PO DAILY 01/16/25
omeprazole 40 mg capsule,delayed release 40 mg PO DAILY Gastrointestinal Issue 01/16/25
Review of Systems
-
History Source: Family
A 12 point ROS was completed and negative except as noted: Yes
Physical Exam
Vital Signs
Vital Signs
Temp Pulse Resp BP Pulse Ox
98.0 F 80 20 240/91 98
01/16/25 08:44 01/16/25 08:44 01/16/25 08:44 01/16/25 08:44 01/16/25 09:49
Physical Exam
General: Comfortable, Conversant and Other (expressive aphasia)
HEENT: NormoCephalic, Anicteric and Moist mucous membranes
Respiratory: Clear
Cardiac: S1/S2 and Regular Rhythm
GI: Soft, Non Tender and Non Distended
Musculoskeletal: No Edema
Skin: Warm and Dry
Neuro: AO x 3, No Motor Deficits, Nonfocal/grossly intact, Cranial Nerves Intact, No Sensory Deficits and Other (Expressive aphasia intermittent, fluent speech, non sensical words (word salad)); No Slurred Speech or Facial Droop
Hematologic/Lymphatic: No Lymphadenopathy
Psych: Anxious
Laboratory Results
-
01/16/25 08:51
01/16/25 08:51
Laboratory Results
PT 14.5 Sec (11.4-14.6) 01/16/25 08:51
INR 1.15 01/16/25 08:51
APTT 33.1 Sec (23.4-35.0) 01/16/25 08:51
Data Reviewed
-
CT Scan: Report Reviewed by me and Discussed with Physician
Lab Data: Labs Reviewed by me and Discussed with Physician
Impression/Plan
-
IMPRESSION:
Expressive aphasia and dysarthria
Hypertensive emergency
History of paroxysmal atrial fibrillation
CKD stage IIIa
History of psoriasis
Hyperlipidemia
Type 1 diabetes
Anxiety
PLAN:
Expressive aphasia and dysarthria
Suspect CVA/TIA
Admit to ICU
Not TNK candidate, on eliquis.
Elevated BP readings in ED- >220 SBP.
Started on Nicardipine ggt. Keep SBP between <220, DBP <120.
Continue Eliquis and ASA
Check MRI of the brain without contrast
Check lipid profile, previous LDL 9. Goal LDL< 70
Continue home Repatha
Check hemoglobin A1C.
Continue NIHSS and neurological checks per unit guide
PT/OT/ST evaluation
Outpatient follow-up with vascular surgery regarding right ICA stenosis on CTA.
Hypertensive emergency
Elevated BP readings in ED- >220 SBP.
Started on Nicardipine ggt. Keep SBP between <220, DBP <120 with nicardipine
Continue home blood pressure medication.
Monitor blood pressure
History of paroxysmal atrial fibrillation
Normal sinus rhythm
Continue Eliquis
CKD stage III AA
Creatinine 1.2 at baseline
Monitor BMP
History of psoriasis
Continue Otezla and Skyrizi for psoriasis
Hyperlipidemia
continue Repatha and Crestor
Check LDL , previous LDL 9 at goal
Type 1 diabetes
Continue home insulin pump
Sliding scale
Check A1c
Anxiety
continue home dose alprazolam
DNR
Cholesterol-lowering diet
Eliquis
[2025-01-16 11:19] LABS: HDL Cholesterol 70 mg/dl; LDL Cholesterol, Calculated 4 mg/dl; Very Low Density Lipoprotein 13 mg/dl (0-30)
--- NOTE | 2025-01-16 11:51 | W.PN.UPDATE ---
Update Note
Progress Note Update
I personally performed a history and physical exam of the patient and discussed management with the resident. I reviewed the resident's note and agree with the documented findings and plan of care HPI/CC.
74 y/o F with PMHx:
Type 1 diabetes mellitus
h/o bilateral carotid artery stenosis s/p bilateral carotid on endarterectomies
Paroxysmal atrial fibrillation
h/o transient ischemic attack with resulting dizziness
Essential hypertension
Coronary artery disease with h/o stents
Hyperlipidemia
Chronic anemia
Anxiety
Hypothyroidism
Pustular psoriasis
Chronic kidney disease stage 3a
who p/w CC expressive aphasia noted this AM, last known well yesterday evening. In the ER SBP as high as 240. Did not take AM meds.
Allergies
Allergy/AdvReac Type Severity Reaction Status Date / Time
No Known Allergies Allergy Verified 09/14/24 08:11
Home Medications
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
rosuvastatin 20 mg tablet 20 mg PO HS High Cholesterol 05/12/24
acetaminophen 500 mg tablet (Tylenol Extra Strength) 1,000 mg PO BID Pain 06/21/24
brinzolamide 1 %-brimonidine 0.2 % eye drops,suspension (Simbrinza) 1 drp BOTH EYES BID Eye Condition 06/21/24
levothyroxine 88 mcg tablet (Synthroid) 88 mcg PO DAILY Thyroid 06/21/24
alprazolam 0.25 mg tablet 0.125 mg PO HS Mental Health/Anxiety 08/15/24
evolocumab 140 mg/mL subcutaneous pen injector (Repatha SureClick) 140 mg SC Q2W High Cholesterol 08/15/24
omega-3 fatty acids-fish oil 684 mg-1,200 mg capsule,delayed release 1 cap PO DAILY Supplement ##0 08/15/24
risankizumab-rzaa 150 mg/mL subcutaneous pen injector (Skyrizi) 150 mg SC DIRECTED Psoriasis 08/15/24
timolol maleate 0.25 % eye drops 1 drp BOTH EYES HS Eye Condition 08/15/24
aspirin 81 mg tablet,delayed release 81 mg PO DAILY #30 tabs 08/18/24
Patient Own Insulin Pump 1 sliding scale dose SC .VIA NOVOLOG Diabetes 08/25/24
apixaban 2.5 mg tablet (Eliquis) 2.5 mg PO BID 01/16/25
cholecalciferol (vitamin D3) 50 mcg (2,000 unit) capsule (Vitamin D3) 50 mcg PO DAILY 01/16/25
losartan 100 mg tablet 100 mg PO DAILY 01/16/25
nebivolol 10 mg tablet (Bystolic) 10 mg PO DAILY 01/16/25
omeprazole 40 mg capsule,delayed release 40 mg PO DAILY Gastrointestinal Issue 01/16/25
165/52, 74, 20, 98.0 F
Gen: NAD, Awake and alert, NCAT
Eyes: EOMI, PERRLA, no scleral icterus.
Neck: supple.
CV: cammy, reg rhythm, +S1/S2, no m/r/g.
Resp: CTAB, no rales, wheezes, or rhonchi.
Abd: +BS, soft, NT, ND
Skin: No rashes.
Neuro: CN 2-12 intact, non-focal, expressive aphasia.
Psych: mildly anxious
Lab Results
01/16/25 01/16/25
08:47 08:51
WBC 8.0
RBC 3.70 L
Hgb 12.1
Hct 36.6 L
MCV 98.9
MCH 32.7 H
MCHC 33.1
RDW 14.0
Plt Count 261
MPV 9.8
Abs Immat Gran (auto) 0.0
Absolute Neuts (auto) 5.4
Absolute Lymphs (auto) 1.8
Absolute Monos (auto) 0.5
Absolute Eos (auto) 0.2
Absolute Basos (auto) 0.1
Immature Gran % 0.4
Neutrophils % 67.3
Lymphocytes % 22.0
Monocytes % 6.6
Eosinophils % 2.8
Basophils % 0.9
Nucleated RBC % 0
PT 14.5
INR 1.15
APTT 33.1
Sodium 138
Potassium 5.5 H
Chloride 108 H
Carbon Dioxide 24
BUN 30 H
Creatinine 1.2 H
Estimated Creat Clear 35
eGFR 47.80
Glucose 224 H
Hemoglobin A1c Cancelled
Calcium 8.7
Triglycerides 68
Total Cholesterol 87
LDL Cholesterol, Calc 4
VLDL Cholesterol, Calc 13
HDL Cholesterol 70
POC Glucose 260 H
Acute hypertensive emergency:
-presented with acute expressive aphasia
-cont nicardipine gtt with goal SBP ~ 185
-cont home losartan/Bystolic
-DDx includes hypertensive encephalopathy, TIA, CVA
-neuro following
-cont Eliquis
-check MRI brain
-monitor on tele
-initial dispo ICU
DNR/Eliquis
Total critical care time spent = 33 min
--- NOTE | 2025-01-16 11:58 | CM ---
Chart reviewed and consult completed
Spoke with Dr. Munguia at ED bedside; plan for Brain MRI
Spoke with pt, and son Karsten at ED bedside
Lives with in a split level home no TEMITOPE
uses walker and cane
DME walker and cane
PCP Dr. Wei Hall
[facility] in [place]
no hx of VN nor SNF
Current with cardiac rehab at per
DCP is to go home with services?
CM will continue to follow up for any dcp needs
--- NOTE | 2025-01-16 12:00 | PTCARENOTE ---
Patient c/o SOB. RA sat 80-84%. O2 4L NC place. Patient now 92-94%. Patient describes feeling better and only a little bit SOB. Family at bedside. Patient with own Insulin pump and senor. Patient's spouse replaced both after patient returned from
MRI. Clonidine patch removed for MRI. Physician made aware and requested order to replace Clonidine.
--- NOTE | 2025-01-16 13:18 | PTCARENOTE ---
Patient monitored while in Mri 12:35 b/p 150/100, heart rate 75, 12:40 158/100, HR 76. 12:45 182/79 HR 77, 12:50 182/86 heart rate 79.
[2025-01-16] MEDS: VITAMIN B-12 1000 MCG PO (15:03)
[2025-01-16] MEDS: LOPRESSOR 50 MG PO (15:05)
--- NOTE | 2025-01-16 15:24 | PN.DE.MGMTRT ---
Insulin Management
- -
01/16/2025: Diabetes Consult Insulin Pump/Management
74 year old female admitted r/o cva/tia expressive aphasia. PMH: T1DM since age 23, s/p Watchman procedure 07/03/24, A-Fib on Eliquis, TIA 08/31, CAD s/p stents, HTN, HCL, Carotid stenosis S/P right and Left CEA, Anemia, Neuropathy, CKD. Patient known
to Diabetes team from previous admission. Prior to admission was using the Medtronic insulin pump with Guardian sensor and 7 day infusion set. Patient routinely sees Fina Cueto of [facility] for diabetes
care. Patient states she continues to set a temporary basal at 8pm every night till 8am and reduces basal to .3 units per hour due to fear of hypoglycemia.
A1C was 7.3% previous admission 08/16/24, Cr 1.2, eGFR 47.80. Updated A1C ordered
Patient is awake alert and oriented, able to discuss diabetes care. Patient frequently searching for words. at bedside he states her speech and mentation are improving. S/P MRI new infusion set and sensor started by . Patient is
able to demonstrate steps to take a bolus and delivered 3.4 units of insulin safely. Will allow patient to use pump overnight; after dinner will be in Smart Guard mode so will not need to administer insulin. Will assess in AM for ability to
continue to use pump.
Will make no change to pump settings.
Pump settings as follows:
Basal rate
12AM .6
6AM .8
24 hour basal total 18 units
I:CHO ratio 1:12
Sensitivity 1:50
Active insulin 2 hours.
Discussed with nurse.
Will follow.
Diabetes History
- -
Type of Diabetes: 1
Pre-Admission Diabetes Regimen
01/16/25
08:51
Creatinine 1.2 H
Lab Results
Hemoglobin A1c Cancelled 01/16/25 08:51
Insulin Pump Settings
IP Diabetes Regimen
01/16/25 01/16/25
08:47 08:51
Glucose 224 H
POC Glucose 260 H
Patient Education
--- NOTE | 2025-01-16 16:05 | PTOTSP ---
MAINTENANCE CRAFTSMAN Evaluations
No signs of oral/pharyngeal dysphagia observed.
Quick Aphasia Battery Form 1 score = 6.98 (moderate) with deficits in sentence comprehension, word finding, grammatical construction, repetition, and reading.
Patient presents with signs of moderate mixed (receptive/expressive) fluent aphasia. Patient noted to have fluctuating episodes of neologisms and phonemic paraphasias affecting verbal and written communication with variable awareness. Reading
comprehension impaired at the sentence level. Written expression impaired.
Recommend:
1. Regular, Thin liquids
2. Medications as best tolerated
3. MAINTENANCE CRAFTSMAN f/u at the acute care level for aphasia.
4. Outpatient MAINTENANCE CRAFTSMAN evaluation/tx if aphasia persists.
--- NOTE | 2025-01-16 16:11 | EDRN ---
This promotion writer is completing the ED disposition documentation only and did not provide direct patient care during this visit.
[2025-01-16 16:29] LABS: Glucose - Point of Care 366 mg/dl (70-99)
[2025-01-16] MEDS: TRANDATE 10 MG IV (16:31)
[2025-01-16] MEDS: PT'S OWN INSULIN PUMP - NovoLOG 3 UNIT SC (16:41)
--- NOTE | 2025-01-16 16:45 | PTCARENOTE ---
Pt received from ED. AAOx3. Continues with expressive aphasia. Slight L sided facial droop noted. NIHSS 2 (see worklist). Tremors noted. NSR on tele, HR 70s. BP 230/68 on arrival. Recheck 204/76. PRN labetalol given (see MAR). Pt with own insulin
pump on L side of abdomen. Insulin pump worksheet at bedside. Incontinent of urine, female purewick in place. Pt resting in bed, call pimentel in reach. Assessment documented.
[2025-01-16] MEDS: CATAPRES-TTS-2 0.2 MG TRANSDERM (17:16)
[2025-01-16] MEDS: ELIQUIS 2.5 MG PO (19:59)
[2025-01-16] MEDS: ALPHAGAN 0.2% EYE DROPS 1 DROP BOTH EYES (19:59)
[2025-01-16] MEDS: TYLENOL 1000 MG PO (19:59)
[2025-01-16] MEDS: TRUSOPT 2% OPHTHALMIC SOLUTION 1 DROP BOTH EYES (19:59)
--- NOTE | 2025-01-16 20:30 | PTCARENOTE ---
Assumed care of Pt at shift change; Pt resting comfortably in bed with at bedside. NIH performed = 2; Expressive aphagia very apparent; Reviewed insulin pump with Pt and and nurses role in such. AAO x 3; Forgetful at times; BP
remains elevated, will monitor closely. NSR on monitor. Remains on 4L O2 with SpO2 ~ 95%; Min assist OOB to bathroom; Pt having stress incontinent when ambulating - provided with mesh underwear and pad. Will continue to monitor and assess.
[2025-01-16 21:47] LABS: Glucose - Point of Care 253 mg/dl (70-99)
[2025-01-16] MEDS: XANAX 0.125 MG PO (22:12)
[2025-01-16] MEDS: CRESTOR 20 MG PO (22:12)
[2025-01-16] MEDS: TIMOPTIC 0.25% OPHTHALMIC SOLUTION 1 DROP BOTH EYES (22:13)
[2025-01-16] MEDS: PT'S OWN INSULIN PUMP - NovoLOG SC (22:16)
[2025-01-17] VITALS (17 sets, daily range): BP systolic 103–215; BP diastolic 14–92; PULSE 55–60; O2SAT 98
[2025-01-17] MEDS: TRANDATE 10 MG IV (01:45)
[2025-01-17] MEDS: SYNTHROID 88 MCG PO (04:52)
[2025-01-17 05:13] LABS: HDL Cholesterol 53 mg/dl; LDL Cholesterol, Calculated 7 mg/dl; Very Low Density Lipoprotein 13 mg/dl (0-30)
--- NOTE | 2025-01-17 07:50 | PTCARENOTE ---
PT AAO x3 this AM. Rounded with nightshift RN. Pt's expressive aphasia resolved. no word finding issues noted. NIHSS 0
[2025-01-17 08:13] LABS: Glucose - Point of Care 193 mg/dl (70-99)
[2025-01-17 08:26] LABS: Glucose - Point of Care 321 mg/dl (70-99)
[2025-01-17] MEDS: PT'S OWN INSULIN PUMP - NovoLOG 4 UNIT SC (08:49)
[2025-01-17] MEDS: LOPRESSOR 50 MG PO (08:52)
[2025-01-17] MEDS: COZAAR 100 MG PO (08:52)
[2025-01-17] MEDS: TYLENOL 1000 MG PO (08:52)
[2025-01-17] MEDS: VITAMIN D3 (cholecalciferol) 50 MCG PO (08:52)
[2025-01-17] MEDS: PROTONIX 40 MG PO (08:52)
[2025-01-17] MEDS: ELIQUIS 2.5 MG PO (08:52)
[2025-01-17] MEDS: ASPIR LOW (ENTERIC COATED) 81 MG PO (08:52)
[2025-01-17] MEDS: VITAMIN B-12 1000 MCG PO (08:53)
[2025-01-17] MEDS: TRUSOPT 2% OPHTHALMIC SOLUTION 1 DROP BOTH EYES (08:54)
[2025-01-17] MEDS: ALPHAGAN 0.2% EYE DROPS 1 DROP BOTH EYES (08:54)
[2025-01-17 09:44] LABS: Glycohemoglobin (HgbA1c) 7.4 % (4.0-5.9)
--- NOTE | 2025-01-17 11:47 | W.PN.HOSP.TC ---
Today's Communication/Plan
-
d/c
Assessment / Plan
Assessment / Plan
Gen: NAD, Awake and alert, NCAT
Eyes: EOMI, PERRLA, no scleral icterus.
Neck: supple.
CV: RRR, +S1/S2, no m/r/g.
Resp: CTAB, no rales, wheezes, or rhonchi.
Abd: +BS, soft, NT, ND
Skin: No rashes.
Neuro: CN 2-12 intact, non-focal, expressive aphasia.
Psych: normal mood and affect
MRI brain: No acute intracranial abnormality. Chronic senescent changes and multiple chronic infarcts, similar compared to the brain MRI from 08/16/2024.
CTA head/neck: No significant new or worsening vascular occlusion, aneurysm or dissection. Complete occlusion of the right external carotid artery redemonstrated. Bilateral carotid endarterectomies redemonstrated. Moderate plaque/narrowing in the
right carotid bulb/ICA resulting in approximately 60% stenosis of the proximal right internal carotid artery, similar to prior. Mild plaque at the left carotid bulb/ICA resulting in less than 50% stenosis in the proximal left internal carotid
artery, similar to prior. Dominant left vertebral artery. Scattered plaque throughout the bilateral vertebral arteries redemonstrated with 50-70% diameter stenosis of the origin and mid cervical segment of the right vertebral artery and less than
50% stenosis in the left vertebral artery, similar to prior. Probable acute interstitial and alveolar cardiogenic pulmonary edema changes noted in the upper lung zones bilaterally.
Acute hypertensive emergency:
-presented with acute expressive aphasia which has resolved and was likely due to hypertensive encephalopathy
-was on nicardipine gtt in the ER which was stopped before the pt was transferred to the floor
-cont home losartan/Bystolic/clonidine
-imaging above
-neuro saw in c/s and, as per discussion with Dr. Menendez over [facility], have cleared the pt for discharge
-cont Eliquis
Other problems:
PAF: cont BB/Eliquis
CKD3a
Psoriasis: cont Otezla/Skyrizi
HLD: Cont Repatha/Crestor
DM1: cont insulin pump
Anxiety: cont Xanax
Pt's updated at bedside.
DNR/Eliquis
Total time spent on d/c = 36 min. This included today's physical exam, progress note, review of laboratory and diagnostic data, preparation of discharge documents and prescriptions, and discussions about the pt's hospital course and discharge plan
with the patient and other chief medical director involved in the patient's care.
Anticipated Discharge: Today
Subjective/Interval History
-
Date of Service: January 17, 2025
Objective Data
-
Vital Signs:
Vital Signs
Temp Pulse Resp BP Pulse Ox
97.9 F 61 18 115/65 96
01/17/25 03:12 01/17/25 10:00 01/17/25 10:00 01/17/25 10:00 01/17/25 09:59
I&O
01/16/25 01/17/25 01/18/25
06:59 06:59 06:59
Intake Total 120 / 120
Balance 120 / 120
[2025-01-17 12:03] LABS: Glucose - Point of Care 221 mg/dl (70-99)
[2025-01-17] MEDS: PT'S OWN INSULIN PUMP - NovoLOG 7.5 UNIT SC (13:45)
--- NOTE | 2025-01-17 13:46 | W.PN.NEURO.1 ---
Addendum entered and electronically signed by Jean Menendez MD 01/17/25 20:02:
I saw and examined the patient along with the nurse practitioner Lyndsay Abad and agree with her assessment and management plan. I personally performed the medical decision making and my assessment and management plan is as given below.
This is a 74-year-old right-handed female who presented to the hospital with report of speech difficulty. The last known normal was at around 10 PM on 01/15/2025. The patient's speech was getting better while she was in the ER but she was still not
at her baseline. Today, the patient says that she is doing well and she does not have any speech difficulty. Her blood pressure in the ER was 240/91, however today her blood pressure is under better control. The patient was not a candidate for TNK
as she was on apixaban for paroxysmal atrial fibrillation. She had a Watchman device implanted in 06/2024.
Brain MRI was done today and it did not show any acute intracranial abnormality.
CTA of the head showed approximately 60% stenosis of the proximal right ICA and there was less than 50% stenosis of the proximal left ICA.
The plan is to continue with home apixaban.
The plan is to send the patient home today on Eliquis 2.5 mg BID and aspirin 81 mg daily. She is also going to be on rosuvastatin 20 mg daily.
The patient will continue to follow-up with vascular surgery as an outpatient regarding right ICA stenosis.
Follow-up in neurology clinic in [address] Aric Munguia.
Original Note:
Today's Communication / Plan
-
.
Neuro Assessment/Plan
Assessment
This is a 74-year-old right-handed female who has presented to the hospital on 01/16/25 with report of aphasia/dysarthria. Blood pressure on arrival was 140/91. Patient has been evaluated by our inpatient Neurology service for similar symptoms in
June and August 2024 in the setting of hypertensive emergency.
-CT head 01/16/25: No acute intracranial abnormality noted. ASPECTS Score: 10.
-CTA head/neck 01/16/25: No significant new or worsening vascular occlusion, aneurysm or dissection. Complete occlusion of the right external carotid artery redemonstrated. Bilateral carotid endarterectomies redemonstrated.
Moderate plaque/narrowing in the right carotid bulb/ICA resulting in approximately 60% stenosis of the proximal right internal carotid artery, similar to prior. Mild plaque at the left carotid bulb/ICA resulting in less than 50% stenosis in the
proximal left internal carotid artery, similar to prior. Dominant left vertebral artery. Scattered plaque throughout the bilateral vertebral arteries redemonstrated with 50-70% diameter stenosis of the origin and mid cervical segment of the right
vertebral artery and less than 50% stenosis in the left vertebral artery, similar to prior. Probable acute interstitial and alveolar cardiogenic pulmonary edema changes noted in the upper lung zones bilaterally.
-MRI Brain 01/17/25: No acute intracranial abnormality. Chronic senescent changes and multiple chronic infarcts, similar compared to the brain MRI from 08/16/2024.
I. Recurrent expressive aphasia and dysarthria; differential diagnosis includes hypertensive encephalopathy given hypertensive emergency vs transient ischemic attack. MRI brain is negative for stroke again.
II. R ICA 60% stenosis, likely unrelated to recurrent symptoms given the patient is right-handed.
III. Afib; Watchman implant and apixaban usage.
IV. Vitamin B12 deficiency.
Plan
-Continue home apixaban, dosing per Cardiology.
-Goal normotension.
-LDL goal <70. LDL is 9. Continue home Repatha per Cardiology as LDL is under goal.
-Goal normoglycemia, hbA1c is 7.2.
-Vitamin B12 level was low at 243 in 10/2024, goal is >400. Initiate cyanocobalamin 1000mcg PO daily.
-NIHSS and neurological checks per unit guidelines.
-Provide patient with a stroke education packet.
-ST evaluation.
-Continue to follow with Vascular Surgery as an outpatient regarding R ICA stenosis.
-Follow-up with Neurology as an outpatient.
Subjective/Objective
Subjective Data
Date of Service: January 17, 2025
No acute events overnight. Patient reports still having speech difficulty last night, but she feels back to her baseline today.
Objective Data
Vital Signs
Temp Pulse Resp BP Pulse Ox
97.7 F 61 18 115/65 96
01/17/25 12:35 01/17/25 10:00 01/17/25 10:00 01/17/25 10:00 01/17/25 09:59
Lab Results
01/16/25 08:51
01/16/25 08:51
PT 14.5 Sec (11.4-14.6) 01/16/25 08:51
INR 1.15 01/16/25 08:51
APTT 33.1 Sec (23.4-35.0) 01/16/25 08:51
Sodium 138 mmol/L (135-145) 01/16/25 08:51
Potassium 5.5 mmol/L (3.5-5.1) H 01/16/25 08:51
BUN 30 mg/dl (7-17) H 01/16/25 08:51
Glucose 224 mg/dl (70-99) H 01/16/25 08:51
Calcium 8.7 mg/dl (8.4-10.2) 01/16/25 08:51
LDL Cholesterol, Calc 7 mg/dl 01/17/25 04:23
Patient Allergies
No Known Allergies Allergy (Verified 09/14/24 08:11)
LDL Level: <70, continue statin
Review of Systems
-
History Source: Patient
EENT: Negative Blurry Vision, Decreased Vision or Swallowing Difficulty
Respiratory: Negative Trouble Breathing
Cardiac: Negative Chest Pain or Palpitations
Neuro: Negative Dizzy, Headache, Weakness, Numbness, Ataxia, Tremors or Speech Problem
Physical Exam
-
General: No Apparent Distress
Eyes: No Ptosis and PERRLA
HEENT: Normocephalic and Atraumatic
Neck: Full Range of Motion
Extremities: No Clubbing, No Cyanosis and No Edema
Extended Neurological Exam
Mood & Affect: Mood Unremarkable and Affect Unremarkable
Attention Span & Concentration: Awake, Alert, Interactive and No Difficulty with 2 Step Request
Memory: Unremarkable and Able to Recall
Tremor: Hand Tremor Absent and Head Tremor Absent
Involuntary Movement: None
Speech: Quality Unremarkable, Quantity Unremarkable and Rate of Production Unremarkable
Cranial Nerve II: Left Eye: Visual Loco Grossly Intact
Cranial Nerve II: Right Eye: Visual Loco Grossly Intact
Cranial Nerves III, IV, : Extraocular Movement: Extraocular Movement Full in all Directions
Cranial Nerve VII: Facial Symmetry: Normal Facial Symmetry
Cranial Nerve VIII: Hearing: Unremarkable Hearing to Normal Conversational Volume
Muscle Strength, Overall: Full Throughout
Pronator Drift: No Drift in Upper Extremities and No Drift in Lower Extremities
Coordination: [id number] Testing Unremarkable
Data Reviewed
-
CT-A: Report Reviewed and Image Reviewed
CT Head: Report Reviewed and Image Reviewed
MRI Head: Report Reviewed and Image Reviewed
Labs: Report Reviewed
Lipid Profile: Report Reviewed
HgbA1C: Report Reviewed
Reviewed with: Physician, Patient and Family
Medications
-
Active Medications
Generic Name Dose Route Start Last Admin
Trade Name Freq PRN Reason Stop Dose Admin
Acetaminophen 1,000 mg 01/16/25 20:00 01/17/25 08:52
Acetaminophen 500 Mg Tablet PO 02/13/25 19:59 1,000 mg
BID ALY Administration
Acetaminophen 650 mg 01/16/25 11:13
Acetaminophen 650 Mg Rectal Suppository RECTAL 02/13/25 11:12
Q4HPRN PRN
ROJAS, mild pain, or temp >100.4F
Acetaminophen 650 mg 01/16/25 11:13
Acetaminophen 325 Mg Tablet PO 02/13/25 11:12
Q4HPRN PRN
ORJAS, mild pain, or temp >100.4F
Alprazolam 0.125 mg 01/16/25 22:00 01/16/25 22:12
Alprazolam 0.25 Mg Tablet PO 02/13/25 21:59 0.125 mg
HS ALY Administration
Apixaban 2.5 mg 01/16/25 20:00 01/17/25 08:52
Apixaban (Eliquis) 2.5 Mg Tablet PO 02/13/25 19:59 2.5 mg
BID ALY Administration
Aspirin 81 mg 01/17/25 08:00 01/17/25 08:52
Aspirin 81 Mg (Enteric Coated) Tablet PO 02/14/25 07:59 81 mg
DAILY ALY Administration
Brimonidine Tartrate 0 drop 01/16/25 20:00 01/17/25 08:54
Brimonidine 0.2% (Ophthalmic Solution) Bottle BOTH EYES 02/13/25 19:59 1 drop
BID ALY Administration
Cholecalciferol 50 mcg 01/17/25 08:00 01/17/25 08:52
Cholecalciferol (Vitamin D3) 50 Mcg Tablet (2,000 Units) PO 02/14/25 07:59 50 mcg
DAILY ALY Administration
Clonidine HCl 0.2 mg 01/16/25 16:00 01/16/25 17:16
Clonidine 0.2 Mg Patch TRANSDERM 02/13/25 15:59 0.2 mg
Q7D ALY Administration
Cyanocobalamin (Vitamin B12) 1,000 mcg 01/16/25 11:30 01/17/25 08:53
Cyanocobalamin (Vitamin B-12) 500 Mcg Tablet PO 02/13/25 11:29 1,000 mcg
DAILY ALY Administration
Dextrose 12.5 grams 01/16/25 11:15
Dextrose 50% (0.5 Grams/Ml) 50 Ml Syringe IV 02/13/25 11:14
[id number] PRN
hypoglycemia
Protocol
Dorzolamide HCl 0 drop 01/16/25 20:00 01/17/25 08:54
Dorzolamide 2% (Ophthalmic Solution) 10 Ml Bottle BOTH EYES 02/13/25 19:59 1 drop
BID ALY Administration
Glucagon 1 mg 01/16/25 11:15
Glucagon 1 Mg Vial IM 02/13/25 11:14
PRN PRN
hypoglycemia
Protocol
Labetalol HCl 10 mg 01/16/25 16:26 01/17/25 01:45
Labetalol Hcl 5 Mg/1 Ml (20 Mg/4 Ml) Injection IV 02/13/25 16: 10 mg
Q6HPRN PRN Administration
SBP >170 mmHg
Levothyroxine Sodium 88 mcg 01/17/25 06:00 01/17/25 04:52
Levothyroxine 88 Mcg Tablet PO 02/14/25 05:59 88 mcg
DAILY@0600 ALY Administration
Losartan Potassium 100 mg 01/17/25 08:00 01/17/25 08:52
Losartan 100 Mg Tablet PO 02/14/25 07:59 100 mg
DAILY ALY Administration
Metoprolol Tartrate 50 mg 01/16/25 16:00 01/17/25 08:52
Metoprolol 50 Mg Regular Release Tablet PO 02/13/25 15:59 50 mg
BID ALY Administration
Apremilast [Otezla] 0 mg 01/16/25 20:00
30 Mg Tablet - 1 PO 02/13/25 19:59
Tablet (30 Mg) Po BID ALY
Bid
Evolocumab [Repatha 0 mg 01/30/25 08:00
Sureclick] 140 Mg/Ml SC 02/27/25 07:59
Pen Injector - Q2W ALY
Inject 140 Mg Subcut
Every 2 Weeks
Non-Formulary Medication 150 mg 01/16/25 11:13
Risankizumab-Rzaa [Skyrizi] SC 02/13/25 11:12
DIRECTED ALY
Pantoprazole Sodium 40 mg 01/17/25 08:00 01/17/25 08:52
Pantoprazole 40 Mg Delayed Release Tablet PO 02/14/25 07:59 40 mg
DAILY ALY Administration
Patient's Own 0 unit 01/16/25 16:30 01/17/25 13:45
Novolog (Aspart) SC 02/13/25 16:29 7.5 unit
Pump - Achs ACHS ALY Administration
Patient's Own 0 unit 01/16/25 15:00
Novolog (Aspart) SC 02/13/25 14:59
Pump - Prn PRN PRN
BLOOD GLUCOSE
Rosuvastatin Calcium 20 mg 01/16/25 22:00 01/16/25 22:12
Rosuvastatin (Crestor) 20 Mg Tablet PO 02/13/25 21:59 20 mg
HS ALY Administration
Sodium Chloride 0 flush 01/16/25 14:00
Sodium Chloride 0.9% (Flush) Syringe IV 02/13/25 13:59
PER PROTOCOL ALY
Timolol Maleate 0 drop 01/16/25 22:00 01/16/25 22:13
Timolol 0.25% (Ophthalmic Solution) Bottle BOTH EYES 02/13/25 21:59 1 drop
HS ALY Administration
Home Medications
�Medication �Instructions �Recorded
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
rosuvastatin 20 mg tablet 20 mg PO HS High Cholesterol 05/12/24
acetaminophen 500 mg tablet 1,000 mg PO BID Pain 06/21/24
(Tylenol Extra Strength)
brinzolamide 1 %-brimonidine 0.2 % 1 drp BOTH EYES BID Eye Condition 06/21/24
eye drops,suspension (Simbrinza)
levothyroxine 88 mcg tablet 88 mcg PO DAILY Thyroid 06/21/24
(Synthroid)
alprazolam 0.25 mg tablet 0.125 mg PO HS Mental 08/15/24
Health/Anxiety
evolocumab 140 mg/mL subcutaneous 140 mg SC Q2W High Cholesterol 08/15/24
pen injector (Marianela Villareal)
omega-3 fatty acids-fish oil 684 1 cap PO DAILY Supplement ##0 08/15/24
mg-1,200 mg capsule,delayed release
risankizumab-rzaa 150 mg/mL 150 mg SC DIRECTED Psoriasis 08/15/24
subcutaneous pen injector (Joshuayrizi)
timolol maleate 0.25 % eye drops 1 drp BOTH EYES HS Eye Condition 08/15/24
aspirin 81 mg tablet,delayed 81 mg PO DAILY #30 tabs 08/18/24
release
Patient Own Insulin Pump 1 sliding scale dose SC .VIA 08/25/24
NOVOLOG Diabetes
apixaban 2.5 mg tablet (Eliquis) 2.5 mg PO BID Blood Clot 01/16/25
Prevention/Tx
cholecalciferol (vitamin D3) 50 50 mcg PO DAILY Supplement 01/16/25
mcg (2,000 unit) capsule (Vitamin
D3)
clonidine 0.2 mg/24 hr weekly 0.2 mg transdermal WEEKLY Blood 01/16/25
transdermal patch Pressure
losartan 100 mg tablet 100 mg PO DAILY Blood Pressure 01/16/25
nebivolol 10 mg tablet (Bystolic) 10 mg PO DAILY Blood Pressure 01/16/25
omeprazole 40 mg capsule,delayed 40 mg PO DAILY Gastrointestinal 01/16/25
release Issue
--- NOTE | 2025-01-17 14:04 | W.DCSUMMARY ---
Discharge Summary
Discharge Data
Date of Admission: 01/16/25
Date of Discharge: 01/17/25
-
Pending Results: No
Hospital Course
Primary diagnoses:
Acute hypertensive encephalopathy (expressive aphasia) due to acute hypertensive emergency
Secondary diagnoses:
Paroxysmal atrial fibrillation
Chronic kidney disease 3a
Psoriasis
Hyperlipidemia
Type 1 diabetes mellitus
Anxiety
Consultants:
Neurology
Imaging:
MRI brain: No acute intracranial abnormality. Chronic senescent changes and multiple chronic infarcts, similar compared to the brain MRI from 08/16/2024.
CTA head/neck: No significant new or worsening vascular occlusion, aneurysm or dissection. Complete occlusion of the right external carotid artery redemonstrated. Bilateral carotid endarterectomies redemonstrated. Moderate plaque/narrowing in the
right carotid bulb/ICA resulting in approximately 60% stenosis of the proximal right internal carotid artery, similar to prior. Mild plaque at the left carotid bulb/ICA resulting in less than 50% stenosis in the proximal left internal carotid
artery, similar to prior. Dominant left vertebral artery. Scattered plaque throughout the bilateral vertebral arteries redemonstrated with 50-70% diameter stenosis of the origin and mid cervical segment of the right vertebral artery and less than
50% stenosis in the left vertebral artery, similar to prior. Probable acute interstitial and alveolar cardiogenic pulmonary edema changes noted in the upper lung zones bilaterally.
Hospital course: 74 old female presented with chief complaint of expressive aphasia as outlined in the H&P done on admission yesterday. The patient was initially on a nicardipine gtt in the ER which was stopped before the pt was transferred to the
floor. her home losartan/Bystolic/clonidine were continued. Her expressive aphasia and hypertensive emergency resolved. Imaging above. The etiology of the patient's expressive aphasia was likely acute hypertensive encephalopathy (expressive
aphasia) due to acute hypertensive emergency. Patient was seen in consultation by neurology and cleared for discharge from their standpoint.
Discharge Plan
-
Patient Disposition: Home (Routine Discharge)
Discharge Diagnosis/Procedures: Acute hypertensive encephalopathy
Condition: Good
Diet: Diabetic, Carb Controlled
Activity: As tolerated
Driving Restrictions: As prior to admission
Referrals:
Wei Hall MD [Family Provider, Internal Medicine] - in less than 1 week
Prescriptions:
Continued
Otezla 30 mg Tablet
30 mg PO BID
rosuvastatin 20 mg Tablet
20 mg PO HS
acetaminophen [Tylenol Extra Strength] 500 mg Tablet
1,000 mg PO BID
levothyroxine [Synthroid] 88 mcg Tablet
88 mcg PO DAILY
Simbrinza 1-0.2 % Drops,Suspension
1 drp BOTH EYES BID
alprazolam 0.25 mg Tablet
0.125 mg PO HS
omega-3 fatty acids-fish oil 684-1,200 mg Capsule,Delayed Release(Dr/Ec)
1 cap PO DAILY Qty: 0
Repatha SureClick 140 mg/mL Pen Injector
140 mg SC Q2W
Skyrizi 150 mg/mL pen injector
150 mg SC DIRECTED
Rx Instructions:
take one injection weak 4, week 16, week 28, week 40 and week 52
timolol maleate 0.25 % Drops
1 drp BOTH EYES HS
aspirin 81 mg Tablet,Delayed Release (Dr/Ec)
81 mg PO DAILY Qty: 30 0RF
Patient Own Insulin Pump
1 sliding scale dose SC .VIA NOVOLOG
losartan 100 mg Tablet
100 mg PO DAILY
nebivolol [Bystolic] 10 mg Tablet
10 mg PO DAILY
cholecalciferol (vitamin D3) [Vitamin D3] 50 mcg (2,000 unit) Capsule
50 mcg PO DAILY
omeprazole 40 mg capsule,delayed release(DR/EC)
40 mg PO DAILY
Eliquis 2.5 mg Tablet
2.5 mg PO BID
Patient Comments:
ecw notes mention to start lower dose on 12/08/24 with a asa 81mg and to stop coreg
clonidine 0.2 mg/24 hr Patch Weekly
0.2 mg transdermal WEEKLY
Discharge Orders:
Discharge Patient (As Directed); Ordered 01/17/25
Ordered By: Aric Munguia
Discharge Date and Time
Print Language: [place]AST [place]
--- NOTE | 2025-01-17 14:24 | CM ---
F/U: Patient is ready today. Patient had a questions about ensuring her PCP knows that whatever medication she was on at home caused her hospitalization. CM spoke to RN who will explain that the causes to her symptoms are disease related and that
she should make an appointment wither PCP fiona. Patient wants Home VN so arranged with Alin Knight. PLAN: Home with Home VN- Alin Knight.
--- NOTE | 2025-01-17 14:50 | PN.DE.MGMTRT ---
Insulin Management
- -
01/17/2025: Diabetes Consult Insulin Pump/Management Follow up
74 year old female admitted r/o cva/tia expressive aphasia. PMH: T1DM since age 23, s/p Watchman procedure 07/03/24, A-Fib on Eliquis, TIA 08/31, CAD s/p stents, HTN, HCL, Carotid stenosis S/P right and Left CEA, Anemia, Neuropathy, CKD. Patient known
to Diabetes team from previous admission. Prior to admission was using the Medtronic insulin pump with Guardian sensor and 7 day infusion set. Patient routinely sees Fina Cueto of [facility] for diabetes
care. Patient states she continues to set a temporary basal at 8pm every night till 8am and reduces basal to .3 units per hour due to fear of hypoglycemia.
A1C was 7.3% previous admission 08/16/24, Cr 1.2, eGFR 47.80. Updated A1C 7.4%.
Patient is awake alert and oriented, able to discuss diabetes care. Patient states 'I am back to normal' No evidence of expressive aphasia during our discussion today. at bedside.
Patient glucose has been a little elevated which she and her believe is related to the stress of everything. Patient is able to demonstrate steps to take a bolusy. Will continue insulin pump.
Will make no change to pump settings.
Pump settings as follows:
Basal rate
12AM .6
6AM .8
24 hour basal total 18 units
I:CHO ratio 1:12
Sensitivity 1:50
Active insulin 2 hours.
Discussed with nurse.
Will follow.
Diabetes History
- -
Type of Diabetes: 1
Pre-Admission Diabetes Regimen
Lab Results
Hemoglobin A1c 7.4 % (4.0-5.9) H 01/17/25 04:23
Insulin Pump Settings
IP Diabetes Regimen
01/16/25 01/16/25 01/16/25
15:29 16:17 21:36
POC Glucose 321 H 366 H 253 H
01/17/25 01/17/25
08:01 11:51
POC Glucose 193 H 221 H
Patient Education
== END 2025-01-17 15:44 | disposition home health service (06) | DRG 305 ==
LOC: IMU 11:12
PROVIDERS: Student in an Organized Health Care Education/Training Program; ADMITTING PHYSICIAN Internal Medicine; CONSULT PHYSICIAN Psychiatry & Neurology Neurology; EMERGENCY PHYSICIAN Emergency Medicine; FAMILY PHYSICIAN Internal Medicine
DX: I16.1 Hypertensive emergency (principal); I67.4 Hypertensive encephalopathy; K21.9 Gastro-esophageal reflux disease without esophagitis; I48.0 Paroxysmal atrial fibrillation; Z66 Do not resuscitate; N18.31 Chronic kidney disease, stage 3a; E10.22 Type 1 diabetes mellitus with diabetic chronic kidney disease; I12.9 Hypertensive chronic kidney disease with stage 1 through stage 4 chronic kidney disease, or unspecified chronic kidney disease; L40.9 Psoriasis, unspecified; I25.10 Atherosclerotic heart disease of native coronary artery without angina pectoris; E78.5 Hyperlipidemia, unspecified; I65.21 Occlusion and stenosis of right carotid artery; Z96.41 Presence of insulin pump (external) (internal); Z79.01 Long term (current) use of anticoagulants; Z79.4 Long term (current) use of insulin; Z87.891 Personal history of nicotine dependence; Z79.899 Other long term (current) drug therapy; Z95.5 Presence of coronary angioplasty implant and graft
CPT/HCPCS: 70450; 70496; 70498; 70551; 80048; 80061; 82962; 83036; 85025; 85610; 85730; 92523; 92610; 93005; 96374; 97163; 97167; 97535; 99291; Q9967